=== PATIENT | female | born 1995 | race Caucasian/White ===

== ENCOUNTER 2022-12-03 13:52 | Emergency (ER) | payer MEDICAID, SELFPAY ==
[2022-12-03] VITALS (12 sets, daily range): BP systolic 133; BP diastolic 83; PULSE 53–76; RESP 14–22; TEMP 37.5; O2SAT 99
--- NOTE | 2022-12-03 14:52 | ECG_ITS ---
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
--- NOTE | 2022-12-03 14:53 | CT_ITS ---
The [address] [address] Patient Name: RHEA MICHEL MRN: [id number] date: 1995 Sex: F Assigned Patient Location: ER Current Patient Location: Accession/Order Number: [id number] Exam Date: 12/03/2022 15:20 Report Date: 12/03/2022 15:51 At the request of: CAITLIN MILLER Procedure: CT head/brain wo con EXAMINATION: CT head/brain wo con HISTORY: Headache, dizziness , fell downstairs COMPARISON: No relevant comparison available. TECHNIQUE: Axial CT images were obtained without IV contrast. Dose reduction techniques were achieved by using automated exposure control and/or adjustment of mA and/or kV according to patient size and/or use of iterative reconstruction technique. FINDINGS: BRAIN: No edema, hemorrhage, mass, acute infarction, or inappropriate atrophy. CSF SPACES: No hydrocephalus, subarachnoid hemorrhage, or mass. Appropriate for age. SKULL: No fracture, mass, or other significant visible lesion. SINUSES: Mild mucosal thickening within the sphenoid sinuses suggestive of chronic sinusitis. ORBITS: No appreciable abnormality on the limited views. OTHER: Negative CT/CT head/brain wo con IMPRESSION: 1. Normal CT appearance of the brain. 2. No fracture of the calvarium or scalp hematoma. 3. Mild chronic sinusitis. Electronically authenticated by: GRETEL HOOK Date: 12/03/2022 15:51
--- NOTE | 2022-12-03 14:55 | ED_ITS ---
HPI - Dizziness General Chief Complaint: Dizziness Stated Complaint: MIGRANE, DIZZINESS Time Seen by Provider: 12/03/22 14:42 Source: patient Mode of arrival: walk-in History of Present Illness HPI Narrative: patient is a 27-year-old female who presents to the emergency department for the evaluation of headache for the last two days with dizziness/lightheadedness over the last four days. Patient states today she felt off balance while walking and fell down several stairs although she had no injury. She reports global headache with blurred vision, no peripheral paresthesias. She denies neck pain, back pain, abdominal pain. After prompting, patient reports intermittent chest pain over the last week that she describes as a sharp pain that takes my breath away although she states the pains do not last and she has no chest pain, sh ortness of breath at this time. She has had no fevers, upper respiratory symptoms or coughing. She states occasionally she gets nasal drainage. No urinary symptoms. She has a Mirena in place. She has a history of pots and has had similar lightheadedness/dizziness in the past although she states she has been monitoring her salt and sugar intake and staying hydrated. Related Data Previous Rx's Medication Instructions Recorded cetirizine 5 mg-pseudoephedrine ER 1 tab PO BID #10 tabs 12/03/22 120 mg tablet,extended release,12hr (Zyrtec-D) diphenhydramine HCl 25 mg capsule 25 mg PO Q6H PRN headache #20 caps 12/03/22 (Benadryl) metoclopramide HCl 10 mg tablet 10 mg PO Q6H PRN nausea and 12/03/22 (Reglan) vomiting #12 tabs Allergies Allergy/AdvReac Type Severity Reaction Status Date / Time cefixime [From Suprax] Allergy Severe Verified 12/03/22 14:19 Review of Systems ROS Constitutional Denies: fever or chills Eyes Reports: blurry vision Ears, nose, mouth, and throat Denies: throat pain Cardiovascular Reports: chest pain Respiratory Denies: shortness of breath or cough Gastrointestinal Reports: nausea; Denies: abdominal pain or vomiting Musculoskeletal Denies: back pain or neck pain Integumentary/Breast Denies: rash Neurological Reports: headache and dizziness Exam Narrative Exam Narrative: Gen.: Awake, alert, in no distress Head: Normocephalic, atraumatic ENT: Moist mucous membranes, no evidence of head or facial injury, C-spine nontender. Bilateral tympanic membranes mildly fluid-filled/bulging without erythema or injection Respiratory: No respiratory distress, lungs clear bilaterally Cardio: Regular rate and rhythm Gastrointestinal: Abdomen is soft, nondistended and nontender to palpation Extremities: Moves extremities equally, no injuries noted Psych: Normal mood and affect Neuro: No focal neuro deficit Skin: Warm, dry, intact Constitutional Vital Signs, click to edit/add: Last Vital Signs Temp 99.5 F 12/03/22 14:19 Pulse 74 12/03/22 14:19 Resp 14 12/03/22 14:19 BP 133/83 H 12/03/22 14:19 Pulse Ox 99 12/03/22 14:19 O2 Del Method Room Air 12/03/22 14:19 Course Vital Signs Vital signs: Vital Signs Temperature 99.5 F 12/03/22 14:19 Pulse Rate 74 12/03/22 14:19 Respiratory Rate 14 12/03/22 14:19 Blood Pressure 133/83 H 12/03/22 14:19 Pulse Oximetry 99 12/03/22 14:19 Oxygen Delivery Method Room Air 12/03/22 14:19 Temperature 99.5 F 12/03/22 14:19 Pulse Rate 74 12/03/22 14:19 Respiratory Rate 14 12/03/22 14:19 Blood Pressure 133/83 H 12/03/22 14:19 Pulse Oximetry 99 12/03/22 14:19 Oxygen Delivery Method Room Air 12/03/22 14:19 MDM - Dizziness MDM Narrative Medical decision making narrative: patient is treated with IV fluids, Toradol, Decadron, Zofran. She had some improvement of the headache. After she was able to secure a ride to pick her up from the hospital, she was given additional Reglan and Benadryl and stated she felt much better. Patient will be given Zyrtec-D, Reglan and Benadryl for home.follow-up with PCP and return to the emergency department if symptoms change or worsen Medical Records Attestation: I reviewed the patient's medical records. Lab Data Attestation: I reviewed the patient's lab results. Labs: Lab Results 12/03/22 Range/Units 15:00 WBC 7.2 (4.0-11.0) 10^3/uL RBC 4.11 L (4.20-5.40) 10^6/uL Hgb 13.0 (12.0-16.0) g/dL Hct 37.3 (36.0-48.0) % MCV 90.8 (81.0-99.0) fL MCH 31.6 (26.7-34.0) pg MCHC 34.9 (29.9-35.2) g/dL RDW 11.9 (11.0-15.0) % Plt Count 260 (150-450) 10^3/uL MPV 10.4 (9.5-13.5) fL Neut % (Auto) 57.4 (43.0-75.0) % Lymph % (Auto) 32.7 (20.5-60.0) % [place] % (Auto) 7.0 (1.7-12.0) % Eos % (Auto) 2.2 (0.9-7.0) % Baso % (Auto) 0.4 (0.2-2.0) % Neut # (Auto) 4.1 (1.4-6.5) 10^3/uL Lymph # (Auto) 2.3 (1.2-3.8) 10^3/uL [place] # (Auto) 0.5 (0.3-0.8) 10^3/uL Eos # (Auto) 0.2 (0.0-0.7) 10^3/uL Baso # (Auto) 0.0 (0.0-0.1) 10^3/uL Abs Immat Gran (auto) 0.02 (0.00-0.03) 10^3/uL Imm/Tot Granulo (auto) 0.3 (0.0-0.5) % Sodium 142 (136-145) mmol/L Potassium 3.7 (3.5-5.1) mmol/L Chloride 106 (98-107) mmol/L Carbon Dioxide 29.1 (21.0-32.0) mmol/L Anion Gap 10.6 BUN 9.0 (7.0-18.0) mg/dL Creatinine 0.67 (0.55-1.02) mg/dL Est GFR ( Amer) >60 (>=60) Est GFR (Non-Af Amer) >60 (>=60) BUN/Creatinine Ratio 13.4 Glucose 81 (74-106) mg/dL Calcium 8.8 (8.5-10.1) mg/dL Total Bilirubin 0.3 (0.2-1.0) mg/dL AST 21 (15-37) U/L ALT 20 (14-59) U/L Alkaline Phosphatase 47 (46-116) U/L Total Protein 7.1 (6.4-8.2) g/dL Albumin 3.9 (3.4-5.0) g/dL Globulin 3.2 g/dL Albumin/Globulin Ratio 1.2 TSH 0.810 (0.358-3.740) uIU/mL Urine Color Lt. yellow (YELLOW) Urine Clarity Clear (CLEAR) Urine pH 6.0 (5.0-9.0) Ur Specific [place] 1.020 (1.005-1.025) Urine Protein Negative (NEG/TRACE) mg/dL Urine Glucose (UA) Negative (NEGATIVE) mg/dL Urine Ketones Negative (NEGATIVE) mg/dL Urine Occult Blood Trace-i (NEGATIVE) Urine Nitrite Negative (NEGATIVE) Urine Bilirubin Negative (NEGATIVE) Urine Urobilinogen 0.2 (0.2-1.0) EU/dL Ur Leukocyte Esterase Negative (NEGATIVE) Urine RBC 0-2 (0-2) #/HPF Urine WBC None seen (NONE SEEN) #/HPF Ur Squamous Epith Cells Few A (NONE/RARE) #/LPF Urine Crystals None seen (None Seen) #/HPF Urine Bacteria None seen (NONE SEEN) #/HPF Urine Casts None seen (NONE SEEN) #/LPF Urine Mucus None seen (NONE SEEN) Ur Culture Indicated? No Urine HCG, Qual Negative (NEGATIVE) Imaging Data CT scan - head: Attestation: I have reviewed the pertinent imaging results. Radiologist's impression: Procedure: CT head/brain wo con EXAMINATION: CT head/brain wo con HISTORY: Headache, dizziness , fell downstairs COMPARISON: No relevant comparison available. TECHNIQUE: Axial CT images were obtained without IV contrast. Dose reduction techniques were achieved by using automated exposure control and/or adjustment of mA and/or kV according to patient size and/or use of iterative reconstruction technique. FINDINGS: BRAIN: No edema, hemorrhage, mass, acute infarction, or inappropriate atrophy. CSF SPACES: No hydrocephalus, subarachnoid hemorrhage, or mass. Appropriate for age. SKULL: No fracture, mass, or other significant visible lesion. SINUSES: Mild mucosal thickening within the sphenoid sinuses suggestive of chronic sinusitis. ORBITS: No appreciable abnormality on the limited views. OTHER: Negative IMPRESSION: 1. Normal CT appearance of the brain. 2. No fracture of the calvarium or scalp hematoma. 3. Mild chronic sinusitis. Electronically authenticated by: GRETEL HOOK Date: 12/03/2022 15:51 ECG Data Attestation: I personally reviewed and interpreted this ECG as follows: (normal sinus rhythm at a rate of sixty-one, no acute ST elevation or ectopy. EKG reviewed by attending physician) Discharge Plan Discharge Chief Complaint: Dizziness Clinical Impression: Lightheadedness, Headache Patient Disposition: Home, Self-Care Time of Disposition Decision: 16:53 Condition: Good Prescriptions / Home Meds: New cetirizine-pseudoephedrine [Zyrtec-D] 5-120 mg tablet extended release 12 hr 1 tab PO BID Qty: 10 0RF metoclopramide HCl [Reglan] 10 mg tablet 10 mg PO Q6H PRN (Reason: nausea and vomiting) Qty: 12 0RF Rx Instructions: Can be used as needed for headache, take with benadryl diphenhydramine HCl [Benadryl] 25 mg capsule 25 mg PO Q6H PRN (Reason: headache) Qty: 20 0RF Rx Instructions: take with benadryl Instructions: General Headache (ED) Stand Alone Forms: Portal Instructions Referrals: Physician,Non-Staff, MD [Primary Care Provider] - 1 week
[2022-12-03] MEDS: DEXAMETHASONE SODIUM PHOSPHATE 10 MG/ML VIAL IV (15:14)
[2022-12-03] MEDS: 0.9 % SODIUM CHLORIDE 1,000 ML 999 ML IV (15:14)
[2022-12-03] MEDS: KETOROLAC TROMETHAMINE 30 MG/ML VIAL IVP (15:14)
[2022-12-03] MEDS: ONDANSETRON PF 4 MG/2 ML VIAL IV (15:14)
[2022-12-03 15:31] LABS: Basophils Percent Auto 0.4 % (0.2-2.0); Eosinophils Absolute Auto 0.2 10^3/uL (0.0-0.7); Eosinophils Percent Auto 2.2 % (0.9-7.0); Hematocrit 37.3 % (36.0-48.0); Immature Granulocytes Abs Auto 0.02 10^3/uL (0.00-0.03); Immature Granulocytes Pct Auto 0.3 % (0.0-0.5); Lymphocytes Absolute Auto 2.3 10^3/uL (1.2-3.8); Lymphocytes Percent Auto 32.7 % (20.5-60.0); Mean Corpuscular HGB Conc 34.9 g/dL (29.9-35.2); Mean Corpuscular Hemoglobin 31.6 pg (26.7-34.0); Mean Corpuscular Volume 90.8 fL (81.0-99.0); Mean Platelet Volume 10.4 fL (9.5-13.5); Monocytes Absolute Auto 0.5 10^3/uL (0.3-0.8); Neutrophils Absolute Auto 4.1 10^3/uL (1.4-6.5); Neutrophils Percent Auto 57.4 % (43.0-75.0); Platelet Count 260 10^3/uL (150-450); Red Blood Count 4.11 10^6/uL (4.20-5.40); Red Cell Distribution Width 11.9 % (11.0-15.0); White Blood Count 7.2 10^3/uL (4.0-11.0)
[2022-12-03 15:32] LABS: Bilirubin Urine NEGATIVE (NEGATIVE); Blood Urine TRACE-I (NEGATIVE); Clarity Urine CLEAR (CLEAR); Color Urine LT. YELLOW (YELLOW); Glucose Urine UA NEGATIVE (NEGATIVE); Ketones Urine NEGATIVE (NEGATIVE); Leukocyte Esterase Urine NEGATIVE (NEGATIVE); Nitrite Urine NEGATIVE (NEGATIVE); Protein Urine NEGATIVE (NEG/TRACE); Urobilinogen Urine 0.2 EU/dL (0.2-1.0)
[2022-12-03 15:33] LABS: Urine Microscopic Indicated YES
[2022-12-03 15:40] LABS: HCG Qualitative NEGATIVE (NEGATIVE); RBC Urine 0-2 #/HPF (0-2); WBC Urine NONE SEEN #/HPF (NONE SEEN)
[2022-12-03 15:41] LABS: Bacteria Urine NONE SEEN #/HPF (NONE SEEN); Cast Seen? NONE SEEN #/LPF (NONE SEEN); Crystals Seen? None Seen #/HPF (None Seen); Mucus Urine NONE SEEN (NONE SEEN); Squamous Epithelial Cell Urine FEW #/LPF (NONE/RARE)
[2022-12-03 15:42] LABS: Urine Culture Indicated NO
[2022-12-03 15:54] LABS: Alanine Aminotransferase 20 U/L (14-59); Albumin Globulin Ratio 1.2; Albumin Level 3.9 g/dL (3.4-5.0); Alkaline Phosphatase 47 U/L (46-116); Anion Gap 10.6; Aspartate Amino Transferase 21 U/L (15-37); BUN Creatinine Ratio 13.4; Bilirubin Total 0.3 mg/dL (0.2-1.0); Calcium 8.8 mg/dL (8.5-10.1); Carbon Dioxide 29.1 mmol/L (21.0-32.0); Chloride 106 mmol/L (98-107); Estimated GFR (African America >60 (>=60); Estimated GFR (Non-African Ame >60 (>=60); Globulin 3.2 g/dL; Glucose 81 mg/dL (74-106); Potassium 3.7 mmol/L (3.5-5.1); Sodium 142 mmol/L (136-145); Total Protein 7.1 g/dL (6.4-8.2)
[2022-12-03] MEDS: METOCLOPRAMIDE HCL 10 MG/2 ML VIAL IVP (16:24)
[2022-12-03] MEDS: DIPHENHYDRAMINE HCL 50 MG/ML (1ML) VIAL 25 MG IV (16:24)
== END 2022-12-03 17:11 | disposition home or self-care (01) ==
PROVIDERS: Physician Assistant; Emergency Provider Emergency Medicine
DX: R51.9 Headache, unspecified (principal); R42 Dizziness and giddiness; G90.A Postural orthostatic tachycardia syndrome [POTS]; Z97.5 Presence of (intrauterine) contraceptive device; Z79.899 Other long term (current) drug therapy
CPT/HCPCS: 36415; 70450; 80053; 81003; 81015; 84443; 84703; 85025; 93005; 96361; 96374; 96375; 99285; J1100

== ENCOUNTER 2023-02-02 14:02 | Emergency (ER) | payer MEDICAID, SELFPAY ==
[2023-02-02 14:07] VITALS: BP 137/75; PULSE 93; RESP 20; TEMP 36.6; O2SAT 97; BMI 29.5
[2023-02-02 14:28] LABS: Bilirubin Urine NEGATIVE (NEGATIVE); Blood Urine MODERATE (NEGATIVE); Clarity Urine CLEAR (CLEAR); Color Urine LT. YELLOW (YELLOW); Glucose Urine UA NEGATIVE (NEGATIVE); Ketones Urine NEGATIVE (NEGATIVE); Leukocyte Esterase Urine NEGATIVE (NEGATIVE); Nitrite Urine NEGATIVE (NEGATIVE); Protein Urine NEGATIVE (NEG/TRACE); Specific Gravity Urine 1.025 (1.005-1.025); Urobilinogen Urine 0.2 EU/dL (0.2-1.0)
[2023-02-02 14:30] LABS: Urine Microscopic Indicated YES
[2023-02-02 14:33] LABS: HCG Qualitative Urine* NEGATIVE (NEGATIVE)
[2023-02-02 14:40] LABS: Bacteria Urine TRACE #/HPF (NONE SEEN); Mucus Urine NONE SEEN (NONE SEEN); Squamous Epithelial Cell Urine MODERATE #/LPF (NONE/RARE); WBC Urine NONE SEEN #/HPF (NONE SEEN)
[2023-02-02 14:41] LABS: Cast Seen? NONE SEEN #/LPF (NONE SEEN); Crystals Seen? None Seen #/HPF (None Seen); Urine Culture Indicated NO
--- NOTE | 2023-02-02 15:08 | US_ITS ---
The [address] [address] Patient Name: RHEA MICHEL MRN: [id number] date: 1995 Sex: F Assigned Patient Location: ER Current Patient Location: ER Accession/Order Number: [id number] Exam Date: 02/02/2023 15:43 Report Date: 02/02/2023 16:47 At the request of: KIAN MATT Procedure: US pelvis transvaginal EXAM: US pelvis transvaginal HISTORY: left lower quadrant pain COMPARISON: CT chest abdomen pelvis from the same day. TECHNIQUE: Transvaginal and transabdominal imaging was performed utilizing grayscale, color Doppler, and spectral imaging. LMP: Unknown. : 2 Para: 2 FINDINGS: Uterine volume: 8.5 x 4.3 x 5.4 cm = 103 mL. Uterus description: Homogeneous echotexture. There is a 0.6 cm echogenic structure in the posterior left uterine wall, may represent intramural leiomyoma/lipoleiomyoma. Intrauterine device is in place. Endometrial thickness: 3 mm. (Normal premenopausal thickness is less than 15 mm. Normal postmenopausal thickness is less than 5 mm) Endometrial description: No abnormality demonstrated. Right ovary: Measurements: 3.4 x 2.6 x 3 cm = 13.9 mL. Description: Unremarkable appearance of the ovary, containing a 2 x 1.9 x 2.3 cm anechoic structure, representing prominent follicle. Vasculature: Normal color waveform. Left ovary: Measurements: 2.9 x 1.4 x 1.9 cm = 4 mL. Description: Unremarkable appearance of the ovary without suspicious lesion. Vasculature: Normal color waveform. Adnexa: Unremarkable. Cul-de-sac: No free fluid. Additional findings: Dilated vessels are noted in the left greater than right adnexa, nonspecific and may represent pelvic congestion. US/US pelvis transvaginal IMPRESSION: No evidence of ovarian torsion at the time of examination. Prominent right ovarian follicle. Dilated vessels are noted in the left greater than right adnexa, nonspecific and may represent pelvic congestion. Electronically authenticated by: BENITO JOHN Date: 02/02/2023 16:47
--- NOTE | 2023-02-02 15:09 | CT_ITS ---
[address] [address] Patient Name: RHEA MICHEL MRN: [id number] date: 1995 Sex: F Assigned Patient Location: ER Current Patient Location: ER Accession/Order Number: [id number] Exam Date: 02/02/2023 16:14 Report Date: 02/02/2023 16:41 At the request of: KIAN MATT Procedure: CT abdomen pelvis wo con EXAM: CT abdomen pelvis wo con HISTORY: LLQ pain COMPARISON: 05/31/2022 TECHNIQUE: Axial CT imaging was performed through the abdomen and pelvis without intravenous contrast. Multiplanar reformats were performed. Dose reduction techniques were achieved by using automated exposure control and/or adjustment of mA and/or kV according to patient size and/or use of iterative reconstruction technique. FINDINGS: Lung bases: Lung bases are clear. No pleural effusion. GI upper: Unremarkable. Liver: Normal size and contour. Gallbladder: No significant abnormality. No cholelithiasis. Biliary system: No intra or extrahepatic biliary ductal dilatation. Spleen: Normal size. Pancreas: Unremarkable. Adrenal glands: Normal adrenal glands. Kidneys/ureters: Normal contours. No hydronephrosis. No nephrolithiasis or ureterolithiasis. Vessels: No aneurysm. Lymph Nodes: Prominent mesenteric lymph nodes in the mid and right lower abdomen, nonspecific and likely reactive. Small bowel: No wall thickening or dilatation. Colon: No wall thickening or dilatation. Appendix: Appendectomy. Peritoneal cavity: No free fluid or pneumoperitoneum. Lower : Uterus and ovaries are unremarkable. There is a 2.3 cm right ovary prominent follicle. Intrauterine devices is in place. Bones: No acute bony abnormality. Soft tissues: No acute finding. Additional findings: None. CT/CT abdomen pelvis wo con IMPRESSION: Prominent mesenteric lymph nodes in the mid and right lower abdomen, nonspecific and likely reactive. Otherwise no acute finding. Electronically authenticated by: BENITO JONH Date: 02/02/2023 16:41
[2023-02-02] MEDS: KETOROLAC TROMETHAMINE 30 MG/ML VIAL 15 MG IVP (15:31)
[2023-02-02] MEDS: FAMOTIDINE/PF 20 MG/2 ML VIAL IV (15:31)
[2023-02-02 15:41] VITALS: BP 124/89; PULSE 58; RESP 18; O2SAT 98
[2023-02-02 15:46] LABS: Basophils Percent Auto 0.3 % (0.2-2.0); Eosinophils Absolute Auto 0.1 10^3/uL (0.0-0.7); Eosinophils Percent Auto 1.1 % (0.9-7.0); Hematocrit 36.2 % (36.0-48.0); Hemoglobin 12.7 g/dL (12.0-16.0); Immature Granulocytes Abs Auto 0.02 10^3/uL (0.00-0.03); Immature Granulocytes Pct Auto 0.2 % (0.0-0.5); Lymphocytes Absolute Auto 2.5 10^3/uL (1.2-3.8); Lymphocytes Percent Auto 26.9 % (20.5-60.0); Mean Corpuscular HGB Conc 35.1 g/dL (29.9-35.2); Mean Corpuscular Hemoglobin 31.4 pg (26.7-34.0); Mean Corpuscular Volume 89.4 fL (81.0-99.0); Mean Platelet Volume 10.1 fL (9.5-13.5); Monocytes Absolute Auto 0.8 10^3/uL (0.3-0.8); Monocytes Percent Auto 8.5 % (1.7-12.0); Neutrophils Absolute Auto 5.8 10^3/uL (1.4-6.5); Platelet Count 271 10^3/uL (150-450); Red Blood Count 4.05 10^6/uL (4.20-5.40); Red Cell Distribution Width 11.8 % (11.0-15.0); White Blood Count 9.2 10^3/uL (4.0-11.0)
[2023-02-02 16:06] LABS: Alanine Aminotransferase <6 U/L (14-59); Albumin Globulin Ratio 1.3; Albumin Level 4.1 g/dL (3.4-5.0); Alkaline Phosphatase 47 U/L (46-116); Anion Gap 10.6; Aspartate Amino Transferase 15 U/L (15-37); BUN Creatinine Ratio 12.8; Bilirubin Total 0.5 mg/dL (0.2-1.0); Calcium 8.9 mg/dL (8.5-10.1); Carbon Dioxide 30.1 mmol/L (21.0-32.0); Chloride 106 mmol/L (98-107); Estimated GFR (African America >60 (>=60); Estimated GFR (Non-African Ame >60 (>=60); Globulin 3.1 g/dL; Glucose 80 mg/dL (74-106); Potassium 3.7 mmol/L (3.5-5.1); Sodium 143 mmol/L (136-145); Total Protein 7.2 g/dL (6.4-8.2)
[2023-02-02 16:53] LABS: HCG Qualitative NEGATIVE (NEGATIVE)
[2023-02-02 17:07] VITALS: BP 110/79; PULSE 80; RESP 16; O2SAT 98
--- NOTE | 2023-02-02 18:44 | ED.ABDPAIN1 ---
HPI - Abdominal Pain General Chief Complaint: Abdominal Pain Stated Complaint: LEFT SIDE PAIN Time Seen by Provider: 02/02/23 14:43 Source: patient Mode of arrival: walk-in Limitations: no limitations History of Present Illness HPI narrative: The patient is complaining of left lower quadrant pain associated with blood in urine last time she had her menstruation, she does not usually have regular menstruation The patient denying any nausea or vomiting she also denies any vaginal discharge or any concern for any infection The pain is left lower radiating to the back associated with no burning with urination Related Data Previous Rx's Medication Instructions Recorded cetirizine 5 mg-pseudoephedrine ER 1 tab PO BID #10 tabs 12/03/22 120 mg tablet,extended release,12hr (Zyrtec-D) diphenhydramine HCl 25 mg capsule 25 mg PO Q6H PRN headache #20 caps 12/03/22 (Benadryl) metoclopramide HCl 10 mg tablet 10 mg PO Q6H PRN nausea and 12/03/22 (Reglan) vomiting #12 tabs Allergies Allergy/AdvReac Type Severity Reaction Status Date / Time cefixime [From Suprax] Allergy Severe Verified 12/03/22 14:19 Review of Systems ROS Status of ROS 10 or more systems reviewed and unremarkable except as noted in history and below PFSH PFSH Social History Smoking status: Heavy tobacco smoker Exam Narrative Exam Narrative: Nurses notes and vital signs reviewed and patient is not hypoxic. General: Well-appearing and in no apparent distress. Skin: Warm, dry, no pallor noted. No rash. Head: Normocephalic, atraumatic. Neck: Supple, non-tender. Eye: Pupils are equal, round and EOMI. No scleral icterus. Ears, Nose, Mouth, and Throat: TM are clear, no nasal mucosal hypertrophy. Oral mucosa is moist, no posterior oropharynx erythema, uvula is mid-line Cardiovascular: Regular Rate and Rhythm without murmur, gallop or rub. Respiratory: No accessory muscle use or respiratory distress. Lungs are clear to auscultation, no wheezing, rales or rhonchi Chest Wall: no tenderness Back: No midline thoracic or lumbar vertebral tenderness. No CVA tenderness Musculoskeletal: normal ROM, no calf or popliteal tenderness, no lower extremity edema/swelling GI: Abdomen is soft, non-distended. Normal bowel sounds. Left lower quadrant tenderness Neurological: A&O x4. No cranial nerve dysfunction observed. No truncal ataxia. Moves all extremities. Sensation intact. Psychiatric: Cooperative and interactive. Normal mood and affect. Constitutional Vital Signs, click to edit/add: Last Vital Signs Temp 97.9 F 02/02/23 14:07 Pulse 80 02/02/23 17:07 Resp 16 02/02/23 17:07 BP 110/79 02/02/23 17:07 Pulse Ox 98 02/02/23 17:07 O2 Del Method Room Air 02/02/23 17:07 Course Vital Signs Vital signs: Vital Signs Temperature 97.9 F 02/02/23 14:07 Pulse Rate 93 H 02/02/23 14:07 Respiratory Rate 20 02/02/23 14:07 Blood Pressure 137/75 02/02/23 14:07 Pulse Oximetry 97 02/02/23 14:07 Temperature 97.9 F 02/02/23 14:07 Pulse Rate 80 02/02/23 17:07 Respiratory Rate 16 02/02/23 17:07 Blood Pressure 110/79 02/02/23 17:07 Pulse Oximetry 98 02/02/23 17:07 Oxygen Delivery Method Room Air 02/02/23 17:07 MDM - Abdominal Pain MDM Narrative Medical decision making narrative: The patient CBC and chemistry showed no acute significant pathology urinalysis showed no UTI and the patient test is negative CT of the abdomen shows the patient having multiple nonspecific lymph nodes in the right side as well as history of appendectomy and the patient left lower quadrant ultrasound showed that she have no ovarian cyst but she does have pelvic congestion The patient was feeling much better after initial treatment with Toradol discharged home with supportive care with NSAIDs The patient is to follow up with primary care physician in next 2-3 days or to return to the emergency department should any of the signs or symptoms worsen or new symptoms develop. The patient agrees with the following Diagnosis and Treatment plan and the patient will be discharged home. Lab Data Labs: Lab Results 02/02/23 02/02/23 02/02/23 Range/Units 14:16 14:23 15:37 WBC 9.2 (4.0-11.0) 10^3/uL RBC 4.05 L (4.20-5.40) 10^6/uL Hgb 12.7 (12.0-16.0) g/dL Hct 36.2 (36.0-48.0) % MCV 89.4 (81.0-99.0) fL MCH 31.4 (26.7-34.0) pg MCHC 35.1 (29.9-35.2) g/dL RDW 11.8 (11.0-15.0) % Plt Count 271 (150-450) 10^3/uL MPV 10.1 (9.5-13.5) fL Neut % (Auto) 63.0 (43.0-75.0) % Lymph % (Auto) 26.9 (20.5-60.0) % [place] % (Auto) 8.5 (1.7-12.0) % Eos % (Auto) 1.1 (0.9-7.0) % Baso % (Auto) 0.3 (0.2-2.0) % Neut # (Auto) 5.8 (1.4-6.5) 10^3/uL Lymph # (Auto) 2.5 (1.2-3.8) 10^3/uL [place] # (Auto) 0.8 (0.3-0.8) 10^3/uL Eos # (Auto) 0.1 (0.0-0.7) 10^3/uL Baso # (Auto) 0.0 (0.0-0.1) 10^3/uL Abs Immat Gran (auto) 0.02 (0.00-0.03) 10^3/uL Imm/Tot Granulo (auto) 0.2 (0.0-0.5) % Sodium 143 (136-145) mmol/L Potassium 3.7 (3.5-5.1) mmol/L Chloride 106 (98-107) mmol/L Carbon Dioxide 30.1 (21.0-32.0) mmol/L Anion Gap 10.6 BUN 11.0 (7.0-18.0) mg/dL Creatinine 0.86 (0.55-1.02) mg/dL Est GFR ( Amer) >60 (>=60) Est GFR (Non-Af Amer) >60 (>=60) BUN/Creatinine Ratio 12.8 Glucose 80 (74-106) mg/dL Calcium 8.9 (8.5-10.1) mg/dL Total Bilirubin 0.5 (0.2-1.0) mg/dL AST 15 (15-37) U/L ALT <6 L (14-59) U/L Alkaline Phosphatase 47 (46-116) U/L Total Protein 7.2 (6.4-8.2) g/dL Albumin 4.1 (3.4-5.0) g/dL Globulin 3.1 g/dL Albumin/Globulin Ratio 1.3 Serum HCG, Qual Negative (NEGATIVE) Urine Color Lt. yellow (YELLOW) Urine Clarity Clear (CLEAR) Urine pH 6.0 (5.0-9.0) Ur Specific [place] 1.025 (1.005-1.025) Urine Protein Negative (NEG/TRACE) mg/dL Urine Glucose (UA) Negative (NEGATIVE) mg/dL Urine Ketones Negative (NEGATIVE) mg/dL Urine Occult Blood Moderate A (NEGATIVE) Urine Nitrite Negative (NEGATIVE) Urine Bilirubin Negative (NEGATIVE) Urine Urobilinogen 0.2 (0.2-1.0) EU/dL Ur Leukocyte Esterase Negative (NEGATIVE) Urine RBC 2-5 A (0-2) #/HPF Urine WBC None seen (NONE SEEN) #/HPF Ur Squamous Epith Cells Moderate A (NONE/RARE) #/LPF Urine Crystals None seen (None Seen) #/HPF Urine Bacteria Trace A (NONE SEEN) #/HPF Urine Casts None seen (NONE SEEN) #/LPF Urine Mucus None seen (NONE SEEN) Ur Culture Indicated? No Urine HCG, Qual Negative (NEGATIVE) Discharge Plan Discharge Chief Complaint: Abdominal Pain Clinical Impression: Pelvic pain Patient Disposition: Home, Self-Care Time of Disposition Decision: 16:56 Condition: Good Mode of Transportation: Private Vehicle Prescriptions / Home Meds: No Action cetirizine-pseudoephedrine [Zyrtec-D] 5-120 mg tablet extended release 12 hr 1 tab PO BID Qty: 10 0RF metoclopramide HCl [Reglan] 10 mg tablet 10 mg PO Q6H PRN (Reason: nausea and vomiting) Qty: 12 0RF Rx Instructions: Can be used as needed for headache, take with benadryl diphenhydramine HCl [Benadryl] 25 mg capsule 25 mg PO Q6H PRN (Reason: headache) Qty: 20 0RF Rx Instructions: take with benadryl Instructions: Pelvic Pain (ED) Stand Alone Forms: Portal Instructions Referrals: Physician,Non-Staff, MD [Primary Care Provider] - 1 week Discharge Date/Time: 02/02/23 17:08
== END 2023-02-02 17:08 | disposition home or self-care (01) ==
PROVIDERS: Emergency Provider Emergency Medicine
DX: R10.2 Pelvic and perineal pain (principal); F17.210 Nicotine dependence, cigarettes, uncomplicated
CPT/HCPCS: 36415; 74176; 76830; 80053; 81001; 84703; 85025; 96374; 96375; 99285

== ENCOUNTER 2023-08-06 22:34 | Emergency (ER) | payer SELFPAY ==
[2023-08-06 22:46] VITALS: BP 130/100; PULSE 85; RESP 18; TEMP 36.8; O2SAT 98; BMI 30.2
[2023-08-06] MEDS: METOCLOPRAMIDE HCL 10 MG/2 ML VIAL IVP (23:04)
--- NOTE | 2023-08-06 23:09 | ED.GENADUL1 ---
HPI - General Adult General Chief complaint: Headache Stated complaint: HEADACHE Time Seen by Provider: 08/06/23 23:05 Source: patient Mode of arrival: walk-in Limitations: no limitations History of Present Illness HPI narrative: presents complaining of migraine headache. WYLIE on and off for a couple of years. last headache a few months ago. Started around 5pm tonight and not resolving with home treatments Related Data Previous Rx's Medication Instructions Recorded cetirizine 5 mg-pseudoephedrine ER 1 tab PO BID #10 tabs 12/03/22 120 mg tablet,extended release,12hr (Zyrtec-D) diphenhydramine HCl 25 mg capsule 25 mg PO Q6H PRN headache #20 caps 12/03/22 (Benadryl) metoclopramide HCl 10 mg tablet 10 mg PO Q6H PRN nausea and 12/03/22 (Reglan) vomiting #12 tabs Allergies Allergy/AdvReac Type Severity Reaction Status Date / Time cefixime [From Suprax] Allergy Severe Verified 08/06/23 22:50 PFSH PFSH Social History Smoking status: Current every day smoker Exam Constitutional Vital Signs, click to edit/add: Last Vital Signs Temp 98.2 F 08/06/23 22:46 Pulse 85 08/06/23 22:46 Resp 18 08/06/23 22:46 BP 130/100 H 08/06/23 22:46 Pulse Ox 98 08/06/23 22:46 O2 Del Method Room Air 08/06/23 22:46 Course Vital Signs Vital signs: Vital Signs Temperature 98.2 F 08/06/23 22:46 Pulse Rate 85 08/06/23 22:46 Respiratory Rate 18 08/06/23 22:46 Blood Pressure 130/100 H 08/06/23 22:46 Pulse Oximetry 98 08/06/23 22:46 Oxygen Delivery Method Room Air 08/06/23 22:46 Temperature 98.2 F 08/06/23 22:46 Pulse Rate 85 08/06/23 22:46 Respiratory Rate 18 08/06/23 22:46 Blood Pressure 130/100 H 08/06/23 22:46 Pulse Oximetry 98 08/06/23 22:46 Oxygen Delivery Method Room Air 08/06/23 22:46 Medical Decision Making MDM Narrative Medical decision making narrative: presents with migraine headache. Treated in the department and is feeling better. Feels she can go home. discharged home in the care of her mother who is in agreement with discharge Discharge Plan Discharge Stand Alone Forms: Portal Instructions Chief Complaint: Headache Clinical Impression: Migraine Patient Disposition: Home, Self-Care Prescriptions / Home Meds: No Action cetirizine-pseudoephedrine [Zyrtec-D] 5-120 mg tablet extended release 12 hr 1 tab PO BID Qty: 10 0RF metoclopramide HCl [Reglan] 10 mg tablet 10 mg PO Q6H PRN (Reason: nausea and vomiting) Qty: 12 0RF Rx Instructions: Can be used as needed for headache, take with benadryl diphenhydramine HCl [Benadryl] 25 mg capsule 25 mg PO Q6H PRN (Reason: headache) Qty: 20 0RF Rx Instructions: take with benadryl Instructions: Migraine Headache (ED) Additional Instructions: follow up with your doctor in the next couple of days for recheck Referrals: Physician,Non-Staff, MD [Primary Care Provider] - 1 week
[2023-08-06] MEDS: METHYLPREDNISOLONE SOD SUCC PF 125 MG/2 ML VIAL IVP (23:24)
[2023-08-06] MEDS: DIPHENHYDRAMINE HCL 50 MG/ML (1ML) VIAL IV (23:24)
[2023-08-07 00:04] VITALS: BP 114/62; PULSE 70; RESP 16; O2SAT 99
== END 2023-08-07 00:04 | disposition home or self-care (01) ==
PROVIDERS: Emergency Provider Internal Medicine
DX: G43.909 Migraine, unspecified, not intractable, without status migrainosus (principal); F17.210 Nicotine dependence, cigarettes, uncomplicated
CPT/HCPCS: 96374; 96375; 99284; J2930

== ENCOUNTER 2023-09-05 08:25 | Emergency (ER) | payer SELFPAY ==
[2023-09-05 08:38] VITALS: BP 147/94; PULSE 101; TEMP 36.8; O2SAT 100; BMI 31.2
[2023-09-05 09:04] LABS: Internal Control Within Normal Limits; Strep A Antigen Screen Positive
--- OUTSIDE RECORDS SUMMARY | 2023-09-05 09:17 | XMS_ITS | CCD ---
Author Organization [facility] Care Team Providers Care Director Of Graduate Medical Education Name Role Phone Maricarmen Avila Unavailable Rona Terry Unavailable AMMON ., DR MORSE Attending Unavailable AMMON ., DR MORSE Consulting Unavailable AMMON ., DR MORSE Admitting Unavailable MISC, DR CHENEY Primary Care Unavailable VANCE ., IRA[place] Admitting Unavailable MONSTER, DR GRETEL Borrego Consulting Unavailable VANCE Angelo, [place] Attending Unavailable MISC, DR CHENEY Primary Care Unavailable VANCE Angelo, IRAIDA Consulting Unavailable VERNELL .KIAN Admitting Unavailable TRICE GALLOWAY Consulting Unavailabl e MISC, DR CHENEY Primary Care Unavailable KIAN QUINTANA Attending Unavailable EMMA BABB Consulting Unavailable VERNELL .KIAN Consulting Unavailable Aure Moss Unavailable Mac Bhatt Attending Unavailable Mac Bhatt Attending Unavailable Allergies Allergy Classification Reported Allergen(s) Allergy Type Date of Onset Reaction(s) Facility (4 sources) Cefixime Drug Allergy [employer] Other (2 sources) Dextrothyroxine; Translations: [Suprax] Drug Allergy 05-27-1997 [facility] Repository Medications Current Medications Medication Drug Class(es) Dates Sig (Normalized) Sig (Original) dextromethorphan hydrobromide 15 mg / guaiFENesin 400 mg / pseudoephedrine hydrochloride 60 mg oral tablet (2 sources) alpha-Adrenergic Agonist, Uncompetitive J-mywyes-Z-aspartat e Receptor Antagonist, Sigma-1 Agonist Start: 08-13-2023 take 4 tablets by mouth every twenty-four hours Pseudoephedrine -Dm-Guaifenesin (Capmist Dm) 60-15-400 mg tablet Active 1 TAB PO EVERY 4-6 HOURS August 13, 2023 12:00am do not exceed 4 doses per 24 hrs Start: 10-04-2022 take 4 tablets by mo [facility] every twenty-four hours as needed Capmist DM 60-15-400 MG as needed Orally every 4-6 hours as needed, max 4 tablets in 24 hours for 5 days September, Active fluticasone propionate 0.05 mg/actuat metered dose nasal spray (1 source) Corticosteroid Start: 03-18-2023 take 1 spray(s) nasal route once daily Fluticasone Propionate 50 MCG/ACT 1 spray in each nostril Nasally Once a day for 14 day(s) Feb, Active ondansetron 8 mg oral tablet (2 sources) Serotonin-3 Receptor Antagonist Start: 08-13-2023 take 8 mg by mouth every eight hours Ondansetron Hcl Active 8 MG PO Q8H 14 12August 13, 2023 12:00am Start: 10-04-2022 take 1 tablet by [facility] every eight hours Ondansetron 4 MG 1 tablet on the tongue and allow to dissolve Orally every 8 hours for 5 days September, Active predniSONE 20 mg oral tablet (1 source) Start: 10-04-2022 take 1 tablet by [facility] every twelve hours prednisone 20 MG 1 tablet Orally BID for 5 days September, Active ProAir HFA 108 (90 Base) MCG/ACT (1 source) Start: 03-18-2023 take 1 puff(s) by inhalation every four hours as needed ProAir HFA 108 (90 Base) MCG/ACT 1 puff as needed Inhalation every 4 hrs for 30 days Feb, Active Completed/Discontinued Medications Medication Drug Class(es) Dates Sig (Normalized) Sig (Original) [id number] 200 actuat albuterol 0.09 mg/actuat metered dose inhaler (2 sources) beta2-Adrenergic Agonist Start: 2 take 2 puff(s) by inhalation every four hours as needed Albuterol Sulfate HFA 108 (90 Base) MCG/ACT 2 puffs as needed Inhalation every 4 hrs Jan, Not-Taking azithromycin 250 mg oral tablet (2 sources) Macrolide Antimicrobial Start: 2 Azithromycin 250 MG 2 tablets on the first day, then 1 tablet daily for 4 days Orally Once a day for 5 day(s) Jan, Not-Taking methylPREDNISolone 4 mg oral tablet (2 sources) Corticosteroid Start: 2 methylPREDNISolone 4 MG as directed Orally Once a day for 6 days Jan, Not-Taking Problems Active Problems Problem Classification Problem Date Documented Da te Episodic/Chronic Abdominal pain (5 sources) Abdominal pain; Translations: [Unspecified abdominal pain] Onset: 06-04-2022 Episodic Cardiac dysrhythmias (1 source) Other specified cardiac arrhythmias; Translations: [OTHER SPECIFIED CARDIAC ARRHYTHMIAS] Onset: 12-11-2021 Chronic Nausea and vomiting (12 sources) Nausea; Translations: [Nausea] Onset: 12-10-2021 Episodic Other gastrointestinal disorders (4 sources) Constipation; Translations: [Constipation, unspecified] Episodic Other nutritional; endocrine; and metabolic disorders (4 sources) Body mass index 30+ - obesity; Translations: [Body mass index (BMI) 32.0-32.9, adult] Chronic Other upper respiratory disease (1 source) Nasal congestion; Translations: [NASAL CONGESTION] Onset: 07-20-2022 Episodic Other upper respiratory infections (4 sources) Acute pharyngitis, unspecified; Translations: [Acute upper respiratory infection, unspecified] Onset: 02-13-2022 Resolved: 02-13-2022 Episodic Ovarian cyst (1 source) Unspecified ovarian cyst, right side; Translations: [UNSPECIFIED OVARIAN CYST RIGHT SIDE] Onset: 06-04-2022 Episodic Substance-related disorders (4 sources) Nicotine dependence, cigarettes, uncomplicated; Translations: [Smoker] Onset: 06-04-2022 Chronic Unclassified (1 source) CONTACT W/AND (SUSP) EXPOS COVID-19; Translations: [CONTACT W/AND (SUSP) EXPOS COVID-19] Onset: 07-20-2022 Unclassified (3 sources) COUGH, UNSPECIFIED; Translations: [COUGH, UNSPECIFIED] Onset: 07-20-2022 Unclassified (1 source) POSTURAL ORTHOSTATIC TACHY SYN POTS; Translations: [POSTURAL ORTHOSTATIC TACHY SYN POTS] Onset: 06-04-2022 Viral infection (2 sources) Viral infection, unspecified; Translations: [VIRAL INFECTION UNSPECIFIED] Onset: 06-04-2022 Episodic Past or Other Problems Problem Classification Problem Date Documented Da te Episodic/Chronic Administrative/social admission (1 source) Encounter for pre-employment examination Onset: 12-21-2021 Resolved: 12-21-2021 Episodic Chronic obstructive pulmonary disease and bronchiectasis (1 source) Bronchitis, not specified as acute or chronic Onset: 02-13-2022 Resolved: 02-13-2022 Episodic Unclassified (2 sources) Contact with and (suspected) exposure to covid-19 Z20.822 Onset: 02-13-2022 Resolved: 02-13-2022 Unclassified (1 source) COUGH, UNSPECIFIED; Translations: [COUGH, UNSPECIFIED] Onset: 07-18-2022 Results Test Name Value Interpretation Reference Range Facility ED Note-Physicianon 08-15-19 ED Note-Physician [id number] [facility] Interdisciplinary Note - Soc ial Workeron 08-15-2023 Interdisciplinary Note - Practice Or Student Teacher This SW made a tc to patient today to discuss her positive depression screen. Patient did not answer so a message was left with SW's contact information. SW will remain available. [facility] Ambulatory Visit Summaryon 0 08-13-2023 Ambulatory Visit Summary CHASITY MICHEL :1995 Visit Date:08/13/2023 Ambulatory Visit Instructions Your Diagnosis BMI 30.0-30.9,adult Your Care Team Attending Physician - Mac Bhatt MD Primary Care Physician - Mac Bhatt MD Procedures Performed Appendectomy, Tonsillectomy. Discharge Vitals Heart Rate (Peripheral) 64 Blood Pressure 122/60 Height 154.5 cm Height 61 in Weight 72.6 kg Weight 159.72 lb BMI 30.41 What to do next Scheduled Follow-Up Appointments Saturday 2:00 PM EDT With: Mac Bhatt MD Where: [facility] Family Medicine Julio [facility] Family Medicine Office/Clini c Noteon 08-13-2023 Family Medicine Office/Clinic Note Chief Complaint establish care HPI Staff Chasity is a 27 year old female presenting to [facility] would like a general check up Establish Care: History: Any previous diagnosis: migraine, POTS History of seeing any specialist: no When was your last doctors visit: 2016 Last provider: Bryon Any recent labs: ED in [place] Has POTS and is feeling lightheaded and brain fog. These are symptoms that she has had in the past. Was last seen in 2019 Dr. Meléndez in [facility] UTD: Pelvic/Pap: UTD flu: refused Acute: Current issues/complaints: Was in [place] ED last week for a migraine. Patient is feeling better today PHQ 11 History of Present Illness - Here to establish care. - Hx of Pots. Still has symptoms. - Hx of WYLIE. Recently in the ER with them. - No other issues. - Sees Fede for OB. Review of Systems PHQ Score Initial Depression Screen Score: 6 SCORE Detailed Depression Screen Score: 11 Total Depression Screen Score: 17 Physical Exam Vitals & Measurements HR: 64(Peripheral) BP: 122/60 SpO2: 99% HT: 61 in HT: 154.5 cm WT: 72.6 kg WT: 159.72 lb BMI: 30.41 General: alert, no acute distress ENMT: oral mucosa moist, Cardiovascular: regular rate and rhythm, normal peripheral perfusion Respiratory: Lungs CTA, respirations non labored Extremities: no deformity, no trauma Neurological: oriented x 4, LOC appropriate for age, CN II-XII intact, motor strength equal & normal bilaterally, speech normal Abdomen: Soft, Nontender, Non-distended, + BS Assessment/Plan 1. Tension headache (G44.209: Tension-type headache, unspecified, not intractable) - Will use Flexiril to help. - Naproxen at first sign. Ordered: cyclobenzaprine, 5 mg = 1 tab(s), Oral, Daily, PRN Headache, Precautions discussed in detail, # 20 tab(s), Refills(s) 0, Pharmacy: [id number], 154.5, cm, 08/13/23 13:27:00 EDT, Height/Length Dosing, 72.6, kg, 08/13/23 13:27:00 EDT, Weight Dosing [facility] [place] 2. Postural orthostatic tachycardia syndrome (G90.A: Postural orthostatic tachycardia syndrome [POTS]) - [facility] Manufacturing Electrician who specializes in this. Ordered: cyclobenzaprine, 5 mg = 1 tab(s), Oral, Daily, PRN Headache, Precautions discussed in detail, # 20 tab(s), Refills(s) 0, Pharmacy: [id number], 154.5, cm, 08/13/23 13:27:00 EDT, Height/Length Dosing, 72.6, kg, 08/13/23 13:27:00 EDT, Weight Dosing [facility] [place]erral 3. BMI 30.0-30.9,adult (Z68.30: Body mass index [BMI] 30.0-30.9, adult) - BMI education given. Ordered: cyclobenzaprine, 5 mg = 1 tab(s), Oral, Daily, PRN Headache, Precautions discussed in detail, # 20 tab(s), Refills(s) 0, Pharmacy: [facility]acy [facility][id number], 154.5, cm, 08/13/23 13:27:00 EDT, Height/Length Dosing, 72.6, kg, 08/13/23 13:27:00 EDT, Weight Dosing [facility] [place] Referral One month follow up for CPE Follow-up No qualifying data available Problem List/Past Medical History Ongoing Postural orthostatic tachycardia syndrome Tension headache Historical No qualifying data Procedure/Surgical History Appendectomy, Tonsillectomy. Medications cyclobenzaprine 5 mg Tab, 5 mg= 1 tab(s), Oral, Daily, PRN Allergies Suprax (Hives) Social History Alcohol Current, Beer, 1-2 times per year, 08/13/2023 Substance Abuse - Denies Substance Abuse, 08/13/2023 Tobacco Current vaping or e-cigarette use Smokeless Tobacco Use:. Yes, 08/13/2023 Family History Hypertension: Father. Normal [facility] Comment on above: Result Comment: Elec tronically Signed By: Miller WILSON, Mac Adam.br\Date and Time Signed: 08/13/23 14:05 EDT No Panel InformationOrdered By: Maricarmen Avila on 08-13-2023 Quick Strep (POC) [facility] Quick Strepon 10-04-2022 S. pyogenes Org specific cx Ql (Throat) Negative [facility] [employer] Other Quick Strep [employer] Other [facility]on 06-28 SARS-CoV-2 (COVID-19) RNA REINIER+probe Ql (Unsp spec) Not detected Normal NOT DETECTED [facility] Comment on above: Result Comment: When diagnostic testing is negative, the possibility of a false negative should be considered in the context of a patient's recent exposures and the presence of clinical signs and symptoms consistent with SARS-CoV-2. This test is not yet approved or cleared by the [place] FDA. When there are no FDA-approved or cleared tests available, and other criteria are met, FDA can make tests available under an emergency access mechanism called an Emergency Use Authorization (EUA). The EUA for this test is supported by the Labor Custodian of Health and Human Service's declaration that circumstances exist to justify the emergency use of in vitro diagnostics for the detection and/or diagnosis of the virus that causes COVID-19. This EUA will remain in effect for the duration of the COVID-19 declaration justifying emergency of IVDs, unless it is terminated or revoked by the FDA (after which the test may no longer be used). Performed By: #### S SCRN, GRASTCX #### [facility] [address] [address] Dr. Ang Simmons INFLUENZA A AND B AGon 07-18 INFLUENZA A AG Negative Normal NEGATIVE SEE COMMENT [facility] Comment on above: Performed By: #### I NFLUAB #### [facility] [address] [address] [address] Ang Simmons INFLUENZA B AG Negative Normal NEGATIVE SEE COMMENT [facility] Comment on above: Performed By: #### I NFLUAB #### [facility] [address] [address] [address] Ang Simmons XR CHEST 2 Von 07-18-2022 XR CHEST 2 V EXAMINATION: XR CHEST 2 V HISTORY: Cough COMPARISON: Chest x-rays 06/22/2019 TECHNIQUE: PA and lateral chest x-rays FINDINGS: The lung parenchyma is free of consolidation or infiltrate. No pneumothorax or pleural effusion. The cardiac, mediastinal and hilar contours are normal. The visualized osseous structures exhibit no gross abnormality. IMPRESSION: Normal chest x-rays Electronically authenticated by: EMMA BABB Date: 2022-07-18 21:09 Normal [facility] CT ABD/PELVIS WO CONon 05-31 CT ABD/PELVIS WO CON EXAMINATION: CT ABD/PELVIS WO CON HISTORY: UNSPECIFIED ABDOMINAL PAIN , vomiting, diarrhea, sore throat, headache COMPARISON: CT abdomen pelvis 05/15/2021 TECHNIQUE: Axial, Coronal, and Sagittal images were obtained without and/or with IV contrast as indicated by examination type. Dose reduction techniques were achieved by using automated exposure control and/or adjustment of mA and/or kV according to patient size and/or use of iterative reconstruction technique. FINDINGS: LUNG BASES: No visible pulmonary or pleural disease. LIVER: No enlargement, atrophy, suspicious density, or significant focal lesion. BILIARY: No dilatation or calcification. PANCREAS: No lesion, fluid collection, or abnormal duct dilatation. SPLEEN: No enlargement or focal lesion. ADRENALS: No mass or enlargement. KIDNEYS: No mass, obstruction, or calcification. BOWEL/MESENTERY: No visible mass, obstruction, or bowel wall thickening. AORTA/VASCULAR: No aneurysm or dissection. RETROPERITONEUM: No mass or adenopathy. LYMPH NODES: No adenopathy. URINARY BLADDER: No visible focal wall thickening, lesion, or calculus. PELVIC ORGANS: IUD within endometrial cavity. 2.4 cm right ovarian cyst. No visible mass. Pelvic organs appropriate for patient age. ABDOMINAL WALL: No mass or hernia. BONES: No bony lesion or fracture. OTHER: Negative. IMPRESSION: 1. No acute or specific findings to account for patient's symptoms. 2. Right ovary contains a 2.4 cm cyst/dominant follicle, of questionable clinical significance. Electronically authenticated by: GRETEL HOOK Date: 2022-05-31 11:54 Normal [facility] Covid-19 PCR ([facility])on SARS-CoV-2 (COVID-19) RNA REINIER+probe Ql (Unsp spec) Not detected Normal NOT DETECTED [facility] Comment on above: Result Comment: This test is not yet approved or cleared by the [place] FDA. When there are no FDA-approved or cleared tests available, and other criteria are met, FDA can make tests available under an emergency access mechanism called an Emergency Use Authorization (EUA). The EUA for this test is supported by the Labor Custodian of Health and Human Service's (HHS's) declaration that circumstances exist to justify the emergency use of in vitro diagnostics for the detection and/or diagnosis of the virus that causes COVID-19. This EUA will remain in effect (meaning this test can be used) for the duration of the COVID-19 declaration justifying emergency of IVDs, unless it is terminated or revoked by FDA (after which the test may no longer be used). When diagnostic testing is negative, the possibility of a false negative should be considered in the context of a patient's recent exposures and the presence of clinical signs and symptoms consistent with SARS-CoV-2. Performed By: #### S SCRN, GRASTCX #### [facility] [address] [place] [address] Dr. Ang Simmons ER URINE PROFILEon 3 Bilirubin Ql (U) Negative Normal NEGATIVE [facility] Comment on above: Performed By: #### P REGU, ERUR #### [facility] [address] [place] [place] [address] Dr. Ang Simmons Clarity (U) CLEAR Normal CLEAR [facility] Comment on above: Performed By: #### P REGU, ERUR #### [facility] [address] [place] [place] [address] Dr. Ang Simmons Color (U) LT. YELLOW Normal YELLOW [facility] Comment on above: Performed By: #### P REGU, ERUR #### [facility] [address] [place] [address] Dr. Ang Simmons ERUAHD A micrscopic examination will be performed if indicated. Normal [facility] Comment on above: Performed By: #### P REGU, ERUR #### [facility] [address] [place] [place] [address] Dr. Ang Simmons Glucose Ql (U) Negative Normal NEGATIVE [facility] Comment on above: Performed By: #### P REGU, ERUR #### [facility] [address] [place] [address] Dr. Ang Simmons Hemoglobin Ql (U) Negative Normal NEGATIVE [facility] Comment on above: Performed By: #### P REGU, ERUR #### [facility] [address] [place] [address] Dr. Ang Simmons Ketones Ql (U) Negative Normal NEGATIVE [facility] Comment on above: Performed By: #### P REGU, ERUR #### [facility] [address] [place] [address] Dr. Ang Simmons LEUKOCYTES Negative Normal NEGATIVE [facility] Comment on above: Performed By: #### P REGU, ERUR #### [facility] [address] [place] [place] [address] Dr. Ang Simmons Nitrite Ql (U) Negative Normal NEGATIVE [facility] Comment on above: Performed By: #### P REGU, ERUR #### [facility] [address] [place] [address] Dr. Ang Simmons pH (U) 5.5 [pH] Normal 5-9 [facility] Comment on above: Performed By: #### P REGU, ERUR #### [facility] [address] [place] [place] [address] Dr. Ang Simmons SPEC GRAVITY 1.030 Abnormal 1.005-<=1.025 [facility] Comment on above: Performed By: #### P REGU, ERUR #### [facility] [address] [place] [place] [address] Dr. Ang Simmons UA PROTEIN Negative Normal NEGATIVE/ TRACE [facility] Comment on above: Performed By: #### P REGU, ERUR #### [facility] [address] [place] [address] Dr. Ang Simmons UR MICRO IND NOT INDICATED Normal [facility] [place] Comment on above: Performed By: #### P REGU, ERUR #### [facility] [address] [place] [place] [address] Dr. Ang Simmons Urobilinogen Qn (U) 0.2 {Jazmin'U}/dL Normal 0.2 - 1. 0 [facility] Comment on above: Performed By: #### P REGU, ERUR #### [facility] [address] [place] [place] [address] Dr. Ang Simmons GROUP A STREP CULTUREon S. pyogenes Ag Ql (Unsp spec) Culture Observations: NEGATIVE FOR GROUP A STREPTOCOCCUS. Normal [facility] Comment on above: Performed By: #### S RAVI, GRASTCX #### [facility] [address] [place] [place] [address] Dr. Ang Simmons INFLUENZA A AND B AGon 05-31 INFLUANEGH SEE BELOW Normal [facility] Comment on above: Result Comment: Nega tive for Flu A protein angiten. Infection due to Flu A cannot be ruled out. Flu A angiten in the sample may be below the detection limit of the test. Performed By: #### S COLBYN, GRASTCX #### [facility] [address] [place] [place] [address] Dr. Ang Simmons INFLUBNEGH SEE BELOW Normal [facility] Comment on above: Result Comment: Nega tive for Flu B protein antigen. Infection due to Flu B cannot be ruled out. Flu B antigen in the sample may be below the detection limit of the test. Performed By: #### S RAVI, GRASTCX #### [facility] [address] [place] [place] [address] Dr. Ang Simmons INFLUENZA A AG Negative Normal NEGATIVE SEE COMMENT [facility] Comment on above: Performed By: #### S RAVI, GRASTCX #### [facility] [address] [place] [place] [address] Dr. Ang Simmons INFLUENZA B AG Negative Normal NEGATIVE SEE COMMENT [facility] Comment on above: Performed By: #### S RVAI, GRASTCX #### [facility] [address] [place] [place] [address] Dr. Ang Simmons URon 05-31-2022 , QUAL Negative Normal NEGATIVE [facility] [place] Comment on above: Performed By: #### P REGU, ERUR #### [facility] [address] [place] [place] [address] Dr. Ang Simmons STREPT SCREENon 05-31-2022 STREP SCREEN A Negative Normal NEGATIVE [facility] Comment on above: Performed By: #### S RAVI, GRASTCX #### [facility] [address] [place] [address] Dr. Ang Simmons Quick Strepon 02-13-2022 S. pyogenes Org specific cx Ql (Throat) Negative [facility] Other Quick Strep [facility] Other SARS-CoV-2 (COVID-19) RNA NA A+probe Ql (Resp)on 02-13-2022 SARS-CoV-2 (COVID-19) RNA REINIER+probe Ql (Unsp spec) Negative [facility] Other Covid-19 PCR ([facility])on 11-24 SARS-CoV-2 (COVID-19) RNA REINIER+probe Ql (Unsp spec) Not detected Normal NOT DETECTED [facility] Comment on above: Result Comment: When diagnostic testing is negative, the possibility of a false negative should be considered in the context of a patient's recent exposures and the presence of clinical signs and symptoms consistent with SARS-CoV-2. This test is not yet approved or cleared by the [place] FDA. When there are no FDA-approved or cleared tests available, and other criteria are met, FDA can make tests available under an emergency access mechanism called an Emergency Use Authorization (EUA). The EUA for this test is supported by the [place] of Health and Human Service's declaration that circumstances exist to justify the emergency use of in vitro diagnostics for the detection and/or diagnosis of the virus that causes COVID-19. This EUA will remain in effect for the duration of the COVID-19 declaration justifying emergency of IVDs, unless it is terminated or revoked by the FDA (after which the test may no longer be used). Performed By: #### C VDTBH #### [facility] [address] [place], [place] [address] Dr. Ang Simmons GROUP A STREP CULTUREon 11-24 S. pyogenes Ag Ql (Unsp spec) Culture Observations: NEGATIVE FOR GROUP A STREPTOCOCCUS. Normal [facility] Comment on above: Performed By: #### S SCRN, GRASTCX #### [facility] [address] [place], [place] [address] Dr. Ang Simmons STREPT SCREENon 12-10-2021 STREP SCREEN A Negative Normal NEGATIVE [facility] Comment on above: Performed By: #### S SCRN, GRASTCX #### [facility] [address] [address] [address] Ang Simmons Vital Signs Date Time Vital Sign Value Performing Clinician Facility 08-13-2023 09:36-0400 Body height 162.56 cm [facility] 08-13-2023 09:36-0400 Body mass index (BMI) [Ratio] 26.6 kg/m2 [facility] 08-13-2023 09:36-0400 Body temperature 98.6 [degF] [facility] 08-13-2023 09:36-0400 Body weight 70.3 kg [facility] 08-13-2023 09:36-0400 Heart rate 91 /min [facility] 08-13-2023 09:36-0400 Respiratory rate 16 /min [facility] 08-13-2023 09:36-0400 SaO2% (BldA) [Mass fraction] 99 % [facility] 03-18-2023 09:15-0400 Body height 158.75 cm Aure Moss Other [facility] Other 03-18-2023 09:15-0400 Body mass index (BMI) [Ratio] 29.15 kg/m2 Aure Moss Other [facility] Other 03-18-2023 09:15-0400 Body temperature 98.2 [degF] Aure Moss Other [facility] Other 03-18-2023 09:15-0400 Body weight 73.48 kg Aure Moss Other [facility] Other 03-18-2023 09:15-0400 Respiratory rate 18 /min Aure Moss Other [facility] Other 03-18-2023 09:15-0400 SaO2% (BldA) [Mass fraction] 98 % Aure Moss Other [facility] Other 10-04-2022 12:40-0400 Body height 158.75 cm Maricarmen Avila Other [facility] Other 10-04-2022 12:40-0400 Body mass index (BMI) [Ratio] 27.54 kg/m2 Maricarmen Avila Other [facility] Other 10-04-2022 12:40-0400 Body temperature 99.3 [degF] Maricarmen Avila Other [facility] Other 10-04-2022 12:40-0400 Body weight 69.4 kg Maricarmen Avila Other [facility] Other 10-04-2022 12:40-0400 Respiratory rate 18 /min Maricarmen Austin Other [facility] Other 10-04-2022 12:40-0400 SaO2% (BldA) [Mass fraction] 99 % Maricarmen Austin Other [facility] Other 02-13-2022 16:55-0400 Body height 158.75 cm Rona Terry Other [facility] Other 02-13-2022 16:55-0400 Body mass index (BMI) [Ratio] 27.9 kg/m2 Rona Terry Other [facility] Other 02-13-2022 16:55-0400 Body temperature 98.4 [degF] Rona Terry Other [facility] Other 02-13-2022 16:55-0400 Body weight 70.31 kg Rona Terry Other [facility] Other 02-13-2022 16:55-0400 Respiratory rate 18 /min Rona Terry Other [facility] Other 02-13-2022 16:55-0400 SaO2% (BldA) [Mass fraction] 99 % Rona Terry Other [facility] Other 12-21-2021 16:20-0400 Body height 158.75 cm Maricarmen Avila Other [facility] Other 12-21-2021 16:20-0400 Body mass index (BMI) [Ratio] 27.64 kg/m2 Maricarmen Avila Other [facility] Other 12-21-2021 16:20-0400 Body temperature 98 [degF] Maricarmen Avila Other [facility] Other 12-21-2021 16:20-0400 Body weight 69.67 kg Maricarmen Avila Other [facility] Other 12-21-2021 16:20-0400 Diastolic blood pressure 67 mm[Hg] Maricarmen Avila Other [facility] Other 12-21-2021 16:20-0400 Respiratory rate 18 /min Maricarmen Avila Other [facility] Other 12-21-2021 16:20-0400 SaO2% (BldA) [Mass fraction] 98 % Maricarmen Avila Other [facility] Other 12-21-2021 16:20-0400 Systolic blood pressure 117 mm[Hg] Maricarmen Avila Other [facility] Other Encounters Encounter Date Encounter Type Care Provider Facility Start: 09-17-2023 ambulatory Mac Bhatt Facility :[facility] Start: 08-27-2023 ambulatory Mac Bhatt Facility:[facility] [place] Start: 08-13-2023 End: 08-14-2023 ambulatory Mac Bhatt Facility:[facility] Start: 08-13-2023 End: 08-13-2023 ambulatory [facility] Work Phone: Start: 08-13-2023 End: 08-13-2023 Patient encounter procedure [facility] Work Phone: Start: 03-18-2023 End: 03-18-2023 ambulatory Aure Moss Other [facility] Other Start: 03-18-2023 Office outpatient visit 15 minutes Aure Moss [facility] Start: 10-04-2022 End: 10-04-2022 ambulatory Maricarmen Avila Other [facility] Other Start: 10-04-2022 Office outpatient visit 25 minutes Maricarmen Avila [facility] Start: 07-18-2022 End: 07-19-2022 ambulatory KIAN DIAB . Facility:[facility] Start: 05-31-2022 End: 05-31-2022 ambulatory IRAIDA VANCE . Facility:[facility] Start: 02-13-2022 End: 02-13-2022 ambulatory Rona Terry Other [facility] Other Start: 02-13-2022 Office outpatient visit 15 minutes Rona Terry [facility] Start: 12-21-2021 (URG) Urgent Care Visit Maricarmen Avila [facility] Start: 12-21-2021 End: 12-21-2021 ambulatory Maricarmen Avila Other [facility] Other Start: 12-10-2021 End: 12-10-[address] MINI VERDE . Facility: Procedures Date Procedure Procedure Detail Performing Clinician Start: 08-13-2023 Quick Strep (POC) Plan of Treatment Date Care Activity Detail Author [facility] Immunizations Immunization Date Immunization Notes Care Provider Nilo castillo 01-01-2002 diphtheria, tetanus toxoids and acellular pertussis vaccine, unspecified formulation Maricarmen Avila Other [facility] 01-01-2002 measles, mumps and rubella virus vaccine Maricarmen Avila Other [facility] 01-01-2002 poliovirus vaccine, inactivated Maricarmen Avila Other [facility] Other 01-01-2002 poliovirus vaccine, unspecified formulation [facility] 02-04-1998 diphtheria, tetanus toxoids and acellular pertussis vaccine, unspecified formulation Maricarmen Avila Other [facility] 02-04-1998 measles, mumps and rubella virus vaccine Maricarmen Avila Other [facility] 02-04-1998 trivalent poliovirus vaccine, live, oral Maricarmen Avila Other [facility] 04-27-1997 diphtheria, tetanus toxoids and pertussis vaccine Maricarmen Avila Other [facility] 04-27-1997 haemophilus influenz ae type b vaccine, conjugate unspecified formulation Maricarmen Avila Other [facility] 04-27-1997 hepatitis B vaccine, pediatric or pediatric/adolescent dosage Maricarmen Avila Other [facility] 01-16-1997 diphtheria, tetanus toxoids and pertussis vaccine Maricarmen Avila Other [facility] 01-16-1997 haemophilus influenz ae type b vaccine, conjugate unspecified formulation Maricarmen Avila Other [facility] 01-16-1997 trivalent poliovirus vaccine, live, oral Maricarmen Avila Other [facility] 1996 diphtheria, tetanus toxoids and pertussis vaccine Maricarmen Avila Other [facility] 1996 haemophilus influenz ae type b vaccine, conjugate unspecified formulation Maricarmen Avila Other [facility] 1996 hepatitis B vaccine, pediatric or pediatric/adolescent dosage Maricarmen Avila Other [facility] 1996 trivalent poliovirus vaccine, live, oral Maricarmen Avila Other [facility] 1996 hepatitis B vaccine, pediatric or pediatric/adolescent dosage Maricarmen Avila Other [facility] Payers Date Payer Category Payer Medicaid [id number] 1995 Unknown [id number] 1995 Unknown [id number] 1995 Unknown [id number] 2.16.84 [id number] 1996 Unknown [id number] 2.16.8 [id number] 1996 Unknown [id number] 2.16.8 [id number] 1959 Unknown [id number] Unknown [id number] 2.1 [id number] Social History Date Type Detail Facility Unknown if ever smoked [facility] Other Sex Assigned At Sex Assigned At Bir th [facility] Other Start: 08-13-2023 Tobacco smoking status NHIS Smoker (finding) [facility] Start: 1995 Sex Assigned At Female F [facility] Evaluation note 03-18-2023 Note Date & Type Note Facility 03-18-2023 Evaluation note Encounter Date Diagnosis Assessment Notes Feb, Smoker (ICD-10 - F17.200) quit cigarettes 2 years ago, currently 1 vape cartridge a week but has not smoked anything since she's been sick. she is contemplating quitting but is not ready to quit. Although smokeless tobacco is considered safer compared to smoking tobacco products, it still has significant detrimental health effects: increased risk of CA, especially oral cancer, esophageal cancer and pancreatic cancer; tooth and mouth probems, including precancerous lesions called Leukoplakia, gum disease and tooth decay; increase risk of from heart disease and stroke. There is no evidence that shows that switching to smokeless tobacco helps you quit smoking. encouraged pt to quit and encouraged her to enlist her PCP to help her with this process. Feb, Viral URI (ICD-10 - J06.9) testing is negative today in clinic. low suspicion for bacterial infection at this time. continue symptomatic tx c otc meds prn. recommended hot steam baths and/or cool mist humidifier. push rest/fluids. reinforced universal infection control protocols and good hand hygiene for infection control. pt education and anticipatory guidance provided on viral vs bacterial infection progression. immediate eval if warning s/s of intractable fevers, respir distress or other emergent symptoms. otherwise f/u with PCP if febrile or new/worsening s/s. Feb, Suspected COVID-19 virus infection (ICD-10 - Z20.822) [facility] Other Evaluation note 10-04-2022 Note Date & Type Note Facility 10-04-2022 Evaluation note Encounter Date Diagnosis Assessment Notes September, Sore throat (ICD-10 - J02.9) September, Viral illness (ICD-10 - B34.9) Rapid Strep test was negative today. Discussed diagnosis with patient. Advised patient that will treat as viral URI. Supportive care as directed, increase fluids and rest, Tylenol/Motrin as directed, Rx of Capmist, prednisone and Zofran as needed, Cool mist humidifier, throat lozenges. Discussed infection control practices such as good hand washing and mask wearing. Patient to follow up with PCP if symptoms persist or worsen despite treatment. Immediate eval for SOB, difficulty breathing, chest pain, fevers that do not break with antipyretic or any other concerning symptoms as reviewed on patient education handout. Patient verbalizes understanding and is agreeable to treatment plan. Patient left in stable condition. [facility] Other Evaluation note 02-13-2022 Note Date & Type Note Facility 02-13-2022 Evaluation note Encounter Date Diagnosis Assessment Notes Jan, Contact with and (suspected) exposure to covid-19 (ICD-10 - Z20.822) Your Covid PCR test is negative. This means at this time you do not have COVID. Jan, Sore throat (ICD-10 - J02.9) Jan, Bronchitis (ICD-10 - J40) Take medications as directed. Rest and increase fluid intake. Take meds with food to prevent stomach upset. Use inhaler as needed for coughing spells and SOB. It is better to use inhaler a few times a day over the next 2-3 days. Follow up with primary care provider if symptoms do not improve with treatment plan, although it may take a few weeks for the cough to go away [facility] Other Evaluation note 12-21-2021 Note Date & Type Note Facility 12-21-2021 Evaluation note Encounter Date Diagnosis Assessment Notes Nov, Physical exam, pre-employme nt (ICD-10 - Z02.1) Patient medically cleared for employment, see scanned documentation. Tetanus and MMR vaccination records reviewed. No TB test required. Discussed about importance of COVID/Influenza vaccinations, good hand hygiene. Discussed importance of proper nutrition and hydration. Patient to follow up with PCP for any further health concerns or questions. Patient verbalizes understanding and is agreeable with treatment plan [facility] Other Evaluation note Note Date & Type Note Facility Evaluation note No assessment information [facility] Work Phone: History general Narrative - Reported Note Date & Type Note Facility History general Narrative - Reported Type Surgical History tonsillectomy Surgical History appendectomy Hospitalization History see above [facility] Other Summary Purpose Family History No Family History Records FoundNo Family History Records Found Advance Directives No Advanced Directives Records Found Advance Directive Response Recorded Date/ Time Advance Directives No August 12 9:32am Chief Complaint and Reason for Visit Chief Complaint Sore throat, nausea Additional Source Comments REASON FOR VISIT (unrecogniz ed section and content) WORK [employer]NEY [id number] RUNNY NOSE, COUGH, SORE THROATSORE THROAT, MUCUS, CONGESTIONRUNNY NOSE, COUGH,THROAT HURTS, CAN'T SLEEP INFORMATION SOURCE (unrecogn ized section and content) DATE CREATED AUTHOR 07/23/2022 [facility] DATE CREATED AUTHOR AUTHOR'S ORGANIZ ATION 08/28/2023 [facility] Care Teams (unrecognized sec tion and content) Team Status: Active Member Role Status Dates Tapan Slater MD Primary Care Provider Active Team Status: Inactive Member Role Status Dates Tapan Slater MD Primary Care Provider Active Start: August 13, 2023 End: August 13, 2023 Maricarmen Avila APRN Attending Provider Active Start: August 13, 2023 End: August 13, 2023 Goals (unrecognized section and content) Goals may be documented in a n alternate section FOR RECORDS PERTAINING TO PATIENTS WHO ARE OR HAVE BEEN ENROLLED IN A CHEMICAL DEPENDENCY/SUBSTANCEABUSE PROGRAM, SOME INFORMATION MAY BE OMITTED. This clinical summary was aggregated from multiple sources. Caution should be exercised in using it in the provision of clinical care. This summary normalizes information from multiple sources, and as a consequence, information in this document may materially change the coding, format and clinical context of patient data. In addition, data may be omitted in some cases. CLINICAL DECISIONS SHOULD BE BASED ON THE PRIMARY CLINICAL RECORDS. [facility] [employer] [facility]. provides no warranty or guarantee of the accuracy or completeness of information in this document.
--- NOTE | 2023-09-05 09:38 | ED_ITS ---
HPI - URI/Sore Throat General Chief Complaint: Upper Respiratory Infection Stated Complaint: sore throat Time Seen by Provider: 09/05/23 08:42 Source: patient Limitations: no limitations History of Present Illness HPI Narrative: This patient is here complaining primarily of a sore throat. She is otherwise healthy. 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 She does not have any joint pain. No nausea vomiting or diarrhea. No shortness of breath or respiratory can plaint. She is otherwise healthy. She is not on any antibiotics. She was seen by the nursing staff and a rapid strep was done in triage. Related Data Previous Rx's ?Medication ?Instructions ?Recorded cetirizine 5 mg-pseudoephedrine ER 1 tab PO BID #10 tabs 12/03/22 120 mg tablet,extended release,12hr (Zyrtec-D) diphenhydramine HCl 25 mg capsule 25 mg PO Q6H PRN headache #20 caps 12/03/22 (Benadryl) metoclopramide HCl 10 mg tablet 10 mg PO Q6H PRN nausea and 12/03/22 (Reglan) vomiting #12 tabs Allergies Allergy/AdvReac Type Severity Reaction Status Date / Time cefixime [From Suprax] Allergy Severe Verified 08/06/23 22:50 PFSH PFSH Social History Smoking status: Current every day smoker Exam Narrative Exam Narrative: Awake alert pleasant no apparent distress her voice is normal. There is no airway swelling or stridor. Her neck is soft and supple with no meningeal irritation. Her pharynx shows diffuse erythema with no exudate. There is no swelling of the uvula or the floor the mouth. Dentition is in good repair. Airway exchange is normal with no stridor. She has no cough or congestion. Her skin and integument are normal with no petechia purpura rash or exanthem. Constitutional Vital Signs, click to edit/add: Last Vital Signs Temp 98.3 F 09/05/23 08:38 Pulse 101 H 09/05/23 08:38 Resp 20 09/05/23 08:38 BP 147/94 H 09/05/23 08:38 Pulse Ox 100 09/05/23 08:38 O2 Del Method Room Air 09/05/23 08:38 Course Vital Signs Vital signs: Vital Signs Temperature 98.3 F 09/05/23 08:38 Pulse Rate 101 H 09/05/23 08:38 Respiratory Rate 20 09/05/23 08:38 Blood Pressure 147/94 H 09/05/23 08:38 Pulse Oximetry 100 09/05/23 08:38 Oxygen Delivery Method Room Air 09/05/23 08:38 Temperature 98.3 F 09/05/23 08:38 Pulse Rate 101 H 09/05/23 08:38 Respiratory Rate 20 09/05/23 08:38 Blood Pressure 147/94 H 09/05/23 08:38 Pulse Oximetry 100 09/05/23 08:38 Oxygen Delivery Method Room Air 09/05/23 08:38 MDM - URI/Sore Throat MDM Narrative Medical decision making narrative: Rapid strep is positive so we will start her on a course of amoxicillin and she was advised to take ibuprofen lozenges and stay hydrated. Lab Data Labs: Lab Results 09/05/23 Range/Units 08:39 Streptococcus Screen Positive A Discharge Plan Discharge Stand Alone Forms: Portal Instructions Chief Complaint: Upper Respiratory Infection Clinical Impression: Acute streptococcal pharyngitis Patient Disposition: Home, Self-Care Time of Disposition Decision: 09:40 Prescriptions / Home Meds: No Action cetirizine-pseudoephedrine [Zyrtec-D] 5-120 mg tablet extended release 12 hr 1 tab PO BID Qty: 10 0RF metoclopramide HCl [Reglan] 10 mg tablet 10 mg PO Q6H PRN (Reason: nausea and vomiting) Qty: 12 0RF Rx Instructions: Can be used as needed for headache, take with benadryl diphenhydramine HCl [Benadryl] 25 mg capsule 25 mg PO Q6H PRN (Reason: headache) Qty: 20 0RF Rx Instructions: take with benadryl Print Language: Mongolian Additional Instructions: Lozenges/ibuprofen/amoxicillin Referrals: Physician,Non-Staff, MD [Primary Care Provider] - 1 week
== END 2023-09-05 09:47 | disposition home or self-care (01) ==
PROVIDERS: Emergency Provider Emergency Medicine Emergency Medical Services
DX: J02.0 Streptococcal pharyngitis (principal); Z79.899 Other long term (current) drug therapy; F17.210 Nicotine dependence, cigarettes, uncomplicated
CPT/HCPCS: 87880; 99283

== ENCOUNTER 2024-01-31 09:00 | Outpatient (OUT) | payer SELFPAY ==
--- NOTE | 2024-01-31 | US_ITS ---
[address] [address] Patient Name: RHEA MICHEL MRN: [id number] date: 1995 Sex: F Assigned Patient Location: [facility] Current Patient Location: [facility] Accession/Order Number: [id number] Exam Date: 01/31/2024 09:05 Report Date: 01/31/2024 11:46 At the request of: CAROL HAMLIN Procedure: US OB transvaginal EXAMINATION: US OB transvaginal HISTORY: MISSED MENSES COMPARISON: No relevant comparison available. FINDINGS: GESTATIONAL SAC: Present and normal appearing. YOLK SAC: Present and normal appearing. POLE: Present and normal appearing. CARDIAC: Present. UTERUS: Normal size and appearance. OVARIES: Right: Not seen. Left: Normal. CERVIX: 4.5 cm in length and closed. CUL-DE-SAC: Normal. OTHER: None. AGE BY LMP: 12 weeks 6 days MOI BY LMP: 08/08/2024 AGE BY US CRL: 12 weeks 0 days MOI BY US CRL: 08/14/2024 US/US OB transvaginal IMPRESSION: 1. Single live intrauterine with growth detailed above. Electronically authenticated by: GRETEL HOOK Date: 01/31/2024 11:46
--- OUTSIDE RECORDS SUMMARY | 2024-01-31 09:22 | XMS_ITS | CCD ---
Author Organization [facility] Care Team Providers Care Reordering Clerk Name Role Phone Maricaremn Avila Unavailable Rona Terry Unavailable AMMON Angelo, DR MORSE Attending Unavailable AMMON ., DR MORSE Consulting Unavailable AMMON Angelo, DR MORSE Admitting Unavailable MISC, DR CHENEY Primary Care Unavailable VANCE ., IRAIDA Admitting Unavailable MONSTER, DR GRETEL Borrego Consulting Unavailable VANCE ., IRAIDA Attending Unavailable MISC, DR CHENEY Primary Care Unavailable VANCE ., IRAIDA Consulting Unavailable VERNELL .KIAN Admitting Unavailable TRICE GALLOWAY Consulting Unavailabl e MISC, DR CHENEY Primary Care Unavailable KIAN QUINTANA Attending Unavailable EMMA BABB Consulting Unavailable VERNELL .KIAN Consulting Unavailable Aure Moss Unavailable Mac Bhatt Attending Unavailable Mac Bhatt Attending Unavailable Allergies Allergy Classification Reported Allergen(s) Allergy Type Date of Onset Reaction(s) Facility (4 sources) Cefixime Drug Allergy [employer] Other (2 sources) Dextrothyroxine; Translations: [Suprax] Drug Allergy 05-27-1997 [facility] Repository Medications Current Medications Medication Drug Class(es) Dates Sig (Normalized) Sig (Original) dextromethorphan hydrobromide 15 mg / guaiFENesin 400 mg / pseudoephedrine hydrochloride 60 mg oral tablet (2 sources) alpha-Adrenergic Agonist, Uncompetitive W-sqwcgs-Q-aspartat e Receptor Antagonist, Sigma-1 Agonist Start: 08-13-2023 take 4 tablets by mouth every twenty-four hours Pseudoephedrine -Dm-Guaifenesin (Capmist Dm) 60-15-400 mg tablet Active 1 TAB PO EVERY 4-6 HOURS August 13, 2023 12:00am do not exceed 4 doses per 24 hrs Start: 10-04-2022 take 4 tablets by mo uth every twenty-four hours as needed Capmist DM [...] 12:00am Start: 10-04-2022 take 1 tablet by jose every eight hours Ondansetron 4 MG 1 tablet on the tongue and allow to dissolve Orally every 8 hours for 5 days September, Active predniSONE 20 mg oral tablet (1 source) Start: 10-04-2022 take 1 tablet by jose th every twelve hours prednisone 20 MG 1 [...] Drug Class(es) Dates Sig (Normalized) Sig (Original) [id number] 200 actuat albuterol 0.09 mg/actuat metered dose [...] Facility ED Note-Physicianon 08-15-19 ED Note-Physician [phone] [id number] [facility] Interdisciplinary Note - Soc ial Workeron 08-15-2023 Interdisciplinary Note - Tube Cutter This SW made a tc to patient today to discuss her positive depression screen. Patient did not answer so a message was left with SW's contact information. SW will remain available. [facility] Ambulatory Visit Summaryon 0 08-13-2023 Ambulatory Visit [...] PM EDT With: Mac Bhatt MD Where: [facility] [place] [facility] Family Medicine Office/Clini c Noteon 08-13-2023 Family Medicine Office/Clinic Note Chief Complaint establish care HPI Staff Chasity is a 27 year old female presenting to [facility] would like a general check up Establish Care: History: Any previous diagnosis: migraine, POTS History of seeing any specialist: no When was your last doctors visit: 2016 Last provider: Bryon Any recent labs: ED in [place] Has POTS and is feeling lightheaded and brain fog. These are symptoms that she has had in the past. Was last seen in 2019 Dr. Meléndez in [facility] UTD: Pelvic/Pap: UTD flu: refused Acute: Current issues/complaints: Was in [place] ED last week for a migraine. Patient [...] 72.6, kg, 08/13/23 13:27:00 EDT, Weight Dosing [facility] External Ambulatory Referral 2. Postural orthostatic tachycardia syndrome (G90.A: Postural orthostatic tachycardia syndrome [POTS]) - [facility] Retail Leader who specializes in this. Ordered: cyclobenzaprine, 5 mg = 1 tab(s), Oral, Daily, PRN Headache, Precautions discussed in detail, # 20 tab(s), Refills(s) 0, Pharmacy: [facility]/pharmacy #[id number], 154.5, cm, 08/13/23 13:27:00 EDT, Height/Length Dosing, 72.6, kg, 08/13/23 13:27:00 EDT, Weight Dosing [facility] External Ambulatory Referral 3. BMI 30.0-30.9,adult (Z68.30: Body mass index [BMI] 30.0-30.9, adult) - BMI education given. Ordered: cyclobenzaprine, 5 mg = 1 tab(s), Oral, Daily, PRN Headache, Precautions discussed in detail, # 20 tab(s), Refills(s) 0, [id number] 154.5, cm, 08/13/23 13:27:00 EDT, Height/Length Dosing, 72.6, kg, 08/13/23 13:27:00 EDT, Weight Dosing [facility] External Ambulatory Referral One month follow up [...] Yes, 08/13/2023 Family History Hypertension: Father. Normal [facility] Comment on above: Result Comment: Elec tronically Signed By: Miller WILSON, Mac Adam.br\Date and Time Signed: 08/13/23 14:05 EDT No Panel InformationOrdered By: Maricarmen Avila on 08-13-2023 Quick Strep (POC) [facility] Quick Strepon 10-04-2022 S. pyogenes Org specific cx Ql (Throat) Negative [employer] Other Quick Strep [employer] Other Covid-19 PCR (CVDTBH)on 06-28 SARS-CoV-2 (COVID-19) RNA REINIER+probe Ql (Unsp spec) Not detected Normal NOT DETECTED [facility] Comment on above: Result Comment: When diagnostic [...] for this test is supported by the Utility Maintenance Worker of Health and Human Service's declaration that [...] Performed By: #### S SCRN, GRASTCX #### [facility] [address] [place] [address] Dr. Ang Simmons INFLUENZA A AND B AGon 07-18 INFLUENZA A AG Negative Normal NEGATIVE SEE COMMENT [facility] Comment on above: Performed By: #### I NFLUAB #### [facility] [address] [place] [address] Dr. Ang Simmons INFLUENZA B AG Negative Normal NEGATIVE SEE COMMENT [facility] Comment on above: Performed By: #### I NFLUAB #### [facility] [address] [place] [address] Dr. Ang Simmons XR CHEST 2 Von [...] EMMA BABB Date: 2022-07-18 21:09 Normal [facility] CT ABD/PELVIS WO CONon 05-31 CT ABD/PELVIS [...] GRETEL HOOK Date: 2022-05-31 11:54 Normal [facility] Covid-19 PCR (CVDTB)on SARS-CoV-2 (COVID-19) RNA REINIER+probe Ql (Unsp spec) Not detected Normal NOT DETECTED [facility] Comment on above: Result Comment: This test is not yet approved or cleared by the [place] FDA. When there are no FDA-approved or cleared tests available, and other criteria are met, FDA can make tests available under an emergency access mechanism called an Emergency Use Authorization (EUA). The EUA for this test is supported by the Pitman of Health and Human Service's (HHS's) declaration [...] Performed By: #### S SCRN, GRASTCX #### [facility] [address] [place] [address] Dr. Ang Simmons ER URINE PROFILEon 3 Bilirubin Ql (U) Negative Normal NEGATIVE [facility] Comment on above: Performed By: #### P REGU, ERUR #### [facility] [address] [place] [address] Dr. Ang Simmons Clarity (U) CLEAR Normal CLEAR [facility] Comment on above: Performed By: #### P REGU, ERUR #### [facility] [address] [place] [address] Dr. Ang Simmons Color (U) LT. YELLOW Normal YELLOW [facility] Comment on above: Performed By: #### P REGU, ERUR #### [facility] [address] [place] [address] Dr. Ang PEREIRAAHD A micrscopic examination will be performed if indicated. Normal [facility] Comment on above: Performed By: #### P REGU, ERUR #### [facility] [address] [place] [address] Dr. Ang Simmons Glucose Ql (U) Negative Normal NEGATIVE [facility] Comment on above: Performed By: #### P REGU, ERUR #### [facility] [address] [place] [address] Dr. Ang Simmons Hemoglobin Ql (U) Negative Normal NEGATIVE [facility] Comment on above: Performed By: #### P REGU, ERUR #### [facility] [address] [place] [address] Dr. Ang Simmons Ketones Ql (U) Negative Normal NEGATIVE [facility] Comment on above: Performed By: #### P REGU, ERUR #### [facility] [address] [place] [address] Dr. Ang Simmons LEUKOCYTES Negative Normal NEGATIVE [facility] Comment on above: Performed By: #### P REGU, ERUR #### [facility] [address] [place] [address] Dr. Ang Simmons Nitrite Ql (U) Negative Normal NEGATIVE [facility] Comment on above: Performed By: #### P REGU, ERUR #### [facility] [address] [place] [address] Dr. Ang Simmons pH (U) 5.5 [pH] Normal 5-9 [facility] Comment on above: Performed By: #### P REGU, ERUR #### [facility] [address] [place] [address] Dr. Ang Simmons SPEC GRAVITY 1.030 Abnormal 1.005-<=1.025 [facility] Comment on above: Performed By: #### P REGU, ERUR #### [facility] [address] [place] [address] Dr. Ang Simmons UA PROTEIN Negative Normal NEGATIVE/ TRACE [facility] Comment on above: Performed By: #### P REGU, ERUR #### [facility] [address] [place] [address] Dr. Ang Simmons UR MICRO IND NOT INDICATED Normal [facility] Comment on above: Performed By: #### P REGU, ERUR #### [facility] [address] [place] [address] Dr. Ang Simmons Urobilinogen Qn (U) 0.2 {Jazmin'U}/dL Normal 0.2 - 1. 0 [facility] Comment on above: Performed By: #### P REGU, ERUR #### [facility] [address] [place] [address] Dr. Ang Simmons GROUP A STREP CULTUREon S. pyogenes Ag Ql (Unsp spec) Culture Observations: NEGATIVE FOR GROUP A STREPTOCOCCUS. Normal [facility] Comment on above: Performed By: #### S COLBYN, GRASTCX #### [facility] [address] [place] [address] Dr. Ang Simmons INFLUENZA A AND B AGon 05-31 INFLUANEGH SEE BELOW Normal [facility] Comment on above: Result Comment: Nega tive for Flu A protein angiten. Infection due to Flu A cannot be ruled out. Flu A angiten in the sample may be below the detection limit of the test. Performed By: #### S SCRN, GRASTCX #### [facility] [address] [place] [address] Dr. Ang Simmons INFLUBNEGH SEE BELOW Normal [facility] Comment on above: Result Comment: Nega tive for Flu B protein antigen. Infection due to Flu B cannot be ruled out. Flu B antigen in the sample may be below the detection limit of the test. Performed By: #### S RAVI, GRASTCX #### [facility] [address] [place] [address] Dr. Ang Simmons INFLUENZA A AG Negative Normal NEGATIVE SEE COMMENT [facility] Comment on above: Performed By: #### S RAVI, GRASTCX #### [facility] [address] [place] [address] Dr. Ang Simmons INFLUENZA B AG Negative Normal NEGATIVE SEE COMMENT [facility] Comment on above: Performed By: #### S RAVI, GRASTCX #### [facility] [address] [place] [address] Dr. Ang Simmons URon 05-31-2022 , QUAL Negative Normal NEGATIVE [facility] Comment on above: Performed By: #### P REGU, ERUR #### [facility] [address] [place] [address] Dr. Ang Simmons STREPT SCREENon 05-31-2022 STREP SCREEN A Negative Normal NEGATIVE [facility] Comment on above: Performed By: #### S RAVI, GRASTCX #### [facility] [address] [place] [address] Dr. Ang Simmons Quick Strepon 02-13-2022 S. pyogenes Org specific cx Ql (Throat) Negative [facility] [employer] Other Quick Strep [facility] [employer] Other SARS-CoV-2 (COVID-19) RNA NA A+probe Ql (Resp)on 02-13-2022 SARS-CoV-2 (COVID-19) RNA REINIER+probe Ql (Unsp spec) Negative [employer] Other Covid-19 PCR ([facility])on 11-24 SARS-CoV-2 (COVID-19) RNA REINIER+probe Ql (Unsp spec) Not detected Normal NOT DETECTED [facility] Comment on above: Result Comment: When diagnostic [...] for this test is supported by the Pitman of Health and Human Service's declaration that [...] used). Performed By: #### C VDTBH #### [facility] [address] [place], [place] [address] Dr. Ang Simmons GROUP A STREP CULTUREon 11-24 S. pyogenes Ag Ql (Unsp spec) Culture Observations: NEGATIVE FOR GROUP A STREPTOCOCCUS. Normal [facility] Comment on above: Performed By: #### S SCRN, GRASTCX #### [facility] [address] [place], [place] [address] Dr. Ang Simmons STREPT SCREENon 12-10-2021 STREP SCREEN A Negative Normal NEGATIVE [facility] Comment on above: Performed By: #### S SCRN, GRASTCX #### [facility] [address] [place] [address] Dr. Ang Simmons Vital Signs Date Time Vital Sign Value Performing Clinician Facility 08-13-2023 09:36-0400 Body height 162.56 cm [place] 08-13-2023 09:36-0400 Body mass index (BMI) [Ratio] 26.6 kg/m2 [facility] 08-13-2023 09:36-0400 Body temperature 98.6 [degF] [facility] 08-13-2023 09:36-0400 Body weight 70.3 kg [place] 08-13-2023 09:36-0400 Heart rate 91 /min [facility] 08-13-2023 09:36-0400 Respiratory rate 16 /min [facility] 08-13-2023 09:36-0400 SaO2% (BldA) [Mass fraction] 99 % [facility] 03-18-2023 09:15-0400 Body height 158.75 cm Aure Moss Other [facility] [facility] Other 03-18-2023 09:15-0400 Body mass index (BMI) [Ratio] 29.15 kg/m2 Aure Moss Other [employer] Other 03-18-2023 09:15-0400 Body temperature 98.2 [degF] Aure Moss Other [facility] Other 03-18-2023 09:15-0400 Body weight 73.48 kg Aure Moss Other [employer] Other 03-18-2023 09:15-0400 Respiratory rate 18 /min Aure Moss Other [employer] Other 03-18-2023 09:15-0400 SaO2% (BldA) [Mass fraction] 98 % Aure Moss Other [employer] Other 10-04-2022 12:40-0400 Body height 158.75 cm Maricarmen Avila Other [employer] Other 10-04-2022 12:40-0400 Body mass index (BMI) [Ratio] 27.54 kg/m2 Maricarmen Austin Other [employer] Other 10-04-2022 12:40-0400 Body temperature 99.3 [degF] Maricarmen Austin Other [employer] Other 10-04-2022 12:40-0400 Body weight 69.4 kg Maricarmen Avila Other [employer] Other 10-04-2022 12:40-0400 Respiratory rate 18 /min Maricarmen Avila Other [employer] Other 10-04-2022 12:40-0400 SaO2% (BldA) [Mass fraction] 99 % Maricarmen Austin Other [employer] Other 02-13-2022 16:55-0400 Body height 158.75 cm Rona Harrison Other [employer] Other 02-13-2022 16:55-0400 Body mass index (BMI) [Ratio] 27.9 kg/m2 Rona Harrison Other [facility] Other 02-13-2022 16:55-0400 Body temperature 98.4 [degF] Rona Harrison Other [facility] Other 02-13-2022 16:55-0400 Body weight 70.31 kg Rona Terry Other [facility] Other 02-13-2022 16:55-0400 Respiratory rate 18 /min Rona Terry Other [facility] Other 02-13-2022 16:55-0400 SaO2% (BldA) [Mass fraction] 99 % Rona Terry Other [facility] Other 12-21-2021 16:20-0400 Body height 158.75 cm Maricarmen Avila Other [employer] Other 12-21-2021 16:20-0400 Body mass index (BMI) [Ratio] 27.64 kg/m2 Maricarmen Avila Other [employer] Other 12-21-2021 16:20-0400 Body temperature 98 [degF] Maricarmen Avila Other [employer] Other 12-21-2021 16:20-0400 Body weight 69.67 kg Maricarmen Avila Other [facility] Other 12-21-2021 16:20-0400 Diastolic blood pressure 67 mm[Hg] Maricarmen Avila Other [employer] Other 12-21-2021 16:20-0400 Respiratory rate 18 /min Maricarmen Avila Other [facility] Other 12-21-2021 16:20-0400 SaO2% (BldA) [Mass fraction] 98 % Maricarmen Avila Other [employer] Other 12-21-2021 16:20-0400 Systolic blood pressure 117 mm[Hg] Maricarmen Avila Other [employer] Other Encounters Encounter Date Encounter Type Care Provider Facility Start: 09-17-2023 End: 09-18-2023 ambulatory Mac Bhatt Facility:[facility] Start: 08-27-2023 ambulatory Mac Bhatt Facility:[facility] [place] Start: 08-13-2023 End: 08-14-2023 ambulatory Mac Bhatt Facility:[facility] [place] [facility] Start: 08-13-2023 End: 08-13-2023 ambulatory [facility] Work Phone: Start: 08-13-2023 End: 08-13-2023 Patient encounter procedure [facility] Work Phone: Start: 03-18-2023 End: 03-18-2023 ambulatory Aure Moss Other [facility] [employer] [facility] Other Start: 03-18-2023 Office outpatient visit 15 minutes Aure Moss [facility] Start: 10-04-2022 End: 10-04-2022 ambulatory Maricarmen Avila Other [facility] [employer] [facility] Other Start: 10-04-2022 Office outpatient visit 25 minutes Maricarmen Avila [facility] Start: 07-18-2022 End: 07-19-2022 ambulatory KIAN DIAB . Facility:[facility] Start: 05-31-2022 End: 05-31-2022 ambulatory IRAIDA VANCE . Facility:[facility] Start: 02-13-2022 End: 02-13-2022 ambulatory Rona Terry Other [facility] Other Start: 02-13-2022 Office outpatient visit 15 minutes Rona Terry [facility] Start: 12-21-2021 (URG) Urgent Care Visit Maricarmen Avila [facility] Start: 12-21-2021 End: 12-21-2021 ambulatory Maricarmen Avila Other [facility] Other Start: 12-10-2021 End: 12-10-[address] MINI VERDE . Facility: Procedures Date Procedure Procedure Detail Performing Clinician Start: 08-13-2023 Quick Strep (POC) Plan of Treatment Date Care Activity Detail Author [facility] Immunizations Immunization Date Immunization Notes Care Provider Nilo reddylisa 01-01-2002 diphtheria, tetanus toxoids and acellular pertussis vaccine, unspecified formulation Maricarmen Avila Other [facility] 01-01-2002 measles, mumps and rubella virus vaccine Maricarmen Avila Other [facility] 01-01-2002 poliovirus vaccine, inactivated Maricarmen Avila Other [facility] [employer] Other 01-01-2002 poliovirus vaccine, unspecified formulation [facility] 02-04-1998 diphtheria, tetanus toxoids and acellular pertussis vaccine, unspecified formulation Maricarmen Avila Other [facility] 02-04-1998 measles, mumps and rubella virus vaccine Maricarmen Avila Other [facility] 02-04-1998 trivalent poliovirus vaccine, live, oral Maricarmen Avila Other [facility] 04-27-1997 diphtheria, tetanus toxoids and pertussis vaccine Maricarmen Avila Other [facility] 04-27-1997 haemophilus influenz ae type b vaccine, conjugate unspecified formulation Maricarmen Avila Other [facility] 04-27-1997 hepatitis B vaccine, pediatric or pediatric/adolescent dosage Maricarmen Avila Other [facility] 01-16-1997 diphtheria, tetanus toxoids and pertussis vaccine Maricarmen Avila Other [facility] 01-16-1997 haemophilus influenz ae type b vaccine, conjugate unspecified formulation Maricarmen Avila Other [facility] 01-16-1997 trivalent poliovirus vaccine, live, oral Maricarmen Avila Other [facility] 1996 diphtheria, tetanus toxoids and pertussis vaccine Maricarmen Avila Other [facility] 1996 haemophilus influenz ae type b vaccine, conjugate unspecified formulation Maricarmen Avila Other [facility] 1996 hepatitis B vaccine, pediatric or pediatric/adolescent dosage Maricarmen Avila Other [facility] 1996 trivalent poliovirus vaccine, live, oral Maricarmen Avila Other [facility] 1996 hepatitis B vaccine, pediatric or pediatric/adolescent dosage Maricarmen Avila Other [facility] Payers Date Payer Category Payer Medicaid [id number] 1995 Unknown [id number] [id number] [id number] 1996 Unknown [id number] 2.16.84 [id number] 1996 Unknown [id number] 2.16.84 [id number] 1996 Unknown [id number] 2.16.8 [id number] 1996 Unknown [id number] 2.16.8 [id number] 1959 Unknown [id number] Unknown [id number] 2.1 [id number] Social History Date Type Detail Facility Unknown if ever smoked [facility] [employer] [facility] Other Sex Assigned At Sex Assigned At Bir th [employer] Other Start: 08-13-2023 Tobacco smoking status NHIS Smoker (finding) [facility] Start: 1995 Sex Assigned At Female [facility] [place] [facility] Evaluation note 03-18-2023 Note Date & Type [...] Suspected COVID-19 virus infection (ICD-10 - Z20.822) [employer] Other Evaluation note 10-04-2022 Note Date & [...] treatment plan. Patient left in stable condition. [employer] Other Evaluation note 02-13-2022 Note Date & [...] weeks for the cough to go away [employer] Other Evaluation note 12-21-2021 Note Date & [...] understanding and is agreeable with treatment plan [employer] Other Evaluation note Note Date & Type Note Facility Evaluation note No assessment information availa [facility] Work Phone: History general Narrative - Reported Note Date & Type Note Facility History general Narrative - Reported Type Surgical History tonsillectomy Surgical History appendectomy Hospitalization History see above [facility] [facility] Other Summary Purpose Family History No Family History Records FoundNo Family History Records Found Advance Directives No Advanced Directives Records Found Advance Directive Response Recorded Date/ Time Advance Directives No August 12 9:32am Chief Complaint and Reason for Visit Chief Complaint Sore throat, nausea Additional Source Comments REASON FOR VISIT (unrecogniz ed section and content) 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 [facility] [employer] [facility]. provides no warranty or guarantee of the accuracy or completeness of information in this document.
== END 2024-01-31 09:01 | disposition home or self-care (01) ==
LOC: NOMS 09:00
PROVIDERS: Visit Provider Obstetrics & Gynecology
DX: Z34.91 Encounter for supervision of normal pregnancy, unspecified, first trimester (principal); Z3A.12 12 weeks gestation of pregnancy; N92.6 Irregular menstruation, unspecified
CPT/HCPCS: 76817

== ENCOUNTER 2024-01-31 14:37 | Outpatient (OUT) | payer MEDICAID, SELFPAY ==
--- OUTSIDE RECORDS SUMMARY | 2024-01-31 14:54 | XMS_ITS | CCD ---
Author Organization 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 Name Role Phone Maricarmen Avila Unavailable Rona Terry Unavailable AMMON Angelo, [...] Reaction(s) Facility (4 sources) Cefixime Drug Allergy Myze Other (2 sources) Dextrothyroxine; Translations: [Suprax] Drug Allergy 05-27-1997 [facility] Repository Medications Current Medications Medication Drug Class(es) Dates Sig (Normalized) Sig (Original) dextromethorphan hydrobromide 15 mg / guaiFENesin 400 mg / pseudoephedrine hydrochloride 60 mg oral tablet (2 sources) alpha-Adrenergic Agonist, Uncompetitive W-kqexux-C-aspartat e Receptor Antagonist, Sigma-1 Agonist Start: 08-13-2023 [...] Drug Class(es) Dates Sig (Normalized) Sig (Original) [id number] 200 actuat albuterol 0.09 mg/actuat metered dose [...] Facility ED Note-Physicianon 08-15-19 ED Note-Physician [phone] [id number] [facility] Interdisciplinary Note - Soc ial Workeron 08-15-2023 Interdisciplinary Note - Magistrate This SW made a tc to patient today to discuss her positive depression screen. Patient did not answer so a message was left with SW's contact information. SW will remain available. [facility] Ambulatory Visit Summaryon 0 08-13-2023 Ambulatory Visit [...] PM EDT With: Mac Bhatt MD Where: [facility] [place] [facility] Family Medicine Office/Clini c Noteon 08-13-2023 Family Medicine Office/Clinic Note Chief Complaint establish care HPI Staff Chasity is a 27 year old female presenting to [facility] would like a general check up Establish Care: History: Any previous diagnosis: migraine, POTS History of seeing any specialist: no When was your last doctors visit: 2016 Last provider: Bryon Any recent labs: ED in [place] Has POTS and is feeling lightheaded and brain fog. These are symptoms that she has had in the past. Was last seen in 2019 Dr. Meléndez in [facility] UTD: Pelvic/Pap: UTD flu: refused Acute: Current issues/complaints: Was in [place] ED last week for a migraine. Patient [...] 72.6, kg, 08/13/23 13:27:00 EDT, Weight Dosing [facility] External Ambulatory Referral 2. Postural orthostatic tachycardia syndrome (G90.A: Postural orthostatic tachycardia syndrome [POTS]) - [facility] Manager Of Employee Relations who specializes in this. Ordered: cyclobenzaprine, 5 mg = 1 tab(s), Oral, Daily, PRN Headache, Precautions discussed in detail, # 20 tab(s), Refills(s) 0, Pharmacy: [facility]/pharmacy #[id number], 154.5, cm, 08/13/23 13:27:00 EDT, Height/Length Dosing, 72.6, kg, 08/13/23 13:27:00 EDT, Weight Dosing [facility] External Ambulatory Referral 3. BMI 30.0-30.9,adult (Z68.30: Body mass index [BMI] 30.0-30.9, adult) - BMI education given. Ordered: cyclobenzaprine, 5 mg = 1 tab(s), Oral, Daily, PRN Headache, Precautions discussed in detail, # 20 tab(s), Refills(s) 0, [id number] 154.5, cm, 08/13/23 13:27:00 EDT, Height/Length Dosing, 72.6, kg, 08/13/23 13:27:00 EDT, Weight Dosing [facility] External Ambulatory Referral One month follow up [...] Yes, 08/13/2023 Family History Hypertension: Father. Normal [facility] Comment on above: Result Comment: Elec tronically Signed By: Miller WILSON, Mac Adam.br\Date and Time Signed: 08/13/23 14:05 EDT No Panel InformationOrdered By: Maricarmen Avila on 08-13-2023 Quick Strep (POC) [facility] Quick Strepon 10-04-2022 S. pyogenes Org specific cx Ql (Throat) Negative [place] Other Quick Strep [email or web address] Other Covid-19 PCR (CVDTBH)on 06-28 SARS-CoV-2 (COVID-19) RNA REINIER+probe Ql (Unsp spec) Not detected Normal NOT DETECTED [facility] Comment on above: Result Comment: When diagnostic [...] for this test is supported by the [employer] of Health and Human Service's declaration that [...] Performed By: #### S SCRN, GRASTCX #### [facility] [address] [place] [address] Dr. Ang Simmons INFLUENZA A AND B AGon 07-18 INFLUENZA A AG Negative Normal NEGATIVE SEE COMMENT [facility] Comment on above: Performed By: #### I NFLUAB #### [facility] [address] [place] [address] Dr. Ang Simmons INFLUENZA B AG Negative Normal NEGATIVE SEE COMMENT [facility] Comment on above: Performed By: #### I NFLUAB #### [facility] [address] [place] [address] Dr. Ang Simmons XR CHEST 2 Von [...] [facility]MA BABB Date: 2022-07-18 21:09 Normal [facility] CT ABD/PELVIS WO CONon 05-31 CT ABD/PELVIS [...] GRETEL HOOK Date: 2022-05-31 11:54 Normal [facility] Covid-19 PCR (CVDTB)on SARS-CoV-2 (COVID-19) RNA REINIER+probe Ql (Unsp spec) Not detected Normal NOT DETECTED [facility] Comment on above: Result Comment: This test is not yet approved or cleared by the [place] FDA. When there are no FDA-approved or cleared tests available, and other criteria are met, FDA can make tests available under an emergency access mechanism called an Emergency Use Authorization (EUA). The EUA for this test is supported by the [place] of Health and Human Service's (HHS's) declaration [...] Performed By: #### S SCRN, GRASTCX #### [facility] [address] [place] [address] Dr. Ang Simmons ER URINE PROFILEon 3 Bilirubin Ql (U) Negative Normal NEGATIVE [facility] Comment on above: Performed By: #### P REGU, ERUR #### [facility] [address] [place] [address] Dr. Ang Simmons Clarity (U) CLEAR Normal CLEAR [facility] Comment on above: Performed By: #### P REGU, ERUR #### [facility] [address] [place] [address] Dr. Ang Simmons Color (U) LT. YELLOW Normal YELLOW [facility] Comment on above: Performed By: #### P REGU, ERUR #### [facility] [address] [place] [address] Dr. Ang PEREIRAAHD A micrscopic examination will be performed if indicated. Normal [facility] Comment on above: Performed By: #### P REGU, ERUR #### [facility] [address] [place] [address] Dr. Ang Simmons Glucose Ql (U) Negative Normal NEGATIVE [facility] Comment on above: Performed By: #### P REGU, ERUR #### [facility] [address] [place] [address] Dr. Ang Simmons Hemoglobin Ql (U) Negative Normal NEGATIVE [facility] Comment on above: Performed By: #### P REGU, ERUR #### [facility] [address] [place] [address] Dr. Ang Simmons Ketones Ql (U) Negative Normal NEGATIVE [facility] Comment on above: Performed By: #### P REGU, ERUR #### [facility] [address] [place] [address] Dr. Ang Simmons LEUKOCYTES Negative Normal NEGATIVE [facility] Comment on above: Performed By: #### P REGU, ERUR #### [facility] [address] [place] [address] Dr. Ang Simmons Nitrite Ql (U) Negative Normal NEGATIVE [facility] Comment on above: Performed By: #### P REGU, ERUR #### [facility] [address] [place] [address] Dr. Ang Simmons pH (U) 5.5 [pH] Normal 5-9 [facility] Comment on above: Performed By: #### P REGU, ERUR #### [facility] [address] [place] [address] Dr. Ang Simmons SPEC GRAVITY 1.030 Abnormal 1.005-<=1.025 [facility] Comment on above: Performed By: #### P REGU, ERUR #### [facility] [address] [place] [address] Dr. Ang Simmons UA PROTEIN Negative Normal NEGATIVE/ TRACE [facility] Comment on above: Performed By: #### P REGU, ERUR #### [facility] [address] [place] [address] Dr. Ang Simmons UR MICRO IND NOT INDICATED Normal [facility] Comment on above: Performed By: #### P REGU, ERUR #### [facility] [address] [place] [address] Dr. Ang Simmons Urobilinogen Qn (U) 0.2 {Jazmin'U}/dL Normal 0.2 - 1. 0 [facility] Comment on above: Performed By: #### P REGU, ERUR #### [facility] [address] [place] [address] Dr. Ang Simomns GROUP A STREP CULTUREon S. pyogenes Ag Ql (Unsp spec) Culture Observations: NEGATIVE FOR GROUP A STREPTOCOCCUS. Normal [facility] Comment on above: Performed By: #### S COLBYN, GRASTCX #### [facility] [address] [place] [address] Dr. Ang Simmons INFLUENZA A AND B AGon 05-31 INFLUANEGH SEE BELOW Normal [facility] Comment on above: Result Comment: Nega tive for Flu A protein angiten. Infection due to Flu A cannot be ruled out. Flu A angiten in the sample may be below the detection limit of the test. Performed By: #### S SCRN, GRASTCX #### [facility] [address] [place] [address] Dr. Ang Simmons INFLUBNEGH SEE BELOW Normal [facility] Comment on above: Result Comment: Nega tive for Flu B protein antigen. Infection due to Flu B cannot be ruled out. Flu B antigen in the sample may be below the detection limit of the test. Performed By: #### S RAVI, GRASTCX #### [facility] [address] [place] [address] Dr. Ang Simmons INFLUENZA A AG Negative Normal NEGATIVE SEE COMMENT [facility] Comment on above: Performed By: #### S RAVI, GRASTCX #### [facility] [address] [place] [address] Dr. Ang Simmons INFLUENZA B AG Negative Normal NEGATIVE SEE COMMENT [facility] Comment on above: Performed By: #### S RAVI, GRASTCX #### [facility] [address] [place] [address] Dr. Ang Simmons URon 05-31-2022 , QUAL Negative Normal NEGATIVE [facility] Comment on above: Performed By: #### P REGU, ERUR #### [facility] [address] [place] [address] Dr. Ang Simmons STREPT SCREENon 05-31-2022 STREP SCREEN A Negative Normal NEGATIVE [facility] Comment on above: Performed By: #### S RAVI, GRASTCX #### [facility] [address] [place] [address] Dr. Ang Simmons Quick Strepon 02-13-2022 S. pyogenes Org specific cx Ql (Throat) Negative [facility] Other Quick Strep [facility] Other SARS-CoV-2 (COVID-19) RNA NA A+probe Ql (Resp)on 02-13-2022 SARS-CoV-2 (COVID-19) RNA REINIER+probe Ql (Unsp spec) Negative [facility] Other Covid-19 PCR ([facility])on 11-24 SARS-CoV-2 (COVID-19) RNA REINIER+probe Ql (Unsp spec) Not detected Normal NOT DETECTED [facility] Comment on above: Result Comment: When diagnostic [...] for this test is supported by the [place] of Health and Human Service's declaration that [...] used). Performed By: #### C VDTBH #### [facility] [address] [place], [place] [address] Dr. Ang Simmons GROUP A STREP CULTUREon 11-24 S. pyogenes Ag Ql (Unsp spec) Culture Observations: NEGATIVE FOR GROUP A STREPTOCOCCUS. Normal [facility] Comment on above: Performed By: #### S SCRN, GRASTCX #### [facility] [address] [place], [place] [address] Dr. Ang Simmons STREPT SCREENon 12-10-2021 STREP SCREEN A Negative Normal NEGATIVE [facility] Comment on above: Performed By: #### S SCRN, GRASTCX #### [facility] [address] [place] [address] Dr. Ang Simmons Vital Signs Date Time Vital Sign Value Performing Clinician Facility 08-13-2023 09:36-0400 Body height 162.56 cm [facility] 08-13-2023 09:36-0400 Body mass index (BMI) [Ratio] 26.6 kg/m2 [facility] 08-13-2023 09:36-0400 Body temperature 98.6 [degF] [facility] 08-13-2023 09:36-0400 Body weight 70.3 kg [facility] 08-13-2023 09:36-0400 Heart rate 91 /min [facility] 08-13-2023 09:36-0400 Respiratory rate 16 /min [facility] 08-13-2023 09:36-0400 SaO2% (BldA) [Mass fraction] 99 % [facility] 03-18-2023 09:15-0400 Body height 158.75 cm Aure Moss Other [facility] Other 03-18-2023 09:15-0400 Body mass index (BMI) [Ratio] 29.15 kg/m2 Aure Moss Other [facility] Other 03-18-2023 09:15-0400 Body temperature 98.2 [degF] Aure Moss Other [facility] Other 03-18-2023 09:15-0400 Body weight 73.48 kg Aure Moss Other [facility] Other 03-18-2023 09:15-0400 Respiratory rate 18 /min Aure Moss Other [facility] Other 03-18-2023 09:15-0400 SaO2% (BldA) [Mass fraction] 98 % Aure Moss Other [facility] Other 10-04-2022 12:40-0400 Body height 158.75 cm Maricarmen Avila Other [facility] Other 10-04-2022 12:40-0400 Body mass index (BMI) [Ratio] 27.54 kg/m2 Maricarmen Austin Other [facility] Other 10-04-2022 12:40-0400 Body temperature 99.3 [degF] Maricarmen Austin Other [facility] Other 10-04-2022 12:40-0400 Body weight 69.4 kg Maricarmen Avila Other [facility] Other 10-04-2022 12:40-0400 Respiratory rate 18 /min Maricarmen Avila Other [facility] Other 10-04-2022 12:40-0400 SaO2% (BldA) [Mass fraction] 99 % Maricarmen Austin Other [facility] Other 02-13-2022 16:55-0400 Body height 158.75 cm Rona Harrison Other [facility] Other 02-13-2022 16:55-0400 Body mass index (BMI) [Ratio] 27.9 kg/m2 Rona Harrison Other [facility] Other 02-13-2022 16:55-0400 Body temperature 98.4 [degF] Rona Harrison Other [facility] Other 02-13-2022 16:55-0400 Body weight 70.31 kg Rona Terry Other [facility] Other 02-13-2022 16:55-0400 Respiratory rate 18 /min Rona Terry Other [facility] Other 02-13-2022 16:55-0400 SaO2% (BldA) [Mass fraction] 99 % Rona Terry Other [facility] Other 12-21-2021 16:20-0400 Body height 158.75 cm Maricarmen Avila Other [facility] Other 12-21-2021 16:20-0400 Body mass index (BMI) [Ratio] 27.64 kg/m2 Maricarmen Avila Other [facility] Other 12-21-2021 16:20-0400 Body temperature 98 [degF] Maricarmen Avila Other [facility] Other 12-21-2021 16:20-0400 Body weight 69.67 kg Maricarmen Avila Other [facility] Other 12-21-2021 16:20-0400 Diastolic blood pressure 67 mm[Hg] Maricarmen Avila Other [facility] Other 12-21-2021 16:20-0400 Respiratory rate 18 /min Maricarmen Avila Other [facility] Other 12-21-2021 16:20-0400 SaO2% (BldA) [Mass fraction] 98 % Maricarmen Avila Other [facility] Other 12-21-2021 16:20-0400 Systolic blood pressure 117 mm[Hg] Maricarmen Avila Other [facility] Other Encounters Encounter Date Encounter Type Care Provider Facility Start: 09-17-2023 End: 09-18-2023 ambulatory Mac Bhatt Facility:[facility] Start: 08-27-2023 ambulatory Mac Bhatt Facility:[facility] [place] Start: 08-13-2023 End: 08-14-2023 ambulatory Mac Bhatt Facility:[facility] [facility] Start: 08-13-2023 End: 08-13-[address] [facility] Work Phone: Start: 08-13-2023 End: 08-13-2023 Patient encounter procedure [facility] Work Phone: Start: 03-18-2023 End: 03-18-2023 ambulatory Aure Moss Other [facility] Other Start: 03-18-2023 Office outpatient visit 15 minutes Aure Moss [facility] Start: 10-04-2022 End: 10-04-2022 ambulatory Maricarmen Avila Other [facility] Other Start: 10-04-2022 Office outpatient visit 25 minutes Maricarmen Avila [facility] Start: 07-18-2022 End: 07-19-2022 ambulatory KIAN DIAB . Facility:[facility] Start: 05-31-2022 End: 05-31-2022 ambulatory IRAIDA VANCE . Facility:[facility] Start: 02-13-2022 End: 02-13-2022 ambulatory Rona Terry Other [facility] Other Start: 02-13-2022 Office outpatient visit 15 minutes Rona Terry [facility] Start: 12-21-2021 (URG) Urgent Care Visit Maricarmen Avila [facility] Start: 12-21-2021 End: 12-21-2021 ambulatory Maricarmen Avila Other [facility] Other Start: 12-10-2021 End: 12-10-[address] MINI VERDE . Facility: Procedures Date Procedure Procedure Detail Performing Clinician Start: 08-13-2023 Quick Strep (POC) Plan of Treatment Date Care Activity Detail Author [facility] Immunizations Immunization Date Immunization Notes Care Provider Nilo reddylisa 01-01-2002 diphtheria, tetanus toxoids and acellular pertussis vaccine, unspecified formulation Maricarmen Avila Other [facility] 01-01-2002 measles, mumps and rubella virus vaccine Maricarmen Avila Other [facility] 01-01-2002 poliovirus vaccine, inactivated Maricarmen Avila Other [facility] Other 01-01-2002 poliovirus vaccine, unspecified formulation [facility] 02-04-1998 diphtheria, tetanus toxoids and acellular pertussis vaccine, unspecified formulation Maricarmen Avila Other [facility] 02-04-1998 measles, mumps and rubella virus vaccine Maricarmen Avila Other [facility] 02-04-1998 trivalent poliovirus vaccine, live, oral Maricarmen Avila Other [facility] 04-27-1997 diphtheria, tetanus toxoids and pertussis vaccine Maricarmen Avila Other [facility] 04-27-1997 haemophilus influenz ae type b vaccine, conjugate unspecified formulation Maricarmen Avila Other [facility] 04-27-1997 hepatitis B vaccine, pediatric or pediatric/adolescent dosage Maricarmen Avila Other [facility] 01-16-1997 diphtheria, tetanus toxoids and pertussis vaccine Maricarmen Avila Other [facility] 01-16-1997 haemophilus influenz ae type b vaccine, conjugate unspecified formulation Maricarmen Avila Other [facility] 01-16-1997 trivalent poliovirus vaccine, live, oral Maricarmen Avila Other [facility] 1996 diphtheria, tetanus toxoids and pertussis vaccine Maricarmen Avila Other [facility] 1996 haemophilus influenz ae type b vaccine, conjugate unspecified formulation Maricarmen Avila Other [facility] 1996 hepatitis B vaccine, pediatric or pediatric/adolescent dosage Maricarmen Avila Other [facility] 1996 trivalent poliovirus vaccine, live, oral Maricarmen Avila Other [facility] 1996 hepatitis B vaccine, pediatric or pediatric/adolescent dosage Maricarmen Avila Other [facility] Payers Date Payer Category Payer Medicaid [id number] 1996 Unknown [id number] 2.16.84 [id number] 1996 Unknown [id number] 2.16.84 [id number] 1996 Unknown [id number] 2.16.84 [id number] 1996 Unknown [id number] 2.16.8 [id number] 1996 Unknown [id number] 2.16.8 [id number] 1959 Unknown [id number] Unknown [id number] 2.1 [id number] Social History Date Type Detail Facility Unknown if ever smoked [facility] Other Sex Assigned At Sex Assigned At Bir th [facility] Other Start: 08-13-2023 Tobacco smoking status NHIS Smoker (finding) [facility] Start: 1995 Sex Assigned At Female F [place] [facility] Evaluation note 03-18-2023 Note Date & [...] Suspected COVID-19 virus infection (ICD-10 - Z20.822) [facility] Other Evaluation note 10-04-2022 Note Date & [...] treatment plan. Patient left in stable condition. [facility] Other Evaluation note 02-13-2022 Note Date & [...] weeks for the cough to go away [facility] Other Evaluation note 12-21-2021 Note Date & [...] understanding and is agreeable with treatment plan [facility] Other Evaluation note Note Date & Type Note Facility Evaluation note No assessment information availa [facility] Work Phone: History general Narrative - Reported Note Date & Type Note Facility History general Narrative - Reported Type Surgical History tonsillectomy Surgical History appendectomy Hospitalization History see above [facility] Other Summary Purpose Family History No Family History Records FoundNo Family History Records Found Advance Directives No Advanced Directives Records Found Advance Directive Response Recorded Date/ Time Advance Directives No August 12 9:32am Chief Complaint and Reason for Visit Chief Complaint Sore throat, nausea Additional Source Comments REASON FOR VISIT (unrecogniz ed section and content) WORK [employer]NEY [phone] RUNNY NOSE, COUGH, SORE THROATSORE THROAT, MUCUS, CONGESTIONRUNNY NOSE, COUGH,THROAT HURTS, CAN'T SLEEP INFORMATION SOURCE (unrecogn ized section and content) DATE CREATED AUTHOR 07/23/2022 [facility] DATE CREATED AUTHOR AUTHOR'S ORGANIZ ATION 09/19/2023 [facility] Care Teams (unrecognized sec tion and content) [...] BE BASED ON THE PRIMARY CLINICAL RECORDS. [facility]. provides no warranty or guarantee of the accuracy or completeness of information in this document.
[2024-01-31 15:18] LABS: BOX Test Sent Out Y
[2024-01-31 16:00] LABS: Estimated Average Glucose 82 mg/dL; Glycohemoglobin A1C 4.5 % (4.5-6.2)
[2024-01-31 16:49] LABS: Basophils Percent Auto 0.2 % (0.2-2.0); Eosinophils Absolute Auto 0.1 10^3/uL (0.0-0.7); Eosinophils Percent Auto 0.8 % (0.9-7.0); Hematocrit 38.8 % (36.0-48.0); Hemoglobin 13.6 g/dL (12.0-16.0); Immature Granulocytes Abs Auto 0.05 10^3/uL (0.00-0.03); Immature Granulocytes Pct Auto 0.4 % (0.0-0.5); Lymphocytes Absolute Auto 2.4 10^3/uL (1.2-3.8); Mean Corpuscular HGB Conc 35.1 g/dL (29.9-35.2); Mean Corpuscular Volume 88.4 fL (81.0-99.0); Mean Platelet Volume 11.1 fL (9.5-13.5); Monocytes Absolute Auto 0.7 10^3/uL (0.3-0.8); Monocytes Percent Auto 5.4 % (1.7-12.0); Neutrophils Percent Auto 75.2 % (43.0-75.0); Platelet Count 285 10^3/uL (150-450); Red Blood Count 4.39 10^6/uL (4.20-5.40); Red Cell Distribution Width 11.7 % (11.0-15.0); White Blood Count 13.3 10^3/uL (4.0-11.0)
[2024-02-02 08:09] LABS: HBsAg Screen Negative (Negative)
[2024-02-02 10:09] LABS: HCV Ab Non Reactive (Non Reactive); HIV Ab/p24 Ag Screen Non Reactive (Non Reactive)
[2024-02-02 11:08] LABS: Rapid Plasma Reagin, Quant Non Reactive titer (NonRea<1:1)
== END 2024-01-31 14:38 | disposition home or self-care (01) ==
LOC: LAB 14:37
PROVIDERS: Visit Provider Obstetrics & Gynecology
DX: N92.6 Irregular menstruation, unspecified (principal); Z36.0 Encounter for antenatal screening for chromosomal anomalies; Z34.91 Encounter for supervision of normal pregnancy, unspecified, first trimester; Z3A.12 12 weeks gestation of pregnancy
CPT/HCPCS: 36415; 76817; 83036; 85025; 86592; 86762; 86803; 86850; 86900; 86901; 87086; 87340; 87389

== ENCOUNTER 2024-02-03 12:48 | Emergency (ER) | payer MEDICAID, SELFPAY ==
[2024-02-03 12:54] VITALS: BP 142/92; PULSE 88; TEMP 36.8; O2SAT 99; BMI 29.3
--- NOTE | 2024-02-03 13:10 | ED.GENADUL1 ---
HPI HPI - General Adult General Chief complaint: Headache Stated complaint: HEADACHE 3 DAYS, VOMITING, 12 WEEKS Time Seen by Provider: 02/03/24 13:00 Source: patient Mode of arrival: walk-in Limitations: no limitations History of Present Illness HPI narrative: 28-year-old female presents to the emergency department for headache. On the right side of her head and she has had it for 2 days. No trauma fever or stiff neck. She has been having headaches like this for about 2 years. She is , 12 weeks. She has not had any vaginal bleeding and there is been no trauma. Related Data Previous Rx's ?Medication ?Instructions ?Recorded cetirizine 5 mg-pseudoephedrine ER 1 tab PO BID #10 tabs 12/03/22 120 mg tablet,extended release,12hr (Zyrtec-D) diphenhydramine HCl 25 mg capsule 25 mg PO Q6H PRN headache #20 caps 12/03/22 (Benadryl) metoclopramide HCl 10 mg tablet 10 mg PO Q6H PRN nausea and 12/03/22 (Reglan) vomiting #12 tabs Allergies Allergy/AdvReac Type Severity Reaction Status Date / Time cefixime [From Suprax] Allergy Severe Verified 08/06/23 22:50 Opioid HPI Opioid Management Most Recent Opioid Data: Last Pain Scale 7 12/03/22 15:11 Review of Systems ROS Narrative A ten point review of systems is negative except as noted above. PFSH PFSH Social History Smoking status: Current every day smoker Little interest or pleasure in doing things: not at all Feeling down, depressed, or hopeless: not at all Exam Narrative Exam Narrative: Nurses note and vital signs reviewed and patient is not hypoxic. General: The patient appears well and in no apparent distress. Skin: Warm, dry, no pallor noted. There is no rash noted. Head: Normocephalic, atraumatic; neck supple, no nuchal rigidity Eye: Normal conjunctiva, no drainage, EOMI. PERRL Ears, Nose, Mouth, and Throat: oral mucosa is moist. Nares patent. Cardiovascular: Regular Rate and Rhythm Respiratory: Patient is in no distress, no accessory muscle use, lungs are clear to auscultation, no wheezing, rales or rhonchi Back: non-tender GI: Soft and nontender Musculoskeletal: The patient has no evidence of calf tenderness, no pitting edema, symmetrical pulses noted bilaterally Neurological: Awake and alert Psychiatric: Cooperative Constitutional Vital Signs, click to edit/add: Last Vital Signs Temp 98.2 F 02/03/24 12:54 Pulse 88 02/03/24 12:54 Resp 18 02/03/24 12:54 BP 130/76 02/03/24 14:07 Pulse Ox 99 02/03/24 12:54 O2 Del Method Room Air 02/03/24 12:54 Course Vital Signs Vital signs: Vital Signs Temperature 98.2 F 02/03/24 12:54 Pulse Rate 88 02/03/24 12:54 Respiratory Rate 18 02/03/24 12:54 Blood Pressure 142/92 H 02/03/24 12:54 Pulse Oximetry 99 02/03/24 12:54 Oxygen Delivery Method Room Air 02/03/24 12:54 Temperature 98.2 F 02/03/24 12:54 Pulse Rate 88 02/03/24 12:54 Respiratory Rate 18 02/03/24 12:54 Blood Pressure 130/76 02/03/24 14:07 Pulse Oximetry 99 02/03/24 12:54 Oxygen Delivery Method Room Air 02/03/24 12:54 Medical Decision Making MDM Narrative Medical decision making narrative: The patient was given IV fluids and Zofran and Nubain and feels much better now and is able to be discharged home. Blood pressure also improved. Treatment diagnosis and follow-up were discussed with the patient. Differential Diagnosis Differential Diagnosis: Nonspecific headache, tension headache Lab Data Lab results reviewed: Yes I reviewed the patient's lab results Labs: Lab Results 02/03/24 Range/Units 13:26 WBC 13.8 H (4.0-11.0) 10^3/uL RBC 4.18 L (4.20-5.40) 10^6/uL Hgb 13.1 (12.0-16.0) g/dL Hct 37.1 (36.0-48.0) % MCV 88.8 (81.0-99.0) fL MCH 31.3 (26.7-34.0) pg MCHC 35.3 H (29.9-35.2) g/dL RDW 11.9 (11.0-15.0) % Plt Count 245 (150-450) 10^3/uL MPV 10.2 (9.5-13.5) fL Neut % (Auto) 78.7 H (43.0-75.0) % Lymph % (Auto) 15.3 L (20.5-60.0) % [place] % (Auto) 4.9 (1.7-12.0) % Eos % (Auto) 0.4 L (0.9-7.0) % Baso % (Auto) 0.3 (0.2-2.0) % Neut # (Auto) 10.9 H (1.4-6.5) 10^3/uL Lymph # (Auto) 2.1 (1.2-3.8) 10^3/uL [place] # (Auto) 0.7 (0.3-0.8) 10^3/uL Eos # (Auto) 0.1 (0.0-0.7) 10^3/uL Baso # (Auto) 0.0 (0.0-0.1) 10^3/uL Abs Immat Gran (auto) 0.05 H (0.00-0.03) 10^3/uL Imm/Tot Granulo (auto) 0.4 (0.0-0.5) % Sodium 135 L (136-145) mmol/L Potassium 3.8 (3.5-5.1) mmol/L Chloride 100 (98-107) mmol/L Carbon Dioxide 26.2 (21.0-32.0) mmol/L Anion Gap 12.6 BUN 8.0 (7.0-18.0) mg/dL Creatinine 0.64 (0.55-1.02) mg/dL Est GFR ( Amer) >60 (>=60) Est GFR (Non-Af Amer) >60 (>=60) BUN/Creatinine Ratio 12.5 Glucose 76 (74-106) mg/dL Calcium 9.2 (8.5-10.1) mg/dL Discharge Plan Discharge Chief Complaint: Headache Clinical Impression: Headache Patient Disposition: Home, Self-Care Time of Disposition Decision: 14:36 Condition: Good Mode of Transportation: Private Vehicle Prescriptions / Home Meds: No Action cetirizine-pseudoephedrine [Zyrtec-D] 5-120 mg tablet extended release 12 hr 1 tab PO BID Qty: 10 0RF metoclopramide HCl [Reglan] 10 mg tablet 10 mg PO Q6H PRN (Reason: nausea and vomiting) Qty: 12 0RF Rx Instructions: Can be used as needed for headache, take with benadryl diphenhydramine HCl [Benadryl] 25 mg capsule 25 mg PO Q6H PRN (Reason: headache) Qty: 20 0RF Rx Instructions: take with benadryl Print Language: Italian Instructions: Acute Headache (ED) Referrals: Physician,Non-Staff, MD [Primary Care Provider] - 1 week
--- NOTE | 2024-02-03 13:24 | PC.NURSE ---
pt c/o migraine for last 3 days. currently 12 weeks . unable to keep anything down d/t nausea
[2024-02-03] MEDS: 0.9 % SODIUM CHLORIDE 1,000 ML 1000 ML IV (13:29)
[2024-02-03] MEDS: ONDANSETRON PF 4 MG/2 ML VIAL IV (13:29)
[2024-02-03] MEDS: NALBUPHINE HCL 10 MG/ML AMPULE 5 MG IV (13:30)
[2024-02-03 13:33] LABS: Basophils Percent Auto 0.3 % (0.2-2.0); Eosinophils Absolute Auto 0.1 10^3/uL (0.0-0.7); Eosinophils Percent Auto 0.4 % (0.9-7.0); Hematocrit 37.1 % (36.0-48.0); Hemoglobin 13.1 g/dL (12.0-16.0); Immature Granulocytes Abs Auto 0.05 10^3/uL (0.00-0.03); Immature Granulocytes Pct Auto 0.4 % (0.0-0.5); Lymphocytes Absolute Auto 2.1 10^3/uL (1.2-3.8); Lymphocytes Percent Auto 15.3 % (20.5-60.0); Mean Corpuscular HGB Conc 35.3 g/dL (29.9-35.2); Mean Corpuscular Hemoglobin 31.3 pg (26.7-34.0); Mean Corpuscular Volume 88.8 fL (81.0-99.0); Mean Platelet Volume 10.2 fL (9.5-13.5); Monocytes Absolute Auto 0.7 10^3/uL (0.3-0.8); Monocytes Percent Auto 4.9 % (1.7-12.0); Neutrophils Absolute Auto 10.9 10^3/uL (1.4-6.5); Neutrophils Percent Auto 78.7 % (43.0-75.0); Platelet Count 245 10^3/uL (150-450); Red Blood Count 4.18 10^6/uL (4.20-5.40); Red Cell Distribution Width 11.9 % (11.0-15.0); White Blood Count 13.8 10^3/uL (4.0-11.0)
[2024-02-03 13:45] LABS: Anion Gap 12.6; BUN Creatinine Ratio 12.5; Calcium 9.2 mg/dL (8.5-10.1); Carbon Dioxide 26.2 mmol/L (21.0-32.0); Chloride 100 mmol/L (98-107); Estimated GFR (African America >60 (>=60); Estimated GFR (Non-African Ame >60 (>=60); Glucose 76 mg/dL (74-106); Potassium 3.8 mmol/L (3.5-5.1); Sodium 135 mmol/L (136-145)
[2024-02-03 14:07] VITALS: BP 130/76
== END 2024-02-03 14:48 | disposition home or self-care (01) ==
PROVIDERS: Emergency Provider Emergency Medicine
DX: O26.891 Other specified pregnancy related conditions, first trimester (principal); R51.9 Headache, unspecified; O99.331 Smoking (tobacco) complicating pregnancy, first trimester; F17.200 Nicotine dependence, unspecified, uncomplicated; Z3A.12 12 weeks gestation of pregnancy
CPT/HCPCS: 36415; 80048; 85025; 96374; 96375; 99284; J2300; J2405

== ENCOUNTER 2024-03-15 17:18 | Emergency (ER) | payer OTHER, SELFPAY ==
[2024-03-15 17:24] VITALS: BP 117/75; PULSE 95; TEMP 36.9; O2SAT 100; BMI 32.1
--- OUTSIDE RECORDS SUMMARY | 2024-03-15 17:28 | XMS_ITS | CCD ---
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 Name Role Phone Maricarmen Avila Unavailable Rona [...] Reaction(s) Facility (4 sources) Cefixime Drug Allergy Let's Talk Other (2 sources) Dextrothyroxine; Translations: [Suprax] Drug Allergy 05-27-1997 [facility] Repository Medications Current Medications Medication Drug Class(es) Dates Sig (Normalized) Sig (Original) dextromethorphan hydrobromide 15 mg / guaiFENesin 400 mg / pseudoephedrine hydrochloride 60 mg oral tablet (2 sources) alpha-Adrenergic Agonist, Uncompetitive U-pjxriw-M-aspartat e Receptor Antagonist, Sigma-1 Agonist Start: 08-13-2023 [...] Drug Class(es) Dates Sig (Normalized) Sig (Original) [id number] 200 actuat albuterol 0.09 mg/actuat metered dose [...] Facility ED Note-Physicianon 08-15-19 ED Note-Physician [phone] [id number] [facility] Interdisciplinary Note - Soc ial Workeron 08-15-2023 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 Patient did not answer so a message was left with SW's contact information. SW will remain available. [facility] Ambulatory Visit Summaryon 0 08-13-2023 Ambulatory Visit [...] PM EDT With: Mac Bhatt MD Where: [facility] [place] [facility] Family Medicine Office/Clini c Noteon 08-13-2023 Family Medicine Office/Clinic Note Chief Complaint establish care HPI Staff Chasity is a 27 year old female presenting to [facility] would like a general check up Establish Care: History: Any previous diagnosis: migraine, POTS History of seeing any specialist: no When was your last doctors visit: 2016 Last provider: Bryon Any recent labs: ED in [place] Has POTS and is feeling lightheaded and brain fog. These are symptoms that she has had in the past. Was last seen in 2019 Dr. Meléndez in [facility] UTD: Pelvic/Pap: UTD flu: refused Acute: Current issues/complaints: Was in [place] ED last week for a migraine. Patient [...] 72.6, kg, 08/13/23 13:27:00 EDT, Weight Dosing [facility] External Ambulatory Referral 2. 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 Ordered: cyclobenzaprine, 5 mg = 1 tab(s), Oral, Daily, PRN Headache, Precautions discussed in detail, # 20 tab(s), Refills(s) 0, Pharmacy: [id number]/pharmacy #[id number], 154.5, cm, 08/13/23 13:27:00 EDT, Height/Length Dosing, 72.6, kg, 08/13/23 13:27:00 EDT, Weight Dosing [facility] External Ambulatory Referral 3. BMI 30.0-30.9,adult (Z68.30: Body mass index [BMI] 30.0-30.9, adult) - BMI education given. Ordered: cyclobenzaprine, 5 mg = 1 tab(s), Oral, Daily, PRN Headache, Precautions discussed in detail, # 20 tab(s), Refills(s) 0, [id number] 154.5, cm, 08/13/23 13:27:00 EDT, Height/Length Dosing, 72.6, kg, 08/13/23 13:27:00 EDT, Weight Dosing [facility] External Ambulatory Referral One month follow up [...] Yes, 08/13/2023 Family History Hypertension: Father. Normal [facility] Comment on above: Result Comment: Elec tronically Signed By: Miller WILSON, Mac Adam.br\Date and Time Signed: 08/13/23 14:05 EDT No Panel InformationOrdered By: Maricarmen Avila on 08-13-2023 Quick Strep (POC) [facility] Quick Strepon 10-04-2022 S. pyogenes Org specific cx Ql (Throat) Negative [place] [employer] Other Quick Strep [employer] Other Covid-19 PCR (CVDTBH)on 06-28 SARS-CoV-2 (COVID-19) RNA REINIER+probe Ql (Unsp spec) Not detected Normal NOT DETECTED [facility] Comment on above: Result Comment: When diagnostic [...] for this test is supported by the Ordnance Artificer Helper of Health and Human Service's declaration that [...] Performed By: #### S SCRN, GRASTCX #### [facility] [address] [place] [address] Dr. Ang Simmons INFLUENZA A AND B AGon 07-18 INFLUENZA A AG Negative Normal NEGATIVE SEE COMMENT [facility] Comment on above: Performed By: #### I NFLUAB #### [facility] [address] [place] [address] Dr. Ang Simmons INFLUENZA B AG Negative Normal NEGATIVE SEE COMMENT [facility] Comment on above: Performed By: #### I NFLUAB #### [facility] [address] [place] [address] Dr. Ang Simmons XR CHEST 2 Von [...] EMMA BABB Date: 2022-07-18 21:09 Normal [facility] CT ABD/PELVIS WO CONon 05-31 CT ABD/PELVIS [...] GRETEL HOOK Date: 2022-05-31 11:54 Normal [facility] Covid-19 PCR (CVDTB)on SARS-CoV-2 (COVID-19) RNA REINIER+probe Ql (Unsp spec) Not detected Normal NOT DETECTED [facility] Comment on above: Result Comment: This test is not yet approved or cleared by the [place] FDA. When there are no FDA-approved or cleared tests available, and other criteria are met, FDA can make tests available under an emergency access mechanism called an Emergency Use Authorization (EUA). The EUA for this test is supported by the Frederic of Health and Human Service's (HHS's) declaration [...] Performed By: #### S SCRN, GRASTCX #### [facility] [address] [place] [address] Dr. Ang Simmons ER URINE PROFILEon 3 Bilirubin Ql (U) Negative Normal NEGATIVE The [facility] Comment on above: Performed By: #### P REGU, ERUR #### [facility] [address] [place] [address] Dr. Ang Simmons Clarity (U) CLEAR Normal CLEAR [facility] Comment on above: Performed By: #### P REGU, ERUR #### [facility] [address] [place] [address] Dr. Ang Simmons Color (U) LT. YELLOW Normal YELLOW [facility] Comment on above: Performed By: #### P REGU, ERUR #### [facility] [address] [place] [address] Dr. Ang PEREIRAAHD A micrscopic examination will be performed if indicated. Normal [facility] Comment on above: Performed By: #### P REGU, ERUR #### [facility] [address] [place] [address] Dr. Ang Simmons Glucose Ql (U) Negative Normal NEGATIVE [facility] Comment on above: Performed By: #### P REGU, ERUR #### [facility] [address] [place] [address] Dr. Ang Simmons Hemoglobin Ql (U) Negative Normal NEGATIVE The [facility] Comment on above: Performed By: #### P REGU, ERUR #### [facility] [address] [place] [address] Dr. Ang Simmons Ketones Ql (U) Negative Normal NEGATIVE [facility] Comment on above: Performed By: #### P REGU, ERUR #### [facility] [address] [place] [address] Dr. Ang Simmons LEUKOCYTES Negative Normal NEGATIVE [facility] Comment on above: Performed By: #### P REGU, ERUR #### [facility] [address] [place] [address] Dr. Ang Simmons Nitrite Ql (U) Negative Normal NEGATIVE [facility] Comment on above: Performed By: #### P REGU, ERUR #### [facility] [address] [place] [address] Dr. Ang Simmons pH (U) 5.5 [pH] Normal 5-9 [facility] Comment on above: Performed By: #### P REGU, ERUR #### [facility] [address] [place] [address] Dr. Ang Simmons SPEC GRAVITY 1.030 Abnormal 1.005-<=1.025 [facility] Comment on above: Performed By: #### P REGU, ERUR #### [facility] [address] [place] [address] Dr. Ang Simmons UA PROTEIN Negative Normal NEGATIVE/ TRACE [facility] Comment on above: Performed By: #### P REGU, ERUR #### [facility] [address] [place] [address] Dr. Ang Simmons UR MICRO IND NOT INDICATED Normal The [facility] Comment on above: Performed By: #### P REGU, ERUR #### [facility] [address] [place] [address] Dr. Ang Simmons Urobilinogen Qn (U) 0.2 {Jazmin'U}/dL Normal 0.2 - 1. 0 [facility] Comment on above: Performed By: #### P REGU, ERUR #### [facility] [address] [place] [address] Dr. Ang Simmons GROUP A STREP CULTUREon S. pyogenes Ag Ql (Unsp spec) Culture Observations: NEGATIVE FOR GROUP A STREPTOCOCCUS. Normal [facility] Comment on above: Performed By: #### S COLBYN, GRASTCX #### [facility] [address] [place] [address] Dr. Ang Simmons INFLUENZA A AND B AGon 05-31 INFLUANEGH SEE BELOW Normal [facility] Comment on above: Result Comment: Nega tive for Flu A protein angiten. Infection due to Flu A cannot be ruled out. Flu A angiten in the sample may be below the detection limit of the test. Performed By: #### S SCRN, GRASTCX #### [facility] [address] [place] [address] Dr. Ang Simmons INFLUBNEGH SEE BELOW Normal [facility] Comment on above: Result Comment: Nega tive for Flu B protein antigen. Infection due to Flu B cannot be ruled out. Flu B antigen in the sample may be below the detection limit of the test. Performed By: #### S RAVI, GRASTCX #### [facility] [address] [place] [address] Dr. Ang Simmons INFLUENZA A AG Negative Normal NEGATIVE SEE COMMENT [facility] Comment on above: Performed By: #### S RAVI, GRASTCX #### [facility] [address] [place] [address] Dr. Ang Simmons INFLUENZA B AG Negative Normal NEGATIVE SEE COMMENT [facility] Comment on above: Performed By: #### S RAVI, GRASTCX #### [facility] [address] [place] [address] Dr. Ang Simmons URon 05-31-2022 , QUAL Negative Normal NEGATIVE The [facility] Comment on above: Performed By: #### P REGU, ERUR #### [facility] [address] [place] [address] Dr. Ang Simmons STREPT SCREENon 05-31-2022 STREP SCREEN A Negative Normal NEGATIVE [facility] Comment on above: Performed By: #### S RAVI, GRASTCX #### [facility] [address] [place] [address] Dr. Ang Simmons Quick Strepon 02-13-2022 S. pyogenes Org specific cx Ql (Throat) Negative [facility] [employer] Other Quick Strep [facility] [employer] Other SARS-CoV-2 (COVID-19) RNA NA A+probe Ql (Resp)on 02-13-2022 SARS-CoV-2 (COVID-19) RNA REINIER+probe Ql (Unsp spec) Negative [employer] Other Covid-19 PCR ([facility])on 11-24 SARS-CoV-2 (COVID-19) RNA REINIER+probe Ql (Unsp spec) Not detected Normal NOT DETECTED [facility] Comment on above: Result Comment: When diagnostic [...] for this test is supported by the Ordnance Artificer Helper of Health and Human Service's declaration that [...] used). Performed By: #### C VDTBH #### [facility] [address] [place], [place] [address] Dr. Ang Simmons GROUP A STREP CULTUREon 11-24 S. pyogenes Ag Ql (Unsp spec) Culture Observations: NEGATIVE FOR GROUP A STREPTOCOCCUS. Normal [facility] Comment on above: Performed By: #### S SCRN, GRASTCX #### [facility] [address] [place], [place] [address] Dr. Ang Simmons STREPT SCREENon 12-10-2021 STREP SCREEN A Negative Normal NEGATIVE [facility] Comment on above: Performed By: #### S SCRN, GRASTCX #### [facility] [address] [place] [address] Dr. Ang iSmmons Vital Signs Date Time Vital Sign Value Performing Clinician Facility 08-13-2023 09:36-0400 Body height 162.56 cm [facility] 08-13-2023 09:36-0400 Body mass index (BMI) [Ratio] 26.6 kg/m2 [facility] 08-13-2023 09:36-0400 Body temperature 98.6 [degF] [facility] 08-13-2023 09:36-0400 Body weight 70.3 kg [facility] 08-13-2023 09:36-0400 Heart rate 91 /min [facility] 08-13-2023 09:36-0400 Respiratory rate 16 /min [facility] 08-13-2023 09:36-0400 SaO2% (BldA) [Mass fraction] 99 % [facility] 03-18-2023 09:15-0400 Body height 158.75 cm Aure Moss Other [facility] Other 03-18-2023 09:15-0400 Body mass index (BMI) [Ratio] 29.15 kg/m2 Aure Moss Other [employer] Other 03-18-2023 09:15-0400 Body temperature 98.2 [degF] Aure Moss Other [facility] Other 03-18-2023 09:15-0400 Body weight 73.48 kg Aure Moss Other [facility] Other 03-18-2023 09:15-0400 Respiratory rate 18 /min Aure Moss Other [facility] Other 03-18-2023 09:15-0400 SaO2% (BldA) [Mass fraction] 98 % Aure Moss Other [employer] Other 10-04-2022 12:40-0400 Body height 158.75 cm Maricarmen Avila Other [facility] Other 10-04-2022 12:40-0400 Body mass index (BMI) [Ratio] 27.54 kg/m2 Maricarmen Austin Other [facility] Other 10-04-2022 12:40-0400 Body temperature 99.3 [degF] Maricarmen Austin Other [facility] Other 10-04-2022 12:40-0400 Body weight 69.4 kg Maricarmen Avila Other [facility] Other 10-04-2022 12:40-0400 Respiratory rate 18 /min Maricarmen Avila Other [facility] Other 10-04-2022 12:40-0400 SaO2% (BldA) [Mass fraction] 99 % Maricarmen Austin Other [facility] Other 02-13-2022 16:55-0400 Body height 158.75 cm Rona Harrison Other [facility] Other 02-13-2022 16:55-0400 Body mass index (BMI) [Ratio] 27.9 kg/m2 Rona Harrison Other [facility] Other 02-13-2022 16:55-0400 Body temperature 98.4 [degF] Rona Harrison Other [facility] Other 02-13-2022 16:55-0400 Body weight 70.31 kg Rona Terry Other [facility] Other 02-13-2022 16:55-0400 Respiratory rate 18 /min Rona Terry Other [facility] Other 02-13-2022 16:55-0400 SaO2% (BldA) [Mass fraction] 99 % Rona Terry Other [facility] Other 12-21-2021 16:20-0400 Body height 158.75 cm Maricarmen Avila Other [facility] Other 12-21-2021 16:20-0400 Body mass index (BMI) [Ratio] 27.64 kg/m2 Maricarmen Avila Other [facility] Other 12-21-2021 16:20-0400 Body temperature 98 [degF] Maricarmen Avila Other [facility] Other 12-21-2021 16:20-0400 Body weight 69.67 kg Maricarmen Avila Other [facility] Other 12-21-2021 16:20-0400 Diastolic blood pressure 67 mm[Hg] Maricarmen Avila Other [facility] Other 12-21-2021 16:20-0400 Respiratory rate 18 /min Maricarmen Avila Other [facility] Other 12-21-2021 16:20-0400 SaO2% (BldA) [Mass fraction] 98 % Maricarmen Avila Other [employer] Other 12-21-2021 16:20-0400 Systolic blood pressure 117 mm[Hg] Maricarmen Avila Other [employer] Other Encounters Encounter Date Encounter Type Care Provider Facility Start: 01-31-2024 End: 01-31-2024 ambulatory Not Available Start: 09-17-2023 End: 09-18-2023 ambulatory Mac PelaezPetey Bhatt Facility:[facility] Start: 08-27-2023 ambulatory Mac Bhatt Facility:[facility] Start: 08-13-2023 End: 08-14-2023 ambulatory Mac Bhatt Facility:[facility] Start: 08-13-2023 End: 08-13-2023 ambulatory [facility] Work Phone: Start: 08-13-2023 End: 08-13-2023 Patient encounter procedure [facility] Work Phone: Start: 03-18-2023 End: 03-18-2023 ambulatory Aure Moss Other [facility] Other Start: 03-18-2023 Office outpatient visit 15 minutes Aure Moss [facility] Start: 10-04-2022 End: 10-04-2022 ambulatory Maricarmen Avila Other [facility] Other Start: 10-04-2022 Office outpatient visit 25 minutes Maricarmen Avila [facility] Start: 07-18-2022 End: 07-19-2022 ambulatory KIAN DIAB . Facility:[facility] Start: 05-31-2022 End: 05-31-2022 ambulatory IRAIDA VANCE . Facility:[facility] Start: 02-13-2022 End: 02-13-2022 ambulatory Ronachava Terry Other [facility] Other Start: 02-13-2022 Office outpatient visit 15 minutes Ronachava Terry [facility] Start: 12-21-2021 (URG) Urgent Care Visit Maricarmen Austin [facility] Start: 12-21-2021 End: 12-21-2021 ambulatory Maricarmen Avila Other [facility] Other Start: 12-10-2021 End: 12-10-[address] MINI VERDE . Facility: Procedures Date Procedure Procedure Detail Performing Clinician Start: 08-13-2023 Quick Strep (POC) Plan of Treatment Date Care Activity Detail Author [facility] Immunizations Immunization Date Immunization Notes Care Provider Fa jonathan 01-01-2002 diphtheria, tetanus toxoids and acellular pertussis vaccine, unspecified formulation Maricarmen Avila Other [facility] 01-01-2002 measles, mumps and rubella virus vaccine Maricarmen Avila Other [facility] 01-01-2002 poliovirus vaccine, inactivated Maricarmen Avila Other [employer] [facility] [employer] Other 01-01-2002 poliovirus vaccine, unspecified formulation [facility] 02-04-1998 diphtheria, tetanus toxoids and acellular pertussis vaccine, unspecified formulation Maricarmen Avila Other [facility] 02-04-1998 measles, mumps and rubella virus vaccine Maricarmen Avila Other [facility] 02-04-1998 trivalent poliovirus vaccine, live, oral Maricarmen Avila Other [facility] 04-27-1997 diphtheria, tetanus toxoids and pertussis vaccine Maricarmen Avila Other [facility] 04-27-1997 haemophilus influenz ae type b vaccine, conjugate unspecified formulation Maricarmen Avila Other [facility] 04-27-1997 hepatitis B vaccine, pediatric or pediatric/adolescent dosage Maricarmen Avila Other [facility] 01-16-1997 diphtheria, tetanus toxoids and pertussis vaccine Maricarmen Avila Other [facility] 01-16-1997 haemophilus influenz ae type b vaccine, conjugate unspecified formulation Maricarmen Avila Other [facility] 01-16-1997 trivalent poliovirus vaccine, live, oral Maricarmen Avila Other [facility] 1996 diphtheria, tetanus toxoids and pertussis vaccine Maricarmen Avila Other [facility] 1996 haemophilus influenz ae type b vaccine, conjugate unspecified formulation Maricarmen Avila Other [facility] 1996 hepatitis B vaccine, pediatric or pediatric/adolescent dosage Maricarmen Avila Other [facility] 1996 trivalent poliovirus vaccine, live, oral Maricarmen Avila Other [facility] 1996 hepatitis B vaccine, pediatric or pediatric/adolescent dosage Maricarmen Avila Other [facility] Payers Date Payer Category Payer Medicaid [id number] 1996 Unknown [id number] 2.16.84 [id number] 1996 Unknown [id number] 2.16.84 [id number] 1996 Unknown [id number] 2.16.84 [id number] 1996 Unknown [id number] 2.16.8 [id number] 1996 Unknown [id number] 2.16.8 [id number] 1996 Unknown [id number] 2.16.84 [id number] 1959 Unknown [id number] Unknown [id number] 2.1 [id number] Social History Date Type Detail Facility Unknown if ever smoked [employer] Other Sex Assigned At Sex Assigned At Bir th [facility] Other Start: 08-13-2023 Tobacco smoking status NHIS Smoker (finding) [facility] Start: 1995 Sex Assigned At Female F [facility] Evaluation note 03-18-2023 Note Date & [...] Suspected COVID-19 virus infection (ICD-10 - Z20.822) [facility] Other Evaluation note 10-04-2022 Note Date & [...] treatment plan. Patient left in stable condition. [facility] Other Evaluation note 02-13-2022 Note Date & [...] weeks for the cough to go away [facility] Other Evaluation note 12-21-2021 Note Date & [...] understanding and is agreeable with treatment plan [facility] Other Evaluation note Note Date & Type Note Facility Evaluation note No assessment information availa [facility] Work Phone: History general Narrative - Reported Note Date & Type Note Facility History general Narrative - Reported Type Surgical History tonsillectomy Surgical History appendectomy Hospitalization History see above [facility] Other Summary Purpose Family History No Family History Records FoundNo Family History Records FoundNo Family History Records Found Advance Directives No Advanced Directives Records Found Advance Directive Response Recorded Date/ Time Advance Directives No August 12 9:32am Chief Complaint and Reason for Visit Chief Complaint Sore throat, nausea Additional Source Comments REASON FOR VISIT (unrecogniz ed section and content) WORK [employer]IE [employer] [id number] RUNNY NOSE, COUGH, SORE THROATSORE THROAT, MUCUS, CONGESTIONRUNNY NOSE, COUGH,THROAT HURTS, CAN'T SLEEP INFORMATION SOURCE (unrecogn ized section and content) DATE CREATED AUTHOR 07/23/2022 [facility] DATE CREATED AUTHOR AUTHOR'S ORGANIZ ATION 09/19/2023 [facility] DATE CREATED AUTHOR AUTHOR'S ORGANIZ ATION 02/02/2024 [facility] EPIC Care Teams (unrecognized sec tion and content) [...] BE BASED ON THE PRIMARY CLINICAL RECORDS. [employer] [facility]. provides no warranty or guarantee of the accuracy or completeness of information in this document.
[2024-03-15 17:48] LABS: Influenza Virus A Antigen Negative; Influenza Virus B Antigen Negative; Internal Control Within Normal Limits; SARS-CoV-2 Ag NEGATIVE (NEGATIVE)
--- NOTE | 2024-03-15 18:30 | ED.URI1 ---
HPI - URI/Sore Throat General Chief Complaint: Upper Respiratory Infection Stated Complaint: URTI Time Seen by Provider: 03/15/24 17:33 Source: patient Limitations: no limitations History of Present Illness HPI Narrative: 28-year-old female to the emergency department chief complaint of flulike illness that began several days ago. She now has ear pain and fevers. She denies any nausea or vomiting. She is currently 18 weeks . She denies chest pain or shortness of breath. She has been taking Tylenol for fevers. Related Data Home Medications ?Medication ?Instructions ?Recorded ?Confirmed promethazine 12.5 mg tablet 12.5 mg PO Q6H PRN nausea and 03/15/24 03/15/24 vomiting Previous Rx's ?Medication ?Instructions ?Recorded amoxicillin 500 mg capsule 500 mg PO BID #14 caps 03/15/24 Allergies Allergy/AdvReac Type Severity Reaction Status Date / Time cefixime (From Suprax) Allergy Severe Rash Verified 03/15/24 17:28 Review of Systems ROS Status of ROS 10 or more systems reviewed and unremarkable except as noted in history and below PFSH [facility] Social History Smoking status: Current every day smoker Little interest or pleasure in doing things: not at all Feeling down, depressed, or hopeless: not at all Exam Narrative Exam Narrative: VITALS: I have reviewed the triage vital signs. GENERAL: Well developed, well appearing adult in no acute distress. NEURO: Alert and oriented. Moves all extremities. Face is symmetric and expressive. EYES: PERRL. No scleral icterus or conjunctival injection. No discharge. HENT: Normocephalic, atraumatic. Hearing is grossly intact. Mucous membranes moist. Bilateral TM effusions, purulent on the right. Nasal congestion. NECK: No JVD. Patient moves neck without restriction. CARDIO: Rhythm regular. Normal rate. No murmur, rub, or gallop. Pulses equal bilaterally in the upper and lower extremity. No lower extremity edema. PULM: Lungs clear to auscultation in all wong. No wheezes, rales, or rhonchi. No conversational dyspnea. No splinting, stridor, or accessory muscle use. GI/: Abdomen is soft and non-tender. Normoactive bowel sounds. EXTREMITIES: Symmetric muscle bulk. No joint swelling. No clubbing, cyanosis, or deformity. SKIN: Warm and dry. Normal turgor. No rash or lesions appreciated. PSYCH: Mood, affect, and interaction is appropriate to the setting. Constitutional Vital Signs, click to edit/add: Last Vital Signs Temp 98.4 F 03/15/24 17:24 Pulse 95 H 03/15/24 17:24 BP 117/75 03/15/24 17:24 Pulse Ox 100 03/15/24 17:24 Course Vital Signs Vital signs: Vital Signs Temperature 98.4 F 03/15/24 17:24 Pulse Rate 95 H 03/15/24 17:24 Blood Pressure 117/75 03/15/24 17:24 Pulse Oximetry 100 03/15/24 17:24 Temperature 98.4 F 03/15/24 17:24 Pulse Rate 95 H 03/15/24 17:24 Blood Pressure 117/75 03/15/24 17:24 Pulse Oximetry 100 03/15/24 17:24 MDM - URI/Sore Throat MDM Narrative Medical decision making narrative: Well-appearing 28-year-old female. Obvious right-sided otitis media. Upper respiratory infection likely cause. Amoxicillin for otitis. Recommended continues to Tylenol for fevers. Return precautions were discussed. All questions were answered. The patient was discharged home. Lab Data Attestation: I reviewed the patient's lab results. Labs: Lab Results 03/15/24 Range/Units 17:32 Influenza Type A Ag Negative Influenza Type B Ag Negative SARS-CoV-2 Ag (CV2AG) Negative (NEGATIVE) Discharge Plan Discharge Chief Complaint: Upper Respiratory Infection Clinical Impression: Upper respiratory infection, Otitis media Patient Disposition: Home, Self-Care Time of Disposition Decision: 18:27 Condition: Good Mode of Transportation: Private Vehicle Prescriptions / Home Meds: New amoxicillin 500 mg capsule 500 mg PO BID Qty: 14 0RF No Action promethazine 12.5 mg tablet 12.5 mg PO Q6H PRN (Reason: nausea and vomiting) Print Language: [place] Instructions: Ear Infection (ED), Upper Respiratory Infection (ED) Additional Instructions: Call the office of your primary care doctor to arrange for follow-up within the above-stated timeframe. Your ED visit was focused on your acute issue and does not replace primary care. You should review your labs, imaging, and diagnoses from this ED visit with your primary care physician. There may be non-emergent/ incidental findings that need further evaluation. You should review your vital signs including blood pressure with your PCP. If you were prescribed medications you should discuss possible side-effects and drug interactions with your pharmacist. Call 911 or go to the nearest Emergency Department if you develop any new or worsening symptoms. Referrals: Alexis Mistry DO [Physician] - 1 week Physician,Non-Staff, MD [Primary Care Provider] - 1 week
== END 2024-03-15 18:41 | disposition home or self-care (01) ==
PROVIDERS: Emergency Provider Student in an Organized Health Care Education/Training Program
DX: O99.512 Diseases of the respiratory system complicating pregnancy, second trimester (principal); J06.9 Acute upper respiratory infection, unspecified; O99.891 Other specified diseases and conditions complicating pregnancy; H66.91 Otitis media, unspecified, right ear; Z3A.18 18 weeks gestation of pregnancy; Z20.822 Contact with and (suspected) exposure to COVID-19
CPT/HCPCS: 87804; 87811; 99284

== ENCOUNTER 2024-03-24 18:26 | Outpatient (REF) | payer OTHER, SELFPAY ==
--- OUTSIDE RECORDS SUMMARY | 2024-03-24 18:30 | XMS_ITS | CCD ---
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 Name Role Phone Maricarmen Avila Unavailable Rona Terry Unavailable AMMON Angelo, DR MORSE Attending Unavailable AMMON ., DR MORSE Consulting Unavailable AMMON Angelo, DR MORSE Admitting Unavailable MISC, DR CHENEY Primary Care Unavailable VANCE ., IRAIDA Admitting Unavailable MONSTER, DR GRETEL Borrego Consulting Unavailable VANCE ., IRAIDA Attending Unavailable MISC, DR CHENEY Primary Care Unavailable IRAIDA CHOW Consulting Unavailable VERNELL ., KIAN Admitting Unavailable TRICE GALLOWAY Consulting Unavailabl e MISC, DR CHENEY Primary Care Unavailable VERNELL ., KIAN Attending Unavailable EMMA BABB Consulting Unavailable VERNELL ., KIAN Consulting Unavailable Aure Moss Unavailable Mac Bhatt Attending Unavailable Mac Bhatt Attending Unavailable Unavailable Primary Care Provider Unavailtanya e Allergies Allergy Classification Reported Allergen(s) Allergy Type Date of Onset Reaction(s) Facility (4 sources) [facility]ef[facility] Drug Allergy [employer] Other (2 sources) Dextrothyroxine ; Translations: [Suprax] Drug Allergy 8 [facility] Repository (3 sources) [employer] Propensity to adverse reactions 3 [facility] Work Phone: Medications Current Medications Medication Drug Class(es) Dates Sig (Normalized) Sig (Original) dextromethorphan hydrobromide 15 mg / guaiFENesin 400 mg / pseudoephedrine hydrochloride 60 mg oral tablet (2 sources) alpha-Adrenergic Agonist, Uncompetitive H-dvzoua-D-aspartat e Receptor Antagonist, Sigma-1 Agonist Start: 08-13-2023 take 4 tablets by mouth every twenty-four hours Pseudoephedrine -Dm-Guaifenesin (Capmist Dm) 60-15-400 mg tablet Active 1 TAB PO EVERY 4-6 HOURS August 13, 2023 12:00am do not exceed 4 doses per 24 hrs Start: 10-04-2022 take 4 tablets by mo [facility] every twenty-four hours as needed Capmist DM [...] day for 14 day(s) Feb, Active ondansetron 4 mg oral tablet (5 sources) Serotonin-3 Receptor Antagonist Start: 01-31-2024 take 1 tablet by mouth every six hours as needed for nausea and vomiting and nausea and nausea ondansetron (Zofran) 4 MG tablet Indications: Nausea Take 1 tablet (4 mg) by mouth every 6 (six) hours if needed for nausea or vomiting for up to 30 doses Take 1 tablet by mouth every 6 hours as needed for nausea. 30 tablet 3 01/31/2024 Active Start: 08-13-2023 take 8 mg by mouth e very eight hours Ondansetron Hcl Active 8 MG PO Q8H 14 12August 13, 2023 12:00am Start: 10-04-2022 take 1 tablet by [facility] every eight hours Ondansetron 4 MG 1 tablet on the tongue and allow to dissolve Orally every 8 hours for 5 days September, Active predniSONE 20 mg oral tablet (1 source) Start: 10-04-2022 take 1 tablet by mouth every twelve hours prednisone 20 MG 1 tablet Orally BID for 5 days September, Active ProAir HFA 108 (90 Base) MCG/ACT (1 source) Start: 03-18-2023 take 1 puff(s) by inhalation every four hours as needed ProAir HFA 108 (90 Base) MCG/ACT 1 puff as needed Inhalation every 4 hrs for 30 days Feb, Active promethazine hydrochloride 12.5 mg oral tablet (3 sources) Phenothiazine Start: 02-20-2024 take 1 tablet by mouth every six hours as needed for nausea and vomiting and nausea and nausea promethazine (Phenergan) 12.5 MG tablet Indications: Nausea Take 1 tablet (12.5 mg) by mouth every 6 (six) hours if needed for nausea or vomiting for up to 30 doses Take 1 tablet by mouth every 6 hours as needed for nausea. 30 tablet 2 02/20/2024 Active Completed/Discontinued Medications Medication Drug Class(es) Dates Sig (Normalized) Sig (Original) [id number] 200 actuat albuterol 0.09 mg/actuat metered dose [...] Abdominal pain; Translations: [Unspecified abdominal pain] Onset: 3 Episodic Cardiac dysrhythmias (1 source) Other specified cardiac arrhythmias; Translations: [OTHER SPECIFIED CARDIAC ARRHYTHMIAS] Onset: 2 Chronic Immunizations and screening for infectious disease (2 sources) Exposure to sexually transmissible disorder; Translations: [Contact with and (suspected) exposure to infections with a predominantly sexual mode of transmission] 03-24-2024 Episodic Nausea and vomiting (12 sources) Nausea; Translations: [Nausea] Onset: 2 Episodic Other gastrointestinal disorders (4 sources) Constipation; Translations: [Constipation, unspecified] Episodic Other nutritional; endocrine; and metabolic disorders (4 sources) Body mass index 30+ - obesity; Translations: [Body mass index (BMI) 32.0-32.9, adult] Chronic Other screening for suspected conditions (not mental disorders or infectious disease) (4 sources) Alpha-fetoprotein blood test status; Translations: [Encounter for screening for raised alphafetoprotein level] 03-24-2024 Episodic Other upper respiratory disease (1 source) Nasal congestion; Translations: [NASAL CONGESTION] Onset: 3 Episodic Other upper respiratory infections (4 sources) Acute pharyngitis, unspecified; Translations: [Acute upper respiratory infection, unspecified] Onset: 2 Resolved: 2 Episodic Ovarian cyst (1 source) Unspecified ovarian cyst, right side; Translations: [UNSPECIFIED OVARIAN CYST RIGHT SIDE] Onset: 3 Episodic Residual codes; unclassified (2 sources) Gestation period, 19 weeks; Translations: [19 weeks gestation of ] 03-24-2024 Episodic Substance-related disorders (4 sources) Nicotine dependence, cigarettes, uncomplicated; Translations: [Smoker] Onset: 3 Chronic Unclassified (1 source) CONTACT W/AND (SUSP) EXPOS COVID-19; Translations: [CONTACT W/AND (SUSP) EXPOS COVID-19] Onset: 3 Unclassified (3 sources) COUGH, UNSPECIFIED; Translations: [COUGH, UNSPECIFIED] Onset: 3 Unclassified (1 source) POSTURAL ORTHOSTATIC TACHY SYN POTS; Translations: [POSTURAL ORTHOSTATIC TACHY SYN POTS] Onset: 3 Viral infection (2 sources) Viral infection, unspecified; Translations: [VIRAL INFECTION UNSPECIFIED] Onset: 3 Episodic Past or Other Problems Problem Classification [...] Test Name Value Interpretation Reference Range Facility Urinalysis macro (dipstick) panel (U)on 03-24-2024 Bilirubin, UA Negative Negative - 4(70) +++ mg/dL [facility] Blood, UA Negative Negative - 50 Sukhi/mcL [facility] Clarity, UA Clear [facility] Color, UA Yellow [facility] Glucose, UA Negative Negative - 1999(110) ++++ mg/dL [facility] Interpretation and review of laboratory results Abnormal [facility] Ketones, UA Positive Negative - 160(16) ++++ mg/dL [facility] Comment on above: trace Leukocytes, UA Negative Negative - 500+++ Lambert/mcL [facility] Nitrite, UA Negative Negative - Positive [facility] pH, UA 5.5 5 - [address] [facility] e Protein, UA Negative Negative - 2000(20) ++++ mg/dL [facility] Spec Grav, UA 1.025 1 - 1.03 [facility] Urobilinogen, UA 0.2 0.2 - 12 mg/dL [facility] ED Note-Physicianon 08-15-19 ED Note-Physician [id number] Normal [facility] Interdisciplinary Note - Soc ial Workeron 08-15-2023 Interdisciplinary Note - Supply Chain Business Analyst This SW made a tc to patient today to discuss her positive depression screen. Patient did not answer so a message was left with SW's contact information. SW will remain available. Normal [facility] Ambulatory Visit Summaryon 0 08-13-2023 Ambulatory Visit Summary CHASITY HUYNH Salima :1995 Visit Date:08/13/2023 Ambulatory Visit Instructions Your Diagnosis BMI 30.0-30.9,adult Your Care Team Attending Physician - Mac Bhatt MD. Primary Care Physician - Mac Bhatt MD Procedures Performed Appendectomy, Tonsillectomy. Discharge Vitals Heart Rate (Peripheral) 64 Blood Pressure 122/60 Height 154.5 cm Height 61 in Weight 72.6 kg Weight 159.72 lb BMI 30.41 What to do next Scheduled Follow-Up Appointments Saturday 2:00 PM EDT With: Miller WILSON, Mac Puga Where: [facility] Medicine [place] Normal [facility] Medicine Office/Clini c Noteon 08-13-2023 Family Medicine Office/Clinic Note Chief Complaint establish care HPI Staff Chasity is a 27 year old female presenting to establish care would like a general check up Establish Care: History: Any previous diagnosis: migraine, POTS History of seeing any specialist: no When was your last doctors visit: 2016 Last provider: Bryon Any recent labs: ED in [place] Has POTS and is feeling lightheaded and brain fog. These are symptoms that she has had in the past. Was last seen in 2018 Dr. Meléndez in [facility] UTD: Pelvic/Pap: UTD flu: refused Acute: Current issues/complaints: Was in [place] ED last week for a migraine. Patient [...] detail, # 20 tab(s), Refills(s) 0, Pharmacy: [facility]/pharmacy #[id number], 154.5, cm, 08/13/23 13:27:00 EDT, Height/Length Dosing, 72.6, kg, 08/13/23 13:27:00 EDT, Weight Dosing [facility] External Ambulatory Referral 2. Postural orthostatic tachycardia syndrome (G90.A: Postural orthostatic tachycardia syndrome [POTS]) - [facility] Pipe Cutter who specializes in this. Ordered: cyclobenzaprine, 5 mg = 1 tab(s), Oral, Daily, PRN Headache, Precautions discussed in detail, # 20 tab(s), Refills(s) 0, Pharmacy: [facility]/pharmacy #[id number], 154.5, cm, 08/13/23 13:27:00 EDT, Height/Length Dosing, 72.6, kg, 08/13/23 13:27:00 EDT, Weight Dosing [facility] External Ambulatory Referral 3. BMI 30.0-30.9,adult (Z68.30: Body mass index [BMI] 30.0-30.9, adult) - BMI education given. Ordered: cyclobenzaprine, 5 mg = 1 tab(s), Oral, Daily, PRN Headache, Precautions discussed in detail, # 20 tab(s), Refills(s) 0, Pharmacy: [facility]/pharmacy #[id number], 154.5, cm, 08/13/23 13:27:00 EDT, Height/Length Dosing, 72.6, kg, 08/13/23 13:27:00 EDT, Weight Dosing [facility] External Ambulatory Referral One month follow up [...] Yes, 08/13/2023 Family History Hypertension: Father. Normal [facility] Comment on above: Result Comment: Elec tronically Signed By: Miller WILSON, Mac Marinellibr\Date and Time Signed: 08/13/23 14:05 EDT No Panel InformationOrdered By: Maricarmen Avila on 08-13-2023 Quick Strep (POC) [facility] Quick Strepon 10-04-2022 S. pyogenes Org specific cx Ql (Throat) Negative [facility] Other Quick Strep [facility] Other Covid-19 PCR ([facility])on 06-28 SARS-CoV-2 (COVID-19) RNA REINIER+probe Ql (Unsp spec) Not detected Normal NOT DETECTED [facility] Comment on above: Result Comment: When [...] for this test is supported by the [place] of Health and Human Service's declaration that [...] Performed By: #### S SCRN, GRASTCX #### [facility] [address] [place] [address] Dr. Ang Simmons INFLUENZA A AND B AGon 07-18 INFLUENZA A AG Negative Normal NEGATIVE SEE COMMENT [facility] Comment on above: Performed By: #### I NFLUAB #### [facility] [address] [place] [address] Dr. Ang Simmons INFLUENZA B AG Negative Normal NEGATIVE SEE COMMENT [facility] Comment on above: Performed By: #### I NFLUAB #### [facility] [address] [place] [address] Dr. Ang Simmons XR CHEST 2 Von [...] EMMA BABB Date: 2022-07-18 21:09 Normal [facility] CT ABD/PELVIS WO CONon 05-31 CT [...] GRETEL HOOK Date: 2022-05-31 11:54 Normal [facility] Covid-19 PCR ([facility])on SARS-CoV-2 (COVID-19) RNA REINIER+probe Ql (Unsp spec) Not detected Normal NOT DETECTED [facility] Comment on above: Result Comment: This test is not yet approved or cleared by the [place] FDA. When there are no FDA-approved or cleared tests available, and other criteria are met, FDA can make tests available under an emergency access mechanism called an Emergency Use Authorization (EUA). The EUA for this test is supported by the Medical [facility] Special[facility] of Health and Human Service's (HHS's) declaration [...] Performed By: #### S SCRN, GRASTCX #### [facility] [address] [place] [address] Dr. Ang Simmons ER URINE PROFILEon 3 Bilirubin Ql (U) Negative Normal NEGATIVE [facility] Comment on above: Performed By: #### P REGU, ERUR #### [facility] [address] [place] [address] Dr. Ang Simmons Clarity (U) CLEAR Normal CLEAR [facility] Comment on above: Performed By: #### P REGU, ERUR #### [facility] [address] [place] [address] Dr. Ang Simmons Color (U) LT. YELLOW Normal YELLOW [facility] Comment on above: Performed By: #### P REGU, ERUR #### [facility] [address] [place] [address] Dr. Ang POWELL A micrscopic examination will be performed if indicated. Normal [facility] Comment on above: Performed By: #### P REGU, ERUR #### [facility] [address] [place] [address] Dr. Ang Simmons Glucose Ql (U) Negative Normal NEGATIVE [facility] Comment on above: Performed By: #### P REGU, ERUR #### [facility] [address] [address] [address] Ang Simmons Hemoglobin Ql (U) Negative Normal NEGATIVE [facility] Comment on above: Performed By: #### P REGU, ERUR #### [facility] [address] [place] [address] Dr. Ang Simmons Ketones Ql (U) Negative Normal NEGATIVE [facility] Comment on above: Performed By: #### P REGU, ERUR #### [facility] [address] [place] [address] Dr. Ang Simmons LEUKOCYTES Negative Normal NEGATIVE [facility] Comment on above: Performed By: #### P REGU, ERUR #### [facility] [address] [place] [address] Dr. Ang Simmons Nitrite Ql (U) Negative Normal NEGATIVE [facility] Comment on above: Performed By: #### P REGU, ERUR #### [facility] [address] [place] [address] Dr. Ang Simmons pH (U) 5.5 [pH] Normal 5-9 [facility] Comment on above: Performed By: #### P REGU, ERUR #### [facility] [address] [place] [address] Dr. Ang Simmons SPEC GRAVITY 1.030 Abnormal 1.005-<=1.025 [facility] Comment on above: Performed By: #### P REGU, ERUR #### [facility] [address] [place] [address] Dr. Ang Simmons UA PROTEIN Negative Normal NEGATIVE/ TRACE [facility] Comment on above: Performed By: #### P REGU, ERUR #### [facility] [address] [place] [address] Dr. Ang Simmons UR MICRO IND NOT INDICATED Normal [facility] Comment on above: Performed By: #### P REGU, ERUR #### [facility] [address] [place] [address] Dr. Ang Simmons Urobilinogen Qn (U) 0.2 {Jazmin'U}/dL Normal 0.2 - 1. 0 [facility] Comment on above: Performed By: #### P REGU, ERUR #### [facility] [address] [place] [address] Dr. Ang Simmons GROUP A STREP CULTUREon S. pyogenes Ag Ql (Unsp spec) Culture Observations: NEGATIVE FOR GROUP A STREPTOCOCCUS. Normal [facility] Comment on above: Performed By: #### S SCRN, GRASTCX #### [facility] [address] [place] [address] Dr. Ang Simmons INFLUENZA A AND B AGon 05-31 INFLUANEGH SEE BELOW Normal [facility] Comment on above: Result Comment: Nega tive for Flu A protein angiten. Infection due to Flu A cannot be ruled out. Flu A angiten in the sample may be below the detection limit of the test. Performed By: #### S RAVI, GRASTCX #### [facility] [address] [place] [address] Dr. Ang Simmons INFLUBNEGH SEE BELOW Normal [facility] Comment on above: Result Comment: Nega tive for Flu B protein antigen. Infection due to Flu B cannot be ruled out. Flu B antigen in the sample may be below the detection limit of the test. Performed By: #### S RAVI, GRASTCX #### [facility] [address] [place] [address] Dr. Ang Simmons INFLUENZA A AG Negative Normal NEGATIVE SEE COMMENT [facility] Comment on above: Performed By: #### S SCRN, GRASTCX #### [facility] [address] [place] [address] Dr. Ang Simmons INFLUENZA B AG Negative Normal NEGATIVE SEE COMMENT [facility] Comment on above: Performed By: #### S SCRN, GRASTCX #### [facility] [address] [place] [address] Dr. Ang Simmons URon 05-31-2022 , QUAL Negative Normal NEGATIVE [facility] Comment on above: Performed By: #### P REGU, ERUR #### [facility] [address] [place], [place] [address] Dr. Ang Simmons STREPT SCREENon 05-31-2022 STREP SCREEN A Negative Normal NEGATIVE [facility] Comment on above: Performed By: #### S SCRN GRASTCX #### [facility] [address] [place], [place] [address] Dr. Ang Simmons Quick Strepon 02-13-2022 S. pyogenes Org specific cx Ql (Throat) Negative [facility] Other Quick Strep [facility] Other SARS-CoV-2 (COVID-19) RNA NA A+probe Ql (Resp)on 02-13-2022 SARS-CoV-2 (COVID-19) RNA REINIER+probe Ql (Unsp spec) Negative [facility] Other Covid-19 PCR ([facility])on 11-24 SARS-CoV-2 (COVID-19) RNA REINIER+probe Ql (Unsp spec) Not detected Normal NOT DETECTED [facility] Comment on above: Result Comment: When [...] for this test is supported by the [place] of Health and Human Service's declaration that [...] used). Performed By: #### C VDTBH #### [facility] [address] [place], [place] [address] Dr. Ang Simmons GROUP A STREP CULTUREon 11-24 S. pyogenes Ag Ql (Unsp spec) Culture Observations: NEGATIVE FOR GROUP A STREPTOCOCCUS. Normal [facility] Comment on above: Performed By: #### S SCRN, GRASTCX #### [facility] [address] [address] [address] Ang Simmons STREPT SCREENon 12-10-2021 STREP SCREEN A Negative Normal NEGATIVE [facility] Comment on above: Performed By: #### S SCRN, GRASTCX #### [facility] [address] [address] [address] Ang Simmons Vital Signs Date Time Vital Sign Value Performing Clinician Facility 03-24-2024 08:58-0400 Body mass index (BMI) [Ratio] 31.93 kg/m2 Wanda CARNES Work Phone: [facility] 03-24-2024 08:58-0400 Body weight 76.66 kg Wanda CARNES Work Phone: [facility] 03-24-2024 08:58-0400 Diastolic blood pressure 74 mm[Hg] Wanda CARNES Work Phone: [facility] 03-24-2024 08:58-0400 Systolic blood pressure 116 mm[Hg] Wanda CARNES Work Phone: [facility] 08-13-2023 09:36-0400 Body height 162.56 cm [facility] 08-13-2023 09:36-0400 Body mass index (BMI) [Ratio] 26.6 kg/m2 [facility] 08-13-2023 09:36-0400 Body temperature 98.6 [degF] [facility] 08-13-2023 09:36-0400 Body weight 70.3 kg [facility] 08-13-2023 09:36-0400 Heart rate 91 /min [facility] 08-13-2023 09:36-0400 Respiratory rate 16 /min [facility] 08-13-2023 09:36-0400 SaO2% (BldA) [Mass fraction] 99 % [facility] 03-18-2023 09:15-0400 Body height 158.75 cm Aure Moss Other [employer] Other 03-18-2023 09:15-0400 Body mass index (BMI) [Ratio] 29.15 kg/m2 Aure Moss Other [employer] Other 03-18-2023 09:15-0400 Body temperature 98.2 [degF] Aure Moss Other [employer] Other 03-18-2023 09:15-0400 Body weight 73.48 kg Aure Moss Other [employer] Other 03-18-2023 09:15-0400 Respiratory rate 18 /min Aure Moss Other [employer] Other 03-18-2023 09:15-0400 SaO2% (BldA) [Mass fraction] 98 % Aure Moss Other [employer] Other 10-04-2022 12:40-0400 Body height 158.75 cm Maricarmen Avila Other [employer] Other 10-04-2022 12:40-0400 Body mass index (BMI) [Ratio] 27.54 kg/m2 Maricarmen Avila Other [facility] [employer] Other 10-04-2022 12:40-0400 Body temperature 99.3 [degF] Maricarmen Avila Other [facility] [employer] Other 10-04-2022 12:40-0400 Body weight 69.4 kg Maricarmen Avila Other [facility] Other 10-04-2022 12:40-0400 Respiratory rate 18 /min Maricarmen Avila Other [facility] Other 10-04-2022 12:40-0400 SaO2% (BldA) [Mass fraction] 99 % Maricarmen Avila Other [facility] [employer] Other 02-13-2022 16:55-0400 Body height 158.75 cm Rona Terry Other [employer] Other 02-13-2022 16:55-0400 Body mass index (BMI) [Ratio] 27.9 kg/m2 Rona Terry Other [employer] [employer] Other 02-13-2022 16:55-0400 Body temperature 98.4 [degF] Rona Terry Other [facility] [employer] Other 02-13-2022 16:55-0400 Body weight 70.31 kg Rona Terry Other [employer] [employer] Other 02-13-2022 16:55-0400 Respiratory rate 18 /min Rona Terry Other [employer] [employer] Other 02-13-2022 16:55-0400 SaO2% (BldA) [Mass fraction] 99 % Rona Terry Other [employer] Other 12-21-2021 16:20-0400 Body height 158.75 cm Maricarmen Avila Other [employer] [employer] Other 12-21-2021 16:20-0400 Body mass index (BMI) [Ratio] 27.64 kg/m2 Maricarmen Avila Other [employer] Other 12-21-2021 16:20-0400 Body temperature 98 [degF] Maricarmen Avila Other [employer] Other 12-21-2021 16:20-0400 Body weight 69.67 kg Maricarmen Avila Other [facility] [employer] Other 12-21-2021 16:20-0400 Diastolic blood pressure 67 mm[Hg] Maricarmen Avila Other [employer] Other 12-21-2021 16:20-0400 Respiratory rate 18 /min Maricarmen Avila Other [facility] [employer] Other 12-21-2021 16:20-0400 SaO2% (BldA) [Mass fraction] 98 % Maricarmen Avila Other [facility] [employer] Other 12-21-2021 16:20-0400 Systolic blood pressure 117 mm[Hg] Maricarmen Avila Other [employer] Other Encounters Encounter Date Encounter Type Care Provider Facility Start: 03-24-2024 End: 03-24-2024 Bamboo flowsheet Wanda CARNES Work Phone: [facility] Start: 03-24-2024 End: 03-24-2024 Bamboo flowsheet Wanda CARNES Work Phone: [facility] Start: 03-24-2024 End: 03-24-2024 Patient encounter procedure Wanda CARNES Work Phone: [facility] Start: 03-24-2024 End: 03-24-2024 Periodic preventive med est patient 18-39 yrs Wanda CARNES Work Phone: [facility] Comment on above: Well woman exam with routine gynecological exam; Exposure to STD; Need for maternal serum alpha-protein (MSAFP) screening; 19 weeks gestation of ; Screening, , for anatomic survey Start: 01-31-2024 End: 01-31-2024 ambulatory Not Available Start: 09-17-2023 End: 09-18-2023 ambulatory Mac Bhatt Facility:[facility] Start: 08-27-2023 ambulatory Mac Bhatt Facility:[facility] Start: 08-13-2023 End: 08-14-2023 ambulatory Mac Bhatt Facility:[facility] Start: 08-13-2023 End: 08-13-2023 ambulatory [facility] Work Phone: Start: 08-13-2023 End: 08-13-2023 Patient encounter procedure [facility] Work Phone: Start: 03-18-2023 End: 03-18-2023 ambulatory Aure Moss Other [employer] Other Start: 03-18-2023 Office outpatient vi sit 15 minutes Aure Moss [facility] Start: 10-04-2022 End: 10-04-2022 ambulatory Maricarmen Austin Other [employer] [employer] Other Start: 10-04-2022 Office outpatient vi sit 25 minutes Maricarmen Austin [facility] Start: 07-18-2022 End: 07-19-2022 ambulatory KIAN DIAB . Facility:[facility] Start: 05-31-2022 End: 05-31-2022 ambulatory IRAIDA WOODARD . Facility:[facility] Start: 02-13-2022 End: 02-13-2022 ambulatory Rona Terry Other [employer] [employer] Other Start: 02-13-2022 Office outpatient vi sit 15 minutes Rona Harrison [facility] Start: 12-21-2021 (URG) Urgent Care Visit Maricarmen Avila [facility] Start: 12-21-2021 End: 12-21-2021 ambulatory Maricarmen Avila Other [facility] Other Start: 12-10-2021 End: 12-10-[address] MINI VERDE . Facility: Procedures Date Procedure Procedure Detail Performing Clinician Start: 03-24-2024 Urnls dip stick/tabl et rgnt non-auto w/o micrscp Wanda Quevedo PA Work Phone: Start: 08-13-2023 Quick Strep (POC) Plan of Treatment Date Care Activity Detail Author Start: 04-21-2024 End: 04-21-2024 Patient encounter procedure 04/21/2024 9:10 AM EST Routine [facility] [address] [place] [address] Alexis Mistry DO [address] [place] [address] [facility] Start: 03-24-2024 End: 04-24-2024 Alpha fetoprotein, maternal Alpha fetoprotein, maternal Lab Routine Need for maternal serum alpha-protein (MSAFP) screening Expected: 03/24/2024 (Approximate), Expires: 04/24/2024 [facility] Comment on above: Expected: 03/24/2024 (Approximate), Expires: 04/24/2024 Start: 03-24-2024 End: 03-24-2025 US for US OB ANATOMY SINGLE W US OB CERVICAL LENGTH Imaging Routine Screening, , for anatomic survey Expected: 03/24/2024 (Approximate), Expires: 03/24/2025 [facility] Comment on above: Expected: 03/24/2024 (Approximate), Expires: 03/24/2025 CHLAMYDIA TRACHOMATI S (GENITO/STI) CHLAMYDIA TRACHOMATIS (GENITO/STI) Lab Routine Exposure to STD Ordered: 03/24/2024 [facility] Comment on above: Ordered: 03/24/2024 Cytology Cervical or vaginal smear or scraping study Pap Smear Pathology and Cytology Routine Well woman exam with routine gynecological exam Ordered: 03/24/2024 [facility] Comment on above: Ordered: 03/24/2024 Neisseria gonorrhoea e DNA [Presence] in Unspecified specimen by REINIER with probe detection Neisseria gonorrhea DNA probe, direct Lab Routine Exposure to STD Ordered: 03/24/2024 [facility] Comment on above: Ordered: 03/24/2024 SURESWAB(R) ADVANCED VAGINITIS PLUS, TMA SURESWAB(R) ADVANCED VAGINITIS PLUS, TMA Pathology and Cytology Routine Exposure to STD Ordered: 03/24/2024 [facility] Work Phone: Comment on above: Ordered: 03/24/2024 [facility] Immunizations Immunization Date Immunization Notes Care Provider Fa cility 01-01-2002 diphtheria, tetanus toxoids and acellular pertussis vaccine, unspecified formulation Maricarmen Avila Other [facility] 01-01-2002 measles, mumps and rubella virus vaccine Maricarmen Avila Other [facility] 01-01-2002 poliovirus vaccine, inactivated Maricarmen Avila Other [facility] Other 01-01-2002 poliovirus vaccine, unspecified formulation [facility] 02-04-1998 diphtheria, tetanus toxoids and acellular pertussis vaccine, unspecified formulation Maricarmen Avila Other [facility] 02-04-1998 measles, mumps and rubella virus vaccine Maricarmen Avila Other [facility] 02-04-1998 trivalent poliovirus vaccine, live, oral Maricarmen Avila Other [facility] 04-27-1997 diphtheria, tetanus toxoids and pertussis vaccine Maricarmen Avila Other [facility] 04-27-1997 haemophilus influenz ae type b vaccine, conjugate unspecified formulation Maricarmen Avila Other [facility] 04-27-1997 hepatitis B vaccine, pediatric or pediatric/adolescent dosage Maricarmen Avila Other [facility] 01-16-1997 diphtheria, tetanus toxoids and pertussis vaccine Maricarmen Avila Other [facility] 01-16-1997 haemophilus influenz ae type b vaccine, conjugate unspecified formulation Maricarmen Avila Other [facility] 01-16-1997 trivalent poliovirus vaccine, live, oral Maricarmen Avila Other [facility] 1996 diphtheria, tetanus toxoids and pertussis vaccine Maricarmen Avila Other [facility] 1996 haemophilus influenz ae type b vaccine, conjugate unspecified formulation Maricarmen Avila Other [facility] 1996 hepatitis B vaccine, pediatric or pediatric/adolescent dosage Maricarmen Avila Other [facility] 1996 trivalent poliovirus vaccine, live, oral Maricarmen Avila Other [facility] 1996 hepatitis B vaccine, pediatric or pediatric/adolescent dosage Maricarmen Avila Other [facility] Payers Date Payer Category Payer Medicaid [facility] [place] [id number] 2022 Medicaid [id number] 1995 Unknown [id number] 1996 Unknown [id number] 1996 Unknown [id number] 1996 Unknown [id number] 1996 Unknown [id number] 1996 Unknown [id number] 1959 Unknown [id number] Unknown [id number] Social History Date Type Detail Facility Unknown if ever smoked [facility] Other Start: 01-31-2024 Sex Assigned At N [facility] Other Start: 08-13-2023 Tobacco smoking stat [facility] Smoker (finding) [facility] Start: 1995 Sex Assigned At Female F [facility] Start: 02-16-2023 Tobacco smoking stat [facility] Smokes tobacco daily [facility] History of tobacco use Cigarette Smoker [facility] Start: 02-20-2024 End: 03-24-2024 Alcoholic beverage intake Current drinker of alcohol (finding) [facility] Start: 01-31-2024 History of Social function [facility] Start: 02-16-2023 Tobacco Comment Patient smokes 6-10 cigarettes/day after 60 minutes of waking up.Thinking about quitting. [facility] Start: 02-16-2023 Alcohol Comment 1 or 2 drinks on a typical day/monthly or less [facility] Start: 11-22-2023 [facility] Start: 1995 Sex assigned at Not on file [facility] History of Present illness Narrative 03-24-2024 TRICE López - 03/24/2024 8:30 AM EDT Note Date & Type Note Facility 03-24-2024 History of Presen t illness Narrative Reason for Appointment: Patient ID: Chasity Huynh is a 28 y.o. female who presents for Routine Visit Patient presents today for Annual Exam., STD Check., and Return OB appointment. MEDICATIONS Current Outpatient Medications Medication Instructions ondansetron (ZOFRAN) 4 mg, Oral, Every 6 hours PRN, Take 1 tablet by mouth every 6 hours as needed for nausea. promethazine (PHENERGAN) 12.5 mg, Oral, Every 6 hours PRN, Take 1 tablet by mouth every 6 hours as needed for nausea. ALLERGIES Allergies Allergen Reactions Suprax [Cefixime] PROBLEMS Active Ambulatory Problems Diagnosis Date Noted No Active Ambulatory Problems Resolved Ambulatory Problems Diagnosis Date Noted No Resolved Ambulatory Problems Past Medical History: Diagnosis Date Appendicitis 01/12/2016 Bronchitis Current smoker Neurocardiogenic syncope Non morbid obesity due to excess calories HISTORY PAST MEDICAL HISTORY SOCIAL HISTORY Past Medical History: Diagnosis Date Appendicitis 01/12/2016 Bronchitis Current smoker Neurocardiogenic syncope JUAREZ Non morbid obesity due to excess calories Social History Tobacco Use Smoking status: Every Day Types: Cigarettes Smokeless tobacco: Not on file Tobacco comments: Patient smokes 6-10 cigarettes/day after 60 minutes of waking up. Thinking about quitting. Substance Use Topics Alcohol use: Yes Comment: 1 or 2 drinks on a typical day/monthly or less Drug use: Never FAMILY HISTORY Family History Problem Relation Name Age of Onset Heart disease Father SURGICAL HISTORY Past Surgical History: Procedure Laterality Date AL MEDICATION MANAGEMENT 2013 Fludricortisone- neuro-cardiogenic syncope -JUAREZ AL MEDICATION MANAGEMENT antibiotic - bronchitis TONSILLECTOMY 2006 VAGINAL DELIVERY 2015 childbirth- vaginal REVIEW OF SYSTEMS Review of Systems: Review of Systems Constitutional: Negative. HENT: Negative. Eyes: Negative. Respiratory: Negative. Cardiovascular: Negative. Gastrointestinal: Negative. Genitourinary: Negative. Musculoskeletal: Negative. Skin: Negative. Neurological: Negative. All other systems reviewed and are negative. Hematological: Negative. Endocrine: Negative. Allergic/Immunologic: Negative. OBJECTIVE Objective: Physical Exam Constitutional: Appearance: Normal appearance. She is normal weight. Genitourinary: Right Adnexa: not tender and no mass present. Left Adnexa: not tender and no mass present. No cervical discharge. Breasts: Breasts are soft. Right: Normal. Left: Normal. HENT: Head: Normocephalic. Nose: Nose normal. Mouth/Throat: Mouth: Mucous membranes are moist. Cardiovascular: Rate and Rhythm: Normal rate. Pulses: Normal pulses. Pulmonary: Effort: Pulmonary effort is normal. Breath sounds: Normal breath sounds. Abdominal: General: Bowel sounds are normal. Palpations: Abdomen is soft. Musculoskeletal: General: Normal range of motion. Cervical back: Normal range of motion. Neurological: General: No focal deficit present. Mental Status: She is alert and oriented to person, place, and time. Skin: General: Skin is warm and dry. Psychiatric: Mood and Affect: Mood normal. Behavior: Behavior normal. Thought Content: Thought content normal. Judgment: Judgment normal. Vitals and nursing note reviewed. Exam conducted with a drier unloader present. Vitals: Estimated body mass index is 31.93 kg/m as calculated from the following: Height as of 02/12/23: 5' 1 . Weight as of this encounter: 169 lb. BP: 116/74 Patient's last menstrual period was 11/02/2023. ASSESSMENT & PLAN ICD-10-CM 1. Well woman exam with routine gynecological exam Z01.419 Pap Smear 2. Exposure to STD Z20.2 SURESWAB(R) ADVANCED VAGINITIS PLUS, TMA CHLAMYDIA TRACHOMATIS (GENITO/STI) Neisseria gonorrhea DNA probe, direct 3. Need for maternal serum alpha-protein (MSAFP) screening Z36.1 Alpha fetoprotein, maternal Alpha fetoprotein, maternal 4. 19 weeks gestation of Z3A.19 POCT urinalysis dipstick manually resulted 5. Screening, , for anatomic survey Z36.89 US OB ANATOMY SINGLE W US OB CERVICAL LENGTH Return OB/Annual Exam: Patient presents today for an annual exam/routine obstetrics appointment. Patient is currently 19w4d . Patient is doing well and states she has no complaints. Pap/cultures was obtained without difficulty and patient was given msAFP order to have obtained along with 20 week anatomy US order to have scheduled. Orders Placed This Encounter Procedures US OB ANATOMY SINGLE W US OB CERVICAL LENGTH CHLAMYDIA TRACHOMATIS (GENITO/STI) Neisseria gonorrhea DNA probe, direct Alpha fetoprotein, maternal POCT urinalysis dipstick manually resulted Follow Up: Patient is to return to our office in 4 weeks for routine OB appointment Documented by Johanna Conway MA on behalf of: TRICE López documented in this encounter [facility] Evaluation note 03-18-2023 Note Date & Type [...] Suspected COVID-19 virus infection (ICD-10 - Z20.822) [facility] Other Evaluation note 10-04-2022 Note Date & [...] treatment plan. Patient left in stable condition. [facility] Other Evaluation note 02-13-2022 Note Date & [...] weeks for the cough to go away [facility] Other Evaluation note 12-21-2021 Note Date & [...] understanding and is agreeable with treatment plan [facility] Other Evaluation note Note Date & Type Note Facility Evaluation note No assessment information availa [facility] Work Phone: Evaluation note Note Date & Type Note Facility Evaluation note Diagnosis Well woman exam with routine gynecological exam Routine gynecological examination Exposure to STD Need for maternal serum alpha-protein (MSAFP) screening 19 weeks gestation of Screening, , for anatomic survey Encounter for anatomic survey documented in this encounter [facility] History general Narrative - Reported Note Date & Type Note Facility History general Narrative - Reported Type Surgical History tonsillectomy Surgical History appendectomy Hospitalization History see above [facility] Other Summary Purpose Family History No Family History Records FoundNo Family History Records FoundNo Family History Records Found Advance Directives Advance Directive Response Recorded Date/ Time Advance Directives No August 12 024 9:32am Chief Complaint and Reason for Visit Chief Complaint Sore throat, nausea Additional Source Comments REASON FOR VISIT (unrecogniz ed section and content) Reason Comments Routine Visit INFORMATION SOURCE (unrecogn ized section and content) DATE CREATED AUTHOR 07/23/2022 [facility] DATE CREATED AUTHOR AUTHOR'S ORGANIZ ATION 09/19/2023 [facility] DATE CREATED AUTHOR AUTHOR'S ORGANIZ ATION 02/02/2024 [facility] EPIC Care Teams (unrecognized sec [...] BE BASED ON THE PRIMARY CLINICAL RECORDS. [facility]. provides no warranty or guarantee of the accuracy or completeness of information in this document.
== END 2024-03-24 18:27 | disposition home or self-care (01) ==
LOC: LAB 18:26
PROVIDERS: Visit Provider Physician Assistant
DX: Z01.419 Encounter for gynecological examination (general) (routine) without abnormal findings (principal)
CPT/HCPCS: 88175

== ENCOUNTER 2024-03-27 18:52 | Outpatient (OUT) | payer OTHER, SELFPAY ==
--- NOTE | 2024-03-27 19:28 | US_ITS ---
[address] [address] Patient Name: RHEA MICHEL MRN: [id number] date: 1995 Sex: F Assigned Patient Location: Current Patient Location: Accession/Order Number: [id number] Exam Date: 03/27/2024 19:32 Report Date: 03/28/2024 06:25 At the request of: SAUL GALLARDO Procedure: US OB cervical length EXAMINATION: US OB anatomy, US OB cervical length HISTORY: ANATOMIC SURVEY Z36.89 COMPARISON: No relevant comparison available. TECHNIQUE: Transabdominal sonographic examination was performed for obstetrical and evaluation. FINDINGS: Number: 1 Heart Rate: 146.74 bpm Amniotic Fluid Volume: Subjectively normal Placental Location: Anterior with lower margin 1.6 cm from os. Cervix Length: 4.92 cm ; closed. ANATOMY: Normal Structures -cerebellum, cisterna magna, lateral cerebral ventricles, orbits, midline falx, hard palate, stomach, kidneys, bladder, umbilical cord insertion into abdomen, three-vessel cord, right lower extremity, left lower extremity. SUBOPTIMALLY SEEN: Four-chamber heart and cardiac outflow tracts, spine, upper extremities. ABNORMALITIES: 7 mm cyst within choroid plexus. BIOMETRY: BPD: 4.32 cm; 19 weeks 0 days; 14.90 % HC: 16.91 cm; 19 weeks 4 days; 22.10 % AC: 15.17 cm; 20 weeks 3 days; 57.70 % FL: 3.22 cm; 20 weeks 0 days; 43.40 % EFW:333.22 g; 52.10 % FL/AC: 21.23 FL/BPD: 74.54 HC/AC: 1.11 GESTATIONAL AGE: Age by EDC: 20 weeks 0 days Age by current US: 19 weeks 5 days MOI by current US: 2024-08-16 MOI by EDC: 2024-08-14 US/US OB cervical length IMPRESSION: 1. Single live intrauterine with growth detailed above. 2. Choroid plexus cysts 7 mm in diameter. 3. Suboptimal visualization of the four-chamber heart, cardiac outflow tracts, spine, and upper extremities due to position. 4. Low-lying anterior placenta. Electronically authenticated by: GRETEL HOOK Date: 03/28/2024 06:25
--- NOTE | 2024-03-27 19:28 | US_ITS ---
[address] [address] Patient Name: RHEA MICHEL MRN: [id number] date: 1995 Sex: F Assigned Patient Location: Current Patient Location: Accession/Order Number: [id number] Exam Date: 03/27/2024 19:32 Report Date: 03/28/2024 06:25 At the request of: SAUL GALLARDO Procedure: US OB anatomy EXAMINATION: US OB anatomy, US OB cervical length HISTORY: ANATOMIC SURVEY Z36.89 COMPARISON: No relevant comparison available. TECHNIQUE: Transabdominal sonographic examination was performed for obstetrical and evaluation. FINDINGS: Number: 1 Heart Rate: 146.74 bpm Amniotic Fluid Volume: Subjectively normal Placental Location: Anterior with lower margin 1.6 cm from os. Cervix Length: 4.92 cm ; closed. ANATOMY: Normal Structures -cerebellum, cisterna magna, lateral cerebral ventricles, orbits, midline falx, hard palate, stomach, kidneys, bladder, umbilical cord insertion into abdomen, three-vessel cord, right lower extremity, left lower extremity. SUBOPTIMALLY SEEN: Four-chamber heart and cardiac outflow tracts, spine, upper extremities. ABNORMALITIES: 7 mm cyst within choroid plexus. BIOMETRY: BPD: 4.32 cm; 19 weeks 0 days; 14.90 % HC: 16.91 cm; 19 weeks 4 days; 22.10 % AC: 15.17 cm; 20 weeks 3 days; 57.70 % FL: 3.22 cm; 20 weeks 0 days; 43.40 % EFW:333.22 g; 52.10 % FL/AC: 21.23 FL/BPD: 74.54 HC/AC: 1.11 GESTATIONAL AGE: Age by EDC: 20 weeks 0 days Age by current US: 19 weeks 5 days MOI by current US: 2024-08-16 MOI by EDC: 2024-08-14 US/US OB anatomy IMPRESSION: 1. Single live intrauterine with growth detailed above. 2. Choroid plexus cysts 7 mm in diameter. 3. Suboptimal visualization of the four-chamber heart, cardiac outflow tracts, spine, and upper extremities due to position. 4. Low-lying anterior placenta. Electronically authenticated by: GRETEL HOOK Date: 03/28/2024 06:25
--- OUTSIDE RECORDS SUMMARY | 2024-03-30 04:04 | XMS_ITS | CCD ---
Author Organization [facility] Care Team Providers Care Tray Room Worker Name Role Phone Maricarmen Avila Unavailable Rona Terry Unavailable AMMON Angelo, DR MORSE Attending Unavailable AMMON ., DR MORSE Consulting Unavailable AMMON Angelo, DR MORSE Admitting Unavailable MISC, DR CHENEY Primary Care Unavailable VANCE ., IRAIDA Admitting Unavailable ZISIMONA, DR GRETEL Borrego Consulting Unavailable VANCE ., IRAIDA Attending Unavailable MISC, DR CHENEY Primary Care Unavailable VANCE ., IRAIDA Consulting Unavailable DIAB ., KIAN Admitting Unavailable TRICE GALLOWAY Consulting Unavailabl e MISC, DR CHENEY Primary Care Unavailable VERNELL ., KIAN Attending Unavailable EMMA BABB Consulting Unavailable DIAB ., KIAN Consulting Unavailable Aure Moss Unavailable Mac Bhatt Attending Unavailable Mac Bhatt Attending Unavailable Unavailable Primary Care Provider UnavailCAROL Herring Attending Unavailable WANDA GALLARDO Attending Unavailable Allergies Allergy Classification Reported Allergen(s) Allergy Type Date of Onset Reaction(s) Facility (4 sources) [facility] Drug Allergy [facility] Other (2 sources) Dextrothyroxine ; Translations: [Suprax] Drug Allergy 8 [facility] Repository (4 sources) Cefixime Propensity to adverse reactions 3 [facility] Work Phone: Medications Current Medications Medication Drug Class(es) Dates Sig (Normalized) Sig (Original) dextromethorphan hydrobromide 15 mg / guaiFENesin 400 mg / pseudoephedrine hydrochloride 60 mg oral tablet (2 sources) alpha-Adrenergic Agonist, Uncompetitive U-ynocul-Y-aspartat e Receptor Antagonist, Sigma-1 Agonist Start: 08-13-2023 take 4 tablets by mouth every twenty-four hours Pseudoephedrine -Dm-Guaifenesin (Capmist Dm) 60-15-400 mg tablet Active 1 TAB PO EVERY 4-6 HOURS August 13, 2023 12:00am do not exceed 4 doses per 24 hrs Start: 10-04-2022 take 4 tablets by mo idh every twenty-four hours as needed Capmist DM [...] Feb, Active ondansetron 4 mg oral tablet (6 sources) Serotonin-3 Receptor Antagonist Start: 01-31-2024 take [...] Active promethazine hydrochloride 12.5 mg oral tablet (4 sources) Phenothiazine Start: 02-20-2024 take 1 tablet [...] Drug Class(es) Dates Sig (Normalized) Sig (Original) [id number] 200 actuat albuterol 0.09 mg/actuat metered dose [...] Test Name Value Interpretation Reference Range Facility URETHRITIS/DISCHARGE PLUS VA GINITIS (HTRX)on 03-25-2024 ATOPOBIUM VAGINAE 30.308 Abnormal [facility] ATOPOBIUM VAGINAE Detected Abnormal [facility] BVAB 2,3 (BACTERIAL VAGINOSIS ASSOCIATED BACTERIA 2, 3); MOBILUNCUS SPP 23.769 Abnormal [facility] BVAB 2,3 (BACTERIAL VAGINOSIS ASSOCIATED BACTERIA 2, 3); MOBILUNCUS SPP Detected Abnormal [facility] KEN ALBICANS, PARAPSILOSIS, TROPICALIS 0 [facility] KEN ALBICANS, PARAPSILOSIS, TROPICALIS Not detected [facility] KEN GLABRATA 0 [facility] Hea lthcare KEN GLABRATA Not detected [facility] KEN KRUSEI 0 [facility] KEN KRUSEI Not [facility] CHLAMYDIA TRACHOMATIS 0 [facility] CHLAMYDIA TRACHOMATIS Not detected N [facility] ERMB, C; MEFA 21.812 Abnormal [facility] care ERMB, C; MEFA Detected Abnormal [facility] GARDNERELLA VAGINALIS 27.115 Abnormal [facility] GARDNERELLA VAGINALIS Detected Abnormal [facility] Interpretation and review of laboratory results Abnormal [facility] MEGASPHAERA (TYPES 1, 2) 21.09 Abnormal [facility] MEGASPHAERA (TYPES 1, 2) Detected Abnormal [facility] MYCOPLASMA GENITALIUM 0 [facility] MYCOPLASMA GENITALIUM Not detected N [facility] NEISSERIA GONORRHOEAE 0 [facility] NEISSERIA GONORRHOEAE Not detected N [facility] TET B, TET M 22.295 Abnormal [facility] are TET B, TET M Detected Abnormal [facility] are TRICHOMONAS VAGINALIS 0 [facility] TRICHOMONAS VAGINALIS Not detected N [facility] e Urinalysis macro (dipstick) panel (U)on 03-24-2024 Bilirubin, UA Negative Negative - 4(70) +++ mg/dL [facility] Blood, UA Negative Negative - 50 Sukhi/mcL [facility] Clarity, UA Clear [facility] re Color, UA Yellow [facility] e Glucose, UA Negative Negative - 2000(110) ++++ mg/dL [facility] Interpretation and review of laboratory results Abnormal [facility] Ketones, UA Positive Negative - 160(16) ++++ mg/dL [facility] Comment on above: trace Leukocytes, UA Negative Negative - 500+++ Lambert/mcL [facility] Nitrite, UA Negative Negative - Positive [facility] Healthcare pH, UA 5.5 5 - 9 [facility] Healthcar e Protein, UA Negative Negative - 2000(20) ++++ mg/dL [facility] Spec Grav, UA 1.025 1 - 1.03 [facility] care Urobilinogen, UA 0.2 0.2 - 12 mg/dL [facility] ED Note-Physicianon 08-15-19 ED Note-Physician [id number] Normal [facility] Interdisciplinary Note - Soc ial Workeron 08-15-2023 Interdisciplinary Note - Carousel Operator This SW made a tc to patient today to discuss her positive depression screen. Patient did not answer so a message was left with SW's contact information. SW will remain available. Normal [facility] Ambulatory Visit Summaryon 0 08-13-2023 Ambulatory Visit Summary CHASITY HUYNH :1995 Visit Date:08/13/2023 Ambulatory Visit Instructions Your [...] PM EDT With: Mac Bhatt MD Where: [facility] [place] Normal [facility] Family Medicine Office/Clini c Noteon 08-13-2023 Family Medicine Office/Clinic Note Chief Complaint establish care HPI Staff Chasity is a 27 year old female presenting to critical access hospital care would like a general check up Establish Care: History: Any previous diagnosis: migraine, POTS History of seeing any specialist: no When was your last doctors visit: 2016 Last provider: Bryon Any recent labs: ED in [place] Has POTS and is feeling lightheaded and brain fog. These are symptoms that she has had in the past. Was last seen in 2019 Dr. Meléndez in [facility] UTD: Pelvic/Pap: UTD flu: refused Acute: Current issues/complaints: Was in [place] ED last week for a migraine. Patient [...] detail, # 20 tab(s), Refills(s) 0, Pharmacy: [facility]/pharmacy #[id number], 154.5, cm, 08/13/23 13:27:00 EDT, Height/Length Dosing, 72.6, kg, 08/13/23 13:27:00 EDT, Weight Dosing [facility] [place] Ambulatory Referral 2. Postural orthostatic tachycardia syndrome (G90.A: Postural orthostatic tachycardia syndrome [POTS]) - [facility] Corporate Legal Intern who specializes in this. Ordered: cyclobenzaprine, 5 mg = 1 tab(s), Oral, Daily, PRN Headache, Precautions discussed in detail, # 20 tab(s), Refills(s) 0, Pharmacy: [facility]/pharmacy #[id number], 154.5, cm, 08/13/23 13:27:00 EDT, Height/Length Dosing, 72.6, kg, 08/13/23 13:27:00 EDT, Weight Dosing [facility] [place] Ambulatory Referral 3. BMI 30.0-30.9,adult (Z68.30: Body mass index [BMI] 30.0-30.9, adult) - BMI education given. Ordered: cyclobenzaprine, 5 mg = 1 tab(s), Oral, Daily, PRN Headache, Precautions discussed in detail, # 20 tab(s), Refills(s) 0, Pharmacy: [facility]/pharmacy #[id number], 154.5, cm, 08/13/23 13:27:00 EDT, Height/Length Dosing, 72.6, kg, 08/13/23 13:27:00 EDT, Weight Dosing [facility] [place] Ambulatory Referral One month follow up [...] Yes, 08/13/2023 Family History Hypertension: Father. Normal [facility] Comment on above: Result Comment: Elec tronically Signed By: Miller WILSON, Mac [email or web address].br\Date and Time Signed: 08/13/23 14:05 EDT No Panel InformationOrdered By: Maricarmen Avila on 08-13-2023 Quick Strep (POC) [facility] Quick Strepon 10-04-2022 S. pyogenes Org specific cx Ql (Throat) Negative [place] [employer] Other Quick Strep [employer] Other Covid-19 PCR (CVDTBH)on 06-28 SARS-CoV-2 (COVID-19) RNA REINIER+probe Ql (Unsp spec) Not detected Normal NOT DETECTED [facility] Comment on above: Result Comment: [...] for this test is supported by the Metal Dr[employer] Operator of Health and Human Service's declaration that [...] Performed By: #### S SCRN, GRASTCX #### [facility] [address] [place] [address] Dr. nAg Simmons INFLUENZA A AND B AGon 07-18 INFLUENZA A AG Negative Normal NEGATIVE SEE COMMENT [facility] Comment on above: Performed By: #### I NFLUAB #### [facility] [address] [place] [address] Dr. Ang Simmons INFLUENZA B AG Negative Normal NEGATIVE SEE COMMENT [facility] Comment on above: Performed By: #### I NFLUAB #### [facility] [address] [place] [address] Dr. Ang Simmons XR CHEST 2 Von [...] EMMA BABB Date: 2022-07-18 21:09 Normal [facility] CT ABD/PELVIS WO CONon 05-31 [...] GRETEL HOOK Date: 2022-05-31 11:54 Normal [facility] Covid-19 PCR (CVDTB)on SARS-CoV-2 (COVID-19) RNA REINIER+probe Ql (Unsp spec) Not detected Normal NOT DETECTED [facility] Comment on above: Result Comment: This test is not yet approved or cleared by the [place] FDA. When there are no FDA-approved or cleared tests available, and other criteria are met, FDA can make tests available under an emergency access mechanism called an Emergency Use Authorization (EUA). The EUA for this test is supported by the [place] of Health and Human Service's (HHS's) declaration [...] Performed By: #### S SCRN, GRASTCX #### [facility] [address] [place] [address] Dr. Ang Simmons ER URINE PROFILEon 3 Bilirubin Ql (U) Negative Normal NEGATIVE [facility] Comment on above: Performed By: #### P REGU, ERUR #### [facility] [address] [place] [address] Dr. Ang Simmons Clarity (U) CLEAR Normal CLEAR [facility] Comment on above: Performed By: #### P REGU, ERUR #### [facility] [address] [place] [address] Dr. Ang Simmons Color (U) LT. YELLOW Normal YELLOW [facility] Comment on above: Performed By: #### P REGU, ERUR #### [facility] [address] [place] [address] Dr. Ang HALLD A micrscopic examination will be performed if indicated. Normal [facility] Comment on above: Performed By: #### P REGU, ERUR #### [facility] [address] [place] [address] Dr. Ang Simmons Glucose Ql (U) Negative Normal NEGATIVE [facility] Comment on above: Performed By: #### P REGU, ERUR #### [facility] [address] [place] [address] Dr. Ang Simmons Hemoglobin Ql (U) Negative Normal NEGATIVE [facility] Comment on above: Performed By: #### P REGU, ERUR #### [facility] [address] [place] [address] Dr. Ang Simmons Ketones Ql (U) Negative Normal NEGATIVE [facility] Comment on above: Performed By: #### P REGU, ERUR #### [facility] [address] [place] [address] Dr. Ang Simmons LEUKOCYTES Negative Normal NEGATIVE [facility] Comment on above: Performed By: #### P REGU, ERUR #### [facility] [address] [place] [address] Dr. Ang Simmons Nitrite Ql (U) Negative Normal NEGATIVE [facility] Comment on above: Performed By: #### P REGU, ERUR #### [facility] [address] [place] [address] Dr. Ang Simmons pH (U) 5.5 [pH] Normal 5-9 [facility] Comment on above: Performed By: #### P REGU, ERUR #### [facility] [address] [place] [address] Dr. Ang Simmons SPEC GRAVITY 1.030 Abnormal 1.005-<=1.025 [facility] Comment on above: Performed By: #### P REGU, ERUR #### [facility] [address] [place] [address] Dr. Ang Simmons UA PROTEIN Negative Normal NEGATIVE/ TRACE [facility] Comment on above: Performed By: #### P REGU, ERUR #### [facility] [address] [place] [address] Dr. Ang Simmons UR MICRO IND NOT INDICATED Normal [facility] Comment on above: Performed By: #### P REGU, ERUR #### [facility] [address] [place] [address] Dr. Ang Simmons Urobilinogen Qn (U) 0.2 {Jazmin'U}/dL Normal 0.2 - 1. 0 [facility] Comment on above: Performed By: #### P REGU, ERUR #### [facility] [address] [place] [address] Dr. Ang Simmons GROUP A STREP CULTUREon S. pyogenes Ag Ql (Unsp spec) Culture Observations: NEGATIVE FOR GROUP A STREPTOCOCCUS. Normal [facility] Comment on above: Performed By: #### S SCRN, GRASTCX #### [facility] [address] [place] [address] Dr. Ang Simmons INFLUENZA A AND B AGon 05-31 INFLUANEGH SEE BELOW Normal [facility] Comment on above: Result Comment: Nega tive for Flu A protein angiten. Infection due to Flu A cannot be ruled out. Flu A angiten in the sample may be below the detection limit of the test. Performed By: #### S SCRN, GRASTCX #### [facility] [address] [place] [address] Dr. Ang Simmons INFLUBNEGH SEE BELOW Normal [facility] Comment on above: Result Comment: Nega tive for Flu B protein antigen. Infection due to Flu B cannot be ruled out. Flu B antigen in the sample may be below the detection limit of the test. Performed By: #### S SCRN, GRASTCX #### [facility] [address] [place] [address] Dr. Ang Simmons INFLUENZA A AG Negative Normal NEGATIVE SEE COMMENT [facility] Comment on above: Performed By: #### S SCRN, GRASTCX #### [facility] [address] [place] [address] Dr. Ang Simmons INFLUENZA B AG Negative Normal NEGATIVE SEE COMMENT [facility] Comment on above: Performed By: #### S SCRN, GRASTCX #### [facility] [address] [place] [address] Dr. Ang Simmons URon 05-31-2022 , QUAL Negative Normal NEGATIVE [facility] Comment on above: Performed By: #### P REGU, ERUR #### [facility] [address] [place] [address] Dr. Ang Simmons STREPT SCREENon 05-31-2022 STREP SCREEN A Negative Normal NEGATIVE [facility] Comment on above: Performed By: #### S SCRN, GRASTCX #### [facility] [address] [place] [address] Dr. Ang Simmons Quick Strepon 02-13-2022 S. pyogenes Org specific cx Ql (Throat) Negative [employer] Other Quick Strep Oncopeptides [facility] [email or web address] Other SARS-CoV-2 (COVID-19) RNA NA A+probe Ql (Resp)on 02-13-2022 SARS-CoV-2 (COVID-19) RNA REINIER+probe Ql (Unsp spec) Negative Oncopeptides [facility] [email or web address] Other Covid-19 PCR ([facility])on 11-24 SARS-CoV-2 (COVID-19) RNA REINIER+probe Ql (Unsp spec) Not detected Normal NOT DETECTED [facility] Comment on above: Result Comment: [...] for this test is supported by the [place] of Health and Human Service's declaration that [...] longer be used). Performed By: #### C VDTB #### [facility] [address] [place] [address] Dr. Ang Simmons GROUP A STREP CULTUREon 11-24 S. pyogenes Ag Ql (Unsp spec) Culture Observations: NEGATIVE FOR GROUP A STREPTOCOCCUS. Normal [facility] Comment on above: Performed By: #### S RAVI GRASTCX #### [facility] [address] [place] [address] Dr. Ang Simmons STREPT SCREENon 12-10-2021 STREP SCREEN A Negative Normal NEGATIVE [facility] Comment on above: Performed By: #### S RAVI GRASTCX #### [facility] [address] [place] [address] Dr. Ang Simmons Vital Signs Date Time Vital Sign Value Performing Clinician Facility 03-24-2024 08:58-0400 Body mass index (BMI) [Ratio] 31.93 kg/m2 Wanda CARNES Work Phone: [facility] 03-24-2024 08:58-0400 Body weight 76.66 kg Wanda CARNES Work Phone: [facility] 03-24-2024 08:58-0400 Diastolic blood pressure 74 mm[Hg] Wanda CARNES Work Phone: [facility] 03-24-2024 08:58-0400 Systolic blood pressure 116 mm[Hg] Wanda CARNES Work Phone: [facility] 08-13-2023 09:36-0400 Body height 162.56 cm [facility] 08-13-2023 09:36-0400 Body mass index (BMI) [Ratio] 26.6 kg/m2 [facility] 08-13-2023 09:36-0400 Body temperature 98.6 [degF] [facility] 08-13-2023 09:36-0400 Body weight 70.3 kg [facility] 08-13-2023 09:36-0400 Heart rate 91 /min [facility] 08-13-2023 09:36-0400 Respiratory rate 16 /min [facility] 08-13-2023 09:36-0400 SaO2% (BldA) [Mass fraction] 99 % [facility] 03-18-2023 09:15-0400 Body height 158.75 cm Aure Moss Other [employer] Other 03-18-2023 09:15-0400 Body mass index (BMI) [Ratio] 29.15 kg/m2 Aure Moss Other [employer] Other 03-18-2023 09:15-0400 Body temperature 98.2 [degF] Aure Moss Other [employer] Other 03-18-2023 09:15-0400 Body weight 73.48 kg Aure Moss Other [employer] Other 03-18-2023 09:15-0400 Respiratory rate 18 /min Aure Moss Other [employer] Other 03-18-2023 09:15-0400 SaO2% (BldA) [Mass fraction] 98 % Aure Moss Other [employer] Other 10-04-2022 12:40-0400 Body height 158.75 cm Maricarmen Avila Other [employer] Other 10-04-2022 12:40-0400 Body mass index (BMI) [Ratio] 27.54 kg/m2 Maricarmen Avila Other [employer] Other 10-04-2022 12:40-0400 Body temperature 99.3 [degF] Maricarmen Avila Other [employer] Other 10-04-2022 12:40-0400 Body weight 69.4 kg Maricarmen Avila Other [employer] Other 10-04-2022 12:40-0400 Respiratory rate 18 /min Maricarmen Avila Other [employer] Other 10-04-2022 12:40-0400 SaO2% (BldA) [Mass fraction] 99 % Maricarmen Avila Other [employer] Other 02-13-2022 16:55-0400 Body height 158.75 cm Rona Terry Other [employer] Other 02-13-2022 16:55-0400 Body mass index (BMI) [Ratio] 27.9 kg/m2 Rona Terry Other [employer] Other 02-13-2022 16:55-0400 Body temperature 98.4 [degF] Rona Terry Other [employer] Other 02-13-2022 16:55-0400 Body weight 70.31 kg Rona Terry Other [employer] Other 02-13-2022 16:55-0400 Respiratory rate 18 /min Rona Terry Other [employer] Other 02-13-2022 16:55-0400 SaO2% (BldA) [Mass fraction] 99 % Rona Terry Other [employer] Other 12-21-2021 16:20-0400 Body height 158.75 cm Maricarmen Avila Other [employer] Other 12-21-2021 16:20-0400 Body mass index (BMI) [Ratio] 27.64 kg/m2 Maricamren Avila Other [employer] Other 12-21-2021 16:20-0400 Body temperature 98 [degF] Maricarmen Avila Other [employer] Other 12-21-2021 16:20-0400 Body weight 69.67 kg Maricarmen Avila Other [employer] Other 12-21-2021 16:20-0400 Diastolic blood pressure 67 mm[Hg] Maricarmen Avila Other [employer] Other 12-21-2021 16:20-0400 Respiratory rate 18 /min Maricarmen Avila Other [employer] Other 12-21-2021 16:20-0400 SaO2% (BldA) [Mass fraction] 98 % Maricarmen Avila Other [employer] Other 12-21-2021 16:20-0400 Systolic blood pressure 117 mm[Hg] Maricarmen Avila Other [employer] Other Encounters Encounter Date Encounter Type Care Provider Facility Start: 03-24-2024 End: 03-24-2024 Bamboo flowsheet Wanda CARNES Work Phone: [facility] Start: 03-24-2024 End: 03-25-2024 Bamboo flowsheet Wanda CARNES Work Phone: [facility] Start: 03-24-2024 End: 03-25-2024 External Result Encounter Wanda CARNES Work Phone: [facility] External Department Unsolicited Start: 03-24-2024 End: 03-24-2024 ambulatory WANDA GALLARDO Not Available Start: 03-24-2024 End: 03-24-2024 Patient encounter procedure Wanda CARNES Work Phone: [facility] Healthcare Start: 03-24-2024 End: 03-24-2024 Periodic preventive med est patient 18-39 yrs Wanda CARNES Work Phone: [facility] Comment on above: Well woman exam with routine gynecological exam; Exposure to STD; Need for maternal serum alpha-protein (MSAFP) screening; 19 weeks gestation of ; Screening, , for anatomic survey Start: 02-20-2024 End: 02-20-2024 ambulatory CAROL FEDE Not Available Start: 01-31-2024 End: 01-31-2024 ambulatory CAROL FEDE Not Available Start: 09-17-2023 End: 09-18-2023 ambulatory Mac Bhatt Facility:[facility] [place] [facility] Start: 08-27-2023 ambulatory Mac Bhatt Facility:[facility] [place] Start: 08-13-2023 End: 08-14-2023 ambulatory Mac Bhatt Facility:[facility] [place] Start: 08-13-2023 End: 08-13-2023 ambulatory [facility] Work Phone: Start: 08-13-2023 End: 08-13-2023 Patient encounter procedure [facility] Work Phone: Start: 03-18-2023 End: 03-18-2023 ambulatory Aure Moss Other [employer] Other Start: 03-18-2023 Office outpatient vi sit 15 minutes Aure Moss [facility] Start: 10-04-2022 End: 10-04-2022 ambulatory Maricarmen Avila Other [employer] Other Start: 10-04-2022 Office outpatient vi sit 25 minutes Maricarmen Austin [facility] Start: 07-18-2022 End: 07-19-2022 ambulatory KIAN MATT . Facility:[facility] Start: 05-31-2022 End: 05-31-2022 ambulatory IRAIDA WOODARD . Facility:[facility] Start: 02-13-2022 End: 02-13-2022 ambulatory Rona Terry Other [employer] Other Start: 02-13-2022 Office outpatient vi sit 15 minutes Ronachava Terry [facility] Start: 12-21-2021 (URG) Urgent Care Visit Maricarmen Avila [facility] Start: 12-21-2021 End: 12-21-2021 ambulatory Maricarmen Avila Other [employer] Other Start: 12-10-2021 End: 12-10-[address] MINI VERDE . Facility:[facility] Procedures Date Procedure Procedure Detail Performing Clinician Start: 03-24-2024 Urnls dip stick/tabl et rgnt non-auto w/o micrscp Wanda CARNES Work Phone: Start: 03-24-2024 URETHRITIS/DISCHARGE PLUS VAGINITIS (HTRX) Wanda CARNES Work Phone: Start: 08-13-2023 Quick Strep (POC) Plan of Treatment Date Care Activity Detail Author Start: 04-21-2024 End: 04-21-2024 Patient encounter procedure 04/21/2024 9:10 AM EST Routine [facility] [address] [place] [id number] Carol Mistry, [address] [place] [address] [facility] Start: 03-24-2024 End: 04-24-2024 Alpha fetoprotein, maternal Alpha fetoprotein, maternal Lab Routine Need for maternal serum alpha-protein (MSAFP) screening Expected: 03/24/2024 (Approximate), Expires: 04/24/2024 [facility] Comment on above: Expected: 03/24/2024 (Approximate), Expires: 04/24/2024 Start: 03-24-2024 End: 03-24-2025 US for US OB ANATOMY SINGLE W US OB CERVICAL LENGTH Imaging Routine Screening, , for anatomic survey Expected: 03/24/2024 (Approximate), Expires: 03/24/2025 [facility] Healthcare Comment on above: Expected: 03/24/2024 (Approximate), Expires: 03/24/2025 CHLAMYDIA TRACHOMATI S (GENITO/STI) CHLAMYDIA TRACHOMATIS (GENITO/STI) Lab Routine Exposure to STD Ordered: 03/24/2024 [facility] Comment on above: Ordered: 03/24/2024 Cytology Cervical or vaginal smear or scraping study Pap Smear Pathology and Cytology Routine Well woman exam with routine gynecological exam Ordered: 03/24/2024 [facility] Comment on above: Ordered: 03/24/2024 Neisseria [...] Work Phone: Comment on above: Ordered: 03/24/2024 [facility] Immunizations Immunization Date Immunization Notes Care Provider Fa barrylisa 01-01-2002 diphtheria, tetanus toxoids and acellular pertussis vaccine, unspecified formulation Maricarmen Avila Other [facility] 01-01-2002 measles, mumps and rubella virus vaccine Maricarmen Avila Other [facility] 01-01-2002 poliovirus vaccine, inactivated Maricarmen Avila Other [employer] [facility] Other 01-01-2002 poliovirus vaccine, unspecified formulation [facility] 02-04-1998 diphtheria, tetanus toxoids and acellular pertussis vaccine, unspecified formulation Maricarmen Avila Other [facility] 02-04-1998 measles, mumps and rubella virus vaccine Maricarmen Avila Other [facility] 02-04-1998 trivalent poliovirus vaccine, live, oral Maricarmen Avila Other [facility] 04-27-1997 diphtheria, tetanus toxoids and pertussis vaccine Maricarmen Avila Other [facility] 04-27-1997 haemophilus influenz ae type b vaccine, conjugate unspecified formulation Maricarmen Avila Other [facility] 04-27-1997 hepatitis B vaccine, pediatric or pediatric/adolescent dosage Maricarmen Avila Other [facility] 01-16-1997 diphtheria, tetanus toxoids and pertussis vaccine Maricarmen Avila Other [facility] 01-16-1997 haemophilus influenz ae type b vaccine, conjugate unspecified formulation Maricarmen Avila Other [facility] 01-16-1997 trivalent poliovirus vaccine, live, oral Maricarmen Avila Other [facility] 1996 diphtheria, tetanus toxoids and pertussis vaccine Maricarmen Avila Other [facility] 1996 haemophilus influenz ae type b vaccine, conjugate unspecified formulation Maricarmen Avila Other [facility] 1996 hepatitis B vaccine, pediatric or pediatric/adolescent dosage Maricarmen Avila Other [facility] 1996 trivalent poliovirus vaccine, live, oral Maricarmen Avila Other [facility] 1996 hepatitis B vaccine, pediatric or pediatric/adolescent dosage Maricarmen Avila Other [facility] Payers Date Payer Category Payer Medicaid [facility] [id number] 2022 Medicaid [id number] 1996 Unknown [id number] 1996 Unknown [id number] 1996 Unknown [id number] 1996 Unknown [id number] 1996 Unknown [id number] 1996 Unknown [id number] 1996 Unknown [id number] 1996 Unknown [id number] 1959 Unknown [id number] Unknown [id number] Social History Date Type Detail Facility Unknown if ever smoked [facility] [email or web address] Other Start: 01-31-2024 Sex Assigned At [facility] [email or web address] Other Start: 08-13-2023 Tobacco smoking stat [facility] Smoker (finding) [facility] Start: 1995 Sex Assigned At Female F [facility] Start: 02-16-2023 Tobacco smoking stat [facility] Smokes tobacco daily [facility] History of [...] Sex assigned at Not on file [facility] History of Present illness Narrative 03-24-2024 [...] HISTORY Past Surgical History: Procedure Laterality Date [place] MEDICATION MANAGEMENT 2013 Fludricortisone- neuro-cardiogenic syncope -JUAREZ [place] MEDICATION MANAGEMENT antibiotic - bronchitis TONSILLECTOMY 2006 [...] nursing note reviewed. Exam conducted with a financial controller present. Vitals: Estimated body mass index is [...] of: TRICE López documented in this encounter [facility] Evaluation note 03-18-2023 Note Date & [...] Suspected COVID-19 virus infection (ICD-10 - Z20.822) [employer] [facility] Other Evaluation note 10-04-2022 Note Date & [...] treatment plan. Patient left in stable condition. [facility] Other Evaluation note 02-13-2022 Note Date & [...] weeks for the cough to go away [employer] [facility] Other Evaluation note 12-21-2021 Note Date & [...] understanding and is agreeable with treatment plan [employer] Other Evaluation note Note Date & Type Note Facility [facility]: Evaluation note Note Date [...] Surgical History appendectomy Hospitalization History see above [employer] [facility] Other Summary Purpose Family History No Family [...] section and content) DATE CREATED AUTHOR 07/23/2022 [facility] DATE CREATED AUTHOR AUTHOR'S ORGANIZ ATION 09/19/2023 [facility] DATE CREATED AUTHOR AUTHOR'S ORGANIZ ATION 03/25/2024 [facility] [employer] [facility] Care Teams (unrecognized sec tion and content) [...] BE BASED ON THE PRIMARY CLINICAL RECORDS. [employer] provides no warranty or guarantee of the accuracy or completeness of information in this document.
== END 2024-03-27 18:53 | disposition home or self-care (01) ==
PROVIDERS: Visit Provider Physician Assistant
DX: Z36.89 Encounter for other specified antenatal screening (principal); O44.42 Low lying placenta NOS or without hemorrhage, second trimester; Z3A.19 19 weeks gestation of pregnancy
CPT/HCPCS: 76805; 76817

== ENCOUNTER 2024-06-01 08:16 | Outpatient (OUT) | payer OTHER, SELFPAY ==
[2024-06-01 09:29] LABS: Basophils Percent Auto 0.2 % (0.2-2.0); Eosinophils Absolute Auto 0.2 10^3/uL (0.0-0.7); Eosinophils Percent Auto 1.7 % (0.9-7.0); Hematocrit 31.9 % (36.0-48.0); Hemoglobin 11.1 g/dL (12.0-16.0); Immature Granulocytes Abs Auto 0.19 10^3/uL (0.00-0.03); Immature Granulocytes Pct Auto 1.5 % (0.0-0.5); Lymphocytes Absolute Auto 2.4 10^3/uL (1.2-3.8); Lymphocytes Percent Auto 19.2 % (20.5-60.0); Mean Corpuscular HGB Conc 34.8 g/dL (29.9-35.2); Mean Corpuscular Volume 91.9 fL (81.0-99.0); Mean Platelet Volume 10.7 fL (9.5-13.5); Monocytes Absolute Auto 0.8 10^3/uL (0.3-0.8); Monocytes Percent Auto 6.4 % (1.7-12.0); Platelet Count 162 10^3/uL (150-450); Red Blood Count 3.47 10^6/uL (4.20-5.40); Red Cell Distribution Width 12.8 % (11.0-15.0); White Blood Count 12.7 10^3/uL (4.0-11.0)
[2024-06-01 10:27] LABS: Glucose 1 Hour 114 mg/dL (<130)
== END 2024-06-01 08:17 | disposition home or self-care (01) ==
LOC: LAB 08:18
PROVIDERS: Visit Provider Obstetrics & Gynecology
DX: Z34.92 Encounter for supervision of normal pregnancy, unspecified, second trimester (principal)
CPT/HCPCS: 36415; 82950; 85025

== ENCOUNTER 2024-06-08 18:02 | Emergency (ER) | payer MEDICAID, SELFPAY ==
--- OUTSIDE RECORDS SUMMARY | 2024-06-08 18:09 | XMS_ITS | CCD ---
Author Organization [facility] Care Team Providers Care Pie Baker Name Role Phone Maricarmen Avila Unavailable Rona Terry Unavailable AMMON Angelo, DR MORSE Attending Unavailable AMMON ., DR MORSE Consulting Unavailable AMMON ., DR MORSE Admitting Unavailable MISC, DR CHENEY Primary Care Unavailable VANCE ., IRAIDA Admitting Unavailable MONSTER, DR GRETEL Borrego Consulting Unavailable VANCE ., IRAIDA Attending Unavailable MISC, DR CHENEY Primary Care Unavailable VANCE ., IRAIDA Consulting Unavailable VERNELL ., KIAN Admitting Unavailable PAUL .TRICE Consulting Unavailabl e MISC, DR CHENEY Primary Care Unavailable VERNELL Angelo, KIAN Attending Unavailable EMMA BABB Consulting Unavailable DIAB ., KIAN Consulting Unavailable Aure Moss Unavailable Mac Bhatt Attending Unavailable Mac Bhatt Attending Unavailable Unavailable Primary Care Provider UnavailModesta Encarnacion Admitting UnavailModesta Encarnacion Attending UnavailCAROL Herring Attending Unavailable WANDA GALLARDO Attending Unavailable WANDA GALLARDO Attending Unavailable CAROL MISTRY Referring Unavailable Allergies Allergy Classification Reported Allergen(s) Allergy Type Date of Onset Reaction(s) Facility (4 sources) Cefixime Drug Allergy [facility] Other (2 sources) Dextrothyroxine ; Translations: [Suprax] Drug Allergy 8 [facility] Repository (14 sources) Cefixime Propensity to adverse reactions 3 [facility] [employer] Work Phone: (1 source) Cefixime Drug Allergy 4 [facility] Repository Medications Current Medications Medication Drug Class(es) Dates Sig (Normalized) Sig (Original) Albuterol Sulfate 90 mcg/actuation HFA aerosol inhaler (1 source) Start: 04-15-2024 Albuterol Sulfate 90 mcg/actuation HFA aerosol inhaler Active 2 INH INHALATION EVERY 4-6 HOURS as needed for shortness of breath or wheezing 6.7 7 April 15, 2024 12:00am azithromycin 250 mg oral tablet (7 sources) Macrolide Antimicrobial Start: 05-07-2024 End: 06-01-2024 azithromycin (Zithromax Z-Isaiah) 250 MG tablet Indications: Upper respiratory tract infection, unspecified type As directed 6 tablet 05/07/2024 06/01/2024 Discontinued Start: 04-15-2024 azithromycin ( Zithromax Z-Isaiah) 250 MG tablet Indications: Upper respiratory tract infection, unspecified type As directed 6 tablet 04/15/2024 Active Start: 02-13-2022 Azithromycin 2 50 MG 2 tablets on the first day, then 1 tablet daily for 4 days Orally Once a day for 5 day(s) Jan, Not-Taking fluticasone propionate 0.05 mg/actuat metered dose nasal spray (1 source) Corticosteroid Start: 03-18-2023 take 1 spray(s) nasal route once daily Fluticasone Propionate 50 MCG/ACT 1 spray in each nostril Nasally Once a day for 14 day(s) Feb, Active methylPREDNISolone (7 sources) Corticosteroid Start: 04-15-2024 End: 06-01-2024 methylPREDNISolone (Medrol Dospak) 4 MG tablets Indications: Upper respiratory tract infection, unspecified type Day 1: 6 tablets Day 2: 5 tablets Day 3: 4 tablets Day 4: 3 tablets Day 5: 2 tablets Day 6: 1 tablet 21 tablet 04/15/2024 06/01/2024 Discontinued Start: 04-15-2024 methylPREDNISo lone (Medrol Dospak) 4 MG tablets Indications: Upper respiratory tract infection, unspecified type Day 1: 6 tablets Day 2: 5 tablets Day 3: 4 tablets Day 4: 3 tablets Day 5: 2 tablets Day 6: 1 tablet 21 tablet 04/15/2024 Active Start: 02-13-2022 methylPREDNISo lone 4 MG as directed Orally Once a day for 6 days Jan, Not-Taking ondansetron 4 mg oral tablet (18 sources) Serotonin-3 Receptor Antagonist Start: 01-31-2024 take [...] 30 tablet 3 01/31/2024 Active Start: 08-13-2023 End: 04-13-2024 take 1 tablet by mouth every eight hours as needed for nausea and vomiting Ondansetron Hcl 8 mg tablet Discontinued 8 MG PO Q8H as needed for nausea and vomiting 14 12August 12, 2023 11:00pm April 13, 2024 9:38am Start: 10-04-2022 take 1 tablet by jose th every eight hours Ondansetron 4 MG 1 tablet on the tongue and allow to dissolve Orally every 8 hours for 5 days September, Active Pnv 470-Gzqst-Bmsmn-3-Fish Oil 400-32.5 mcg-mg tablet,chewable (2 sources) Start: 04-13-2024 Pnv 155-Hxyop-Pggui-3-Fish Oil 400-32.5 mcg-mg tablet,chewable Active TAB PO April 13, 2024 12:00am predniSONE 20 mg oral tablet (1 source) [...] Active promethazine hydrochloride 12.5 mg oral tablet (12 sources) Phenothiazine Start: 02-20-2024 take 1 tablet [...] Drug Class(es) Dates Sig (Normalized) Sig (Original) [id number] 200 actuat albuterol 0.09 mg/actuat metered dose inhaler (2 sources) beta2-Adrenergic Agonist Start: 02-13-2022 take 2 puff(s) by inhalation every four hours as needed Albuterol Sulfate HFA 108 (90 Base) MCG/ACT 2 puffs as needed Inhalation every 4 hrs Jan, Not-Taking dextromethorphan hydrobromide 15 mg / guaiFENesin 400 mg / pseudoephedrine hydrochloride 60 mg oral tablet (4 sources) alpha-Adrenergic Agonist, Uncompetitive W-hkolhv-B-aspartat e Receptor Antagonist, Sigma-1 Agonist Start: 08-13-2023 End: 04-13-2024 take 4 tablets by mouth every twenty-four hours as needed Pseudoephedrine-D m-Guaifenesin (Capmist Dm) 60-15-400 mg tablet Discontinued 1 TAB PO EVERY 4-6 HOURS as needed for cold symptoms August 12, 2023 11:00pm April 13, 2024 9:38am do not exceed 4 doses per 24 hrs Start: 10-04-2022 take 4 tablets by mo uth every twenty-four hours as needed Capmist DM 60-15-400 MG as needed Orally every 4-6 hours as needed, max 4 tablets in 24 hours for 5 days September, Active Problems Active Problems Problem Classification Problem Date Documented Da te Episodic/Chronic Abdominal pain (5 sources) Abdominal pain; Translations: [Unspecified abdominal pain] Onset: 3 Episodic Cardiac dysrhythmias (1 source) Other specified cardiac arrhythmias; Translations: [OTHER SPECIFIED CARDIAC ARRHYTHMIAS] Onset: 2 Chronic Immunizations and screening for infectious disease (4 sources) Exposure to sexually transmissible disorder; Translations: [Contact with and (suspected) exposure to infections with a predominantly sexual mode of transmission] 03-24-2024 Episodic Menstrual disorders (1 source) Missed period; Translations: [Irregular menstruation, unspecified] 01-31-2024 Chronic Nausea and vomiting (15 sources) Nausea; Translations: [Nausea] Onset: 2 Episodic Other gastrointestinal disorders (6 sources) Constipation; Translations: [Constipation, unspecified] 04-13-2024 Episodic Other nutritional; endocrine; and metabolic disorders (6 sources) Body mass index 30+ - obesity; Translations: [Body mass index (BMI) 32.0-32.9, adult] 04-13-2024 Chronic Other and delivery including normal (11 sources) Second trimester ; Translations: [Encounter for supervision of normal , unspecified, second trimester] Onset: 4 04-21-2024 Episodic Other screening for suspected conditions (not mental disorders or infectious disease) (6 sources) Alpha-fetoprotein blood test status; Translations: [Encounter for screening for raised alphafetoprotein level] 03-24-2024 Episodic Other upper respiratory disease (1 source) Nasal congestion; Translations: [NASAL CONGESTION] Onset: 3 Episodic Other upper respiratory infections (10 sources) Acute pharyngitis, unspecified; Translations: [Acute upper respiratory infection, unspecified] Onset: 2 Resolved: 2 Episodic Ovarian cyst (1 source) Unspecified ovarian cyst, right side; Translations: [UNSPECIFIED OVARIAN CYST RIGHT SIDE] Onset: 3 Episodic Residual codes; unclassified (2 sources) Gestation period, 19 weeks; Translations: [19 weeks gestation of ] 03-24-2024 Episodic Residual codes; unclassified (7 sources) Gestation period, 23 weeks; Translations: [23 weeks gestation of ] Onset: 4 04-21-2024 Episodic Residual codes; unclassified (2 sources) Gestation period, 29 weeks; Translations: [29 weeks gestation of ] 06-01-2024 Episodic Substance-related disorders (6 sources) Nicotine dependence, cigarettes, uncomplicated; Translations: [Smoker] [...] Test Name Value Interpretation Reference Range Facility US OB LIMITED 1+ FETUSESon 0 06-03-2024 US OB LIMITED 1+ FETUSES TITLE OF EXAM: OB Ultrasound: REASON FOR EXAM: CP cyst, low lying placenta, SV, Spine, RVOT, LVOT, arms on anatomy. COMPARISON: None TECHNIQUE: Grayscale and M-mode Doppler imaging is performed. FINDINGS: Measurements: heart rate: 147 bpm Cervix Length: 5.1 cm MOI: 08/14/2024 Limited for: Placental Location: Anterior Placenta Tip to internal OS: 7.5 cm Grade: 1 Heart Rate: 147 bpm Cervical Length: 5.1 cm IMPRESSION: 1. Single live intrauterine gestation in cephalic position. Clinical dates provided at 29.7 weeks. 2. RVOT, LVOT and skin line and dorsal structure of the spine appear intact on the current exam. 3. Placenta is anterior and the edge measures 7 cm from the internal os. 4. Long bones of the upper extremities are demonstrated on the current exam. 5. No choroid plexus cyst is demonstrated. No ventriculomegaly is apparent. Dictated and transcribed 06/03/24/dpd This report has been electronically signed and approved by the interpreting radiologist. Normal Not Available Comment on above: Order Comment: US OB INCOMPLETE ANATOMY Estimated Date of Delivery: 08/14/24 Gestational Age as of 04/02/2024: 29w3d ALL CBC WITH AUTO DIFFon BASOPHILS ABSOLUTE AUTO 0 [facility] Basophils/100 WBC (Bld) 0.2 % 0.2 - 2.0 % [facility] Eosinophils/100 WBC (Bld) 1.7 % 0.9 - 7.0 % [facility] Erythrocyte distribution width (RBC) [Ratio] 12.8 % 11.0 - 15.0 % [facility] Hematocrit (Bld) [Volume fraction] 31.9 % Low 36.0 - 48.0 % [facility] Hemoglobin (Bld) [Mass/Vol] 11.1 g/dL Low 12.0 - 16.0 g/dL [facility] IMMATURE GRANULOCYTES ABS AUTO 0.19 High [facility] Immature granulocytes/100 WBC (Bld) 1.5 % High 0.0 - 0.5 % [facility] Interpretation and review of laboratory results Abnormal [facility] LYMPHOCYTES ABSOLUTE AUTO 2.4 [facility] Lymphocytes/100 WBC (Bld) 19.2 % Low 20.5 - 60.0 % [facility] MCH (RBC) [Entitic mass] 32 pg 26.7 - 34.0 pg [facility] MCHC (RBC) [Mass/Vol] 34.8 g/dL 29.9 - 35.2 g/dL [facility] MCV (RBC) [Entitic vol] 91.9 fL 81.0 - 99.0 fL [facility] MONOCYTES ABSOLUTE AUTO 0.8 [facility] Monocytes/100 WBC (Bld) 6.4 % 1.7 - 12.0 % [facility] NEUTROPHILS ABSOLUTE AUTO 9 High [facility] Neutrophils/100 WBC (Bld) 71 % 43.0 - 75.0 % [facility] Platelet mean volume (Bld) [Entitic vol] 10.7 fL 9.5 - 13.[address] [facility] # [facility].2 [facility] TB PLT 162 [facility] TB RBC 3.47 Low [facility] TBH WBC 12.7 High [facility] Urinalysis macro (dipstick) panel (U)on 06-01-2024 Bilirubin, UA Negative Negative - 4(70) +++ mg/dL [facility] Blood, UA Negative Negative - 50 Sukhi/mcL [facility] Clarity, UA Clear [facility] re Color, UA Yellow [facility] Glucose, UA Negative Negative - 1999(110) ++++ mg/dL [facility] Interpretation and review of laboratory results Normal [facility] Ketones, UA Negative Negative - 160(16) ++++ mg/dL [facility] Leukocytes, UA Negative Negative - 500+++ Lambert/mcL [facility] Nitrite, UA Negative Negative - Positive [facility] pH, UA 6 5 - 9 [facility] Protein, UA Negative Negative - 1999(20) ++++ mg/dL [facility] Spec Grav, UA 1.015 1 - 1.03 [facility] Urobilinogen, UA 0.2 0.2 - 12 mg/dL [facility] Throat Cultureon 05-07-2024 Throat culture Moderate Normal Respiratory Gita 2 Days PERFORMED BY: [place] [address] PATHOLOGIST OB GYN PHYSICIAN ASSISTANT MELCHOR RANDALL M.D. Normal [facility] Comment on above: Performed By: #### C UT #### [address] Urinalysis macro (dipstick) panel (U)on 04-22-2024 Bilirubin, UA Negative Negative - 4(70) +++ mg/dL [facility] Blood, UA Negative Negative - 50 Sukhi/mcL [facility] Clarity, UA Clear [facility] Color, UA Yellow [facility] Glucose, UA Negative Negative - 1999(110) ++++ mg/dL [facility] Interpretation and review of laboratory results Normal [facility] Ketones, UA Negative Negative - 160(16) ++++ mg/dL [facility] Leukocytes, UA Negative Negative - 500+++ Lambert/mcL [facility] Nitrite, UA Negative Negative - Positive [facility] pH, UA 5.8 5 - 9 [facility] Protein, UA Negative Negative - 1999(20) ++++ mg/dL [facility] Spec Grav, UA 1.015 1 - 1.03 [facility] Urobilinogen, UA 1.0 0.2 - 12 mg/dL [facility] No Panel InformationOrdered By: Gaye Nair on 04-13-2024 Quick Strep (POC) [facility] IGP,APTIMA HPV,AGE GDLNon AGE GDLN ACOG TESTING Note . [facility] Comment on above: TESTS RESULT FLAG U NITS REF RANGE LAB Clinician Provided Cytology Information Source.............Cervix Other.............. No. of containers..01 ThinPrep Vial Age Algo ACOG Sania... FLAG LEGEND: L-Low Normal,H-High Normal,LL-Alert Low,HH-Alert High <-Panic Low,>-Panic High,A-Abnormal,AA-Critical Abnormal Performed at: 01 =G [address] [place] [address] Kaci Gregory MD, IGP, RFX APTIMA HPV ASCU Note . [facility] Comment on above: TESTS RESULT FLAG UN ITS REF RANGE LAB DIAGNOSIS: 02 NEGATIVE FOR INTRAEPITHELIAL LESION OR MALIGNANCY. Specimen adequacy: 02 Satisfactory for evaluation. No endocervical component is identified. An endocervical component is not commonly seen in the patient. Performed by: 02 Carol Benton, Auxiliary Operator (ASCP) . 02 Note: Note 02 The Pap smear is a screening test designed to aid in the detection of premalignant and malignant conditions of the uterine cervix. It is not a diagnostic procedure and should not be used as the sole means of detecting cervical cancer. Both false-positive and false-negative reports do occur. Test Methodology: Note 02 This liquid based ThinPrep(R) pap test was screened with the use of an image guided system. . 02 The HPV DNA reflex criteria were not met with this specimen result therefore, no HPV testing was performed. FLAG LEGEND: L-Low Normal,H-High Normal,LL-Alert Low,HH-Alert High <-Panic Low,>-Panic High,A-Abnormal,AA-Critical Abnormal Performed at: [address] [address] Kaci Gregory MD, Performed at: = - [address] [id number] Corsage Maker: Kaci Gregory MD, Phone: [phone] Performed at: [facility] [address] [id number] Corsage Maker: Kaci Gregory MD, Phone: [phone] SPATULA-ALONE CERVIX [facility] URETHRITIS/DISCHARGE PLUS VA GINITIS (HTRX)on 03-25-2024 ATOPOBIUM VAGINAE 30.308 Abnormal [facility] ATOPOBIUM VAGINAE Detected Abnormal [facility] BVAB 2,3 (BACTERIAL VAGINOSIS ASSOCIATED BACTERIA 2, 3); MOBILUNCUS SPP 23.769 Abnormal [facility] BVAB 2,3 (BACTERIAL VAGINOSIS ASSOCIATED BACTERIA 2, 3); MOBILUNCUS SPP Detected Abnormal [facility] KEN ALBICANS, PARAPSILOSIS, TROPICALIS 0 [facility] KEN ALBICANS, PARAPSILOSIS, TROPICALIS Not detected [facility] KEN GLABRATA 0 [facility] KEN GLABRATA Not detected [facility] KEN KRUSEI 0 [facility] Healt hcare KEN KRUSEI Not detected [facility] CHLAMYDIA TRACHOMATIS 0 [facility] CHLAMYDIA TRACHOMATIS Not detected N [facility] ERMB, C; MEFA 21.812 Abnormal [facility] Health care ERMB, C; MEFA Detected Abnormal [facility] care GARDNERELLA VAGINALIS 27.115 Abnormal [facility] Healthcare GARDNERELLA VAGINALIS Detected Abnormal [facility] Interpretation and review of laboratory results Abnormal [facility] MEGASPHAERA (TYPES 1, 2) 21.09 Abnormal [facility] MEGASPHAERA (TYPES 1, 2) Detected Abnormal [facility] MYCOPLASMA GENITALIUM 0 [facility] MYCOPLASMA GENITALIUM Not detected N [facility] NEISSERIA GONORRHOEAE 0 [facility] NEISSERIA GONORRHOEAE Not detected N [facility] TET B, TET M 22.295 Abnormal [facility] Healthc are TET B, TET M Detected Abnormal [facility] TRICHOMONAS VAGINALIS 0 [facility] TRICHOMONAS VAGINALIS Not detected [facility] Ur[facility] macro (dipstick) panel (U)on 03-24-2024 Bilirubin, UA Negative Negative - 4(70) +++ mg/dL [facility] Blood, UA Negative Negative - 50 Sukhi/mcL [facility] Clarity, UA Clear [facility] re Color, UA [facility] e Glucose, UA Negative Negative - 1999(110) ++++ mg/dL [facility] Interpretation and review of laboratory results Abnormal [facility] Ketones, UA Positive Negative - 160(16) ++++ mg/dL [facility] Comment on above: trace Leukocytes, UA Negative Negative - 500+++ Lambert/mcL [facility] Nitrite, UA Negative Negative - Positive [facility] pH, UA 5.5 5 - [address] [address] [facility] Protein, UA Negative Negative - 1999(20) ++++ mg/dL [facility] Spec Grav, UA 1.025 1 - 1.03 [facility] Urobilinogen, UA 0.2 0.2 - 12 mg/dL [facility] Urinalysis macro (dipstick) panel (U)on 02-20-2024 Bilirubin, UA Negative Negative - 4(70) +++ mg/dL [facility] Healthcare Blood, UA Negative Negative - 50 Sukhi/mcL [facility] Healthcare Clarity, UA Clear [facility] Color, UA Yellow [facility] Glucose, UA Negative Negative - 1999(110) ++++ mg/dL [facility] Healthcare Interpretation and review of laboratory results Normal [facility] Healthcare Ketones, UA Negative Negative - 160(16) ++++ mg/dL [facility] Healthcare Leukocytes, UA Negative Negative - 500+++ Lambert/mcL [facility] Healthcare Nitrite, UA Negative Negative - Positive [facility] Healthcare pH, UA 6.0 5 - 9 [facility] Protein, UA Negative Negative - 1999(20) ++++ mg/dL [facility] Healthcare Spec Grav, UA 1.010 1 - 1.03 [facility] Health care Urobilinogen, UA 0.2 0.2 - 12 mg/dL [facility] Healthcare [facility] HCG ( test) Ql (U)o n 01-31-2024 Interpretation and review of laboratory results Abnormal [facility] Preg Test, Ur Positive [facility] Health care [facility] Urinalysis macro (dipstick) panel (U)on 01-31-2024 Bilirubin, UA Negative Negative - 4(70) +++ mg/dL [facility] Blood, UA Negative Negative - 50 Sukhi/mcL [facility] Healthcare Clarity, UA Clear [facility] Color, UA Yellow [facility] Glucose, UA Negative Negative - 1999(110) ++++ mg/dL [facility] Healthcare Interpretation and review of laboratory results Abnormal [facility] Healthcare Ketones, UA Negative Negative - 160(16) ++++ mg/dL [facility] Healthcare Leukocytes, UA Trace Negative - 500+++ Lambert/mcL [facility] Healthcare Nitrite, UA Negative Negative - Positive [facility] Healthcare pH, UA 6.5 5 - 9 [facility] Protein, UA Trace Negative - 1999(20) ++++ mg/dL [facility] Spec Grav, UA 1.025 1 - 1.03 [facility] Urobilinogen, UA 0.2 0.2 - 12 mg/dL [facility] ED Note-Physicianon 08-15-19 ED Note-Physician [phone] [id number] #[id number] [facility] Interdisciplinary Note - Soc ial Workeron 08-15-2023 Interdisciplinary Note - Molder Machine Tender This SW made a tc to patient today to discuss her positive depression screen. Patient did not answer so a message was left with SW's contact information. SW will remain available. Normal [facility] Ambulatory Visit Summaryon 0 08-13-2023 [...] EDT With: Miller WILSON, Mac Puga Where: [facility] Office/Clini c Noteon [...] provider: Bryon Any recent labs: ED in [place] Has POTS and is feeling lightheaded and brain fog. These are symptoms that she has had in the past. Was last seen in 2019 Dr. Meléndez in [facility] UTD: Pelvic/Pap: UTD flu: refused Acute: Current issues/complaints: Was in [place] ED last week for a migraine. Patient [...] detail, # 20 tab(s), Refills(s) 0, [facility]acy: [id number], 154.5, cm, 08/13/23 13:27:00 EDT, Height/Length Dosing, 72.6, kg, 08/13/23 13:27:00 EDT, Weight Dosing [facility] External Ambulatory Referral 2. Postural orthostatic tachycardia syndrome (G90.A: Postural orthostatic tachycardia syndrome [POTS]) - [facility] Drop Machine Operator who specializes in this. Ordered: cyclobenzaprine, 5 mg = 1 tab(s), Oral, Daily, PRN Headache, Precautions discussed in detail, # 20 tab(s), Refills(s) 0, Pharmacy: [id number], 154.5, cm, 08/13/23 13:27:00 EDT, Height/Length Dosing, 72.6, kg, 08/13/23 13:27:00 EDT, Weight Dosing [facility] External Ambulatory Referral 3. BMI 30.0-30.9,adult (Z68.30: Body mass index [BMI] 30.0-30.9, adult) - BMI education given. Ordered: cyclobenzaprine, 5 mg = 1 tab(s), Oral, Daily, PRN Headache, Precautions discussed in detail, # 20 tab(s), Refills(s) 0, Pharmacy: [id number], 154.5, cm, 08/13/23 13:27:00 EDT, Height/Length Dosing, 72.6, kg, 08/13/23 13:27:00 EDT, Weight Dosing [facility] External Ambulatory Referral One month follow up [...] Yes, 08/13/2023 Family History Hypertension: Father. Normal [facility] Comment on above: Result Comment: Elec tronically Signed By: Miller WILSON, Mac Puga\.br\Date and Time Signed: 08/13/23 14:05 EDT No Panel InformationOrdered By: Maricarmen Avila on 08-13-2023 Quick Strep (POC) [facility] Quick Strepon 10-04-2022 S. pyogenes Org specific cx Ql (Throat) Negative [employer] Other Quick Strep Curate.Us [facility] [employer] Other Covid-19 PCR (CVDTB)on 06-28 SARS-CoV-2 (COVID-19) RNA REINIER+probe Ql (Unsp spec) Not detected Normal NOT DETECTED [facility] Comment on above: Result Comment: When [...] for this test is supported by the [place] of Health and Human Service's declaration that [...] #### S SCRN, GRASTCX #### [facility] [address] [place] [address] Dr. Ang Simmons INFLUENZA A AND B AGon 07-18 INFLUENZA A AG Negative Normal NEGATIVE SEE COMMENT [facility] Comment on above: Performed By: #### I NFLUAB #### [facility] [address] [place] [address] Dr. Ang Simmons INFLUENZA B AG Negative Normal NEGATIVE SEE COMMENT [facility] Comment on above: Performed By: #### I NFLUAB #### [facility] [address] [place] [address] Dr. Ang Simmons XR CHEST 2 Von [...] by: EMMA BABB Date: 2022-07-18 21:09 Normal [facility] CT ABD/PELVIS WO CONon 05-31 CT [...] Date: 2022-05-31 11:54 Normal [facility] Covid-19 PCR (CVDTBH)on SARS-CoV-2 (COVID-19) RNA REINIER+probe Ql (Unsp spec) Not detected Normal NOT DETECTED [facility] Comment on above: Result Comment: This test is not yet approved or cleared by the [place] FDA. When there are no FDA-approved or cleared tests available, and other criteria are met, FDA can make tests available under an emergency access mechanism called an Emergency Use Authorization (EUA). The EUA for this test is supported by the [place] of Health and Human Service's (HHS's) declaration [...] consistent with SARS-CoV-2. Performed By: #### S RAVI GRASTCX #### [facility] [address] [place] [address] Dr. Ang Simmons ER URINE PROFILEon 3 Bilirubin Ql (U) Negative Normal NEGATIVE The [facility] Comment on above: Performed By: #### P REGU, ERUR #### [facility] [address] [place] [address] Dr. Ang Simmons Clarity (U) CLEAR Normal CLEAR [facility] Comment on above: Performed By: #### P REGU, ERUR #### [facility] [address] [address] [address] Ang Simmons Color (U) LT. YELLOW Normal YELLOW [facility] Comment on above: Performed By: #### P REGU, ERUR #### [facility] [address] [place] [address] Dr. Ang POWELL A micrscopic examination will be performed if indicated. Normal The [facility] Comment on above: Performed By: #### P REGU, ERUR #### [facility] [address] [place] [address] Dr. Ang Simmons Glucose Ql (U) Negative Normal NEGATIVE [facility] Comment on above: Performed By: #### P REGU, ERUR #### [facility] [address] [place] [address] Dr. Ang Simmons Hemoglobin Ql (U) Negative Normal NEGATIVE [facility] Comment on above: Performed By: #### P REGU, ERUR #### [facility] [address] [place] [address] Dr. Ang Simmons Ketones Ql (U) Negative Normal NEGATIVE [facility] Comment on above: Performed By: #### P REGU, ERUR #### [facility] [address] [address] [address] Ang Simmons LEUKOCYTES Negative Normal NEGATIVE [facility] Comment on above: Performed By: #### P REGU, ERUR #### [facility] [address] [place] [address] Dr. Ang Simmons Nitrite Ql (U) Negative Normal NEGATIVE [facility] Comment on above: Performed By: #### P REGU, ERUR #### [facility] [address] [place] [address] Dr. Ang Simmons pH (U) 5.5 [pH] Normal 5-9 The [facility] Comment on above: Performed By: #### P OCTAVIO, ERUR #### [facility] [address] [place] [address] Dr. Ang Simmons SPEC GRAVITY 1.030 Abnormal 1.005-<=1.025 The [facility] Comment on above: Performed By: #### P SINANU, ERUR #### [facility] [address] [place] [address] Dr. Ang Simmons UA PROTEIN Negative Normal NEGATIVE/ TRACE The [facility] Comment on above: Performed By: #### P SINANU, ERUR #### [facility] [address] [place] [address] Dr. Ang Simmons UR MICRO IND NOT INDICATED Normal [facility] Comment on above: Performed By: #### P OCTAVIO, ERUR #### [facility] [address] [place] [address] Dr. Ang Simmons Urobilinogen Qn (U) 0.2 {Jazmin'U}/dL Normal 0.2 - 1. 0 The [facility] Comment on above: Performed By: #### P OCTAVIO, ERUR #### [facility] [address] [place] [address] Dr. Ang Simmons GROUP A STREP CULTUREon S. pyogenes Ag Ql (Unsp spec) Culture Observations: NEGATIVE FOR GROUP A STREPTOCOCCUS. Normal The [facility] Comment on above: Performed By: #### S RAVI, GRASTCX #### [facility] [address] [place] [address] Dr. Ang Simmons INFLUENZA A AND B AGon 05-31 INFLUANEGH SEE BELOW Normal The [facility] Comment on above: Result Comment: Nega tive for Flu A protein angiten. Infection due to Flu A cannot be ruled out. Flu A angiten in the sample may be below the detection limit of the test. Performed By: #### S RAVI, GRASTCX #### [facility] [address] [address] [address] Ang Simmons INFLUBNEGH SEE BELOW Normal The [facility] Comment on above: Result Comment: Nega tive for Flu B protein antigen. Infection due to Flu B cannot be ruled out. Flu B antigen in the sample may be below the detection limit of the test. Performed By: #### S SCRN, GRASTCX #### [facility] [address] [address] [address] Ang Simmons INFLUENZA A AG Negative Normal NEGATIVE SEE COMMENT [facility] Comment on above: Performed By: #### S SCRN, GRASTCX #### [facility] [address] [address] [address] Ang Simmons INFLUENZA B AG Negative Normal NEGATIVE SEE COMMENT [facility] Comment on above: Performed By: #### S SCRN, GRASTCX #### [facility] [address] [place] [address] Dr. Ang Simmons URon 05-31-2022 , QUAL Negative Normal NEGATIVE [facility] Comment on above: Performed By: #### P REGU, ERUR #### [facility] [address] [address] [address] Ang Simmons STREPT SCREENon 05-31-2022 STREP SCREEN A Negative Normal NEGATIVE [facility] Comment on above: Performed By: #### S SCRN, GRASTCX #### [facility] [address] [place] [address] Dr. Ang Simmons Quick Strepon 02-13-2022 S. pyogenes Org specific cx Ql (Throat) Negative [employer] [employer] Other Quick Strep [employer] [facility] [employer] Other SARS-CoV-2 (COVID-19) RNA NA A+probe Ql (Resp)on 02-13-2022 SARS-CoV-2 (COVID-19) RNA REINIER+probe Ql (Unsp spec) Negative [employer] [employer] Other Covid-19 PCR ([facility])on 11-24 SARS-CoV-2 (COVID-19) RNA REINIER+probe Ql (Unsp spec) Not detected Normal NOT DETECTED The [facility] Comment on above: Result Comment: When [...] for this test is supported by the [place] of Health and Human Service's declaration that [...] By: #### C VDTBH #### [facility] [address] [place] [address] Dr. Ang Simmons GROUP A STREP CULTUREon 11-24 S. pyogenes Ag Ql (Unsp spec) Culture Observations: NEGATIVE FOR GROUP A STREPTOCOCCUS. Normal The [facility] Comment on above: Performed By: #### Adrianna RODRIGUES GRASTCX #### [facility] [address] [place] [address] Dr. Ang Simmons STREPT SCREENon 12-10-2021 STREP SCREEN A Negative Normal NEGATIVE The [facility] Comment on above: Performed By: #### Adrianna RODRIGUES GRASTCX #### [facility] [address] [address] [address] Ang Simmons Vital Signs Date Time Vital Sign Value Performing Clinician Facility 06-01-2024 10:04-0500 Body mass index (BMI) [Ratio] 35.11 kg/m2 Wanda CARNES Work Phone: [facility] 06-01-2024 10:04-0500 Body weight 84.28 kg Wanda CARNES Work Phone: [facility] 06-01-2024 10:04-0500 Diastolic blood pressure 78 mm[Hg] Wanda CARNES Work Phone: [facility] 06-01-2024 10:04-0500 Systolic blood pressure 120 mm[Hg] Wanda CARNES Work Phone: [facility] 04-21-2024 12:52-0500 Body mass index (BMI) [Ratio] 32.69 kg/m2 Carol Fede DO Work Phone: [facility] 04-21-2024 12:52-0500 Body weight 78.47 kg Carol Fede DO Work Phone: [facility] 04-21-2024 12:52-0500 Diastolic blood pressure 76 mm[Hg] Carol Fede DO Work Phone: [facility] 04-21-2024 12:52-0500 Systolic blood pressure 120 mm[Hg] Carol Fede [employer] Work Phone: [facility] 04-15-2024 16:03-0500 Body height 162.56 cm [facility] 04-15-2024 16:03-0500 Body mass index (BMI) [Ratio] 29.8 kg/m2 [facility] 04-15-2024 16:03-0500 Body temperature 98.7 [degF] [facility] 04-15-2024 16:03-0500 Body weight 78.92 kg [facility] 04-15-2024 16:03-0500 Diastolic blood pressure 72 mm[Hg] [facility] 04-15-2024 16:03-0500 Heart rate 114 /min [facility] 04-15-2024 16:03-0500 Respiratory rate 18 /min [facility] 04-15-2024 16:03-0500 SaO2% (BldA) [Mass fraction] 97 % [facility] 04-15-2024 16:03-0500 Systolic blood pressure 101 mm[Hg] [facility] 04-13-2024 09:41-0500 Body height 162.56 cm [facility] 04-13-2024 09:41-0500 Body mass index (BMI) [Ratio] 29.2 kg/m2 [facility] 04-13-2024 09:41-0500 Body temperature 97.8 [degF] [facility] 04-13-2024 09:41-0500 Body weight 77.11 kg [facility] 04-13-2024 09:41-0500 Diastolic blood pressure 81 mm[Hg] [facility] 04-13-2024 09:41-0500 Heart rate 90 /min [facility] 04-13-2024 09:41-0500 Respiratory rate 18 /min [facility] 04-13-2024 09:41-0500 SaO2% (BldA) [Mass fraction] 99 % [facility] 04-13-2024 09:41-0500 Systolic blood pressure 119 mm[Hg] [facility] 03-24-2024 08:58-0400 Body mass index (BMI) [Ratio] 31.93 kg/m2 Wanda CARNES Work Phone: [facility] 03-24-2024 08:58-0400 Body weight 76.66 kg Wanda CARNES Work Phone: [facility] 03-24-2024 08:58-0400 Diastolic blood pressure 74 mm[Hg] Wanda CARNES Work Phone: [facility] 03-24-2024 08:58-0400 Systolic blood pressure 116 mm[Hg] Wanda CARNES Work Phone: [facility] 02-20-2024 10:38-0400 Body mass index (BMI) [Ratio] 30.23 kg/m2 Carol Fede DO Work Phone: [facility] 02-20-2024 10:38-0400 Body weight 72.58 kg Carol Fede DO Work Phone: [facility] 02-20-2024 10:38-0400 Diastolic blood pressure 78 mm[Hg] Carol Fede DO Work Phone: [facility] 02-20-2024 10:38-0400 Systolic blood pressure 120 mm[Hg] Carol Fede DO Work Phone: [facility] 01-31-2024 09:46-0400 Body mass index (BMI) [Ratio] 29.62 kg/m2 [facility] 01-31-2024 09:46-0400 Body weight 71.1 kg [facility] 01-31-2024 09:46-0400 Diastolic blood pressure 82 mm[Hg] [facility] Nurse [facility] 01-31-2024 09:46-0400 Systolic blood pressure 118 mm[Hg] [facility] Nurse [facility] 08-13-2023 09:36-0400 Body height 162.56 cm [facility] 08-13-2023 09:36-0400 Body mass index (BMI) [Ratio] 26.6 kg/m2 [facility] 08-13-2023 09:36-0400 Body temperature 98.6 [degF] [facility] 08-13-2023 09:36-0400 Body weight 70.3 kg [facility] 08-13-2023 09:36-0400 Heart rate 91 /min [facility] 08-13-2023 09:36-0400 Respiratory rate 16 /min [facility] 08-13-2023 09:36-0400 SaO2% (BldA) [Mass fraction] 99 % [facility] 03-18-2023 09:15-0400 Body height 158.75 cm Aure Moss Other [employer] Other 03-18-2023 09:15-0400 Body mass index (BMI) [Ratio] 29.15 kg/m2 Aure Moss Other [employer] Other 03-18-2023 09:15-0400 Body temperature 98.2 [degF] Aure Moss Other [employer] Other 03-18-2023 09:15-0400 Body weight 73.48 kg Aure Moss Other [employer] Other 03-18-2023 09:15-0400 Respiratory rate 18 /min Aure Moss Other [employer] Other 03-18-2023 09:15-0400 SaO2% (BldA) [Mass fraction] 98 % Aure Moss Other [employer] Other 10-04-2022 12:40-0400 Body height 158.75 cm Maricarmen Avila Other [employer] Other 10-04-2022 12:40-0400 Body mass index (BMI) [Ratio] 27.54 kg/m2 Maricarmen Avila Other [employer] Other 10-04-2022 12:40-0400 Body temperature 99.3 [degF] Maricarmen Avila Other [employer] Other 10-04-2022 12:40-0400 Body weight 69.4 kg Maricarmen Avila Other [employer] Other 10-04-2022 12:40-0400 Respiratory rate 18 /min Maricarmen Avila Other [employer] Other 10-04-2022 12:40-0400 SaO2% (BldA) [Mass fraction] 99 % Maricarmen Avila Other [employer] Other 02-13-2022 16:55-0400 Body height 158.75 cm Rona Terry Other [employer] Other 02-13-2022 16:55-0400 Body mass index (BMI) [Ratio] 27.9 kg/m2 Rona Terry Other [employer] Other 02-13-2022 16:55-0400 Body temperature 98.4 [degF] Rona Terry Other [employer] Other 02-13-2022 16:55-0400 Body weight 70.31 kg Rona Terry Other [employer] Other 02-13-2022 16:55-0400 Respiratory rate 18 /min Rona Terry Other [employer] Other 02-13-2022 16:55-0400 SaO2% (BldA) [Mass fraction] 99 % Rona Terry Other [employer] Other 12-21-2021 16:20-0400 Body height 158.75 cm Maricarmen Avila Other [employer] Other 12-21-2021 16:20-0400 Body mass index (BMI) [Ratio] 27.64 kg/m2 Maricarmen Avila Other [employer] Other 12-21-2021 16:20-0400 Body temperature 98 [degF] Maricarmen Avila Other [employer] Other 12-21-2021 16:20-0400 Body weight 69.67 kg Maricarmen Avila Other [employer] Other 12-21-2021 16:20-0400 Diastolic blood pressure 67 mm[Hg] Maricarmen Avila Other [employer] Other 12-21-2021 16:20-0400 Respiratory rate 18 /min Maricarmen Avila Other [employer] Other 12-21-2021 16:20-0400 SaO2% (BldA) [Mass fraction] 98 % Maricarmen Avila Other [employer] Other 12-21-2021 16:20-0400 Systolic blood pressure 117 mm[Hg] Maricarmen Avila Other [employer] Other Encounters Encounter Date Encounter Type Care Provider Facility Start: 06-03-2024 End: 06-03-2024 ambulatory CAROL FEDE Not Available Start: 06-01-2024 End: 06-01-2024 Clinisync Result Encounter Carol Fede DO Work Phone: [facility] Unsolicited Start: 06-01-2024 End: 06-01-2024 Clinisync Result Encounter Carol Fede DO Work Phone: [facility] Unsolicited Start: 06-01-2024 End: 06-01-2024 Office outpatient visit 15 minutes Wanda CARNES Work Phone: [facility] Comment on above: 29 weeks gestation o f ; Third trimester Start: 06-01-2024 End: 06-01-2024 ambulatory WANDA GALLARDO Not Available Start: 05-07-2024 End: 05-07-2024 ambulatory Modesta Centeno Facility:[facility] Start: 04-21-2024 End: 04-21-2024 Office outpatient visit 15 minutes Carol Fede DO Work Phone: [facility] Comment on above: Second trimester pre gnancy; 23 weeks gestation of ; Diabetes mellitus screening Start: 04-15-2024 End: 04-15-[address] [facility] Work Phone: Start: 04-15-2024 End: 04-15-2024 Patient encounter procedure [facility] Work Phone: Start: 04-13-2024 End: 04-13-2024 ambulatory [facility] Work Phone: Start: 04-13-2024 End: 04-13-2024 Patient encounter procedure [facility] Work Phone: Start: 03-24-2024 End: 03-24-2024 Bamboo flowsheet Wanda CARNES Work Phone: [facility] Start: 03-24-2024 End: 04-01-2024 Bamboo flowsheet Wanda CARNES Work Phone: [facility] Start: 03-24-2024 End: 04-01-2024 Clinisync Result Encounter Wanda CARNES Work Phone: [facility] Unsolicited Start: 03-24-2024 End: 03-25-2024 External Result Encounter Wanda CARNES Work Phone: [facility] Unsolicited Start: 03-24-2024 End: 03-24-2024 ambulatory WANDA GALLARDO Not Available Start: 03-24-2024 End: 03-24-2024 Patient encounter procedure Wanda CARNES Work Phone: [facility] Start: 03-24-2024 End: 03-24-2024 Periodic preventive med est patient 18-39 yrs Wanda CARNES Work Phone: [facility] Comment on above: Well woman exam with routine gynecological exam; Exposure to STD; Need for maternal serum alpha-protein (MSAFP) screening; 19 weeks gestation of ; Screening, , for anatomic survey Start: 02-20-2024 End: 02-20-2024 Bamboo flowsheet Carol Fede DO Work Phone: [facility] Start: 02-20-2024 End: 02-20-2024 Bamboo flowsheet Carol Fede DO Work Phone: [facility] Start: 02-20-2024 End: 02-20-2024 ambulatory CAROL FEDE Not Available Start: 02-20-2024 End: 02-20-2024 Office outpatient visit 15 minutes Carol Fede DO Work Phone: [facility] Comment on above: Second trimester pre gnancy; Nausea Start: 01-31-2024 End: 01-31-2024 Office outpatient visit 5 minutes [facility] Fede Nurse [facility] Comment on above: GA: 12w0d Start: 01-31-2024 End: 01-31-2024 ambulatory CAROL FEDE Not Available Start: 09-17-2023 End: 09-18-2023 ambulatory Mac Bhatt Facility[facility] [place] [facility] Start: 08-27-2023 ambulatory Mac Bhatt Facility:[facility] Start: 08-13-2023 End: 08-14-2023 ambulatory Mac Bhatt Facility:[facility] [place] Start: 08-13-2023 End: 08-13-[address] [facility] Work Phone: Start: 08-13-2023 End: 08-13-2023 Patient encounter procedure [facility] Work Phone: Start: 03-18-2023 End: 03-18-2023 ambulatory Aure Moss Other [employer] Other Start: 03-18-2023 Office outpatient vi sit 15 minutes Aure Moss [facility] Start: 10-04-2022 End: 10-04-2022 ambulatory Maricarmen Avila Other [employer] Other Start: 10-04-2022 Office outpatient vi sit 25 minutes Maricarmen Avila [facility] Start: 07-18-2022 End: 07-19-2022 ambulatory KIAN DIAB . Facility:[facility] Start: 05-31-2022 End: 05-31-2022 ambulatory IRAIDA WOODADR . Facility:[facility] Start: 02-13-2022 End: 02-13-2022 ambulatory Rona Terry Other [employer] Other Start: 02-13-2022 Office outpatient vi sit 15 minutes Rona Harrison [facility] Start: 12-21-2021 (URG) Urgent Care Visit Maricarmen Avila [facility] Start: 12-21-2021 End: 12-21-2021 ambulatory Maricarmen Avila Other [employer] Other Start: 12-10-2021 End: 12-10-[address] MINI VERDE . Facility: Procedures Date Procedure Procedure Detail Performing Clinician Start: 06-01-2024 Urnls dip stick/tabl et rgnt non-auto w/o micrscp Wanda CARNES Work Phone: Start: 06-01-2024 ALL CBC WITH AUTO DIFF Carol Fede DO Work Phone: Start: 04-21-2024 Urnls dip stick/tabl et rgnt non-auto w/o micrscp Carol Fede DO Work Phone: Start: 04-13-2024 Quick Strep (POC) Start: 03-24-2024 Urnls dip stick/tabl et rgnt non-auto w/o micrscp Wanda CARNES Work Phone: Start: 03-24-2024 IGP,APTIMA HPV,AGE GDLN Wanda CARNES Work Phone: Start: 03-24-2024 URETHRITIS/DISCHARGE PLUS VAGINITIS (HTRX) Wanda CARNES Work Phone: Start: 02-20-2024 Urnls dip stick/tabl et rgnt non-auto w/o micrscp Carol Fede DO Work Phone: Start: 01-31-2024 Urnls dip stick/tabl et rgnt non-auto w/o micrscp Carol Fede DO Work Phone: Start: 08-13-2023 Quick Strep (POC) Plan of Treatment Date Care Activity Detail Author Start: 06-16-2024 End: 06-16-2024 Patient encounter procedure 06/16/2024 9:00 AM EST Routine [facility] [address] [place] [phone] Carol Mistry, DO [address] [place] [address] [facility] Start: 06-03-2024 End: 06-03-2024 Professional / ancillary services management 06/03/2024 1:00 PM EST Ancillary Procedure [facility] [address] [facility] [place] [phone] [facility] Start: 06-01-2024 End: 06-01-2024 Patient encounter procedure 06/01/2024 10:10 AM EST Routine [facility] [address] [place], [place] [address] [phone] Wanda Gallardo [place] [address] [place] [address] Arrived [facility] Comment on above: Arrived Start: 04-21-2024 End: 04-21-2025 CBC panel - Blood by Automated count CBC Lab Routine Second trimester 23 weeks gestation of Expected: 04/21/2024 (Approximate), Expires: 04/21/2025 [facility] Work Phone: Comment on above: Expected: 04/21/2024 (Approximate), Expires: 04/21/2025 Start: 04-21-2024 End: 04-21-2025 Measurement of glucose 1 hour after glucose challenge for glucose tolerance test Glucose tolerance, 1 hour Lab Routine Second trimester 23 weeks gestation of Diabetes mellitus screening Expected: 04/21/2024 (Approximate), Expires: 04/21/2025 [facility] Comment on above: Expected: 04/21/2024 (Approximate), Expires: 04/21/2025 Start: 04-21-2024 End: 04-21-2024 Patient encounter procedure 04/21/2024 9:10 AM EST Routine [facility] [address] [facility] [place] [phone] Carol Mistry, DO [address] [place] [address] [facility] Start: 03-24-2024 End: 04-24-2024 Alpha fetoprotein, maternal Alpha fetoprotein, maternal Lab Routine Need for maternal serum alpha-protein (MSAFP) screening Expected: 03/24/2024 (Approximate), Expires: 04/24/2024 [facility] Comment on above: Expected: 03/24/2024 (Approximate), Expires: 04/24/2024 Start: 03-24-2024 End: 03-24-2025 US for US OB ANATOMY SINGLE W US OB CERVICAL LENGTH Imaging Routine Screening, , for anatomic survey Expected: 03/24/2024 (Approximate), Expires: 03/24/2025 [facility] Comment on above: Expected: 03/24/2024 (Approximate), Expires: 03/24/2025 Start: 03-24-2024 End: 03-24-2024 Patient encounter procedure 03/24/2024 8:30 AM EDT Routine [facility] [address] [facility] [place] [phone] Wanda Gallardo PA [address] [place] [address] [facility] Start: 02-20-2024 End: 02-20-2024 Patient encounter procedure 02/20/2024 9:50 AM EDT Routine [facility] [address] [place] [phone] Carol Mistry, DO [address] [place] [address] [facility] Start: 01-31-2024 End: 01-30-2025 ABO/Rh ABO/Rh Lab Routine Missed menses Expected: 01/31/2024 (Approximate), Expires: 01/30/2025 [facility] Comment on above: Expected: 01/31/2024 (Approximate), Expires: 01/30/2025 Start: 01-31-2024 End: 01-30-2025 Blood type and Indirect antibody screen panel - Blood Type and screen Lab Routine Missed menses Expected: 01/31/2024 (Approximate), Expires: 01/30/2025 [facility] Work Phone: Comment on above: Expected: 01/31/2024 (Approximate), Expires: 01/30/2025 Start: 01-31-2024 End: 01-30-2025 US Pelvis transvaginal US OB transvaginal Imaging Routine Missed menses Expected: 01/31/2024 (Approximate), Expires: 01/30/2025 [facility] Comment on above: Expected: 01/31/2024 (Approximate), Expires: 01/30/2025 Bacteria identified in Urine by Culture Urine culture Microbiology Routine Missed menses Ordered: 01/31/2024 [facility] Comment on above: Ordered: 01/31/2024 CBC W Auto Different ial panel - Blood CBC and differential Lab Routine Missed menses Ordered: 01/31/2024 [facility] Comment on above: Ordered: 01/31/2024 CHLAMYDIA TRACHOMATI S (GENITO/STI) CHLAMYDIA TRACHOMATIS (GENITO/STI) Lab Routine Exposure to STD Ordered: 03/24/2024 [facility] Comment on above: Ordered: 03/24/2024 Cytology Cervical or vaginal smear or scraping study Pap Smear Pathology and Cytology Routine Well woman exam with routine gynecological exam Ordered: 03/24/2024 [facility] Comment on above: Ordered: 03/24/2024 Hemoglobin A1c/Hemoglobin.total in Blood Hemoglobin A1c Lab Routine Missed menses Ordered: 01/31/2024 [facility] Comment on above: Ordered: 01/31/2024 Hepatitis B virus surface Ag [Presence] in Serum or Plasma by Immunoassay Hepatitis B surface antigen Lab Routine Missed menses Ordered: 01/31/2024 [facility] Comment on above: Ordered: 01/31/2024 Hepatitis C virus Ab [Presence] in Serum or Plasma by Immunoassay Hepatitis C antibody Lab Routine Missed menses Ordered: 01/31/2024 [facility] Comment on above: Ordered: 01/31/2024 HIV-1/HIV-2 antigen/antibody combination immunoassay HIV-1 and HIV-2 antibodies Lab Routine Missed menses Ordered: 01/31/2024 [facility] Comment on above: Ordered: 01/31/2024 Neisseria gonorrhoea e DNA [Presence] in Unspecified specimen by REINIER with probe detection Neisseria gonorrhea DNA probe, direct Lab Routine Exposure to STD Ordered: 03/24/2024 [facility] Comment on above: Ordered: 03/24/2024 Reagin Ab [Presence] in Serum by RPR RPR Lab Routine Missed menses Ordered: 01/31/2024 [facility] Comment on above: Ordered: 01/31/2024 Rubella antibody, IgG Rubella an tibody, IgG Lab Routine Missed menses Ordered: 01/31/2024 [facility] Comment on above: Ordered: 01/31/2024 SURESWAB(R) ADVANCED VAGINITIS PLUS, TMA SURESWAB(R) ADVANCED VAGINITIS PLUS, TMA Pathology and Cytology Routine Exposure to STD Ordered: 03/24/2024 [facility] Work Phone: Comment on above: Ordered: 03/24/[address] [facility] Immunizations Immunization Date Immunization Notes Care Provider Nilo castillo 01-01-2002 diphtheria, tetanus toxoids and acellular pertussis vaccine, unspecified formulation Maricarmen Avila Other [facility] 01-01-2002 measles, mumps and rubella virus vaccine Maricarmen Avila Other [facility] 01-01-2002 poliovirus vaccine, inactivated Maricarmen Avila Other [employer] Other 01-01-2002 poliovirus vaccine, unspecified formulation [facility] 02-04-1998 diphtheria, tetanus toxoids and acellular pertussis vaccine, unspecified formulation Maricarmen Avila Other [facility] 02-04-1998 measles, mumps and rubella virus vaccine Maricarmen Avila Other [facility] 02-04-1998 trivalent poliovirus vaccine, live, oral Maricarmen Avila Other [facility] 04-27-1997 diphtheria, tetanus toxoids and pertussis vaccine Maricarmen Avila Other [facility] 04-27-1997 haemophilus influenz ae type b vaccine, conjugate unspecified formulation Maricarmen Avila Other [facility] 04-27-1997 hepatitis B vaccine, pediatric or pediatric/adolescent dosage Maricarmen Avila Other [facility] 01-16-1997 diphtheria, tetanus toxoids and pertussis vaccine Maricarmen Avila Other [facility] 01-16-1997 haemophilus influenz ae type b vaccine, conjugate unspecified formulation Maricarmen Avila Other [facility] 01-16-1997 trivalent poliovirus vaccine, live, oral Maricarmen Avila Other [facility] 1996 diphtheria, tetanus toxoids and pertussis vaccine Maricarmen Avila Other [facility] 1996 haemophilus influenz ae type b vaccine, conjugate unspecified formulation Maricarmen Avila Other [facility] 1996 hepatitis B vaccine, pediatric or pediatric/adolescent dosage Maricarmen Avila Other [facility] 1996 trivalent poliovirus vaccine, live, oral Maricarmen Avila Other [facility] 1996 hepatitis B vaccine, pediatric or pediatric/adolescent dosage Maricarmen Avila Other [facility] Payers Date Payer Category Payer Self-pay 2023 Medicaid [id number] 2022 Medicaid [id number] 1995 Unknown [id number] 2.16.84 [id number] 1995 Unknown [id number] 2.16.84 [id number] 1996 Unknown [id number] 2.16.84 [id number] 1996 Unknown [id number] 2.16.8 [id number] 1996 Unknown [id number] 2.16.8 [id number] 1996 Unknown [id number] 2.16.84 [id number] 1996 Unknown [id number] 2.16.84 [id number] 1996 Unknown [id number] 2.16.84 [id number] 1996 Unknown [id number] 2.16.84 0.1.166486.3.579.2.9 1996 Unknown [id number] 2.16.84 [id number] 1959 Unknown [id number] Unknown [id number] 2.1 [id number] Unknown [id number] 2.16.8 [id number] Social History Date Type Detail Facility Unknown if ever smoked [employer] Other Start: 02-16-2023 End: 01-31-2024 Sex Assigned At [facility] [employer] Other Start: 08-13-2023 End: 04-13-2024 Tobacco smoking status DEIS Smoker (finding) [facility] Start: 1995 Sex Assigned At Female F [facility] Start: 02-16-2023 Tobacco smoking stat us DEIS Smokes tobacco daily [facility] History of tobacco use Cigarette Smoker [facility] Start: 02-20-2024 End: 06-01-2024 Alcoholic beverage intake Current drinker of alcohol (finding) [facility] Start: 02-16-2023 End: 01-31-2024 History of Social function [facility] Start: 09-23-2023 Tobacco Comment Patient smokes 6-10 cigarettes/day after 60 minutes of waking up.Thinking about quitting. [facility] Start: 02-16-2023 Alcohol Comment 1 or 2 drinks on a typical day/monthly or less [facility] Start: 11-22-2023 [facility] Start: 1995 Sex assigned at Not on file N [facility] Start: 04-13-2024 End: 04-15-2024 Sex Female (finding) [facility] Start: 04-15-2024 Tobacco smoking stat us [facility] Ex-smoker (finding) [facility] Clinical Notes 12-21-2021 to 06-01-2024 TRICE López - 06/01/2024 10:10 AM Hayden Rae LPN - 04/21/2024 9:10 AM EST Note Date & Type Note Facility 06-01-2024 History of Presen t illness Narrative Reason for Appointment: Patient ID: Chasity Huynh is a 28 y.o. female who presents for Routine Visit Patient presents today for Return OB appointment. MEDICATIONS Current Outpatient Medications [...] PROBLEMS Active Ambulatory Problems Diagnosis Date Noted Second trimester 04/21/2024 23 weeks gestation of 04/21/2024 Resolved Ambulatory Problems Diagnosis Date Noted No [...] Appearance: Normal appearance. She is normal weight. HENT: Head: Normocephalic. Cardiovascular: Rate and Rhythm: Normal rate. Pulses: Normal pulses. Pulmonary: Effort: Pulmonary effort is normal. Breath sounds: Normal breath sounds. Abdominal: Palpations: Abdomen is soft. Musculoskeletal: General: Normal range of motion. Neurological: General: No focal deficit present. Mental Status: She is alert and oriented to person, place, and time. Psychiatric: Mood and Affect: Mood normal. Behavior: Behavior normal. Thought Content: Thought content normal. Judgment: Judgment normal. Vitals and nursing note reviewed. Vitals: Estimated body mass index is 35.11 kg/m as calculated from the following: Height as of 02/12/23: 5' 1 . Weight as of this encounter: 185 lb 12.8 oz. BP: 120/78 Patient's last menstrual period was 11/02/2023. ASSESSMENT & PLAN ICD-10-CM 1. 29 weeks gestation of Z3A.29 POCT urinalysis dipstick manually resulted 2. Third trimester Z34.93 POCT urinalysis dipstick manually resulted Documented by TRICE López on behalf of: TRICE López documented in this encounter [facility] 04-21-2024 History of Presen t illness Narrative Reason for Appointment: Patient ID: Chasity Huynh is a 28 y.o. female who presents for No chief complaint on file. Patient presents today for Return OB appointment. MEDICATIONS Current Outpatient Medications Medication Instructions azithromycin (Zithromax Z-Isaiah) 250 MG tablet As directed methylPREDNISolone (Medrol Dospak) 4 MG tablets Day 1: 6 tablets Day 2: 5 tablets Day 3: 4 tablets Day 4: 3 tablets Day 5: 2 tablets Day 6: 1 tablet ondansetron (ZOFRAN) 4 mg, Oral, Every 6 hours PRN, Take 1 tablet by mouth every 6 hours as needed for nausea. promethazine (PHENERGAN) 12.5 mg, Oral, Every 6 hours PRN, Take 1 tablet by mouth every 6 hours as needed for nausea. ALLERGIES Allergies Allergen Reactions Suprax [Cefixime] PROBLEMS Active Ambulatory Problems Diagnosis Date Noted Second trimester 04/21/2024 23 weeks gestation of 04/21/2024 Resolved Ambulatory Problems Diagnosis Date Noted No [...] Exam Constitutional: Appearance: Normal appearance. She is well-developed. Cardiovascular: Rate and Rhythm: Normal rate and regular rhythm. Pulmonary: Effort: Pulmonary effort is normal. Breath sounds: Normal breath sounds. Abdominal: General: Bowel sounds are normal. There is no distension. Palpations: Abdomen is soft. Tenderness: There is no abdominal tenderness. There is no guarding or rebound. Musculoskeletal: General: No swelling. Normal range of motion. Right lower leg: No edema. Left lower leg: No edema. Neurological: Mental Status: She is alert and oriented to person, place, and time. Skin: General: Skin is warm and dry. Psychiatric: Mood and Affect: Mood normal. Behavior: Behavior normal. Vitals and nursing note reviewed. Exam conducted with a barrel planer present. Vitals: Estimated body mass index is 31.93 kg/m as calculated from the following: Height as of 02/12/23: 5' 1 . Weight as of 03/24/24: 169 lb. BP: Patient's last menstrual period was 11/02/2023. ASSESSMENT & PLAN ICD-10-CM 1. Second trimester Z34.92 CBC Glucose tolerance, 1 hour CBC Glucose tolerance, 1 hour 2. 23 weeks gestation of Z3A.23 CBC Glucose tolerance, 1 hour CBC Glucose tolerance, 1 hour 3. Diabetes mellitus screening Z13.1 Glucose tolerance, 1 hour Glucose tolerance, 1 hour Patient presents today for a routine obstetrics appointment. Patient is currently 23w5d with a Estimated Date of Delivery: 08/14/24. Pt given glucose order with instructions. Pt also given repeat low lying placenta ultrasound with evaluation of choroid plexus cyst. Pt to return in 4 weeks for scheduled OB appt Documented by Dimple Rae LPN on behalf of: Carol Mistry DO documented in this encounter [facility] 04-13-2024 Evaluation note Diagnosis Onset Date Resolution Viral URI with cough acute Nove mbamrita 2023 9:10am Contact with or suspected exposure to severe acute respiratory syndrome noneactive April 132023 9:10am Sore throat noneactive March 9:10am Viral URI with cough acute Zoëe mb2023 4:00pm [facility] Work Phone: 1(293) 963-607010-29-2024 History of Present illness Narrative* TRICE López - 03/24/2024 8:30 AM EDT Reason for Appointment: Patient ID: Chasity Huynh [...] antibiotic - bronchitis TONSILLECTOMY 2006 VAGINAL DELIVERY 2014 childbirth- vaginal REVIEW OF SYSTEMS Review of [...] nursing note reviewed. Exam conducted with a barrel planer present. Vitals: Estimated body mass index is [...] behalf of: TRICE López documented [facility] [id number] History of Present illness Narrative* Samra Jordan, RAILCAR CARPENTER - 02/20/2024 9:50 AM EDT Reason for Appointment: Patient ID: Chasity Huynh is a 28 y.o. female who presents for Routine Visit Patient presents today for Return OB appointment. MEDICATIONS Current Outpatient Medications [...] SYSTEMS Review of Systems: Review of Systems All other systems reviewed and are negative. OBJECTIVE Objective: Physical Exam Constitutional: Appearance: Normal appearance. She is well-developed. Cardiovascular: Rate and Rhythm: Normal rate and regular rhythm. Pulmonary: Effort: Pulmonary effort is normal. Breath sounds: Normal breath sounds. Abdominal: General: Bowel sounds are normal. There is no distension. Palpations: Abdomen is soft. Tenderness: There is no abdominal tenderness. There is no guarding or rebound. Musculoskeletal: General: No swelling. Normal range of motion. Right lower leg: No edema. Left lower leg: No edema. Neurological: Mental Status: She is alert and oriented to person, place, and time. Skin: General: Skin is warm and dry. Psychiatric: Mood and Affect: Mood normal. Behavior: Behavior normal. Vitals and nursing note reviewed. Exam conducted with a barrel planer present. Vitals: Estimated body mass index is 30.23 kg/m as calculated from the following: Height as of 02/12/23: 5' 1 . Weight as of this encounter: 160 lb. BP: 120/78 Patient's last menstrual period was 11/02/2023. ASSESSMENT & PLAN ICD-10-CM 1. Second trimester Z34.92 POCT urinalysis dipstick manually resulted 2. Nausea R11.0 promethazine (Phenergan) 12.5 MG tablet New OB: Patient presents today for 1st time obstetrics appointment with provider. Patient is currently 14w6d . Patients history has been reviewed in great detail including any potential risks. Patient stated she currently has no complaints. Expectations throughout regarding labs, ultrasounds, and appointments have been discussed with the patient in detail. It was reiterated that the patient is to drink 6-8 glasses of water a day, eat 6 small meals a day, do not consume raw or undercooked meat, and stay away from [facility]. Patient has been consulted regarding any further do's and don'tsof . Patient voiced understanding and all questions and concerns were answered. Sent Phenergan in to patients pharmacy. Orders Placed This Encounter Procedures POCT urinalysis dipstick manually resulted Follow Up: Patient is to return in 4 weeks for routine OB appointment. Documented by Samra Jordan LPN on behalf of: Carol Mistry DO documented in [facility] encounter[facility] [id number] History of Present illness Narrative* Carol Mcdowell - 01/31/2024 9:30 AM EDT Reason for Appointment: Patient ID: Chasity Huynh is a 28 y.o. female who presents for Initial Visit Patient presents today for a Nurse OB Intake appointment. Patient is 12w0d with a Estimated Date ofDelivery: 08/14/24 OB History Para Term AB Living 1 SAB IAB Ectopic Multiple Live Births # Outcome Date GA Lbr Ash/2nd Weight Sex Type Anes PTL Lv 1 Current Current Medications: has a current medication list which includes the following prescription(s): ondansetron. Medical History: Active Ambulatory Problems Diagnosis Date Noted No Active Ambulatory Problems Resolved Ambulatory Problems Diagnosis Date Noted No Resolved Ambulatory Problems Past Medical History: Diagnosis Date Appendicitis 01/12/2016 Bronchitis Current smoker Neurocardiogenic syncope Non morbid obesity due to excess calories Family History Problem Relation Name Age of Onset Heart disease Father Social History Tobacco Use Smoking status: Every Day Types: Cigarettes Smokeless tobacco: Not on file Tobacco comments: Patient smokes 6-10 cigarettes/day after 60 minutes of waking up. Thinking about quitting. Substance Use Topics Alcohol use: Yes Comment: 1 or 2 drinks on a typical day/monthly or less Drug use: Never Past Surgical History: Procedure Laterality Date AL MEDICATION MANAGEMENT 2013 Fludricortisone- neuro-cardiogenic syncope -JUAREZ AL MEDICATION MANAGEMENT antibiotic - bronchitis TONSILLECTOMY 2006 VAGINAL DELIVERY 2014 childbirth- vaginal Allergies Allergen Reactions Suprax [Cefixime] Vitals: Estimated body mass index is 29.62 kg/m as calculated from the following: Height as of 02/12/23: 5' 1 . Weight as of this encounter: 156 lb 12 oz. BP: 118/82 Patient's last menstrual period was 11/02/2023. Assessment/Plan Diagnoses and all orders for this visit: Missed menses - Type and screen; Future - ABO/Rh; Future - CBC and differential - Hemoglobin A1c - RPR - Rubella antibody, IgG - Hepatitis B surface antigen - Hepatitis C antibody - HIV-1 and HIV-2 antibodies - Urine culture - US OB transvaginal; Future - POCT , urine manually resulted - POCT urinalysis dipstick manually resulted Nausea - ondansetron (Zofran) 4 MG tablet; Take 1 tablet (4 mg) by mouth every 6 (six) hours if needed fornausea or vomiting for up to 30 doses Take 1 tablet by mouth every 6 hours as needed for nausea. Nurse Note: OB Intake: Patient presents today for first OB visit. Patients history has been reviewed in great detail including any potential risks. Patient signed consent forms and patient desires testing in both trimesters. Patient currently has no complaints and has been advised to drink 6-8 glasses of water a day, eatno raw or undercooked meat, and stay away from [facility]. Patient has also been advised to not change litter boxes and eat 6 small meals a day. Patient has been consulted regarding the do's and don'ts ofpregnancy. Patient was given labs and all questions and concerns were answered. Follow Up: Patient is to return in 4 weeks for routine OB appointment. Follow Up: Patient is to have labs drawn at directed and return to office for initial OB appointment with provider. Patient may call office as needed with any concerns or questions. Nurse Visit Completed by: Carol Mcdowell documented in this encounterSS[facility] [id number] Evaluation note* Encounter Date Diagnosis Assessment Notes Treatment Notes Treatment Clinical Notes Feb, Smoker (ICD-10 - F17.200) quit [...] Suspected COVID-19 virus infection (ICD-10 - Z20.822) [employer] Other 05-11-2023 Evaluation note* Encounter Date Diagnosis Assessment Notes Treatment Notes Treatment Clinical Notes September, Sore throat (ICD-10 - J02.9) [...] treatment plan. Patient left in stable condition. [employer] Other 09-20-2022 Evaluation note* Encounter Date Diagnosis Assessment Notes Treatment Notes Treatment Clinical Notes Jan, Contact with and (suspected) exposure [...] weeks for the cough to go away [employer] Other 07-28-2022 Evaluation note* Encounter Date Diagnosis Assessment Notes Treatment Notes Treatment Clinical Notes Nov, Physical exam, pre-employment (ICD-10 - Z02.1) Patient medically cleared for employment, see scanned documentation. Tetanus and MMR vaccination records reviewed. No TB test required. Discussed about importance of COVID/Influenza vaccinations, good hand hygiene. Discussed importance of proper nutrition and hydration. Patient to follow up with PCP for any further health concerns or questions. Patient verbalizes understanding and is agreeable with treatment plan [employer] Other Evaluation noteNo assessment information available [facility] [employer] [place] Work Phone: Evaluation note* Diagnosis Well woman exam with routine gynecological exam Routine gynecological examination Exposure to STD Need for maternal serum alpha-protein (MSAFP) screening 19 weeks gestation of Screening, , for anatomic survey Encounter for anatomic survey documented in this encounter [facility] Healthcare[facility]* Diagnosis Onset Date Resolution Status Admit Date Contact with or suspected exposure to severe acute respiratory syndrome noneactive April 132023 9:10am Sore throat noneactive March 9:10am [facility] [employer] Work Phone: Evaluation note* Diagnosis Second trimester state, incidental 23 weeks gestation of Diabetes mellitus screening Screening for diabetes mellitus documented in this encounter [facility] HealthcareEvaluation note* Diagnosis Missed menses Nausea Nausea alone documented in this encounter [facility] Healthcare[facility] note* Diagnosis Second trimester state, incidental Nausea Nausea alone documented in this encounter [facility] Healthcare[facility] note* Diagnosis 29 weeks gestation of Third trimester state, incidental [facility] N[facility]ative - Reported* Type Description Date Surgical History tonsillectomy Surgical History appendectomy Hospitalization History see above [employer] Other Summary Purpose Family History No Family History Records FoundNo Family History Records FoundNo Family History Records FoundNo Family History Records Found Advance Directives No Advanced Directives Records Found Advance Directive Response Recorded Date/ Time Advance Directives No August 12 9:32am Advance Directive Response Recorded Date/ Time Advance Directives No August 12 8:32am Advance Directive Response Recorded Date/ Time Advance Directives No March 3:59pm Chief Complaint and Reason for Visit Chief Complaint Sore throat, nausea Chief Complaint Admit Date sore throat, Fever April 13, 2024 9:10am Reason for Visit Admit Date Contact with or suspected ex posure to severe acute respiratory syndrome April 13, 2024 9:10am Sore throat April 13, 2024 9:10am Chief Complaint Admit Date sore throat, Fever April 13, 2024 9:10am Congestion, fevers, here Monday April 15, 2024 4:00pm Reason for Visit Admit Date Viral URI with cough April 13, 2024 9:10am Contact with or suspected ex posure to severe acute respiratory syndrome April 13, 2024 9:10am Sore throat April 13, 2024 9:10am Viral URI with cough April 15, 2024 4:00pm Additional Source Comments REASON FOR VISIT (unrecogniz ed section and content) Reason Comments Routine Visit Reason Comments Initial Visit INFORMATION SOURCE (unrecogn ized section and content) DATE CREATED AUTHOR 07/23/2022 [facility] DATE CREATED AUTHOR AUTHOR'S ORGANIZ ATION 09/19/2023 [facility] DATE CREATED AUTHOR AUTHOR'S ORGANIZ ATION 05/10/2024 [facility] DATE CREATED AUTHOR AUTHOR'S ORGANIZ ATION 06/07/2024 [facility] [employer] Care Teams (unrecognized sec tion and content) Team Status: Active Member Role Status Dates Tapan Slater MD Primary Care Provider Active Team Status: Inactive Member Role Status Dates Tapan Slater MD Primary Care Provider Active Start: August 13, 2023 End: August 13, 2023 Maricarmen Avila APRN Attending Provider Active Start: August 13, 2023 End: August 13, 2023 Team Status: Inactive Member Role Status Dates Tapan Slater MD Primary Care Provider Active Start: April 13, 2024 End: April 13, 2024 Gaye Nair APRN Attending Provider Active S tart: April 13, 2024 End: April 13, 2024 Team Status: Inactive Member Role Status Dates Tapan Slater MD Primary Care Provider Active Start: April 15, 2024 End: April 15, 2024 Gaye Nair APRN Attending Provider Active S tart: April 15, 2024 End: April 15, 2024 Goals (unrecognized section and content) Goals may [...] BE BASED ON THE PRIMARY CLINICAL RECORDS. [facility]. provides no warranty or guarantee of the accuracy or completeness of information in this document.
[2024-06-08 18:14] VITALS: BP 117/81; PULSE 106; TEMP 36.9; O2SAT 98; BMI 35.0
--- NOTE | 2024-06-08 18:32 | ECG_ITS ---
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
[2024-06-08 19:51] VITALS: BP 120/82; PULSE 101; O2SAT 100
--- NOTE | 2024-06-08 20:12 | ED.SOB1 ---
HPI - SOB/Dyspnea General Chief Complaint: Shortness of Breath/Dyspnea Stated Complaint: PALPITATIONS SWELLING SOB 30 WEEKS Time Seen by Provider: 06/08/24 19:14 Source: patient Mode of arrival: walk-in History of Present Illness HPI Narrative: This 28-year-old female who is 30 weeks presents for evaluation of 3 days of intermittent palpitations while she is sleeping. She states she can feel her heartbeat in her ears as well as shortness of breath. She has had some mild diarrhea this week. She has not had a fever. She denies any abdominal pain and can feel her baby moving. She denies any urinary symptoms or back pain. She denies any dizziness or syncope. She does have a history of POTS but states when she is her POTS usually stabilizes. She has some mild lower extremity swelling but no specific calf pain. She does not smoke. Her STATISTICIAN THEORETICAL is Dr. Mistry. Related Data Allergies Allergy/AdvReac Type Severity Reaction Status Date / Time cefixime (From Suprax) Allergy Severe Rash Verified 06/08/24 18:14 Review of Systems ROS Status of ROS 10 or more systems reviewed and unremarkable except as noted in history and below [facility] Social History Smoking status: Current every day smoker Little interest or pleasure in doing things: not at all Feeling down, depressed, or hopeless: not at all Exam Narrative Exam Narrative: Vital signs and Nursing Notes reviewed: Patient is afebrile, she is Lexi tachycardic with a pulse of 101, blood pressure is stable at 120/82, she is not hypoxic with pulse ox of 100% on room air General: Awake, alert, oriented, no acute distress, lying comfortably on the stretcher on her left side HEENT: Normocephalic atraumatic, mucous membranes are slightly dry Neck: Supple, no meningeal signs Chest: Lungs are clear to auscultation with good air entry, there is no wheezing rhonchi or rales appreciated no accessory muscle use, patient is speaking in complete sentences-no chest wall tenderness to palpation CVS: Regular rate and rhythm S1-S2,, I do not appreciate any murmurs rubs or gallops or ectopy ABD: Gravid, patient able to sense movement, heart tones in the 140s at triage Extremities: Moving all extremities, no lower extremity tenderness, mild lower extremity swelling Skin: Normal in appearance without rash,pallor, petechiae or purpura Neuro: No focal deficits Constitutional Vital Signs, click to edit/add: Last Vital Signs Temp 98.5 F 06/08/24 18:14 Pulse 101 H 06/08/24 19:51 Resp 16 06/08/24 18:14 BP 120/82 06/08/24 19:51 Pulse Ox 100 06/08/24 19:51 O2 Del Method Room Air 06/08/24 19:51 Course Vital Signs Vital signs: Vital Signs Temperature 98.5 F 06/08/24 18:14 Pulse Rate 106 H 06/08/24 18:14 Respiratory Rate 16 06/08/24 18:14 Blood Pressure 117/81 06/08/24 18:14 Pulse Oximetry 98 06/08/24 18:14 Oxygen Delivery Method Room Air 06/08/24 18:14 Temperature 98.5 F 06/08/24 18:14 Pulse Rate 101 H 06/08/24 19:51 Respiratory Rate 16 06/08/24 18:14 Blood Pressure 120/82 06/08/24 19:51 Pulse Oximetry 100 06/08/24 19:51 Oxygen Delivery Method Room Air 06/08/24 19:51 MDM - SOB/Dyspnea MDM Narrative Medical decision making narrative: This 28-year-old female G4, P3 who is approximately 30 weeks presents for evaluation of palpitations and shortness of breath. The patient states the symptoms are worse when she is trying to sleep. She states that she can feel her heart beating in her ears and is now becoming short of breath. She does not smoke. She is not having any abdominal pain or vaginal bleeding. She can feel movement and her heart tones were in the 140s at triage. She has not had a fever or cough. She has some mild lower extremity swelling. The remainder of her exam is benign. EKG upon arrival was a sinus tachycardia at 109 bpm with nonspecific changes . an IV was placed and she was medicated with IV fluids and Zofran for mild nausea. Routine labs are ordered and are reviewed. White blood cell count is mildly elevated at 14 with a stable hemoglobin. Electrolytes are normal. TSH is normal. Troponin is normal. D-dimer is elevated. Urine is negative for infection. She consented to a CT angio to rule out pulmonary embolism. The angio is negative for acute findings. This was discussed with the patient and her . She is relieved. 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 I encouraged her to drink plenty of fluids and follow-up closely with her STATISTICIAN [employer]ORETICAL. She plans to follow-up closely and is considering leaving work early in this for the remainder of the due to the complications she is experiencing related to her job Medical Records Medical records narrative: [place] [address] CT Scan Report Signed Patient: RHEA MICHEL MR#: [id number] : 1995 Acct:[id number] Age/Sex: 28 / F ADM Date: 06/08/24 Loc: ER Attending Dr: Ordering Physician: Xiomara Ellington Date of Service: 06/08/24 Procedure(s): CT angio chest Accession Number(s): [id number] cc: Physician,Non-Staff M.D.~ [facility] [place] [address] Patient Name: RHEA MICHEL MRN: [id number] date: 1995 Sex: F Assigned Patient Location: ER Current Patient Location: ER Accession/Order Number: [id number] Exam Date: 06/08/2024 23:40 Report Date: 06/09/2024 00:12 At the request of: XIOMARA ELLINGTON Procedure: CT angio chest EXAM: CT angio chest HISTORY: SOB, elevated d dimer, 30 weeks preg COMPARISON: None. TECHNIQUE: Axial CT images through the chest were obtained after the intravenous administration of contrast. Coronal and sagittal reformats were obtained. Dose reduction techniques were achieved by using automated exposure control and/or adjustment of mA and/or kV according to patient size and/or use of iterative reconstruction technique. FINDINGS: The study is technically adequate with a good contrast bolus to the pulmonary arteries. There are no filling defects or vascular cutoffs to indicate a pulmonary embolus. The pulmonary arteries are normal in size. The lungs are clear. The central airways are patent. No pleural effusion or pneumothorax is seen. The thoracic aorta is normal in course and caliber without evidence of an aneurysm. The cardiac chambers appear normal in size. There is no pericardial effusion. There is no mediastinal, hilar, or axillary lymphadenopathy by CT size criteria. Images through the upper abdomen reveal no significant abnormalities. No suspicious or aggressive bone lesions are seen. No acute fracture is seen. CT/CT angio chest IMPRESSION: 1. No evidence of pulmonary embolism or an acute cardiopulmonary abnormality. Electronically authenticated by: Moses RUSH Date: 06/09/2024 00:12 Lab Data Attestation: I reviewed the patient's lab results. Labs: Lab Results 06/08/24 06/08/24 Range/Units 21:12 21:29 WBC 14.6 H (4.0-11.0) 10^3/uL RBC 3.84 L (4.20-5.40) 10^6/uL Hgb 12.3 (12.0-16.0) g/dL Hct 35.1 L (36.0-48.0) % MCV 91.4 (81.0-99.0) fL MCH 32.0 (26.7-34.0) pg MCHC 35.0 (29.9-35.2) g/dL RDW 12.5 (11.0-15.0) % Plt Count 206 (150-450) 10^3/uL MPV 10.7 (9.5-13.5) fL Neut % (Auto) 71.4 (43.0-75.0) % Lymph % (Auto) 18.9 L (20.5-60.0) % [place] % (Auto) 7.3 (1.7-12.0) % Eos % (Auto) 0.9 (0.9-7.0) % Baso % (Auto) 0.3 (0.2-2.0) % Neut # (Auto) 10.5 H (1.4-6.5) 10^3/uL Lymph # (Auto) 2.8 (1.2-3.8) 10^3/uL [place] # (Auto) 1.1 H (0.3-0.8) 10^3/uL Eos # (Auto) 0.1 (0.0-0.7) 10^3/uL Baso # (Auto) 0.0 (0.0-0.1) 10^3/uL Abs Immat Gran (auto) 0.17 H (0.00-0.03) 10^3/uL Imm/Tot Granulo (auto) 1.2 H (0.0-0.5) % D-Dimer 2.07 H* (<=0.59) mg/L FEU Sodium 135 L (136-145) mmol/L Potassium 3.6 (3.5-5.1) mmol/L Chloride 103 (98-107) mmol/L Carbon Dioxide 23.0 (21.0-32.0) mmol/L Anion Gap 12.6 BUN 6.0 L (7.0-18.0) mg/dL Creatinine 0.57 (0.55-1.02) mg/dL Est GFR ( Amer) >60 (>=60 mL/min/1.73m^2) Est GFR (Non-Af Amer) >60 (>=60 mL/min/1.73m^2) BUN/Creatinine Ratio 10.5 Glucose 82 (74-106) mg/dL Calcium 8.9 (8.5-10.1) mg/dL Total Bilirubin 0.5 (0.2-1.0) mg/dL AST 15 (15-37) U/L ALT 15 (14-59) U/L Alkaline Phosphatase 91 (46-116) U/L Troponin I High Sens <4.0 L (4.0-51.3) pg/mL Total Protein 6.4 (6.4-8.2) g/dL Albumin 2.7 L (3.4-5.0) g/dL Globulin 3.7 g/dL Albumin/Globulin Ratio 0.7 TSH 2.700 (0.358-3.740) uIU/mL Urine Color Lt. yellow (YELLOW) Urine Clarity Clear (CLEAR) Urine pH 6.5 (5.0-9.0) Ur Specific [place] <=1.005 A (1.005-1.025) Urine Protein Negative (NEG/TRACE) mg/dL Urine Glucose (UA) Negative (NEGATIVE) mg/dL Urine Ketones Negative (NEGATIVE) mg/dL Urine Occult Blood Negative (NEGATIVE) Urine Nitrite Negative (NEGATIVE) Urine Bilirubin Negative (NEGATIVE) Urine Urobilinogen 0.2 (0.2-1.0) EU/dL Ur Leukocyte Esterase Negative (NEGATIVE) Urine RBC 0-2 (0-2) #/HPF Urine WBC 0-2 A (NONE SEEN) #/HPF Ur Squamous Epith Cells Rare (NONE/RARE) #/LPF Urine Crystals None seen (None Seen) #/HPF Urine Bacteria None seen (NONE SEEN) #/HPF Urine Casts None seen (NONE SEEN) #/LPF Urine Mucus None seen (NONE SEEN) Ur Culture Indicated? No ECG Data Attestation: I personally reviewed and interpreted this ECG as follows: (Sinus tachycardia at 109 bpm, normal axis, nonspecific ST changes, no acute ST segment elevation or T wave inversion) Discharge Plan Discharge Chief Complaint: Shortness of Breath/Dyspnea Clinical Impression: Palpitations, Shortness of breath, Patient Disposition: Home, Self-Care Time of Disposition Decision: 00:37 Condition: Good Print Language: Citizen Of [place] Instructions: Heart Palpitations (ED), at 27 to 30 Weeks (ED), Shortness of Breath (ED) Referrals: Physician,Non-Staff, MD [Primary Care Provider] - 1 week
[2024-06-08 21:22] LABS: Bilirubin Urine NEGATIVE (NEGATIVE); Blood Urine NEGATIVE (NEGATIVE); Clarity Urine CLEAR (CLEAR); Color Urine LT. YELLOW (YELLOW); Glucose Urine UA NEGATIVE (NEGATIVE); Ketones Urine NEGATIVE (NEGATIVE); Leukocyte Esterase Urine NEGATIVE (NEGATIVE); Nitrite Urine NEGATIVE (NEGATIVE); Protein Urine NEGATIVE (NEG/TRACE); Specific Gravity Urine <=1.005 (1.005-1.025); Urobilinogen Urine 0.2 EU/dL (0.2-1.0); pH Urine 6.5 (5.0-9.0)
[2024-06-08 21:33] LABS: Bacteria Urine NONE SEEN #/HPF (NONE SEEN); Cast Seen? NONE SEEN #/LPF (NONE SEEN); Crystals Seen? None Seen #/HPF (None Seen); Mucus Urine NONE SEEN (NONE SEEN); RBC Urine 0-2 #/HPF (0-2); Squamous Epithelial Cell Urine RARE #/LPF (NONE/RARE); Urine Culture Indicated NO; WBC Urine 0-2 #/HPF (NONE SEEN)
[2024-06-08 21:37] LABS: Basophils Percent Auto 0.3 % (0.2-2.0); Eosinophils Absolute Auto 0.1 10^3/uL (0.0-0.7); Eosinophils Percent Auto 0.9 % (0.9-7.0); Hematocrit 35.1 % (36.0-48.0); Hemoglobin 12.3 g/dL (12.0-16.0); Immature Granulocytes Abs Auto 0.17 10^3/uL (0.00-0.03); Immature Granulocytes Pct Auto 1.2 % (0.0-0.5); Lymphocytes Absolute Auto 2.8 10^3/uL (1.2-3.8); Lymphocytes Percent Auto 18.9 % (20.5-60.0); Mean Corpuscular Volume 91.4 fL (81.0-99.0); Mean Platelet Volume 10.7 fL (9.5-13.5); Monocytes Absolute Auto 1.1 10^3/uL (0.3-0.8); Monocytes Percent Auto 7.3 % (1.7-12.0); Neutrophils Absolute Auto 10.5 10^3/uL (1.4-6.5); Neutrophils Percent Auto 71.4 % (43.0-75.0); Platelet Count 206 10^3/uL (150-450); Red Blood Count 3.84 10^6/uL (4.20-5.40); Red Cell Distribution Width 12.5 % (11.0-15.0); White Blood Count 14.6 10^3/uL (4.0-11.0)
[2024-06-08] MEDS: ONDANSETRON PF 4 MG/2 ML VIAL IV (21:44)
[2024-06-08] MEDS: 0.9 % SODIUM CHLORIDE 1,000 ML 1000 ML IV (21:44)
[2024-06-08 21:53] LABS: Alanine Aminotransferase 15 U/L (14-59); Albumin Globulin Ratio 0.7; Albumin Level 2.7 g/dL (3.4-5.0); Alkaline Phosphatase 91 U/L (46-116); Anion Gap 12.6; Aspartate Amino Transferase 15 U/L (15-37); BUN Creatinine Ratio 10.5; Bilirubin Total 0.5 mg/dL (0.2-1.0); Calcium 8.9 mg/dL (8.5-10.1); Chloride 103 mmol/L (98-107); Estimated GFR (African America >60 (>=60 mL/min/1.73m^2); Estimated GFR (Non-African Ame >60 (>=60 mL/min/1.73m^2); Globulin 3.7 g/dL; Glucose 82 mg/dL (74-106); Potassium 3.6 mmol/L (3.5-5.1); Sodium 135 mmol/L (136-145); Total Protein 6.4 g/dL (6.4-8.2)
[2024-06-08 22:02] LABS: Troponin I High Sensitivity <4.0 pg/mL (4.0-51.3)
[2024-06-08 22:21] LABS: D Dimer 2.07 mg/L FEU (<=0.59)
--- NOTE | 2024-06-08 22:35 | CT_ITS ---
The [address] [address] Patient Name: RHEA MICHEL MRN: [id number] date: 1995 Sex: F Assigned Patient Location: ER Current Patient Location: Accession/Order Number: [id number] Exam Date: 06/08/2024 23:40 Report Date: 06/09/2024 00:12 At the request of: ROSS MARKER Procedure: CT angio chest EXAM: CT angio chest HISTORY: SOB, elevated d dimer, 30 weeks preg COMPARISON: None. TECHNIQUE: Axial CT images through the chest were obtained after the intravenous administration of contrast. Coronal and sagittal reformats were obtained. Dose reduction techniques were achieved by using automated exposure control and/or adjustment of mA and/or kV according to patient size and/or use of iterative reconstruction technique. FINDINGS: The study is technically adequate with a good contrast bolus to the pulmonary arteries. There are no filling defects or vascular cutoffs to indicate a pulmonary embolus. The pulmonary arteries are normal in size. The lungs are clear. The central airways are patent. No pleural effusion or pneumothorax is seen. The thoracic aorta is normal in course and caliber without evidence of an aneurysm. The cardiac chambers appear normal in size. There is no pericardial effusion. There is no mediastinal, hilar, or axillary lymphadenopathy by CT size criteria. Images through the upper abdomen reveal no significant abnormalities. No suspicious or aggressive bone lesions are seen. No acute fracture is seen. CT/CT angio chest IMPRESSION: 1. No evidence of pulmonary embolism or an acute cardiopulmonary abnormality. Electronically authenticated by: Moses RUSH Date: 06/09/2024 00:12
[2024-06-09 00:52] VITALS: BP 128/72; PULSE 85; O2SAT 99
== END 2024-06-09 00:54 | disposition home or self-care (01) ==
PROVIDERS: Emergency Provider Emergency Medicine
DX: O99.891 Other specified diseases and conditions complicating pregnancy (principal); R06.02 Shortness of breath; R00.2 Palpitations; Z3A.30 30 weeks gestation of pregnancy
CPT/HCPCS: 36415; 71275; 80053; 81001; 84443; 84484; 85025; 85378; 93005; 96361; 96374; 99285; J2405; Q9967

== ENCOUNTER 2024-06-11 09:00 | Outpatient (RCR) | payer MEDICAID, SELFPAY ==
[2024-06-11 11:39] VITALS: BP 118/82; PULSE 96; TEMP 36.4; O2SAT 98
[2024-06-11] MEDS: RHO(D) IMMUNE GLOBULIN 1,500 UNIT SYRINGE 1500 UNIT IM (11:45)
== END 2024-06-11 14:21 | disposition home or self-care (01) ==
LOC: INF 09:00
PROVIDERS: Visit Provider Obstetrics & Gynecology
DX: O26.893 Other specified pregnancy related conditions, third trimester (principal); Z67.91 Unspecified blood type, Rh negative; Z3A.00 Weeks of gestation of pregnancy not specified
CPT/HCPCS: 36415; 86850; 86900; 86901; 96372; J2791

== ENCOUNTER 2024-06-29 13:29 | Observation (INO) | payer MEDICAID, SELFPAY ==
--- OUTSIDE RECORDS SUMMARY | 2024-06-29 13:53 | XMS_ITS | CCD ---
Author Organization [facility] Care Team Providers Care Commercial Glazier Name Role Phone Maricarmen Avila Unavailable Harrison Rona Unavailable AMMON Angelo, DR MORSE Attending Unavailable [...] e MISC, DR CHENEY Primary Care Unavailable DIAB ., KIAN Attending Unavailable EMMA BABB Consulting Unavailable DIAB ., KIAN Consulting Unavailable Aure Moss Unavailable Mac Bhatt Attending Unavailable Mac Bhatt Attending Unavailable Unavailable Primary Care Provider UnavailModesta Encarnacion Admitting UnavailModesta Encarnacion Attending UnavailCAROL Herring Attending Unavailable CAROL MISTRY Attending Unavailable WANDA GALLARDO Attending Unavailable WANDA GALLARDO Attending Unavailable CAROL MISTRY Referring Unavailable Allergies Allergy Classification Reported Allergen(s) Allergy Type Date of Onset Reaction(s) Facility (4 sources) [facility] Drug Allergy [facility] Other (2 sources) Dextrothyroxine ; Translations: [Suprax] Drug Allergy 8 [facility] Repository (17 sources) Cefixime Propensity to adverse reactions 3 [facility] Work Phone: (1 source) Cefixime Drug Allergy 4 [facility] Repository Medications Current Medications Medication Drug [...] Jan, Not-Taking ondansetron 4 mg oral tablet (20 sources) Serotonin-3 Receptor Antagonist Start: 01-31-2024 take [...] Q8H as needed for nausea and vomiting 7 August 12, 2023 11:00pm April 13, 2024 9:38am Start: 10-04-2022 take 1 tablet by jose th every eight hours Ondansetron 4 MG 1 tablet on the tongue and allow to dissolve Orally every 8 hours for 5 days September, Active Pnv 634-Lzybd-Yokjh-3-Fish Oil 400-32.5 mcg-mg tablet,chewable (2 sources) Start: 04-13-2024 Pnv 735-Ruohp-Owfja-3-Fish Oil 400-32.5 mcg-mg tablet,chewable Active TAB PO [...] Active promethazine hydrochloride 12.5 mg oral tablet (15 sources) Phenothiazine Start: 02-20-2024 take 1 tablet [...] Drug Class(es) Dates Sig (Normalized) Sig (Original) [id number] 200 actuat albuterol 0.09 mg/actuat metered dose inhaler (2 sources) beta2-Adrenergic Agonist Start: 02-13-2022 take 2 puff(s) by inhalation every four hours as needed Albuterol Sulfate HFA 108 (90 Base) MCG/ACT 2 puffs as needed Inhalation every 4 hrs Jan, Not-Taking dextromethorphan hydrobromide 15 mg / guaiFENesin 400 mg / pseudoephedrine hydrochloride 60 mg oral tablet (4 sources) alpha-Adrenergic Agonist, Uncompetitive A-jlccuw-B-aspartat e Receptor Antagonist, Sigma-1 Agonist Start: 08-13-2023 [...] 04-13-2024 Chronic Other and delivery including normal (16 sources) Second trimester ; Translations: [Encounter for [...] of ] 03-24-2024 Episodic Residual codes; unclassified (10 sources) Gestation period, 23 weeks; Translations: [23 weeks gestation of ] Onset: 4 04-21-2024 Episodic Residual codes; unclassified (2 sources) Gestation period, 29 weeks; Translations: [29 weeks gestation of ] 06-01-2024 Episodic Residual codes; unclassified (2 sources) Gestation period, 31 weeks; Translations: [31 weeks gestation of ] 06-16-2024 Episodic Substance-related disorders (6 sources) Nicotine dependence, [...] WITH AUTO DIFFon BASOPHILS ABSOLUTE AUTO 0 [facility] Basophils/100 WBC (Bld) 0.2 % 0.2 - 2.0 % [facility] Eosinophils/100 WBC (Bld) 1.7 % 0.9 - 7.0 % [facility] Erythrocyte distribution width (RBC) [Ratio] 12.8 % 11.0 - 15.0 % [facility] Hematocrit (Bld) [Volume fraction] 31.9 % Low 36.0 - 48.0 % [facility] Hem[facility] (Bld) [Mass/Vol] 11.1 g/dL Low 12.0 - 16.0 g/dL [facility] IMMATURE GRANULOCYTES ABS AUTO 0.19 High [facility] Immature granulocytes/100 WBC (Bld) 1.5 % High 0.0 - 0.5 % [facility] Interpretation and review of laboratory results Abnormal [facility] LYMPHOCYTES ABSOLUTE AUTO 2.4 [facility] Lymphocytes/100 WBC (Bld) 19.2 % Low 20.5 - 60.0 % [facility] MCH (RBC) [Entitic mass] 32 pg 26.7 - 34.0 pg [facility] MCHC (RBC) [Mass/Vol] 34.8 g/dL 29.9 - 35.2 g/dL [facility] MCV (RBC) [Entitic vol] 91.9 fL 81.0 - 99.0 fL [facility] MONOCYTES ABSOLUTE AUTO 0.8 [facility] Monocytes/100 WBC (Bld) 6.4 % 1.7 - 12.0 % [facility] NEUTROPHILS ABSOLUTE AUTO 9 High [facility] Neutrophils/100 WBC (Bld) 71 % 43.0 - 75.0 % [facility] Platelet mean volume (Bld) [Entitic vol] 10.7 fL 9.5 - 13.5 fL [facility] EO # 0.2 [facility] Healthcar e [facility]H PLT 162 [facility] RBC 3.47 Low [facility] Health[facility] e TBH WBC 12.7 High [facility] Healthcar e [facility] Health[facility] e Urinalysis macro (dipstick) panel (U)on 06-01-2024 Bilirubin, UA Negative Negative - 4(70) +++ mg/dL [facility] Blood, UA Negative Negative - 50 Sukhi/mcL [facility] Clarity, UA Clear [facility] re Color, UA Yellow [facility] Glucose, UA Negative Negative - 1999(110) ++++ mg/dL [facility] Interpretation and review of laboratory results Normal [facility] Ketones, UA Negative Negative - 160(16) ++++ mg/dL [facility] Leukocytes, UA Negative Negative - 500+++ Lambret/mcL [facility] Nitrite, UA Negative Negative - [...] Normal Respiratory Gita 2 Days PERFORMED BY: [place] [address] PATHOLOGIST RIBBON HANKING MACHINE OPERATOR MELCHOR RANDALL M.D. Normal [facility] Comment on above: Performed By: #### C UT #### [address] Urinalysis macro (dipstick) panel (U)on 04-22-2024 Bilirubin, UA Negative Negative - 4(70) +++ mg/dL [facility] Blood, UA Negative Negative - 50 Sukhi/mcL [facility] Healthcare Clarity, UA Clear [facility] Color, UA Yellow [facility] Glucose, UA Negative Negative - 1999(110) ++++ mg/dL [facility] Interpretation and review of laboratory results Normal [facility] Healthcare Ketones, UA Negative Negative - 160(16) ++++ mg/dL [facility] Leukocytes, UA Negative Negative - 500+++ Lambert/mcL [facility] Nitrite, UA Negative Negative - Positive [facility] pH, UA 5.8 5 - 9 [facility] Protein, UA Negative Negative - 1999(20) ++++ mg/dL [facility] Spec Grav, UA 1.015 1 - 1.03 [facility] Urobilinogen, UA 1.0 0.2 - 12 mg/dL [facility] No Panel InformationOrdered By: Gaye Nair on 04-13-2024 Quick Strep (POC) [facility] IGP,APTIMA HPV,AGE GDLNon AGE GDLN ACOG TESTING Note . [facility] Comment on above: TESTS RESULT FLAG U NITS REF RANGE LAB Clinician Provided Cytology Information Source.............Cervix Other.............. No. of containers..01 ThinPrep Vial Age Algo ACOG Sania... FLAG LEGEND: L-Low Normal,H-High Normal,LL-Alert Low,HH-Alert High <-Panic Low,>-Panic High,A-Abnormal,AA-Critical Abnormal Performed at: 01 [facility] [address] [place] [address] Kaci Gregory MD, IGP, RFX APTIMA HPV ASCU Note . [facility] Comment on above: TESTS RESULT FLAG UN ITS REF RANGE LAB DIAGNOSIS: 02 NEGATIVE FOR INTRAEPITHELIAL LESION OR MALIGNANCY. Specimen adequacy: 02 Satisfactory for evaluation. No endocervical component is identified. An endocervical component is not commonly seen in the patient. Performed by: 02 Carol Benton Director Digital Sales (ASCP) . 02 Note: Note 02 The [...] <-Panic Low,>-Panic High,A-Abnormal,AA-Critical Abnormal Performed at: [address] [facility] [address] [id number] Kaci Gregory MD, Performed at: =G - [facility] [address] [id number] Alley Tender: Kaci Gregory MD, Phone: [phone] Performed at: [facility] [address] [id number] Alley Tender: Kaci Gregory MD, Phone: [phone] SPATULA-ALONE CERVIX [facility] URETHRITIS/DISCHARGE PLUS VA GINITIS (HTRX)on 03-25-2024 ATOPOBIUM VAGINAE 30.308 Abnormal [facility] ATOPOBIUM VAGINAE Detected Abnormal [facility] BVAB 2,3 (BACTERIAL VAGINOSIS ASSOCIATED BACTERIA 2, 3); MOBILUNCUS SPP 23.769 Abnormal [facility] Healthcare BVAB 2,3 (BACTERIAL VAGINOSIS ASSOCIATED BACTERIA 2, 3); MOBILUNCUS SPP Detected Abnormal [facility] KEN ALBICANS, PARAPSILOSIS, TROPICALIS 0 [facility] KEN ALBICANS, PARAPSILOSIS, TROPICALIS Not detected [facility] KEN GLABRATA 0 [facility] Hea lthcare KEN GLABRATA Not detected [facility] KEN KRUSEI 0 [facility] Healt hcare KEN KRUSEI Not detected [facility] CHLAMYDIA TRACHOMATIS 0 [facility] CHLAMYDIA TRACHOMATIS Not detected N [facility] ERMB, C; MEFA 21.812 Abnormal [facility] care ERMB, C; MEFA Detected Abnormal [facility] care GARDNERELLA VAGINALIS 27.115 Abnormal [facility] GARDNERELLA VAGINALIS Detected Abnormal [facility] Interpretation and review of laboratory results Abnormal [facility] MEGASPHAERA (TYPES 1, 2) 21.09 Abnormal [facility] MEGASPHAERA (TYPES 1, 2) Detected Abnormal [facility] MYCOPLASMA GENITALIUM 0 [facility] MYCOPLASMA GENITALIUM Not detected N [facility] NEISSERIA GONORRHOEAE 0 [facility] NEISSERIA GONORRHOEAE Not detected N [facility] TET B, TET M 22.295 Abnormal [facility] are TET B, TET M Detected Abnormal [facility] are TRICHOMONAS VAGINALIS 0 [facility] TRICHOMONAS VAGINALIS Not detected [facility] Urinalysis macro (dipstick) panel (U)on 03-24-2024 Bilirubin, UA Negative Negative - 4(70) +++ mg/dL [facility] Blood, UA Negative Negative - 50 Sukhi/mcL [facility] Clarity, UA Clear [facility] re Color, UA Yellow [facility] Glucose, UA Negative Negative - 1999(110) ++++ mg/dL [facility] Interpretation and review of laboratory results Abnormal [facility] Ketones, UA Positive Negative - 160(16) ++++ mg/dL [facility] Comment on above: trace Leukocytes, UA Negative Negative - 500+++ Lambert/mcL [facility] Nitrite, UA Negative Negative - Positive [facility] pH, UA 5.5 5 - 9 [facility] Healthcar e Protein, UA Negative Negative - 1999(20) ++++ mg/dL [facility] Spec Grav, UA 1.025 1 - 1.03 [facility] Urobilinogen, UA 0.2 0.2 - 12 mg/dL [facility] Urinalysis macro (dipstick) panel (U)on 02-20-2024 Bilirubin, UA Negative Negative - 4(70) +++ mg/dL [facility] Blood, UA Negative Negative - 50 Sukhi/mcL [facility] Healthcare Clarity, UA Clear [facility] Healthca re Color, UA Yellow [facility] Healthcar e Glucose, UA Negative Negative - 1999(110) ++++ mg/dL [facility] Interpretation and review of laboratory results Normal [facility] Ketones, UA Negative Negative - 160(16) ++++ mg/dL [facility] Leukocytes, UA Negative Negative - 500+++ Lambert/mcL [facility] Nitrite, UA Negative Negative - Positive [facility] pH, UA 6.0 5 - 9 [facility] Healthcar e Protein, UA Negative Negative - 1999(20) ++++ mg/dL [facility] Spec Grav, UA 1.010 1 - 1.03 [facility] Urobilinogen, UA 0.2 0.2 - 12 mg/dL [facility] HCG ( test) Ql (U)o n 01-31-2024 Interpretation and review of laboratory results Abnormal [facility] Preg Test, Ur Positive [facility] Urinalysis macro (dipstick) panel (U)on 01-31-2024 Bilirubin, UA Negative Negative - 4(70) +++ mg/dL [facility] Blood, UA Negative Negative - 50 Sukhi/mcL [facility] Healthcare Clarity, UA Clear [facility] Healthca re Color, UA Yellow [facility] Healthcar e Glucose, UA Negative Negative - 1999(110) ++++ mg/dL [facility] Interpretation and review of laboratory results Abnormal [facility] Ketones, UA Negative Negative - 160(16) ++++ mg/dL [facility] Leukocytes, UA Trace Negative - 500+++ Lambert/mcL [facility] Nitrite, UA Negative Negative - Positive [facility] pH, UA 6.5 5 - 9 [facility] Healthcar e Protein, UA Trace Negative - 1999(20) ++++ mg/dL [facility] Spec Grav, UA 1.025 1 - 1.03 [facility] Urobilinogen, UA 0.2 0.2 - 12 mg/dL [facility] ED Note-Physicianon 08-15-19 ED Note-Physician [phone] [id number] #[id number] Normal [facility] Interdisciplinary Note - Soc ial Workeron 08-15-2023 Interdisciplinary Note - Rail Tractor Operator This SW made a tc to patient today to discuss her positive depression screen. Patient did not answer so a message was left with SW's contact information. SW will remain available. Normal [facility] Ambulatory Visit Summaryon 0 08-13-2023 Ambulatory Visit [...] With: Mac Bhatt MD Where: [facility] Family Medicine [facility] Family Medicine Office/Clini c Noteon 08-13-2023 Family Medicine Office/Clinic Note Chief Complaint establish care HPI Staff Chasity is a 27 year old female presenting to establish care would like a general check up Establish Care: History: Any previous diagnosis: migraine, POTS History of seeing any specialist: no When was your last doctors visit: 2016 Last provider: Bryon Any recent labs: ED in [place] Has POTS and is feeling lightheaded and brain fog. These are symptoms that she has had in the past. Was last seen in 2019 Dr. Meléndez in [facility] UTD: Pelvic/Pap: UTD flu: refused Acute: Current issues/complaints: Was in [place] ED last week for a migraine. Patient [...] detail, # 20 tab(s), Refills(s) 0, [id number], 154.5, cm, 08/13/23 13:27:00 EDT, Height/Length Dosing, 72.6, kg, 08/13/23 13:27:00 EDT, Weight Dosing [facility] External Ambulatory Referral 2. Postural orthostatic tachycardia syndrome (G90.A: Postural orthostatic tachycardia syndrome [POTS]) - [facility] Materials Planner who specializes in this. Ordered: cyclobenzaprine, 5 mg = 1 tab(s), Oral, Daily, PRN Headache, Precautions discussed in detail, # 20 tab(s), Refills(s) 0, [id number], 154.5, cm, 08/13/23 13:27:00 EDT, Height/Length Dosing, 72.6, kg, 08/13/23 13:27:00 EDT, Weight Dosing [facility] External Ambulatory Referral 3. BMI 30.0-30.9,adult (Z68.30: Body mass index [BMI] 30.0-30.9, adult) - BMI education given. Ordered: cyclobenzaprine, 5 mg = 1 tab(s), Oral, Daily, PRN Headache, Precautions discussed in detail, # 20 tab(s), Refills(s) 0, [facility]acy: [id number], 154.5, cm, 08/13/23 13:27:00 EDT, Height/Length Dosing, 72.6, kg, 08/13/23 13:27:00 EDT, Weight Dosing [facility] External Ambulatory Referral One month follow up [...] Yes, 08/13/2023 Family History Hypertension: Father. Normal [facility] Comment on above: Result Comment: Elec tronically Signed By: Miller WILSON, Mac Puga\.br\Date and Time Signed: 08/13/23 14:05 EDT No Panel InformationOrdered By: Maricarmen Avila on 08-13-2023 Quick Strep (POC) [facility] Quick Strepon 10-04-2022 S. pyogenes Org specific cx Ql (Throat) Negative [facility] Other Quick Strep [facility] [employer] [place] Other Covid-19 PCR (CVDTB)on 06-28 SARS-CoV-2 (COVID-19) RNA REINIER+probe Ql (Unsp spec) Not detected Normal NOT DETECTED [facility] Comment on above: Result Comment: When [...] for this test is supported by the [employer] Associate of Health and Human Service's declaration that [...] Performed By: #### S SCRN, GRASTCX #### [facility] [address] [place] [address] Dr. Ang Simmons INFLUENZA A AND B AGon 07-18 INFLUENZA A AG Negative Normal NEGATIVE SEE COMMENT [facility] Comment on above: Performed By: #### I NFLUAB #### [facility] [address] [place] [address] Dr. Ang Simmons INFLUENZA B AG Negative Normal NEGATIVE SEE COMMENT [facility] Comment on above: Performed By: #### I NFLUAB #### [facility] [address] [place] [address] Dr. Ang Simmons XR CHEST 2 Von [...] by: EMMA BABB Date: 2022-07-18 21:09 Normal [facility] CT ABD/PELVIS WO CONon 05-31 [...] GRETEL HOOK Date: 2022-05-31 11:54 Normal [facility] Covid-19 PCR (CVDTB)on SARS-CoV-2 (COVID-19) RNA REINIER+probe Ql (Unsp spec) Not detected Normal NOT DETECTED [facility] Comment on above: Result Comment: This test is not yet approved or cleared by the [place] FDA. When there are no FDA-approved or cleared tests available, and other criteria are met, FDA can make tests available under an emergency access mechanism called an Emergency Use Authorization (EUA). The EUA for this test is supported by the [employer] Associate of Health and Human Service's (HHS's) declaration [...] Performed By: #### S SCRN, GRASTCX #### [facility] [address] [address] [address] Ang Simmons ER URINE PROFILEon 3 Bilirubin Ql (U) Negative Normal NEGATIVE [facility] Comment on above: Performed By: #### P REGU, ERUR #### [facility] [address] [address] [address] Ang Simmons Clarity (U) CLEAR Normal CLEAR [facility] Comment on above: Performed By: #### P REGU, ERUR #### [facility] [address] [address] [address] Ang Simmons Color (U) LT. YELLOW Normal YELLOW [facility] Comment on above: Performed By: #### P REGU, ERUR #### [facility] [address] [place] [address] Dr. Ang HALLD A micrscopic examination will be performed if indicated. Normal [facility] Comment on above: Performed By: #### P REGU, ERUR #### [facility] [address] [address] [address] Ang Simmons Glucose Ql (U) Negative Normal NEGATIVE [facility] Comment on above: Performed By: #### P REGU, ERUR #### [facility] [address] [place] [address] Dr. Ang Simmons Hemoglobin Ql (U) Negative Normal NEGATIVE [facility] Comment on above: Performed By: #### P REGU, ERUR #### [facility] [address] [address] [address] Ang Simmons Ketones Ql (U) Negative Normal NEGATIVE [facility] Comment on above: Performed By: #### P REGU, ERUR #### [facility] [address] [place] [address] Dr. Ang Simmons LEUKOCYTES Negative Normal NEGATIVE [facility] Comment on above: Performed By: #### P REGU, ERUR #### [facility] [address] [place] [address] Dr. Ang Simmons Nitrite Ql (U) Negative Normal NEGATIVE [facility] Comment on above: Performed By: #### P REGU, ERUR #### [facility] [address] [place] [address] Dr. Ang Simmons pH (U) 5.5 [pH] Normal 5-9 [facility] Comment on above: Performed By: #### P REGU, ERUR #### [facility] [address] [place] [address] Dr. Ang Simmons SPEC GRAVITY 1.030 Abnormal 1.005-<=1.025 [facility] Comment on above: Performed By: #### P REGU, ERUR #### [facility] [address] [place] [address] Dr. Ang Simmons UA PROTEIN Negative Normal NEGATIVE/ TRACE [facility] Comment on above: Performed By: #### P REGU, ERUR #### [facility] [address] [place] [address] Dr. Ang Simmons UR MICRO IND NOT INDICATED Normal [facility] Comment on above: Performed By: #### P REGU, ERUR #### [facility] [address] [place] [address] Dr. Ang Simmons Urobilinogen Qn (U) 0.2 {Jazmin'U}/dL Normal 0.2 - 1. 0 [facility] Comment on above: Performed By: #### P REGU, ERUR #### [facility] [address] [place] [address] Dr. Ang Simmons GROUP A STREP CULTUREon S. pyogenes Ag Ql (Unsp spec) Culture Observations: NEGATIVE FOR GROUP A STREPTOCOCCUS. Normal [facility] Comment on above: Performed By: #### S SCRN, GRASTCX #### [facility] [address] [place] [address] Dr. Ang Simmons INFLUENZA A AND B AGon 05-31 INFLUANEGH SEE BELOW Normal [facility] Comment on above: Result Comment: Nega tive for Flu A protein angiten. Infection due to Flu A cannot be ruled out. Flu A angiten in the sample may be below the detection limit of the test. Performed By: #### S SCRN, GRASTCX #### [facility] [address] [address] [address] Ang Simmons [facility] SEE BELOW Normal [facility] Comment on above: Result Comment: Nega tive for Flu B protein antigen. Infection due to Flu B cannot be ruled out. Flu B antigen in the sample may be below the detection limit of the test. Performed By: #### S SCRN, GRASTCX #### [facility] [address] [place] [address] Dr. Ang Simmons INFLUENZA A AG Negative Normal NEGATIVE SEE COMMENT [facility] Comment on above: Performed By: #### S SCRN, GRASTCX #### [facility] [address] [place] [address] Dr. Ang Simmons INFLUENZA B AG Negative Normal NEGATIVE SEE COMMENT [facility] Comment on above: Performed By: #### S COLBYN, GRASTCX #### [facility] [address] [address] [address] Ang Simmons URon 05-31-2022 , QUAL Negative Normal NEGATIVE [facility] Comment on above: Performed By: #### P REGU, ERUR #### [facility] [address] [address] [address] Ang Simmons STREPT SCREENon 05-31-2022 STREP SCREEN A Negative Normal NEGATIVE [facility] Comment on above: Performed By: #### S COLBYN, GRASTCX #### [facility] [address] [address] [address] Ang Simmons Quick Strepon 02-13-2022 S. pyogenes Org specific cx Ql (Throat) Negative [facility] Other Quick Strep [facility] Other SARS-CoV-2 (COVID-19) RNA NA A+probe Ql (Resp)on 02-13-2022 SARS-CoV-2 (COVID-19) RNA REINIER+probe Ql (Unsp spec) Negative [facility] [employer] [place] Other Covid-19 PCR (CVDTB)on 11-24 SARS-CoV-2 (COVID-19) RNA REINIER+probe Ql (Unsp spec) Not detected Normal NOT DETECTED [facility] Comment on above: Result Comment: When [...] for this test is supported by the [place] of Health and Human Service's declaration that [...] used). Performed By: #### C VDTBH #### [facility] [address] [place] [address] Dr. Ang Simmons GROUP A STREP CULTUREon 11-24 S. pyogenes Ag Ql (Unsp spec) Culture Observations: NEGATIVE FOR GROUP A STREPTOCOCCUS. Normal [facility] Comment on above: Performed By: #### S SCRN, GRASTCX #### [facility] [address] [address] [address] Ang Simmons STREPT SCREENon 12-10-2021 STREP SCREEN A Negative Normal NEGATIVE [facility] Comment on above: Performed By: #### S SCRN, GRASTCX #### [facility] [address] [address] [address] Ang Simmons Vital Signs Date Time Vital Sign Value Performing Clinician Facility 06-16-2024 09:21-0500 Body mass index (BMI) [Ratio] 35.03 kg/m2 CarolQwalyticso [employer] Phone: [facility] 06-16-2024 09:21-0500 Body weight 84.1 kg Carol Fede DO Work Phone: [facility] 06-16-2024 09:21-0500 Diastolic blood pressure 74 mm[Hg] Carol Fede DO Work Phone: [facility] 06-16-2024 09:21-0500 Systolic blood pressure 110 mm[Hg] Carol Fede DO Work Phone: [facility] 06-01-2024 10:04-0500 Body mass index (BMI) [Ratio] 35.11 kg/m2 Wanda CARNES Work Phone: [facility] 06-01-2024 10:04-0500 Body weight 84.28 kg Wanda CARNES Work Phone: [facility] 06-01-2024 10:04-0500 Diastolic blood pressure 78 mm[Hg] Wanda CARNES Work Phone: [facility] 06-01-2024 10:04-0500 Systolic blood pressure 120 mm[Hg] Wanda CARNES Work Phone: [facility] 04-21-2024 12:52-0500 Body mass index (BMI) [Ratio] 32.69 kg/m2 Carol Fede DO Work Phone: [facility] 04-21-2024 12:52-0500 Body weight 78.47 kg Carol Fede DO Work Phone: [facility] 04-21-2024 12:52-0500 Diastolic blood pressure 76 mm[Hg] Carol Fede DO Work Phone: [facility] 04-21-2024 12:52-0500 Systolic blood pressure 120 mm[Hg] Carol Fede DO Work Phone: [facility] 04-15-2024 16:03-0500 Body height 162.56 cm [facility] 04-15-2024 16:03-0500 Body mass index (BMI) [Ratio] 29.8 kg/m2 [facility] 04-15-2024 16:03-0500 Body temperature 98.7 [degF] [facility] 04-15-2024 16:03-0500 Body weight 78.92 kg [facility] 04-15-2024 16:03-0500 Diastolic blood pressure 72 mm[Hg] [facility] 04-15-2024 16:03-0500 Heart rate 114 /min [facility] 04-15-2024 16:03-0500 Respiratory rate 18 /min [facility] 04-15-2024 16:03-0500 SaO2% (BldA) [Mass fraction] 97 % [facility] 04-15-2024 16:03-0500 Systolic blood pressure 101 mm[Hg] [facility] 04-13-2024 09:41-0500 Body height 162.56 cm [facility] 04-13-2024 09:41-0500 Body mass index (BMI) [Ratio] 29.2 kg/m2 [facility] 04-13-2024 09:41-0500 Body temperature 97.8 [degF] [facility] 04-13-2024 09:41-0500 Body weight 77.11 kg [facility] 04-13-2024 09:41-0500 Diastolic blood pressure 81 mm[Hg] [facility] 04-13-2024 09:41-0500 Heart rate 90 /min [facility] 04-13-2024 09:41-0500 Respiratory rate 18 /min [facility] 04-13-2024 09:41-0500 SaO2% (BldA) [Mass fraction] 99 % [facility] 04-13-2024 09:41-0500 Systolic blood pressure 119 mm[Hg] [facility] 03-24-2024 08:58-0400 Body mass index (BMI) [Ratio] 31.93 kg/m2 Wanda CARNES Work Phone: [facility] 03-24-2024 08:58-0400 Body weight 76.66 kg Wadna CARNES Work Phone: [facility] 03-24-2024 08:58-0400 Diastolic blood pressure 74 mm[Hg] Wanda CARNES Work Phone: [facility] 03-24-2024 08:58-0400 Systolic blood pressure 116 mm[Hg] Wanda Gallardo TRICE Work Phone: [facility] 02-20-2024 10:38-0400 Body mass index (BMI) [Ratio] 30.23 kg/m2 Carol Fede DO Work Phone: [facility] 02-20-2024 10:38-0400 Body weight 72.58 kg Carol Fede DO Work Phone: [facility] 02-20-2024 10:38-0400 Diastolic blood pressure 78 mm[Hg] Carol Fede DO Work Phone: [facility] 02-20-2024 10:38-0400 Systolic blood pressure 120 mm[Hg] Carol Fede DO Work Phone: [facility] 01-31-2024 09:46-0400 Body mass index (BMI) [Ratio] 29.62 kg/m2 [facility] Nurse [facility] 01-31-2024 09:46-0400 Body weight 71.1 kg [facility] Nurse [facility] 01-31-2024 09:46-0400 Diastolic blood pressure 82 mm[Hg] [facility] Nurse [facility] 01-31-2024 09:46-0400 Systolic blood pressure 118 mm[Hg] [facility] Nurse [facility] 08-13-2023 09:36-0400 Body height 162.56 cm [facility] 08-13-2023 09:36-0400 Body mass index (BMI) [Ratio] 26.6 kg/m2 [facility] 08-13-2023 09:36-0400 Body temperature 98.6 [degF] [facility] 08-13-2023 09:36-0400 Body weight 70.3 kg [facility] 08-13-2023 09:36-0400 Heart rate 91 /min [facility] 08-13-2023 09:36-0400 Respiratory rate 16 /min [facility] 08-13-2023 09:36-0400 SaO2% (BldA) [Mass fraction] 99 % [facility] 03-18-2023 09:15-0400 Body height 158.75 cm Aure Moss Other [facility] Other 03-18-2023 09:15-0400 Body mass index (BMI) [Ratio] 29.15 kg/m2 Aure Moss Other [facility] Other 03-18-2023 09:15-0400 Body temperature 98.2 [degF] Aure Moss Other [facility] Other 03-18-2023 09:15-0400 Body weight 73.48 kg Aure Moss Other [facility] Other 03-18-2023 09:15-0400 Respiratory rate 18 /min Aure Moss Other [facility] Other 03-18-2023 09:15-0400 SaO2% (BldA) [Mass fraction] 98 % Aure Moss Other [facility] Other 10-04-2022 12:40-0400 Body height 158.75 cm Maricarmen Avila Other [facility] Other 10-04-2022 12:40-0400 Body mass index (BMI) [Ratio] 27.54 kg/m2 Maricarmen Avila Other [facility] Other 10-04-2022 12:40-0400 Body temperature 99.3 [degF] Maricarmen Avila Other [facility] Other 10-04-2022 12:40-0400 Body weight 69.4 kg Maricarmen Avila Other [facility] Other 10-04-2022 12:40-0400 Respiratory rate 18 /min Maricarmen Avila Other [facility] Other 10-04-2022 12:40-0400 SaO2% (BldA) [Mass fraction] 99 % Maricarmen Avila Other [facility] Other 02-13-2022 16:55-0400 Body height 158.75 cm Rona Terry Other [facility] Other 02-13-2022 16:55-0400 Body mass index (BMI) [Ratio] 27.9 kg/m2 Rona Terry Other [facility] Other 02-13-2022 16:55-0400 Body temperature 98.4 [degF] Rona Terry Other [facility] Other 02-13-2022 16:55-0400 Body weight 70.31 kg Rona Terry Other [facility] Other 02-13-2022 16:55-0400 Respiratory rate 18 /min Rona Shineault Other [facility] Other 02-13-2022 16:55-0400 SaO2% (BldA) [Mass fraction] 99 % Rona Terry Other [facility] Other 12-21-2021 16:20-0400 Body height 158.75 cm Maricarmen Avila Other [facility] Other 12-21-2021 16:20-0400 Body mass index (BMI) [Ratio] 27.64 kg/m2 Maricarmen Avila Other [facility] Other 12-21-2021 16:20-0400 Body temperature 98 [degF] Maricarmen Avila Other [facility] Other 12-21-2021 16:20-0400 Body weight 69.67 kg Maricarmen Avila Other [facility] Other 12-21-2021 16:20-0400 Diastolic blood pressure 67 mm[Hg] Maricarmen Avila Other [facility] Other 12-21-2021 16:20-0400 Respiratory rate 18 /min Maricarmen Avila Other [facility] Other 12-21-2021 16:20-0400 SaO2% (BldA) [Mass fraction] 98 % Maricarmen Newmanler Other [facility] Other 12-21-2021 16:20-0400 Systolic blood pressure 117 mm[Hg] Maricarmen Avila Other [facility] Other Encounters Encounter Date Encounter Type Care Provider Facility Start: 06-16-2024 End: 06-16-2024 Bamboo flowsheet Carol Fede DO Work Phone: [facility] Start: 06-16-2024 End: 06-16-2024 Bamboo flowsheet Carol Fede DO Work Phone: [facility] Start: 06-16-2024 End: 06-16-2024 ambulatory ACROL FEDE Not Available Start: 06-16-2024 End: 06-16-2024 Office outpatient visit 15 minutes Carol Fede DO Work Phone: [facility] Comment on above: 31 weeks gestation o f ; Third trimester Start: 06-03-2024 End: 06-03-2024 ambulatory CAROL FEDE [...] Start: 05-07-2024 End: 05-07-2024 ambulatory Modesta Centeno Facility:[facility] Start: 04-21-2024 End: 04-21-2024 Office outpatient visit 15 minutes Carol Fede DO Work Phone: [facility] Comment on above: Second trimester pre gnancy; 23 weeks gestation of ; Diabetes mellitus screening Start: 04-15-2024 End: 04-15-2024 ambulatory [facility] Work Phone: Start: 04-15-2024 End: 04-15-2024 Patient encounter procedure Formerly [facility] Work Phone: Start: 04-13-2024 End: 04-13-2024 ambulatory [facility] Work Phone: Start: 04-13-2024 End: 04-13-2024 Patient encounter procedure Formerly [facility] Work Phone: Start: 03-24-2024 End: 03-24-2024 Bamboo flowsheet Wanda CARNES Work Phone: [facility] Start: 03-24-2024 End: 04-01-2024 Bamboo flowsheet Wanda CARNES Work Phone: [facility] Start: 03-24-2024 End: 04-01-2024 Clinisync Result Encounter Wanda CARNES Work Phone: [facility] Department Unsolicited Start: 03-24-2024 End: 03-25-2024 External Result Encounter Wanda CARNES Work Phone: [facility] External Department Unsolicited Start: 03-24-2024 End: 03-24-2024 ambulatory WANDA GALLARDO Not Available Start: 03-24-2024 End: 03-24-2024 Patient encounter procedure Wanda CARNES Work Phone: [facility] Healthcare Start: 03-24-2024 End: 03-24-2024 Periodic [...] Start: 09-17-2023 End: 09-18-2023 ambulatory Mac Bhatt Facility:[facility] Dora darien Start: 08-27-2023 ambulatory Mac Bhatt Facility:[facility] [place] Start: 08-13-2023 End: 08-14-2023 ambulatory Maclizbeth Bhatt Facility:[facility] [place] [facility] Start: 08-13-2023 End: 08-13-2023 ambulatory [facility] Work Phone: Start: 08-13-2023 End: 08-13-2023 Patient encounter procedure Former[facility] Work Phone: Start: 03-18-2023 End: 03-18-2023 ambulatory Aure Moss Other [facility] Other Start: 03-18-2023 Office outpatient vi sit 15 minutes Aureedmundo Moss [facility] Start: 10-04-2022 End: 10-04-2022 ambulatory Maricarmen Avila Other [facility] Other Start: 10-04-2022 Office outpatient vi sit 25 minutes Maricarmen Avila [facility] Start: 07-18-2022 End: 07-19-2022 ambulatory KIAN MATT . Facility:[facility] Start: 05-31-2022 End: 05-31-2022 ambulatory IRAIDA WOODARD . Facility:[facility] Start: 02-13-2022 End: 02-13-2022 ambulatory Rona Terry Other [facility] Other Start: 02-13-2022 Office outpatient vi sit 15 minutes Ronachava Terry [facility] Start: 12-21-2021 (URG) Urgent Care Visit Maricarmen Avila [facility] Start: 12-21-2021 End: 12-21-2021 ambulatory Maricarmen Avila Other [facility] Other Start: 12-10-2021 End: 12-10-[address] [...] Treatment Date Care Activity Detail Author Start: 06-30-2024 End: 06-30-2024 Patient encounter procedure 06/30/2024 11:30 AM EST Routine [facility] [address] [place] [address] Wanda Gallardo PA [address] [place] [address] [facility] Start: 06-16-2024 End: 06-16-2024 Patient encounter procedure 06/16/2024 9:00 AM EST Routine [facility] [address] [place] [id number] Carol Mistry DO [address] [place] [address] [place] [address] [facility] Start: 06-03-2024 End: 06-03-2024 Professional / ancillary services management 06/03/2024 1:00 PM EST Ancillary Procedure [facility] [address] [place] [id number] [facility] Start: 06-01-2024 End: 06-01-2024 Patient encounter procedure 06/01/2024 10:10 AM EST Routine [facility] [address] [place] [address] [place] [address] Wanda Gallardo PA [address] [place], [place] [id number] Arrived [facility] Comment on above: Arrived Start: 04-21-2024 End: 04-21-2025 CBC panel - Blood by Automated count CBC Lab Routine Second trimester 23 weeks gestation of Expected: 04/21/2024 (Approximate), Expires: 04/21/2025 [facility] Work Phone: Comment on above: Expected: 04/21/2024 (Approximate), Expires: 04/21/2025 Start: 04-21-2024 End: 04-21-2025 Measurement of glucose 1 hour after glucose challenge for glucose tolerance test Glucose tolerance, 1 hour Lab Routine Second trimester 23 weeks gestation of Diabetes mellitus screening Expected: 04/21/2024 (Approximate), Expires: 04/21/2025 [facility] Comment on above: Expected: 04/21/2024 (Approximate), Expires: 04/21/2025 Start: 04-21-2024 End: 04-21-2024 Patient encounter procedure 04/21/2024 9:10 AM EST Routine [facility] [address] [place] [place] [id number] Carol Mistry, DO [address] [place], [place] [id number] [facility] Start: 03-24-2024 End: 04-24-2024 Alpha fetoprotein, maternal Alpha fetoprotein, maternal Lab Routine Need for maternal serum alpha-protein (MSAFP) screening Expected: 03/24/2024 (Approximate), Expires: 04/24/2024 [facility] Comment on above: Expected: 03/24/2024 (Approximate), Expires: 04/24/2024 Start: 03-24-2024 End: 03-24-2025 US for US OB ANATOMY SINGLE W US OB CERVICAL LENGTH Imaging Routine Screening, , for anatomic survey Expected: 03/24/2024 (Approximate), Expires: 03/24/2025 [facility] Comment on above: Expected: 03/24/2024 (Approximate), Expires: 03/24/2025 Start: 03-24-2024 End: 03-24-2024 Patient encounter procedure 03/24/2024 8:30 AM EDT Routine [facility] [address] [place] [phone] Wanda Gallardo PA [address] [place] [address] [facility] Start: 02-20-2024 End: 02-20-2024 Patient encounter procedure 02/20/2024 9:50 AM EDT Routine [facility] [address] [place] [phone] Carol Mistry DO [address] [place] [address] [facility] Start: 01-31-2024 End: 01-30-2025 ABO/Rh ABO/Rh Lab Routine Missed menses Expected: 01/31/2024 (Approximate), Expires: 01/30/2025 [facility] Comment on above: Expected: 01/31/2024 (Approximate), Expires: 01/30/2025 Start: 01-31-2024 End: 01-30-2025 Blood type and Indirect antibody screen panel - Blood Type and screen Lab Routine Missed menses Expected: 01/31/2024 (Approximate), Expires: 01/30/2025 [facility] Work Phone: Comment on above: Expected: 01/31/2024 (Approximate), Expires: 01/30/2025 Start: 01-31-2024 End: 01-30-2025 US Pelvis transvaginal US OB transvaginal Imaging Routine Missed menses Expected: 01/31/2024 (Approximate), Expires: 01/30/2025 [facility] Comment on above: Expected: 01/31/2024 (Approximate), Expires: 01/30/2025 Start: 01-26-2024 Influenza vaccination Influenza Vacc ine (#1) [facility] Bacteria identified in Urine by Culture Urine culture Microbiology Routine Missed menses Ordered: 01/31/2024 [facility] Comment on above: Ordered: 01/31/2024 CBC W Auto Different ial panel - Blood CBC and differential Lab Routine Missed menses Ordered: 01/31/2024 [facility] Comment on above: Ordered: 01/31/2024 CHLAMYDIA TRACHOMATI S (GENITO/STI) CHLAMYDIA TRACHOMATIS (GENITO/STI) Lab Routine Exposure to STD Ordered: 03/24/2024 [facility] Comment on above: Ordered: 03/24/2024 Cytology Cervical or vaginal smear or scraping study Pap Smear Pathology and Cytology Routine Well woman exam with routine gynecological exam Ordered: 03/24/2024 [facility] Comment on above: Ordered: 03/24/2024 Hemoglobin A1c/Hemoglobin.total in Blood Hemoglobin A1c Lab Routine Missed menses Ordered: 01/31/2024 [facility] Comment on above: Ordered: 01/31/2024 Hepatitis B virus surface Ag [Presence] in Serum or Plasma by Immunoassay Hepatitis B surface antigen Lab Routine Missed menses Ordered: 01/31/2024 [facility] Comment on above: Ordered: 01/31/2024 Hepatitis C virus Ab [Presence] in Serum or Plasma by Immunoassay Hepatitis C antibody Lab Routine Missed menses Ordered: 01/31/2024 [facility] Comment on above: Ordered: 01/31/2024 HIV-1/HIV-2 antigen/antibody combination immunoassay HIV-1 and HIV-2 antibodies Lab Routine Missed menses Ordered: 01/31/2024 [facility] Comment on above: Ordered: 01/31/2024 Neisseria gonorrhoea e DNA [Presence] in Unspecified specimen by REINIER with probe detection Neisseria gonorrhea DNA probe, direct Lab Routine Exposure to STD Ordered: 03/24/2024 [facility] Comment on above: Ordered: 03/24/2024 Reagin Ab [Presence] in Serum by RPR RPR Lab Routine Missed menses Ordered: 01/31/2024 [facility] Comment on above: Ordered: 01/31/2024 Rubella antibody, IgG Rubella an tibody, IgG Lab Routine Missed menses Ordered: 01/31/2024 [facility] Comment on above: Ordered: 01/31/2024 SURESWAB(R) ADVANCED VAGINITIS PLUS, TMA SURESWAB(R) ADVANCED VAGINITIS PLUS, TMA Pathology and Cytology Routine Exposure to STD Ordered: 03/24/2024 [facility] Work Phone: Comment on above: Ordered: 03/24/2024 [facility] Immunizations Immunization Date Immunization Notes Care Provider Nilo castillo 01-01-2002 diphtheria, tetanus toxoids and acellular pertussis vaccine, unspecified formulation Maricarmen Avila Other [facility] 01-01-2002 measles, mumps and rubella virus vaccine Maricarmen Avila Other [facility] 01-01-2002 poliovirus vaccine, inactivated Maricarmen Avila Other [facility] Other 01-01-2002 poliovirus vaccine, unspecified formulation [facility] 02-04-1998 diphtheria, tetanus toxoids and acellular pertussis vaccine, unspecified formulation Maricarmen Avila Other [facility] 02-04-1998 measles, mumps and rubella virus vaccine Maricarmen Avila Other [facility] 02-04-1998 trivalent poliovirus vaccine, live, oral Maricarmen Avila Other [facility] 04-27-1997 diphtheria, tetanus toxoids and pertussis vaccine Maricarmen Avila Other [facility] 04-27-1997 haemophilus influenz ae type b vaccine, conjugate unspecified formulation Maricarmen Avila Other [facility] 04-27-1997 hepatitis B vaccine, pediatric or pediatric/adolescent dosage Maricarmen Avila Other [facility] 01-16-1997 diphtheria, tetanus toxoids and pertussis vaccine Maricarmen Avila Other [facility] 01-16-1997 haemophilus influenz ae type b vaccine, conjugate unspecified formulation Maricarmen Avila Other [facility] 01-16-1997 trivalent poliovirus vaccine, live, oral Maricarmen Avila Other [facility] 1996 diphtheria, tetanus toxoids and pertussis vaccine Maricarmen Avila Other [facility] 1996 haemophilus influenz ae type b vaccine, conjugate unspecified formulation Maricarmen Avila Other [facility] 1996 hepatitis B vaccine, pediatric or pediatric/adolescent dosage Maricarmen Avila Other [facility] 1996 trivalent poliovirus vaccine, live, oral Maricarmen Avila Other [facility] 1996 hepatitis B vaccine, pediatric or pediatric/adolescent dosage Maricarmen Avila Other [facility] Payers Date Payer Category Payer Self-pay 2023 Medicaid [id number] 2022 Medicaid [id number] 1996 Unknown [id number] 2.16.84 [id number] 1996 Unknown [id number] [id number] 1996 Unknown [id number] 2.16.84 [id number] 1996 Unknown [id number] 2.16.8 [id number] 1996 Unknown [id number] 2.16.8 [id number] 1996 Unknown [id number] 2.16.84 [id number] 1996 Unknown [id number] 2.16.84 [id number] 1996 Unknown [id number] 2.16.84 [id number] 1996 Unknown [id number] 2.16.84 [id number] 1996 Unknown [id number] 2.16.84 [id number] 1996 Unknown [id number] 2.16.84 [id number] 1959 Unknown [id number] Unknown [id number] 2.1 [id number] Unknown [id number] 2.16.8 [id number] Social History Date Type Detail Facility Unknown if ever smoked [facility] Other Start: 02-16-2023 End: 01-31-2024 Sex Assigned At [employer] Other Start: 08-13-2023 End: 04-13-2024 Tobacco smoking status WIIS Smoker (finding) [facility] Start: 1995 Sex Assigned At Female F [facility] Start: 02-16-2023 Tobacco smoking stat us WIIS Smokes tobacco daily [facility] History of tobacco use Cigarette Smoker [facility] Start: 02-20-2024 End: 06-01-2024 Alcoholic beverage intake Current drinker of alcohol (finding) [facility] Start: 02-16-2023 End: 01-31-2024 History of Social function [facility] Start: 02-16-2023 Tobacco Comment Patient smokes 6-10 cigarettes/day after 60 minutes of waking up.Thinking about quitting. [facility] Start: 02-16-2023 Alcohol Comment 1 or 2 drinks on a typical day/monthly or less [facility] Start: 11-22-2023 [facility] Start: 1995 Sex assigned at Not on file N [facility] Start: 04-13-2024 End: 04-15-2024 Sex Female (finding) [facility] Start: 04-15-2024 Tobacco smoking stat [facility] Ex-smoker (finding) [facility] Clinical Notes 12-21-2021 to 06-16-2024 Dimple Rae LPN - 06/16/2024 9:00 AM TRICE Saucedo - 06/01/2024 10:10 AM Hayden Rae LPN - 04/21/2024 9:10 AM EST Note Date & Type Note Facility 06-16-2024 History of Presen t illness Narrative Reason [...] HISTORY Past Surgical History: Procedure Laterality Date MA MEDICATION MANAGEMENT 2013 Fludricortisone- neuro-cardiogenic syncope -JUAREZ MA MEDICATION MANAGEMENT antibiotic - bronchitis TONSILLECTOMY 2006 [...] nursing note reviewed. Exam conducted with a consumer studies professor present. Vitals: Estimated body mass index is 35.03 kg/m as calculated from the following: Height as of 02/12/23: 5' 1 . Weight as of this encounter: 185 lb 6.4 oz. BP: 110/74 Patient's last menstrual period was 11/02/2023. ASSESSMENT & PLAN ICD-10-CM 1. 31 weeks gestation of Z3A.31 2. Third trimester Z34.93 Return OB: Patient presents today for a routine obstetrics appointment. Patient is currently 31w4d . Patient states she is doing well but has complaints of being tired due to current . Patient has verbalizes frequent movement. labor precautions was discussed/given and patient was instructed to perform kick counts three times a day. No orders of the defined types were placed in this encounter. Follow Up: Patient is to return to office in 2 week for routine OB appointment. Documented by Dimple Rae LPN on behalf of: Carol Mistry DO documented in this encounter [facility] 06-01-2024 History of Presen t illness Narrative [...] HISTORY Past Surgical History: Procedure Laterality Date MA MEDICATION MANAGEMENT 2013 Fludricortisone- neuro-cardiogenic syncope -JUAREZ MA MEDICATION MANAGEMENT antibiotic - bronchitis TONSILLECTOMY 2006 [...] of: TRICE López documented in this encounter [facility] 04-21-2024 History of Presen t illness Narrative [...] HISTORY Past Surgical History: Procedure Laterality Date MA MEDICATION MANAGEMENT 2013 Fludricortisone- neuro-cardiogenic syncope -JUAREZ MA MEDICATION MANAGEMENT antibiotic - bronchitis TONSILLECTOMY 2006 [...] nursing note reviewed. Exam conducted with a consumer studies professor present. Vitals: Estimated body mass index is [...] Carol Mistry DO documented in this encounter [facility] 04-13-2024 Evaluation note Diagnosis Onset Date Resolution Viral URI with cough acute Nove mb 2023 9:10am Contact with or suspected exposure to severe acute respiratory syndrome noneactive April 132023 9:10am Sore throat noneactive March 9:10am Viral URI with cough acute [facility] 2023 4:00pm [facility] Work Phone: 1(531) 340-591110-29-2024 History of Present illness Narrative* TRICE López [...] HISTORY Past Surgical History: Procedure Laterality Date MA MEDICATION MANAGEMENT 2013 Fludricortisone- neuro-cardiogenic syncope -JUAREZ MA MEDICATION MANAGEMENT antibiotic - bronchitis TONSILLECTOMY 2006 [...] nursing note reviewed. Exam conducted with a consumer studies professor present. Vitals: Estimated body mass index is [...] behalf of: TRICE López [id number] History of Present illness Narrative* Samra Jordan LPN - 02/20/2024 9:50 AM EDT Reason for [...] HISTORY Past Surgical History: Procedure Laterality Date MA MEDICATION MANAGEMENT 2013 Fludricortisone- neuro-cardiogenic syncope -JUAREZ MA MEDICATION MANAGEMENT antibiotic - bronchitis TONSILLECTOMY 2006 [...] nursing note reviewed. Exam conducted with a consumer studies professor present. Vitals: Estimated body mass index is [...] or undercooked meat, and stay away from [facility]. Patient has been consulted regarding any further [...] of: Carol Mistry DO documented in this encounterNorth [place] [id number] History of Present illness Narrative* Carol Jeremias - 01/31/2024 9:30 AM EDT Reason for [...] Never Past Surgical History: Procedure Laterality Date MA MEDICATION MANAGEMENT 2013 Fludricortisone- neuro-cardiogenic syncope -JUAREZ MA MEDICATION MANAGEMENT antibiotic - bronchitis TONSILLECTOMY 2006 [...] or undercooked meat, and stay away from [facility]. Patient has also been advised to not [...] Completed by: Carol Mcdowell documented in this encounterNorth [place] [id number] Evaluation note* Encounter Date Diagnosis Assessment Notes [...] Suspected COVID-19 virus infection (ICD-10 - Z20.822) [facility] Other 05-11-2023 Evaluation note* Encounter Date Diagnosis [...] treatment plan. Patient left in stable condition. [facility] Other 09-20-2022 Evaluation note* Encounter Date Diagnosis [...] weeks for the cough to go away [facility] Other 07-28-2022 Evaluation note* Encounter Date Diagnosis [...] understanding and is agreeable with treatment plan [facility] Other Evaluation noteNo assessment information available [facility] Work Phone: Evaluation note* Diagnosis Well woman exam with routine gynecological exam Routine gynecological examination Exposure to STD Need for maternal serum alpha-protein (MSAFP) screening 19 weeks gestation of Screening, , for anatomic survey Encounter for anatomic survey [facility] Diagnosis Onset Date Resolution Status Admit Date Contact with or suspected exposure to severe acute respiratory syndrome noneactive April 132023 9:10am Sore throat noneactive March 9:10am [facility] Work Phone: Evaluation note* Diagnosis Second trimester state, incidental 23 weeks gestation of Diabetes mellitus screening Screening for diabetes mellitus documented in this encounter [facility]* Diagnosis Missed menses Nausea Nausea alone documented in this encounter [facility]* Diagnosis Second trimester state, incidental Nausea Nausea alone documented in this encounter [facility] HealthcareEvaluation note* Diagnosis 29 weeks gestation of Third trimester state, incidental documented in this encounter [facility] HealthcareEvaluation note* Diagnosis 31 weeks gestation of Third trimester state, incidental documented in this encounter [facility] HealthcareHistory general Narrative - Reported* Type Description Date Surgical History tonsillectomy Surgical History appendectomy Hospitalization History see above [facility] Other Summary Purpose Family History No Family [...] DATE CREATED AUTHOR AUTHOR'S ORGANIZ ATION 09/19/2023 Michi Kincaid [facility] DATE CREATED AUTHOR AUTHOR'S ORGANIZ ATION 05/10/2024 [facility] DATE CREATED AUTHOR AUTHOR'S ORGANIZ ATION 06/17/2024 [facility] EPIC Care Teams (unrecognized [...] 13, 2024 End: April 13, 2024 Gaye Niar APRN Attending Provider Active S tart: April [...] BE BASED ON THE PRIMARY CLINICAL RECORDS. [facility] [employer] [facility]. provides no warranty or guarantee of the accuracy or completeness of information in this document.
[2024-06-29 14:55] LABS: Bilirubin Urine NEGATIVE (NEGATIVE); Blood Urine NEGATIVE (NEGATIVE); Clarity Urine CLEAR (CLEAR); Color Urine LT. YELLOW (YELLOW); Glucose Urine UA NEGATIVE (NEGATIVE); Ketones Urine NEGATIVE (NEGATIVE); Leukocyte Esterase Urine SMALL (NEGATIVE); Nitrite Urine NEGATIVE (NEGATIVE); Protein Urine NEGATIVE (NEG/TRACE); Urine Microscopic Indicated YES
[2024-06-29 15:07] LABS: Bacteria Urine MODERATE #/HPF (NONE SEEN); Cast Seen? NONE SEEN #/LPF (NONE SEEN); Crystals Seen? None Seen #/HPF (None Seen); Mucus Urine TRACE (NONE SEEN); Squamous Epithelial Cell Urine MODERATE #/LPF (NONE/RARE)
[2024-06-29 15:08] LABS: Urine Culture Indicated YES
== END 2024-06-29 16:24 | disposition home or self-care (01) ==
PROVIDERS: Admitting Provider Obstetrics & Gynecology; Visit Provider Obstetrics & Gynecology
DX: O47.03 False labor before 37 completed weeks of gestation, third trimester (principal); Z3A.33 33 weeks gestation of pregnancy
CPT/HCPCS: 59025; 81001; 87086; G0378; G0379

== ENCOUNTER 2024-07-20 21:29 | Outpatient (REF) | payer MEDICAID, SELFPAY ==
--- OUTSIDE RECORDS SUMMARY | 2024-07-20 21:32 | XMS_ITS | CCD ---
Author Organization [facility] Care Team Providers Care Progress Developer Name Role Phone Maricarmen Avila Unavailable Rona Terry Unavailable AMMON Angelo, DR MORSE Attending Unavailable AMMON ., DR MORSE Consulting Unavailable AMMON ., DR MORSE Admitting Unavailable MISC, DR CHENEY Primary Care Unavailable VANCE ., IRAIDA Admitting Unavailable ZIEBAVEL, DR GRETEL Borrego Consulting Unavailable VANCE ., [...] Herring Attending Unavailable WANDA GALLARDO Attending Unavailable CRAOL MISTRY Attending Unavailable WANDA GALLARDO Attending Unavailable FEDECAROL ROSALES Attending Unavailable WANDA GALLARDO Attending Unavailable FEDEJACKSON ROSALESY Referring Unavailable Fede DO, Carol Unavailable Allergies Allergy Classification Reported Allergen(s) Allergy Type Date of Onset Reaction(s) Facility (4 sources) Cefixime Drug Allergy [employer] Other (2 sources) Dextrothyroxine ; Translations: [Suprax] Drug Allergy 8 [facility] Repository (20 sources) Cefixime Propensity to adverse reactions 3 [facility] Healthcare Work Phone: (1 source) Cefixime Drug Allergy 4 [facility] Repository Medications Current Medications Medication [...] hours for 5 days September, Active Pnv 262-Miwwz-Rqvli-3-Fish Oil 400-32.5 mcg-mg tablet,chewable (2 sources) Start: 04-13-2024 Pnv 627-Xbglx-Mvnfx-3-Fish Oil 400-32.5 mcg-mg tablet,chewable Active TAB PO [...] Active promethazine hydrochloride 12.5 mg oral tablet (20 sources) Phenothiazine Start: 02-20-2024 take 1 tablet [...] Drug Class(es) Dates Sig (Normalized) Sig (Original) [id number] 200 actuat albuterol 0.09 mg/actuat metered dose inhaler (2 sources) beta2-Adrenergic Agonist Start: 02-13-2022 take 2 puff(s) by inhalation every four hours as needed Albuterol Sulfate HFA 108 (90 Base) MCG/ACT 2 puffs as needed Inhalation every 4 hrs Jan, Not-Taking dextromethorphan hydrobromide 15 mg / guaiFENesin 400 mg / pseudoephedrine hydrochloride 60 mg oral tablet (4 sources) alpha-Adrenergic Agonist, Uncompetitive C-lrzmtq-J-aspartat e Receptor Antagonist, Sigma-1 Agonist Start: 08-13-2023 [...] 24 hours for 5 days September, Active nitrofurantoin, macrocrystals 25 mg / nitrofurantoin, monohydrate 75 mg oral capsule (4 sources) Nitrofuran Antibacterial Start: 06-30-2024 End: 07-13-2024 take 1 capsule by mouth in the morning nitrofurantoin, macrocrystal-monohydrate, (Macrobid) 100 MG capsule Indications: Urinary tract infection without hematuria, site unspecified Take 1 capsule (100 mg) by mouth in the morning and 1 capsule (100 mg) before bedtime. Do all this for 7 days. 14 capsule 06/30/2024 07/13/2024 Discontinued Problems Active Problems Problem Classification Problem Date [...] 04-13-2024 Chronic Other and delivery including normal (20 sources) Second trimester ; Translations: [Encounter for [...] of ] 03-24-2024 Episodic Residual codes; unclassified (18 sources) Gestation period, 23 weeks; Translations: [23 weeks gestation of ] Onset: 4 04-21-2024 Episodic Residual codes; unclassified (2 sources) Gestation period, 29 weeks; Translations: [29 weeks gestation of ] 06-01-2024 Episodic Residual codes; unclassified (2 sources) Gestation period, 31 weeks; Translations: [31 weeks gestation of ] 06-16-2024 Episodic Residual codes; unclassified (2 sources) Gestation period, 33 weeks; Translations: [33 weeks gestation of ] 06-30-2024 Episodic Residual codes; unclassified (2 sources) Gestation period, 35 weeks; Translations: [35 weeks gestation of ] 07-13-2024 Episodic Substance-related disorders (6 sources) Nicotine dependence, cigarettes, uncomplicated; Translations: [Smoker] Onset: 3 Chronic Unclassified (1 source) CONTACT W/AND (SUSP) EXPOS COVID-19; Translations: [CONTACT W/AND (SUSP) EXPOS COVID-19] Onset: 3 Unclassified (3 sources) COUGH, UNSPECIFIED; Translations: [COUGH, UNSPECIFIED] Onset: 3 Unclassified (1 source) POSTURAL ORTHOSTATIC TACHY SYN POTS; Translations: [POSTURAL ORTHOSTATIC TACHY SYN POTS] Onset: 3 Urinary tract infections (2 sources) Urinary tract infectious disease; Translations: [Urinary tract infection, site not specified] 06-30-2024 Episodic Viral infection (2 sources) Viral infection, unspecified; [...] Range Facility Urinalysis macro (dipstick) panel (U)on 07-13-2024 Bilirubin, UA Negative Negative - 4(70) +++ mg/dL [facility] Blood, UA Negative Negative - 50 Sukhi/mcL [facility] Healthcare Clarity, UA Cloudy [facility] Color, UA Maricarmen [facility] Glucose, UA Negative Negative - 1999(110) ++++ mg/dL [facility] Interpretation and review of laboratory results Abnormal [facility] Ketones, UA Positive Negative - 160(16) ++++ mg/dL [facility] Comment on above: 40 Leukocytes, UA Positive Negative - 500+++ Lambert/mcL [facility] Comment on above: SMALL Nitrite, UA Negative Negative - Positive [facility] Healthcare pH, UA 6 5 - 9 [facility] Protein, UA Negative Negative - 1999(20) ++++ mg/dL [facility] Spec Grav, UA 1.025 1 - 1.03 [facility] Urobilinogen, UA 0.2 0.2 - 12 mg/dL [facility] Urinalysis macro (dipstick) panel (U)on 06-30-2024 Bilirubin, UA Negative Negative - 4(70) +++ mg/dL [facility] Blood, UA Negative Negative - 50 Sukhi/mcL [facility] Healthcare Clarity, UA Clear [facility] Color, UA Yellow [facility] Glucose, UA Negative Negative - 1999(110) ++++ mg/dL [facility] Interpretation and review of laboratory results Abnormal [facility] Ketones, UA Negative Negative - 160(16) ++++ mg/dL [facility] Leukocytes, UA Negative Negative - 500+++ Lambert/mcL [facility] Nitrite, UA Negative Negative - Positive [facility] pH, UA 5.5 5 - 9 [facility] Protein, UA Positive Negative - 1999(20) ++++ mg/dL [facility] Spec Grav, UA 1.03 1 - 1.03 [facility] Urobilinogen, UA 0.2 0.2 - 12 mg/dL [facility] TBH UA (CLEAN/CATCH) ANIMAL SITTER/DANIELA RO IF IND.on 06-29-2024 BILIRUBIN URINE Negative NEGATIVE [facility] Heal thcare BLOOD URINE Negative NEGATIVE [facility] Clarity (U) CLEAR CLEAR [facility] Color (U) LT. YELLOW YELLOW [facility] Healthcar e GLUCOSE URINE UA Negative NEGATIVE mg/dL [facility] Interpretation and review of laboratory results Abnormal [facility] Ketones Ql (U) Negative NEGATIVE mg/dL [facility] Leukocyte esterase Test strip Ql (U) SMALL Abnormal NEGATIVE [facility] NITRITE URINE Negative NEGATIVE [facility] pH (U) 6.0 [pH] 5.0 - 9.0 [facility] PROTEIN URINE Negative NEG/TRACE mg/dL [facility] SPECIFIC GRAVITY URINE 1.020 1.005 - 1.025 [facility] URINE MICROSCOPIC INDICATED YES [facility] UROBILINOGEN URINE 1.0 EU/dL 0.2 - 1.0 EU/dL [facility] US OB LIMITED 1+ FETUSESon 0 06-03-2024 [...] WITH AUTO DIFFon BASOPHILS ABSOLUTE AUTO 0 [facility] Basophils/100 WBC (Bld) 0.2 % 0.2 - 2.0 % [facility] Eosinophils/100 WBC (Bld) 1.7 % 0.9 - 7.0 % [facility] Erythrocyte distribution width (RBC) [Ratio] 12.8 % 11.0 - 15.0 % [facility] Hematocrit (Bld) [Volume fraction] 31.9 % Low 36.0 - 48.0 % [facility] Hemoglobin (Bld) [Mass/Vol] 11.1 g/dL Low 12.0 - 16.0 g/dL [facility] IMMATURE GRANULOCYTES ABS AUTO 0.19 High [facility] Immature granulocytes/100 WBC (Bld) 1.5 % High 0.0 - 0.5 % [facility] Interpretation and review of laboratory results Abnormal [facility] LYMPHOCYTES ABSOLUTE AUTO 2.4 [facility] Lymphocytes/100 WBC (Bld) 19.2 % Low 20.5 - 60.0 % [facility] MCH (RBC) [Entitic mass] 32 pg 26.7 - 34.0 pg [facility] MCHC (RBC) [Mass/Vol] 34.8 g/dL 29.9 - 35.2 g/dL [facility] MCV (RBC) [Entitic vol] 91.9 fL 81.0 - 99.0 fL [facility] MONOCYTES ABSOLUTE AUTO 0.8 [facility] Monocytes/100 WBC (Bld) 6.4 % 1.7 - 12.0 % [facility] NEUTROPHILS ABSOLUTE AUTO 9 High [facility] Neutrophils/100 WBC (Bld) 71 % 43.0 - 75.0 % [facility] Platelet mean volume (Bld) [Entitic vol] 10.7 fL 9.5 - 13.5 fL [facility] are TBH EO # 0.2 [facility] Health[facility] TB PLT 162 [facility] e TB RBC 3.47 Low [facility] TB WBC 12.7 High [facility] Urinalysis macro (dipstick) panel (U)on 06-01-2024 Bilirubin, UA Negative Negative - 4(70) +++ mg/dL [facility] Blood, UA Negative Negative - 50 Sukhi/mcL [facility] Clarity, UA Clear [facility] re Color, UA Yellow [facility] e Glucose, UA Negative Negative - 2000(110) ++++ mg/dL [facility] Interpretation and review of laboratory results Normal [facility] Ketones, UA Negative Negative - 160(16) ++++ mg/dL [facility] Healthcare Leukocytes, UA Negative Negative - 500+++ Lambert/mcL [facility] Healthcare Nitrite, UA Negative Negative - Positive [facility] Healthcare pH, UA 6 5 - 9 [facility] Protein, UA Negative Negative - 1999(20) ++++ mg/dL [facility] Spec Grav, UA 1.015 1 - 1.03 [facility] Urobilinogen, UA 0.2 0.2 - 12 mg/dL [facility] Throat Cultureon 05-07-2024 Throat culture Moderate Normal Respiratory Gita 2 Days PERFORMED BY: [facility] [address] [place] [address] PATHOLOGIST NEWS TECHNICAL DIRECTOR MELCHOR RANDALL M.D. Normal [facility] Comment on above: Performed By: #### C UT #### [address] Urinalysis macro (dipstick) panel (U)on 04-22-2024 Bilirubin, UA Negative Negative - 4(70) +++ mg/dL [facility] Blood, UA Negative Negative - 50 Sukhi/mcL [facility] Clarity, UA Clear [facility] Color, UA Yellow [facility] Glucose, UA Negative Negative - 1999(110) ++++ mg/dL [facility] Interpretation and review of laboratory results Normal [facility] Ketones, UA Negative Negative - 160(16) ++++ mg/dL [facility] Leukocytes, UA Negative Negative - 500+++ Lambert/mcL [facility] Nitrite, UA Negative Negative - Positive [facility] pH, UA 5.8 5 - 9 [facility] Protein, UA Negative Negative - 1999(20) ++++ mg/dL [facility] Spec Grav, UA 1.015 1 - 1.03 [facility] Urobilinogen, UA 1.0 0.2 - 12 mg/dL [facility] No Panel InformationOrdered By: Gaye Nair on 04-13-2024 Quick Strep (POC) [facility] IGP,APTIMA HPV,AGE GDLNon AGE GDLN ACOG TESTING Note . [facility] Healthcare Comment on above: TESTS RESULT FLAG UN ITS REF RANGE LAB Clinician Provided Cytology Information Source.............Cervix Other.............. No. of containers..01 ThinPrep Vial Age Roberto MORRISOG Sania... -24 06 FLAG LEGEND: L-Low Normal,H-High Normal,LL-Alert Low,HH-Alert High <-Panic Low,>-Panic High,A-Abnormal,AA-Critical Abnormal Performed at: 01 =G [address] [address] Kaci Gregory MD, IGP, RFX APTIMA HPV ASCU Note . [facility] Comment on above: TESTS RESULT FLAG UN ITS REF RANGE LAB DIAGNOSIS: 02 NEGATIVE FOR INTRAEPITHELIAL LESION OR MALIGNANCY. Specimen adequacy: 02 Satisfactory for evaluation. No endocervical component is identified. An endocervical component is not commonly seen in the patient. Performed by: Liv Benton Manager Support Services ([facility]) . 02 Note: Note 02 The Pap [...] <-Panic Low,>-Panic High,A-Abnormal,AA-Critical Abnormal Performed at: [address] [address] Kaci Gregory MD, Performed at: = - Lab[address] [id number] Budget Report Clerk: Kaci Gregory MD, Phone: [phone] Performed at: [address] [id number] Budget Report Clerk: Kaci Gregory MD, Phone: [phone] SPATULA-ALONE CERVIX [facility] URETHRITIS/DISCHARGE PLUS VA GINITIS (HTRX)on 03-25-2024 ATOPOBIUM VAGINAE 30.308 Abnormal [facility] ATOPOBIUM VAGINAE Detected Abnormal [facility] BVAB 2,3 (BACTERIAL VAGINOSIS ASSOCIATED BACTERIA 2, 3); MOBILUNCUS SPP 23.769 Abnormal [facility] BVAB 2,3 (BACTERIAL VAGINOSIS ASSOCIATED BACTERIA 2, 3); MOBILUNCUS SPP Detected Abnormal [facility] KEN ALBICANS, PARAPSILOSIS, TROPICALIS 0 [facility] KEN ALBICANS, PARAPSILOSIS, TROPICALIS Not detected [facility] Not detected [facility] H ealthcare KEN KRUSEI 0 [facility] Healt hcare KEN KRUSEI Not detected [facility] CHLAMYDIA TRACHOMATIS 0 [facility] CHLAMYDIA TRACHOMATIS Not detected N [facility] ERMB, C; MEFA 21.812 Abnormal [facility] Health care ERMB, C; MEFA Detected Abnormal [facility] GARDNERELLA VAGINALIS 27.115 Abnormal [facility] GARDNERELLA VAGINALIS Detected Abnormal [facility] Interpretation and review of laboratory results Abnormal [facility] MEGASPHAERA (TYPES 1, 2) 21.09 Abnormal [facility] MEGASPHAERA (TYPES 1, 2) Detected Abnormal [facility] MYCOPLASMA GENITALIUM 0 [facility] MYCOPLASMA GENITALIUM Not detected N [facility] NEISSERIA GONORRHOEAE 0 [facility] NEISSERIA GONORRHOEAE Not detected N [facility] TET B, TET M 22.295 Abnormal [facility] Healthc are TET B, TET M Detected Abnormal [facility] are TRICHOMONAS VAGINALIS 0 [facility] TRICHOMONAS VAGINALIS Not detected N [facility] Urinalysis macro (dipstick) panel (U)on 03-24-2024 Bilirubin, UA Negative Negative - 4(70) +++ mg/dL [facility] Blood, UA Negative Negative - 50 Sukhi/mcL [facility] Clarity, UA Clear [facility] re Color, UA Yellow [facility] Glucose, UA Negative Negative - 1999(110) ++++ mg/dL [facility] Interpretation and review of laboratory results Abnormal [facility] Ketones, UA Positive Negative - 160(16) ++++ mg/dL [facility] Comment on above: trace Leukocytes, UA Negative Negative - 500+++ Lambert/mcL [facility] Nitrite, UA Negative Negative - Positive [facility] pH, UA 5.5 5 - 9 [facility] Protein, UA Negative Negative - 1999(20) ++++ mg/dL [facility] Spec Grav, UA 1.025 1 - 1.03 [facility] Urobilinogen, UA 0.2 0.2 - 12 mg/dL [facility] Urinalysis macro (dipstick) panel (U)on 02-20-2024 Bilirubin, UA Negative Negative - 4(70) +++ mg/dL [facility] Healthcare Blood, UA Negative Negative - 50 Sukhi/mcL [facility] Clarity, UA Clear [facility] Color, UA Yellow [facility] Glucose, UA Negative Negative - 1999(110) ++++ mg/dL [facility] Healthcare Interpretation and review of laboratory results Normal [facility] Ketones, UA Negative Negative - 160(16) ++++ mg/dL [facility] Leukocytes, UA Negative Negative - 500+++ Lambert/mcL [facility] Healthcare Nitrite, UA Negative Negative - Positive [facility] Healthcare pH, UA 6.0 5 - 9 [facility] Protein, UA Negative Negative - 1999(20) ++++ mg/dL [facility] Spec Grav, UA 1.010 1 - 1.03 [facility] Urobilinogen, UA 0.2 0.2 - 12 mg/dL [facility] HCG ( test) Ql (U)o n 01-31-2024 Interpretation and review of laboratory results Abnormal [facility] Preg Test, Ur Positive [facility] Health care [facility] Urinalysis macro (dipstick) panel (U)on 01-31-2024 Bilirubin, UA Negative Negative - 4(70) +++ mg/dL [facility] Healthcare Blood, UA Negative Negative - 50 Sukhi/mcL [facility] Clarity, UA Clear [facility] Color, UA Yellow [facility] Glucose, UA Negative Negative - 1999(110) ++++ mg/dL [facility] Healthcare Interpretation and review of laboratory results Abnormal [facility] Ketones, UA Negative Negative - 160(16) ++++ mg/dL [facility] Healthcare Leukocytes, UA Trace Negative - 500+++ Lambert/mcL [facility] Healthcare Nitrite, UA Negative Negative - Positive [facility] Healthcare pH, UA 6.5 5 - 9 [facility] Protein, UA Trace Negative - 1999(20) ++++ mg/dL [facility] Spec Grav, UA 1.025 1 - 1.03 [facility] Urobilinogen, UA 0.2 0.2 - 12 mg/dL [facility] ED Note-Physicianalex 08-15-19 24 ED Note-Physician [id number] #[id number] Normal [facility] Interdisciplinary Note - Soc ial Workeron 08-15-2023 Interdisciplinary Note - Building Carpenter Helper This SW made a tc to patient today to discuss her positive depression screen. Patient did not answer so a message was left with SW's contact information. SW will remain available. Normal [facility] Ambulatory Visit Summaryon 0 [...] PM EDT With: Mac Bhatt MD Where: [facility] [place] Normal [facility] Office/Clini c [...] provider: Bryon Any recent labs: ED in [place] Has POTS and is feeling lightheaded and brain fog. These are symptoms that she has had in the past. Was last seen in 2019 Dr. Meléndez in [facility] UTD: Pelvic/Pap: UTD flu: refused Acute: Current issues/complaints: Was in [place] ED last week for a migraine. Patient [...] # 20 tab(s), Refills(s) 0, Pharmacy: [facility]/pharmacy #[id number], 154.5, cm, 08/13/23 13:27:00 EDT, Height/Length Dosing, 72.6, kg, 08/13/23 13:27:00 EDT, Weight Dosing [facility] External Ambulatory Referral 2. Postural orthostatic tachycardia syndrome (G90.A: Postural orthostatic tachycardia syndrome [POTS]) - [facility] School Psychologist who specializes in this. Ordered: cyclobenzaprine, 5 mg = 1 tab(s), Oral, Daily, PRN Headache, Precautions discussed in detail, # 20 tab(s), Refills(s) 0, Pharmacy: [facility]/pharmacy #[id number], 154.5, cm, 08/13/23 13:27:00 EDT, Height/Length Dosing, 72.6, kg, 08/13/23 13:27:00 EDT, Weight Dosing [facility] External Ambulatory Referral 3. BMI 30.0-30.9,adult (Z68.30: Body mass index [BMI] 30.0-30.9, adult) - BMI education given. Ordered: cyclobenzaprine, 5 mg = 1 tab(s), Oral, Daily, PRN Headache, Precautions discussed in detail, # 20 tab(s), Refills(s) 0, Pharmacy: [facility]/pharmacy #[id number], 154.5, cm, 08/13/23 13:27:00 EDT, Height/Length Dosing, 72.6, kg, 08/13/23 13:27:00 EDT, Weight Dosing [facility] External Ambulatory Referral One month follow up [...] Yes, 08/13/2023 Family History Hypertension: Father. Normal [facility] Comment on above: Result Comment: Elec tronically Signed By: Miller WILSON, Mac Puga\.br\Date and Time Signed: 08/13/23 14:05 EDT No Panel InformationOrdered By: Maricarmen Avila on 08-13-2023 Quick Strep (POC) [facility] Quick Strepon 10-04-2022 S. pyogenes Org specific cx Ql (Throat) Negative [employer] Other Quick Strep [facility] [employer] Other Covid-19 PCR ([facility])on 06-28 SARS-CoV-2 (COVID-19) RNA REINIER+probe Ql (Unsp spec) Not detected Normal NOT DETECTED [facility] Comment on above: Result Comment: When [...] for this test is supported by the Rip Machine Operator of Health and Human Service's declaration [...] Performed By: #### S SCRN, GRASTCX #### [facility] [address] [address] [address] Ang Simmons INFLUENZA A AND B AGon 07-18 INFLUENZA A AG Negative Normal NEGATIVE SEE COMMENT [facility] Comment on above: Performed By: #### I NFLUAB #### [facility] [address] [address] [address] Ang Simmons INFLUENZA B AG Negative Normal NEGATIVE SEE COMMENT [facility] Comment on above: Performed By: #### I NFLUAB #### [facility] [address] [address] [address] Ang Simmons XR CHEST 2 Von [...] by: EMMA BABB Date: 2022-07-18 21:[address] [facility] [address] ABD/PELVIS WO CONon 05-31 CT [...] GRETEL HOOK Date: 2022-05-31 11:54 Normal [facility] Covid-19 PCR (CVDTB)on SARS-CoV-2 (COVID-19) RNA REINIER+probe Ql (Unsp spec) Not detected Normal NOT DETECTED [facility] Comment on above: Result Comment: This test is not yet approved or cleared by the [place] FDA. When there are no FDA-approved or cleared tests available, and other criteria are met, FDA can make tests available under an emergency access mechanism called an Emergency Use Authorization (EUA). The EUA for this test is supported by the Rip Machine Operator of Health and Human Service's (HHS's) declaration [...] consistent with SARS-CoV-2. Performed By: #### S ODALYS RODRIGUESTCX #### [facility] [address] [place] [address] Dr. Ang VALLECILLO URINE PROFILEon 3 Bilirubin Ql (U) Negative Normal NEGATIVE [facility] Comment on above: Performed By: #### P KELLI CUNNINGHAMR #### [facility] [address] [address] [address] Ang Simmons Clarity (U) CLEAR Normal CLEAR [facility] Comment on above: Performed By: #### P REGU, ERUR #### [facility] [address] [address] [address] Ang Simmons Color (U) LT. YELLOW Normal YELLOW [facility] Comment on above: Performed By: #### P REGU, ERUR #### [facility] [address] [place] [address] Dr. Ang POWELL A micrscopic examination will be performed if indicated. Normal [facility] Comment on above: Performed By: #### P REGU, ERUR #### [facility] [address] [place] [address] Dr. Ang Simmons Glucose Ql (U) Negative Normal NEGATIVE [facility] Comment on above: Performed By: #### P REGU, ERUR #### [facility] [address] [place] [address] Dr. Ang Simmons Hemoglobin Ql (U) Negative Normal NEGATIVE [facility] Comment on above: Performed By: #### P REGU, ERUR #### [facility] [address] [place] [place] [address] Dr. Ang Simmons Ketones Ql (U) Negative Normal NEGATIVE [facility] Comment on above: Performed By: #### P REGU, ERUR #### [facility] [address] [address] [address] nAg Simmons LEUKOCYTES Negative Normal NEGATIVE [facility] Comment on above: Performed By: #### P REGU, ERUR #### [facility] [address] [address] [address] Ang Simmons Nitrite Ql (U) Negative Normal NEGATIVE [facility] Comment on above: Performed By: #### P REGU, ERUR #### [facility] [address] [place] [address] Dr. Ang Simmons pH (U) 5.5 [pH] Normal 5-9 [facility] Comment on above: Performed By: #### P REGU, ERUR #### [facility] [address] [place] [address] Dr. Ang Simmons SPEC GRAVITY 1.030 Abnormal 1.005-<=1.025 [facility] Comment on above: Performed By: #### P REGU, ERUR #### [facility] [address] [place] [address] Dr. Ang Simmons UA PROTEIN Negative Normal NEGATIVE/ TRACE [facility] Comment on above: Performed By: #### P REGU, ERUR #### [facility] [address] [place] [address] Dr. Ang Simmons UR MICRO IND NOT INDICATED Normal [facility] Comment on above: Performed By: #### P REGU, ERUR #### [facility] [address] [place] [address] Dr. Ang Simmons Urobilinogen Qn (U) 0.2 {Jazmin'U}/dL Normal 0.2 - 1. 0 [facility] Comment on above: Performed By: #### P REGU, ERUR #### [facility] [address] [place] [address] Dr. Ang Simmons GROUP A STREP CULTUREon S. pyogenes Ag Ql (Unsp spec) Culture Observations: NEGATIVE FOR GROUP A STREPTOCOCCUS. Normal [facility] Comment on above: Performed By: #### S SCRN, GRASTCX #### [facility] [address] [place] [address] Dr. Ang Simmons INFLUENZA A AND B AGon 05-31 INFLUANEGH SEE BELOW Normal [facility] Comment on above: Result Comment: Nega tive for Flu A protein angiten. Infection due to Flu A cannot be ruled out. Flu A angiten in the sample may be below the detection limit of the test. Performed By: #### S SCRN, GRASTCX #### [facility] [address] [place] [address] Dr. Ang Simmons INFLUBNEGH SEE BELOW Normal [facility] Comment on above: Result Comment: Nega tive for Flu B protein antigen. Infection due to Flu B cannot be ruled out. Flu B antigen in the sample may be below the detection limit of the test. Performed By: #### S SCRN, GRASTCX #### [facility] [address] [place] [address] Dr. Ang Simmons INFLUENZA A AG Negative Normal NEGATIVE SEE COMMENT [facility] Comment on above: Performed By: #### S SCRN, GRASTCX #### [facility] [address] [address] [address] Ang Simmons INFLUENZA B AG Negative Normal NEGATIVE SEE COMMENT [facility] Comment on above: Performed By: #### S SCRN, GRASTCX #### [facility] [address] [address] [address] Ang Simmons URon 05-31-2022 , QUAL Negative Normal NEGATIVE [facility] Comment on above: Performed By: #### P REGU, ERUR #### [facility] [address] [place] [address] Dr. Ang Simmons STREPT SCREENon 05-31-2022 STREP SCREEN A Negative Normal NEGATIVE [facility] Comment on above: Performed By: #### S SCRN, GRASTCX #### [facility] [address] [place] [address] Dr. Ang Simmons Quick Strepon 02-13-2022 S. pyogenes Org specific cx Ql (Throat) Negative [facility] Other Quick Strep [facility] [employer] Other SARS-CoV-2 (COVID-19) RNA NA A+probe Ql (Resp)on 02-13-2022 SARS-CoV-2 (COVID-19) RNA REINIER+probe Ql (Unsp spec) Negative [facility] [employer] Other Covid-19 PCR ([facility])on 11-24 SARS-CoV-2 (COVID-19) RNA REINIER+probe Ql (Unsp spec) Not detected Normal NOT DETECTED [facility] Comment on above: Result Comment: When [...] for this test is supported by the [place] of [employer] and Human Service's declaration that [...] used). Performed By: #### C VDTBH #### [facility] [address] [address] [address] Ang Simmons GROUP A STREP CULTUREon 11-24 S. pyogenes Ag Ql (Unsp spec) Culture Observations: NEGATIVE FOR GROUP A STREPTOCOCCUS. Normal [facility] Comment on above: Performed By: #### S SCRN, GRASTCX #### [facility] [address] [place], [place] [address] Dr. Ang Simmons STREPT SCREENon 12-10-2021 STREP SCREEN A Negative Normal NEGATIVE [facility] Comment on above: Performed By: #### S SCRN, GRASTCX #### [facility] [address] [place], [place] [address] Dr. Ang Simmons Vital Signs Date Time Vital Sign Value Performing Clinician Facility 07-13-2024 15:13-0500 Body mass index (BMI) [Ratio] 36.47 kg/m2 Dail[facility]ingle Work Phone: [facility] 07-13-2024 15:13-0500 Body weight 87.54 kg Carol Nightingale Work Phone: [facility] 07-13-2024 15:13-0500 Diastolic blood pressure 70 mm[Hg] [facility] Nightingale Work Phone: [facility] 07-13-2024 15:13-0500 Systolic blood pressure 120 mm[Hg] Carol Fede DO Work Phone: [facility] 06-30-2024 11:48-0500 Body mass index (BMI) [Ratio] 35.71 kg/m2 Wanda [place] PA Work Phone: [facility] 06-30-2024 11:48-0500 Body weight 85.73 kg Wanda [place] PA Work Phone: [facility] 06-30-2024 11:48-0500 Diastolic blood pressure 82 mm[Hg] Wanda Emy PA Work Phone: [facility] 06-30-2024 11:48-0500 Systolic blood pressure 120 mm[Hg] Wanda [place] PA Work Phone: [facility] 06-16-2024 09:21-0500 Body mass index (BMI) [Ratio] 35.03 kg/m2 Carol Fede DO Work Phone: [facility] 06-16-2024 09:21-0500 Body weight 84.1 kg Carol Fede DO Work Phone: [facility] 06-16-2024 09:21-0500 Diastolic blood pressure 74 mm[Hg] Carol Fede DO Work Phone: [facility] 06-16-2024 09:21-0500 Systolic blood pressure 110 mm[Hg] Carol Fede DO Work Phone: [facility] 06-01-2024 10:04-0500 Body mass index (BMI) [Ratio] 35.11 kg/m2 Wanda Emy PA Work Phone: [facility] 06-01-2024 10:04-0500 Body weight 84.28 kg Wanda Emy PA Work Phone: [facility] 06-01-2024 10:04-0500 Diastolic blood pressure 78 mm[Hg] Wanda [place] PA Work Phone: [facility] 06-01-2024 10:04-0500 Systolic blood pressure 120 mm[Hg] Wanda Emy PA Work Phone: [facility] 04-21-2024 12:52-0500 Body mass index (BMI) [Ratio] 32.69 kg/m2 Carol Fede DO Work Phone: [facility] 04-21-2024 12:52-0500 Body weight 78.47 kg Carol Fede DO Work Phone: [facility] 04-21-2024 12:52-0500 Diastolic blood pressure 76 mm[Hg] Carol Fede DO Work Phone: [facility] 04-21-2024 12:52-0500 Systolic blood pressure 120 mm[Hg] Carol Fede DO Work Phone: [facility] 04-15-2024 16:03-0500 Body height 162.56 cm [facility] 04-15-2024 16:03-0500 Body mass index (BMI) [Ratio] 29.8 kg/m2 [facility] 04-15-2024 16:03-0500 Body temperature 98.7 [degF] [facility] 04-15-2024 16:03-0500 Body weight 78.92 kg [facility] 04-15-2024 16:03-0500 Diastolic blood pressure 72 mm[Hg] [facility] 04-15-2024 16:03-0500 Heart rate 114 /min [facility] 04-15-2024 16:03-0500 Respiratory rate 18 /min [facility] 04-15-2024 16:03-0500 SaO2% (BldA) [Mass fraction] 97 % [facility] 04-15-2024 16:03-0500 Systolic blood pressure 101 mm[Hg] [facility] 04-13-2024 09:41-0500 Body height 162.56 cm [facility] 04-13-2024 09:41-0500 Body mass index (BMI) [Ratio] 29.2 kg/m2 [facility] 04-13-2024 09:41-0500 Body temperature 97.8 [degF] [facility] 04-13-2024 09:41-0500 Body weight 77.11 kg [facility] 04-13-2024 09:41-0500 Diastolic blood pressure 81 mm[Hg] [facility] 04-13-2024 09:41-0500 Heart rate 90 /min [facility] 04-13-2024 09:41-0500 Respiratory rate 18 /min [facility] 04-13-2024 09:41-0500 SaO2% (BldA) [Mass fraction] 99 % [facility] 04-13-2024 09:41-0500 Systolic blood pressure 119 mm[Hg] [facility] 03-24-2024 08:58-0400 Body mass index (BMI) [Ratio] 31.93 kg/m2 Wanda CARNES Work Phone: [facility] 03-24-2024 08:58-0400 Body weight 76.66 kg Wanda CARNES Work Phone: [facility] 03-24-2024 08:58-0400 Diastolic blood pressure 74 mm[Hg] Wanda CARNES Work Phone: [facility] 03-24-2024 08:58-0400 Systolic blood pressure 116 mm[Hg] Wanda CARNES Work Phone: [facility] 02-20-2024 10:38-0400 Body mass index (BMI) [Ratio] 30.23 kg/m2 Carol Fede DO Work Phone: [facility] 02-20-2024 10:38-0400 Body weight 72.58 kg Carol Fede DO Work Phone: [facility] 02-20-2024 10:38-0400 Diastolic blood pressure 78 mm[Hg] Carol Fede DO Work Phone: [facility] 02-20-2024 10:38-0400 Systolic blood pressure 120 mm[Hg] Carol Fede DO Work Phone: [facility] 01-31-2024 09:46-0400 Body mass index (BMI) [Ratio] 29.62 kg/m2 [facility] 01-31-2024 09:46-0400 Body weight 71.1 kg [facility] Nurse [facility] 01-31-2024 09:46-0400 Diastolic blood pressure 82 mm[Hg] [facility] Nurse [facility] 01-31-2024 09:46-0400 Systolic blood pressure 118 mm[Hg] [facility] 08-13-2023 09:36-0400 Body height 162.56 cm [facility] 08-13-2023 09:36-0400 Body mass index (BMI) [Ratio] 26.6 kg/m2 [facility] 08-13-2023 09:36-0400 Body temperature 98.6 [degF] [facility] 08-13-2023 09:36-0400 Body weight 70.3 kg [facility] 08-13-2023 09:36-0400 Heart rate 91 /min [facility] 08-13-2023 09:36-0400 Respiratory rate 16 /min [facility] 08-13-2023 09:36-0400 SaO2% (BldA) [Mass fraction] 99 % [facility] 03-18-2023 09:15-0400 Body height 158.75 cm Aure Moss Other [facility] [employer] Other 03-18-2023 09:15-0400 Body mass index (BMI) [Ratio] 29.15 kg/m2 Aure Moss Other [employer] Other 03-18-2023 09:15-0400 Body temperature 98.2 [degF] Aure Moss Other [employer] Other 03-18-2023 09:15-0400 Body weight 73.48 kg Aure Moss Other [employer] Other 03-18-2023 09:15-0400 Respiratory rate 18 /min Aure Moss Other [employer] Other 03-18-2023 09:15-0400 SaO2% (BldA) [Mass fraction] 98 % Aure Moss Other [employer] Other 10-04-2022 12:40-0400 Body height 158.75 cm Maricarmen Austin Other [employer] Other 10-04-2022 12:40-0400 Body mass index (BMI) [Ratio] 27.54 kg/m2 Maricarmen Avila Other [employer] Other 10-04-2022 12:40-0400 Body temperature 99.3 [degF] Maricarmen Avila Other [employer] Other 10-04-2022 12:40-0400 Body weight 69.4 kg Maricarmen Avila Other [employer] Other 10-04-2022 12:40-0400 Respiratory rate 18 /min Maricarmen Avila Other [employer] Other 10-04-2022 12:40-0400 SaO2% (BldA) [Mass fraction] 99 % Maricarmen Avila Other [employer] Other 02-13-2022 16:55-0400 Body height 158.75 cm Rona Harrison Other [employer] Other 02-13-2022 16:55-0400 Body mass index (BMI) [Ratio] 27.9 kg/m2 Rona Terry Other [employer] Other 02-13-2022 16:55-0400 Body temperature 98.4 [degF] Rona Terry Other [employer] Other 02-13-2022 16:55-0400 Body weight 70.31 kg Rona Terry Other [employer] Other 02-13-2022 16:55-0400 Respiratory rate 18 /min Rona Terry Other [employer] Other 02-13-2022 16:55-0400 SaO2% (BldA) [Mass fraction] 99 % Rona Terry Other [employer] Other 12-21-2021 16:20-0400 Body height 158.75 cm Maricarmen Avila Other [employer] Other 12-21-2021 16:20-0400 Body mass index (BMI) [Ratio] 27.64 kg/m2 Maricarmen Avila Other [employer] Other 12-21-2021 16:20-0400 Body temperature 98 [degF] Maricarmen Avila Other [employer] Other 12-21-2021 16:20-0400 Body weight 69.67 kg Maricarmen Avila Other [employer] Other 12-21-2021 16:20-0400 Diastolic blood pressure 67 mm[Hg] Maricarmen Avila Other [employer] Other 12-21-2021 16:20-0400 Respiratory rate 18 /min Maricarmen Avila Other [employer] Other 12-21-2021 16:20-0400 SaO2% (BldA) [Mass fraction] 98 % Maricarmen Avila Other [employer] Other 12-21-2021 16:20-0400 Systolic blood pressure 117 mm[Hg] Maricarmen Avila Other [employer] Other Encounters Encounter Date Encounter Type Care Provider Facility Start: 07-20-2024 End: 07-20-2024 Bamboo flowsheet Carol Fede DO Work Phone: [facility] Start: 07-20-2024 End: 07-20-2024 Bamboo flowsheet Carol Fede DO Work Phone: [facility] Start: 07-13-2024 End: 07-13-2024 Office outpatient visit 15 minutes Carol Fede DO Work Phone: [facility] Comment on above: 35 weeks gestation o f ; Third trimester Start: 07-13-2024 End: 07-13-2024 ambulatory CAROL FEDE Not Available Start: 07-13-2024 End: 07-13-2024 Bamboo flowsheet Carol Fede DO Work Phone: [facility] Start: 07-13-2024 End: 07-13-2024 Bamboo flowsheet Carol Fede DO Work Phone: [facility] Start: 06-30-2024 End: 06-30-2024 Bamboo flowsheet Wanda CARNES Work Phone: [facility] Start: 06-30-2024 End: 06-30-2024 Bamboo flowsheet Wanda CARNES Work Phone: [facility] Start: 06-30-2024 End: 06-30-2024 ambulatory WANDA GALLARDO Not Available Start: 06-30-2024 End: 06-30-2024 Office outpatient visit 15 minutes Wanda CARNES Work Phone: [facility] Comment on above: Third trimester preg rocio; 33 weeks gestation of ; Urinary tract infection without hematuria, site unspecified Start: 06-29-2024 End: 06-29-2024 Clinisync Result Encounter Carol Fede DO Work Phone: [facility] Unsolicited Start: 06-29-2024 End: 06-29-2024 Clinisync Result Encounter Carol Fede DO Work Phone: [facility] Unsolicited Start: 06-16-2024 End: 06-16-2024 Bamboo flowsheet Carol Fede DO Work Phone: [facility] Start: 06-16-2024 End: 06-16-2024 Bamboo flowsheet Carol Fede DO Work Phone: [facility] Start: 06-16-2024 End: 06-16-2024 ambulatory CAROL FEDE Not Available Start: 06-16-2024 End: 06-16-2024 [...] 06-01-2024 Office outpatient visit 15 minutes Wanda Gallardo PA Work Phone: [facility] Comment on above: 29 weeks gestation o f ; Third trimester Start: 06-01-2024 End: 06-01-2024 ambulatory WANDA GALLARDO Not Available Start: 05-07-2024 End: 05-07-2024 ambulatory Modesta Centeno Facility:[facility] Start: 04-21-2024 End: 04-21-2024 Office outpatient visit 15 minutes Carol Fede DO Work Phone: [facility] Comment on above: Second trimester pre gnancy; 23 weeks gestation of ; Diabetes mellitus screening Start: 04-15-2024 End: 04-15-2024 ambulatory [facility] Work Phone: Start: 04-15-2024 End: 04-15-2024 Patient encounter procedure [facility] Work Phone: Start: 04-13-2024 End: 04-13-2024 ambulatory [facility] Work Phone: Start: 04-13-2024 End: 04-13-2024 Patient encounter procedure [facility] Work Phone: Start: 03-24-2024 End: 03-24-2024 Bamboo flowsheet Wanda CARNES Work Phone: [facility] Start: 03-24-2024 End: 04-01-2024 Bamboo flowsheet Wanda CARNES Work Phone: [facility] Start: 03-24-2024 End: 04-01-2024 Clinisync Result Encounter Wanda CARNES Work Phone: [facility] External Department Unsolicited Start: 03-24-2024 End: 03-25-2024 External Result Encounter Wanda CARNES Work Phone: [facility] External Department Unsolicited Start: 03-24-2024 End: 03-24-2024 ambulatory WANDA GALLARDO Not Available Start: 03-24-2024 End: 03-24-2024 Patient encounter procedure Wanda CARNES Work Phone: [facility] Start: 03-24-2024 End: 03-24-2024 Periodic [...] End: 09-18-2023 ambulatory Mac Bhatt Facility[facility] Start: 08-27-2023 ambulatory Mac Bhatt Facility:[facility] Start: 08-13-2023 End: 08-14-2023 ambulatory Mac Bhatt Facility:[facility] Start: 08-13-2023 End: 08-13-2023 ambulatory [facility] Work Phone: Start: 08-13-2023 End: 08-13-2023 Patient encounter procedure [facility] Work Phone: Start: 03-18-2023 End: 03-18-2023 ambulatory Aure Moss Other [employer] Other Start: 03-18-2023 Office outpatient vi sit 15 minutes Aure Moss [facility] Start: 10-04-2022 End: 10-04-2022 ambulatory Maricarmen Avila Other [employer] Other Start: 10-04-2022 Office outpatient vi sit 25 minutes Maricarmen Austin [facility] Start: 07-18-2022 End: 07-19-2022 ambulatory KIAN VERNELL . Facility:[facility] Start: 05-31-2022 End: 05-31-2022 ambulatory IRAIDA VANCE . Facility:[facility] Start: 02-13-2022 End: 02-13-2022 ambulatory Rona Harrison Other [employer] Other Start: 02-13-2022 Office outpatient vi sit 15 minutes Rona Shineault [facility] Start: 12-21-2021 (URG) Urgent Care Visit Maricarmen Avila [facility] Start: 12-21-2021 End: 12-21-2021 ambulatory Maricarmen Avila Other [employer] Other Start: 12-10-2021 End: 12-10-[address] MINI VERDE . Facility: Procedures Date Procedure Procedure Detail Performing Clinician Start: 07-13-2024 Urnls dip stick/tabl et rgnt non-auto w/o micrscp Carol Fede DO Work Phone: Start: 06-30-2024 Urnls dip stick/tabl et rgnt non-auto w/o micrscp Wanda CARNES Work Phone: Start: 06-29-2024 [facility] UA (CLEAN/CATCH) ANIMAL SITTER/MICRO IF IND. Carol Fede DO Work Phone: Start: 06-01-2024 Urnls dip stick/tabl et rgnt [...] Treatment Date Care Activity Detail Author Start: 07-20-2024 End: 07-20-2024 Patient encounter procedure 07/20/2024 1:00 PM EST Routine [facility] [address] [place] [id number] Carol Mistry, DO [address] [place] [address] [facility] Start: 07-13-2024 End: 07-13-2024 Patient encounter procedure [facility] Comment on above: Arrived Start: 06-30-2024 End: 06-30-2024 Patient encounter procedure 06/30/2024 11:30 AM EST Routine [facility] [address] [place] [id number] Wanda Gallardo PA [address] [place], [place] [id number] [facility] Start: 06-16-2024 End: 06-16-2024 Patient encounter procedure 06/16/2024 9:00 AM EST Routine [facility] [address] [place] [address] Carol Mistry, DO [address] [place], [place] [id number] [facility] Start: 06-03-2024 End: 06-03-2024 Professional / ancillary services management 06/03/2024 1:00 PM EST Ancillary Procedure [facility] [address] [place] [address] [facility] Start: 06-01-2024 End: 06-01-2024 Patient encounter procedure 06/01/2024 10:10 AM EST Routine [facility] [address] [place] [address] Wanda Gallardo PA [address] [place] [address] Arrived [facility] Comment on above: Arrived Start: 04-21-2024 End: 04-21-2025 CBC panel - Blood by Automated count CBC Lab Routine Second trimester 23 weeks gestation of Expected: 04/21/2024 (Approximate), Expires: 04/21/2025 [facility] Work Phone: Comment on above: Expected: 04/21/2024 (Approximate), Expires: 04/21/2025 Start: 04-21-2024 End: 04-21-2025 Measurement of glucose 1 hour after glucose challenge for glucose tolerance test Glucose tolerance, 1 hour Lab Routine Second trimester 23 weeks gestation of Diabetes mellitus screening Expected: 04/21/2024 (Approximate), Expires: 04/21/2025 [facility] Comment on above: Expected: 04/21/2024 (Approximate), Expires: 04/21/2025 Start: 04-21-2024 End: 04-21-2024 Patient encounter procedure 04/21/2024 9:10 AM EST Routine [facility] [address] [facility] [place] [address] Carol Mistry, DO [address] [place] [address] [facility] Start: 03-24-2024 End: 04-24-2024 [...] AM EDT Routine [facility] [address] [place] [id number] Wanda Gallardo PA [address] [place] [address] [facility] Start: 02-20-2024 End: 02-20-2024 Patient encounter procedure 02/20/2024 9:50 AM EDT Routine [facility] [address] [place] [id number] Carol Mistry DO [address] [place] [address] [facility] Start: 01-31-2024 End: 01-30-2025 ABO/Rh ABO/Rh Lab Routine Missed menses Expected: 01/31/2024 (Approximate), Expires: 01/30/2025 [facility] Comment on above: Expected: 01/31/2024 (Approximate), Expires: 01/30/2025 Start: 01-31-2024 End: 09-06-2025 Blood type and Indirect antibody screen panel - Blood Type and screen Lab Routine Missed menses Expected: 01/31/2024 (Approximate), Expires: 01/30/2025 [facility] Work Phone: Comment on above: Expected: 01/31/2024 (Approximate), Expires: 01/30/2025 Start: 01-31-2024 End: 01-30-2025 US Pelvis transvaginal US OB transvaginal Imaging Routine Missed menses Expected: 01/31/2024 (Approximate), Expires: 01/30/2025 [facility] Comment on above: Expected: 01/31/2024 (Approximate), Expires: 01/30/2025 Start: 01-26-2024 Influenza vaccination Influenza Vacc ine (#1) [facility] Bacteria identified in Urine by Culture Urine culture Microbiology Routine Missed menses Ordered: 01/31/2024 [facility] Comment on above: Ordered: 01/31/2024 Bacteria identified in Urine by Culture Urine culture Microbiology Routine Urinary tract infection without hematuria, site unspecified Ordered: 06/30/2024 [facility] Work Phone: Comment on above: Ordered: 06/30/2024 CBC W Auto Different ial panel - Blood CBC and differential Lab Routine Missed menses Ordered: 01/31/2024 [facility] Comment on above: Ordered: 01/31/2024 CHLAMYDIA TRACHOMATI S (GENITO/STI) CHLAMYDIA TRACHOMATIS (GENITO/STI) Lab Routine Exposure to STD Ordered: 03/24/2024 [facility] Comment on above: Ordered: 03/24/2024 Cytology Cervical or vaginal smear or scraping study Pap Smear Pathology and Cytology Routine Well woman exam with routine gynecological exam Ordered: 03/24/2024 [facility] Comment on above: Ordered: 03/24/2024 Hemoglobin A1c/Hemoglobin.total in Blood Hemoglobin A1c Lab Routine Missed menses Ordered: 01/31/2024 [facility] Comment on above: Ordered: 01/31/2024 Hepatitis B virus surface Ag [Presence] in Serum or Plasma by Immunoassay Hepatitis B surface antigen Lab Routine Missed menses Ordered: 01/31/2024 [facility] Comment on above: Ordered: 01/31/2024 Hepatitis C virus Ab [Presence] in Serum or Plasma by Immunoassay Hepatitis C antibody Lab Routine Missed menses Ordered: 01/31/2024 [facility] Comment on above: Ordered: 01/31/2024 HIV-1/HIV-2 antigen/antibody combination immunoassay HIV-1 and HIV-2 antibodies Lab Routine Missed menses Ordered: 01/31/2024 [facility] Comment on above: Ordered: 01/31/2024 Neisseria gonorrhoea e DNA [Presence] in Unspecified specimen by REINIER with probe detection Neisseria gonorrhea DNA probe, direct Lab Routine Exposure to STD Ordered: 03/24/2024 [facility] Comment on above: Ordered: 03/24/2024 Reagin Ab [Presence] in Serum by RPR RPR Lab Routine Missed menses Ordered: 01/31/2024 [facility] Comment on above: Ordered: 01/31/2024 Rubella antibody, IgG Rubella an tibody, IgG Lab Routine Missed menses Ordered: 01/31/2024 [facility] Comment on above: Ordered: 01/31/2024 SURESWAB(R) ADVANCED VAGINITIS PLUS, TMA SURESWAB(R) ADVANCED VAGINITIS PLUS, TMA Pathology and Cytology Routine Exposure to STD Ordered: 03/24/2024 [facility] Work Phone: Comment on above: Ordered: 03/24/2024 [facility] Immunizations Immunization Date Immunization Notes Care Provider Nilo castillo 01-01-2002 diphtheria, tetanus toxoids and acellular pertussis vaccine, unspecified formulation Maricarmen Avila Other [facility] 01-01-2002 measles, mumps and rubella virus vaccine Maricarmen Avila Other [facility] 01-01-2002 poliovirus vaccine, inactivated Maricarmen Avila Other [facility] Other 01-01-2002 poliovirus vaccine, unspecified formulation [facility] 02-04-1998 diphtheria, tetanus toxoids and acellular pertussis vaccine, unspecified formulation Maricarmen Avila Other [facility] 02-04-1998 measles, mumps and rubella virus vaccine Maricarmen Avila Other [facility] 02-04-1998 trivalent poliovirus vaccine, live, oral Maricarmen Avila Other [facility] 04-27-1997 diphtheria, tetanus toxoids and pertussis vaccine Maricarmen Avila Other [facility] 04-27-1997 haemophilus influenz ae type b vaccine, conjugate unspecified formulation Maricarmen Avila Other [facility] 04-27-1997 hepatitis B vaccine, pediatric or pediatric/adolescent dosage Maricarmen Avila Other [facility] 01-16-1997 diphtheria, tetanus toxoids and pertussis vaccine Maricarmen Avila Other [facility] 01-16-1997 haemophilus influenz ae type b vaccine, conjugate unspecified formulation Maricarmen Avila Other [facility] 01-16-1997 trivalent poliovirus vaccine, live, oral Maricarmen Avila Other [facility] 1996 diphtheria, tetanus toxoids and pertussis vaccine Maricarmen Avila Other [facility] 1996 haemophilus influenz ae type b vaccine, conjugate unspecified formulation Maricarmen Avila Other [facility] 1996 hepatitis B vaccine, pediatric or pediatric/adolescent dosage Maricarmen Avila Other [facility] 1996 trivalent poliovirus vaccine, live, oral Maricarmen Avila Other [facility] 1996 hepatitis B vaccine, pediatric or pediatric/adolescent dosage Maricarmen Avila Other [facility] Payers Date Payer Category Payer Self-pay 2023 Medicaid [id number] 2022 Medicaid [id number] 1996 Unknown [id number] 2.16.84 [id number] 1996 Unknown [id number] 2.16.84 0.1.168029.3.579.2.593 1996 Unknown [id number] 2.16.84 0.1.749951.3.579.2.593 1996 Unknown [id number] 2.16.8 40.1.789774.3.579.2.727 1996 Unknown [id number] 2.16.8 40.1.200344.3.579.2.727 1996 Unknown [id number] 2.16.84 0.1.075529.3.579.2.1259 1996 Unknown [id number] 2.16.84 0.1.871219.3.579.2.1259 1996 Unknown [id number] 2.16.84 0.1.496667.3.579.2.1259 1996 Unknown [id number] 2.16.84 0.1.194085.3.579.2.1259 1996 Unknown [id number] 2.16.84 0.1.644861.3.579.2.9 1996 Unknown [id number] 2.16.84 0.1.128477.3.579.2.1259 1996 Unknown [id number] 2.16.84 0.1.494347.3.579.2.9 1996 Unknown [id number] 2.16.84 0.1.446572.3.579.2.1259 1959 Unknown [id number] Unknown [id number] 2.1 [id number] Unknown [id number] 2.16.8 40.1.736512.3.579.2.531 Social History Date Type Detail Facility Unknown if ever smoked [facility] Other Start: 02-16-2023 End: 01-31-2024 Sex Assigned At [facility] Other Start: 08-13-2023 End: 04-13-2024 Tobacco smoking status NHIS Smoker (finding) [facility] Start: 1995 Sex Assigned At Female F [facility] Start: 02-16-2023 [facility] History of tobacco use Cigarette Smoker [facility] Start: 02-20-2024 End: 07-13-2024 Alcoholic beverage intake Current drinker of alcohol (finding) [facility] Start: 02-16-2023 End: 01-31-2024 History of Social function [facility] Start: 02-16-2023 Tobacco Comment Patient smokes 6-10 cigarettes/day after 60 minutes of waking up.Thinking about quitting. [facility] Start: 02-16-2023 Alcohol Comment 1 or 2 drinks on a typical day/monthly or less [facility] Start: 11-22-2023 [facility] Start: 1996 Sex assigned at Not on file [facility] Start: 04-13-2024 End: 04-15-2024 Sex Female (finding) [facility] Start: 04-15-2024 Tobacco smoking stat [facility] Ex-smoker (finding) [facility] Clinical Notes 12-21-2021 to 07-13-2024 Samra Jordan, BACK DIGGER OPERATOR - 07/13/2024 3:10 PM TRICE Saucedo - 06/30/2024 11:30 AM Hayden Rae BACK DIGGER OPERATOR - 06/16/2024 9:00 AM TRICE Saucedo - 06/01/2024 10:10 AM EST Note Date & Type Note Facility 07-13-2024 History of Presen t illness Narrative Reason [...] HISTORY Past Surgical History: Procedure Laterality Date CO MEDICATION MANAGEMENT 2013 Fludricortisone- neuro-cardiogenic syncope -[facility]Z CO MEDICATION MANAGEMENT antibiotic - bronchitis TONSILLECTOMY 2006 VAGINAL DELIVERY 2015 childbirth- vaginal REVIEW OF SYSTEMS Review of Systems: Review of Systems All other systems reviewed and are negative. OBJECTIVE Objective: OBGyn Exam Vitals: Estimated body mass index is 36.47 kg/m as calculated from the following: Height as of 02/12/23: 5' 1 . Weight as of this encounter: 193 lb. BP: 120/70 Patient's last menstrual period was 11/02/2023. ASSESSMENT & PLAN ICD-10-CM 1. 35 weeks gestation of Z3A.35 POCT urinalysis dipstick manually resulted 2. Third trimester Z34.93 POCT urinalysis dipstick manually resulted Patient presents today for a routine obstetrics appointment. Patient is currently 35w4d with a Estimated Date of Delivery: 08/14/24. Patient will have GBS obtained at next appointment. Patient to return to clinic in 1 week. Documented by Samra Jordan LPN on behalf of: Carol Mistry DO documented in this encounter [facility] 06-30-2024 History of Presen t illness Narrative Reason for Appointment: Patient ID: Chasity Huynh is a 28 y.o. female who presents for Routine Visit Patient presents today for Return OB appointment. MEDICATIONS Current Outpatient Medications Medication Instructions nitrofurantoin (macrocrystal-monohydrate) (MACROBID) 100 mg, Oral, 2 times daily ondansetron (ZOFRAN) 4 mg, Oral, Every 6 [...] HISTORY Past Surgical History: Procedure Laterality Date CO MEDICATION MANAGEMENT 2013 Fludricortisone- neuro-cardiogenic syncope -[facility] CO MEDICATION MANAGEMENT antibiotic - bronchitis TONSILLECTOMY 2006 [...] reviewed. Vitals: Estimated body mass index is 35.71 kg/m as calculated from the following: Height as of 02/12/23: 5' 1 . Weight as of this encounter: 189 lb. BP: 120/82 Patient's last menstrual period was 11/02/2023. ASSESSMENT & PLAN ICD-10-CM 1. Third trimester Z34.93 2. 33 weeks gestation of Z3A.33 3. Urinary tract infection without hematuria, site unspecified N39.0 nitrofurantoin, macrocrystal-monohydrate, (Macrobid) 100 MG capsule Urine culture POCT urinalysis dipstick manually resulted Return OB: Patient presents today for a routine obstetrics appointment. Patient is currently 33w4d . Patient states she is doing well but has complaints of being tired due to current . Patient has verbalizes frequent movement. labor precautions was discussed/given and patient was instructed to perform kick counts three times a day. Orders Placed This Encounter Procedures Urine culture POCT urinalysis dipstick manually resulted Patient urine is positve today, we will start on macrobid as she is allergic to cefixime Follow Up: Patient is to return to office in 2 week for routine OB appointment. Documented by TRICE López on behalf of: TRICE López documented in this encounter [facility] 06-16-2024 History of Presen t illness Narrative [...] HISTORY Past Surgical History: Procedure Laterality Date CO MEDICATION MANAGEMENT 2013 Fludricortisone- neuro-cardiogenic syncope -[facility] CO MEDICATION MANAGEMENT antibiotic - bronchitis TONSILLECTOMY 2006 [...] nursing note reviewed. Exam conducted with a field operations manager present. Vitals: Estimated body mass index is [...] Carol Mistry DO documented in this encounter [facility] 06-01-2024 History of Presen t illness Narrative [...] HISTORY Past Surgical History: Procedure Laterality Date CO MEDICATION MANAGEMENT 2013 Fludricortisone- neuro-cardiogenic syncope -[facility] CO MEDICATION MANAGEMENT antibiotic - bronchitis TONSILLECTOMY 2006 [...] of: TRICE López documented in this encounter [facility] 04-21-2024 History of Presen t [...] HISTORY Past Surgical History: Procedure Laterality Date CO MEDICATION MANAGEMENT 2013 Fludricortisone- neuro-cardiogenic syncope -[facility] CO MEDICATION MANAGEMENT antibiotic - bronchitis TONSILLECTOMY 2006 [...] nursing note reviewed. Exam conducted with a field operations manager present. Vitals: Estimated body mass index is [...] Carol Mistry DO documented in this encounter [facility] 04-13-2024 Evaluation note Diagnosis Onset Date Resolution Viral URI with cough acute Nove mbavel 2023 9:10am Contact with or suspected exposure to severe acute respiratory syndrome noneactive April 132023 9:10am Sore throat noneactive March 9:10am Viral URI with cough acute Mare 2023 4:00pm [facility] Work Phone: 1(557) 395-886210-29-2024 History of Present illness Narrative* TRICE López [...] HISTORY Past Surgical History: Procedure Laterality Date CO MEDICATION MANAGEMENT 2013 Fludricortisone- neuro-cardiogenic syncope -[facility] CO MEDICATION MANAGEMENT antibiotic - bronchitis TONSILLECTOMY 2006 [...] nursing note reviewed. Exam conducted with a field operations manager present. Vitals: Estimated body mass index is [...] behalf of: TRICE López documented in this encounterSaint [facility] [id number] History of Present illness Narrative* Samra Jordan, BACK DIGGER OPERATOR - 02/20/2024 9:50 AM EDT Reason for [...] HISTORY Past Surgical History: Procedure Laterality Date CO MEDICATION MANAGEMENT 2014 Fludricortisone- neuro-cardiogenic syncope -[facility] CO MEDICATION MANAGEMENT antibiotic - bronchitis TONSILLECTOMY 2006 [...] nursing note reviewed. Exam conducted with a field operations manager present. Vitals: Estimated body mass index is [...] or undercooked meat, and stay away from [facility]. Patient has been consulted regarding any further [...] of: Carol Mistry DO documented in this encounterSaint [facility] [id number] History of Present illness Narrative* Carolaydin Mcdowell - 01/31/2024 9:30 AM EDT Reason [...] Never Past Surgical History: Procedure Laterality Date CO MEDICATION MANAGEMENT 2013 Fludricortisone- neuro-cardiogenic syncope -[facility] CO MEDICATION MANAGEMENT antibiotic - bronchitis TONSILLECTOMY 2006 VAGINAL DELIVERY 2015 childbirth- vaginal Allergies Allergen Reactions Suprax [Cefixime] [...] or undercooked meat, and stay away from [facility]. Patient has also been advised to not [...] Completed by: Carol Mcdowell documented in this encounterSaint [facility] [id number] Evaluation note* Encounter Date Diagnosis Assessment Notes [...] Suspected COVID-19 virus infection (ICD-10 - Z20.822) [facility] Other 05-11-2023 Evaluation note* Encounter Date Diagnosis [...] treatment plan. Patient left in stable condition. [facility] Other 09-20-2022 Evaluation note* Encounter Date Diagnosis [...] weeks for the cough to go away [facility] Other 07-28-2022 Evaluation note* Encounter Date Diagnosis [...] understanding and is agreeable with treatment plan [facility] Other Evaluation noteNo assessment information available [facility] Work Phone: Evaluation note* Diagnosis Well [...] 132023 9:10am Sore throat noneactive March 9:10am [facility] Work Phone: Evaluation note* Diagnosis Second trimester state, incidental 23 weeks gestation of Diabetes mellitus screening Screening for diabetes mellitus [facility] Missed menses Nausea Nausea alone [facility] Diagnosis Second trimester state, incidental Nausea Nausea alone [facility] Diagnosis 29 weeks gestation of Third trimester state, incidental [facility] Diagnosis 31 weeks gestation of Third trimester state, incidental [facility] Diagnosis Third trimester state, incidental 33 weeks gestation of Urinary tract infection without hematuria, site unspecified [facility] Diagnosis 35 weeks gestation of Third trimester state, incidental [facility] Narrative - Reported* Type Description Date Surgical History tonsillectomy Surgical History appendectomy Hospitalization History see above [facility] Other Summary Purpose Family History No Family History Records FoundNo Family History Records FoundNo Family History Records FoundNo Family History Records Found Advance Directives Advance Directive Response Recorded Date/ Time Advance Directives No August 12, 024 9:32am Advance Directive Response Recorded Date/ Time Advance Directives No August 12 024 8:32am Advance Directive Response Recorded Date/ Time [...] DATE CREATED AUTHOR AUTHOR'S ORGANIZ ATION 09/19/2023 [facility] DATE CREATED AUTHOR AUTHOR'S ORGANIZ ATION 05/10/2024 [facility] DATE CREATED AUTHOR AUTHOR'S ORGANIZ ATION 07/14/2024 [facility] EPIC Care Teams (unrecognized [...] April 15, 2024 End: April 15, 2024 Progress Developer Relationship Specialty Start Date End Date Carol Mistry, DO [address] [place] [address] [facility] 05/27/24 Progress Developer Relationship Specialty Start Date End Date Carol Mistry, DO [address] [place] [address] [facility] 05/27/24 Progress Developer Relationship Specialty Start Date End Date Carol Mistry, DO [address] [place] [address] [facility] 05/27/24 Goals (unrecognized section and content) Goals may [...] BE BASED ON THE PRIMARY CLINICAL RECORDS. [facility] [employer] [facility]. provides no warranty or guarantee of the accuracy or completeness of information in this document.
== END 2024-07-20 21:30 | disposition home or self-care (01) ==
LOC: LAB 21:29
PROVIDERS: Visit Provider Obstetrics & Gynecology
DX: Z34.93 Encounter for supervision of normal pregnancy, unspecified, third trimester (principal)
CPT/HCPCS: 36415; 87081

== ENCOUNTER 2024-07-23 02:22 | Inpatient (IN) | payer MEDICAID, SELFPAY ==
[2024-07-23] VITALS (48 sets, daily range): BP systolic 80–147; BP diastolic 50–102; PULSE 71–111; TEMP 35.7–36.7
--- OUTSIDE RECORDS SUMMARY | 2024-07-23 02:26 | XMS_ITS | CCD ---
Author Organization [facility] Care Team Providers Care Desktop Support Technician Name Role Phone Maricarmen Avila Unavailable Rona [...] Herring Attending Unavailable WANDA GALLARDO Attending Unavailable CAROL MISTRY Attending Unavailable WANDA GALLARDO Attending Unavailable FEDECAROL ROSALES Attending Unavailable WANDA GALLARDO Attending Unavailable FEDEJACKSON ROSALESY Referring Unavailable Fede DO, Carol Unavailable Allergies Allergy Classification Reported Allergen(s) Allergy Type Date of Onset Reaction(s) Facility (4 sources) [facility] Drug Allergy Startup Weekend Other (2 sources) Dextrothyroxine ; Translations: [Suprax] Drug Allergy 8 [facility] Repository (20 sources) [facility]ef[facility] Propensity to adverse reactions 3 [facility] Work Phone: (1 source) [facility]ef[facility] Drug Allergy 4 [facility] Repository Medications Current Medications Medication [...] hours for 5 days September, Active Pnv 937-Puzgm-Fbplm-3-Fish Oil 400-32.5 mcg-mg tablet,chewable (2 sources) Start: 04-13-2024 Pnv 992-Zgoev-Uayvw-3-Fish Oil 400-32.5 mcg-mg tablet,chewable Active TAB PO [...] Drug Class(es) Dates Sig (Normalized) Sig (Original) [id number] 200 actuat albuterol 0.09 mg/actuat metered dose inhaler (2 sources) beta2-Adrenergic Agonist Start: 02-13-2022 take 2 puff(s) by inhalation every four hours as needed Albuterol Sulfate HFA 108 (90 Base) MCG/ACT 2 puffs as needed Inhalation every 4 hrs Jan, Not-Taking dextromethorphan hydrobromide 15 mg / guaiFENesin 400 mg / pseudoephedrine hydrochloride 60 mg oral tablet (4 sources) alpha-Adrenergic Agonist, Uncompetitive S-ffvekk-H-aspartat e Receptor Antagonist, Sigma-1 Agonist Start: 08-13-2023 [...] UA Negative Negative - 4(70) +++ mg/dL [facility] Blood, UA Negative Negative - 50 Sukhi/mcL [facility] Healthcare Clarity, UA Cloudy [facility] Color, UA Maricarmen [facility] Glucose, UA Negative Negative - 1999(110) ++++ mg/dL [facility] Interpretation and review of laboratory results Abnormal [facility] Ketones, UA Positive Negative - 160(16) ++++ mg/dL [facility] Comment on above: 40 Leukocytes, UA Positive Negative - 500+++ Lambert/mcL [facility] Comment on above: SMALL Nitrite, UA Negative Negative - Positive [facility] Healthcare pH, UA 6 5 - 9 [facility] Protein, UA Negative Negative - 1999(20) ++++ mg/dL [facility] Spec Grav, UA 1.025 1 - 1.03 [facility] care Urobilinogen, UA 0.2 0.2 - 12 mg/dL [facility] Urinalysis macro (dipstick) panel (U)on 06-30-2024 Bilirubin, UA Negative Negative - 4(70) +++ mg/dL [facility] Blood, UA Negative Negative - 50 Sukhi/mcL [facility] Healthcare Clarity, UA Clear [facility] Color, UA Yellow [facility] Glucose, UA Negative Negative - 1999(110) ++++ mg/dL [facility] Interpretation and review of laboratory results Abnormal [facility] Ketones, UA Negative Negative - 160(16) ++++ mg/dL [facility] Leukocytes, UA Negative Negative - 500+++ Lambert/mcL [facility] Nitrite, UA Negative Negative - Positive [facility] pH, UA 5.5 5 - 9 [facility] Protein, UA Positive Negative - 1999(20) ++++ mg/dL [facility] Healthcare Spec Grav, UA 1.03 1 - 1.03 [facility] care Urobilinogen, UA 0.2 0.2 - 12 mg/dL [facility] UA (CLEAN/CATCH) VEHICLE CALIBRATION ENGINEER/DANIELA RO IF IND.on 06-29-2024 BILIRUBIN URINE Negative NEGATIVE [facility] Heal thcare BLOOD URINE Negative NEGATIVE [facility] Clarity (U) CLEAR CLEAR [facility] Color (U) LT. YELLOW YELLOW [facility] GLUCOSE URINE UA Negative NEGATIVE mg/dL [facility] Interpretation and review of laboratory results Abnormal [facility] Ketones Ql (U) Negative NEGATIVE mg/dL [facility] Leukocyte esterase Test strip Ql (U) SMALL Abnormal NEGATIVE [facility] NITRITE URINE Negative NEGATIVE [facility] care pH (U) 6.0 [pH] 5.0 - 9.0 [facility] PROTEIN URINE Negative NEG/TRACE mg/dL [facility] SPECIFIC GRAVITY URINE 1.020 1.005 - 1.025 [facility] URINE MICROSCOPIC INDICATED YES [facility] UROBILINOGEN URINE 1.0 EU/dL 0.2 - 1.0 EU/dL [facility] US OB LIMITED 1+ FETUSESon 0 [...] WITH AUTO DIFFon BASOPHILS ABSOLUTE AUTO 0 [facility] Basophils/100 WBC (Bld) 0.2 % 0.2 - 2.0 % [facility] Eosinophils/100 WBC (Bld) 1.7 % 0.9 - 7.0 % [facility] Erythrocyte distribution width (RBC) [Ratio] 12.8 % 11.0 - 15.0 % [facility] Hematocrit (Bld) [Volume fraction] 31.9 % Low 36.0 - 48.0 % [facility] Hemoglobin (Bld) [Mass/Vol] 11.1 g/dL Low 12.0 - 16.0 g/dL [facility] IMMATURE GRANULOCYTES ABS AUTO 0.19 High [facility] Immature granulocytes/100 WBC (Bld) 1.5 % High 0.0 - 0.5 % [facility] Interpretation and review of laboratory results Abnormal [facility] LYMPHOCYTES ABSOLUTE AUTO 2.4 [facility] Lymphocytes/100 WBC (Bld) 19.2 % Low 20.5 - 60.0 % [facility] MCH (RBC) [Entitic mass] 32 pg 26.7 - 34.0 pg [facility] MCHC (RBC) [Mass/Vol] 34.8 g/dL 29.9 - 35.2 g/dL [facility] MCV (RBC) [Entitic vol] 91.9 fL 81.0 - 99.0 fL [facility] MONOCYTES ABSOLUTE AUTO 0.8 [facility] Monocytes/100 WBC (Bld) 6.4 % 1.7 - 12.0 % [facility] NEUTROPHILS ABSOLUTE AUTO 9 High [facility] Neutrophils/100 WBC (Bld) 71 % 43.0 - 75.0 % [facility] Platelet mean volume (Bld) [Entitic vol] 10.7 fL 9.5 - 13.[address] [facility] EO # 0.2 [facility] TB PLT 162 [facility] e TB RBC 3.47 Low [facility] TB WBC 12.7 High [facility] e Urinalysis macro (dipstick) panel (U)on 06-01-2024 Bilirubin, UA Negative Negative - 4(70) +++ mg/dL [facility] Blood, UA Negative Negative - 50 Sukhi/mcL [facility] Clarity, UA Clear [facility], UA Yellow [facility] e Glucose, UA Negative Negative - 2000(110) ++++ mg/dL [facility] Interpretation and review of laboratory results Normal [facility] Ketones, UA Negative Negative - 160(16) ++++ mg/dL [facility] Healthcare Leukocytes, UA Negative Negative - 500+++ Lambert/mcL [facility] Healthcare Nitrite, UA Negative Negative - Positive [facility] Healthcare pH, UA 6 5 - 9 [facility] Protein, UA Negative Negative - 1999(20) ++++ mg/dL [facility] Healthcare Spec Grav, UA 1.015 1 - 1.03 [facility] care Urobilinogen, UA 0.2 0.2 - 12 mg/dL [facility] Throat Cultureon 05-07-2024 Throat culture Moderate Normal Respiratory Gita 2 Days PERFORMED BY: [facility] [address] [place] [address] PATHOLOGIST PULL THROUGH HOOKER MELCHOR RANDALL M.D. Normal [facility] Comment on above: Performed By: #### C UT #### [address] Urinalysis macro (dipstick) panel (U)on 04-22-2024 Bilirubin, UA Negative Negative - 4(70) +++ mg/dL [facility] Blood, UA Negative Negative - 50 Sukhi/mcL [facility] Clarity, UA Clear [facility] Color, UA Yellow [facility] Glucose, UA Negative Negative - 1999(110) ++++ mg/dL [facility] Interpretation and review of laboratory results Normal [facility] Ketones, UA Negative Negative - 160(16) ++++ mg/dL [facility] Leukocytes, UA Negative Negative - 500+++ Lambert/mcL [facility] Nitrite, UA Negative Negative - Positive [facility] pH, UA 5.8 5 - 9 [facility] Protein, UA Negative Negative - 1999(20) ++++ mg/dL [facility] Spec Grav, UA 1.015 1 - 1.03 [facility] care Urobilinogen, UA 1.0 0.2 - 12 mg/dL [facility] No Panel InformationOrdered By: Gaye Nair on 04-13-2024 Quick Strep (POC) [facility] IGP,APTIMA HPV,AGE GDLNon AGE GDLN ACOG TESTING Note . [facility] Healthcare Comment on above: TESTS RESULT FLAG UN ITS REF RANGE LAB Clinician Provided Cytology Information Source.............Cervix Other.............. No. of containers..01 ThinPrep Vial Age Roberto MORRISOG Sania... -24 06 FLAG LEGEND: L-Low Normal,H-High Normal,LL-Alert Low,HH-Alert High <-Panic Low,>-Panic High,A-Abnormal,AA-Critical Abnormal Performed at: 01 =G [address] [address] Kaci Gregory MD, IGP, RFX APTIMA HPV ASCU Note . [facility] Comment on above: TESTS RESULT FLAG UN ITS REF RANGE LAB DIAGNOSIS: 02 NEGATIVE FOR INTRAEPITHELIAL LESION OR MALIGNANCY. Specimen adequacy: 02 Satisfactory for evaluation. No endocervical component is identified. An endocervical component is not commonly seen in the patient. Performed by: Liv Benton Manager Port ([facility]) . 02 Note: Note 02 The Pap [...] <-Panic Low,>-Panic High,A-Abnormal,AA-Critical Abnormal Performed at: [address] [id number] Kaci Gregory MD, Performed at: = - Lab[address] [id number] Information Systems Manager: Kaci Gregory MD, Phone: [phone] Performed at: [address] [id number] Information Systems Manager: Kaci Gregory MD, Phone: [phone] SPATULA-ALONE CERVIX [facility] URETHRITIS/DISCHARGE [...] Not detected [facility] KEN GLABRATA 0 [facility] KEN GLABRATA Not detected [facility] H ealthcare KEN KRUSEI 0 [facility] Healt hcare KEN KRUSEI Not detected [facility] CHLAMYDIA TRACHOMATIS 0 [facility] CHLAMYDIA TRACHOMATIS Not detected N [facility] ERMB, C; MEFA 21.812 Abnormal [facility] Health care ERMB, C; MEFA Detected Abnormal [facility] care GARDNERELLA VAGINALIS 27.115 Abnormal [facility] GARDNERELLA VAGINALIS Detected Abnormal [facility] Interpretation and review of laboratory results Abnormal [facility] MEGASPHAERA (TYPES 1, 2) 21.09 Abnormal [facility] MEGASPHAERA (TYPES 1, 2) Detected Abnormal [facility] MYCOPLASMA GENITALIUM [address] [facility] MYCOPLASMA GENITALIUM Not detected N [facility] NEISSERIA GONORRHOEAE 0 [facility] NEISSERIA GONORRHOEAE Not detected N [facility] TET B, TET M 22.295 Abnormal [facility] Healthc are TET B, TET M Detected [facility] TRICHOMONAS VAGINALIS 0 [facility] TRICHOMONAS VAGINALIS Not detected [facility] Urinalysis macro (dipstick) panel (U)on 03-24-2024 Bilirubin, UA Negative Negative - 4(70) +++ mg/dL [facility] Blood, UA Negative Negative - 50 Sukhi/mcL [facility] Clarity, UA Clear [facility] re Color, UA Yellow [facility] Glucose, UA Negative Negative - 1999(110) ++++ mg/dL [facility] Interpretation and review of laboratory results Abnormal [facility] Ketones, UA Positive Negative - 160(16) ++++ mg/dL [facility] Comment on above: trace Leukocytes, UA Negative Negative - 500+++ Lambert/mcL [facility] Nitrite, UA Negative Negative - Positive [facility] pH, UA 5.5 5 - 9 [facility] Protein, UA Negative Negative - 1999(20) ++++ mg/dL [facility] Spec Grav, UA 1.025 1 - 1.03 [facility] Urobilinogen, UA 0.2 0.2 - 12 mg/dL [facility] Urinalysis macro (dipstick) panel (U)on 02-20-2024 Bilirubin, UA Negative Negative - 4(70) +++ mg/dL [facility] Blood, UA Negative Negative - 50 Sukhi/mcL [facility] Clarity, UA Clear [facility] Color, UA Yellow [facility] Glucose, UA Negative Negative - 1999(110) ++++ mg/dL [facility] Healthcare Interpretation and review of laboratory results Normal [facility] Healthcare Ketones, UA Negative Negative - 160(16) ++++ mg/dL [facility] Leukocytes, UA Negative Negative - 500+++ Lambert/mcL [facility] Nitrite, UA Negative Negative - Positive [facility] Healthcare pH, UA 6.0 5 - 9 [facility] Protein, UA Negative Negative - 1999(20) ++++ mg/dL [facility] Healthcare Spec Grav, UA 1.010 1 - 1.03 [facility] Urobilinogen, UA 0.2 0.2 - 12 mg/dL [facility] HCG ( test) Ql (U)o n 01-31-2024 Interpretation and review of laboratory results Abnormal [facility] Preg Test, Ur Positive [facility] Health care [facility] Urinalysis macro (dipstick) panel (U)on 01-31-2024 Bilirubin, UA Negative Negative - 4(70) +++ mg/dL [facility] Healthcare Blood, UA Negative Negative - 50 Sukhi/mcL [facility] Clarity, UA Clear [facility] Color, UA Yellow [facility] Glucose, UA Negative Negative - 1999(110) ++++ mg/dL [facility] Healthcare Interpretation and review of laboratory results Abnormal [facility] Healthcare Ketones, UA Negative Negative - 160(16) ++++ mg/dL [facility] Healthcare Leukocytes, UA Trace Negative - 500+++ Lambert/mcL [facility] Healthcare Nitrite, UA Negative Negative - Positive [facility] Healthcare pH, UA 6.5 5 - 9 [facility] Protein, UA Trace Negative - 1999(20) ++++ mg/dL [facility] Healthcare Spec Grav, UA 1.025 1 - 1.03 [facility] Urobilinogen, UA 0.2 0.2 - 12 mg/dL [facility] ED Note-Physicianalex 08-15-19 24 ED Note-Physician [id number] #[id number] Normal [facility] Interdisciplinary Note - Soc ial Workeron 08-15-2023 Interdisciplinary Note - Freight Elevator Erector This SW made a tc to patient today to discuss her positive depression screen. Patient did not answer so a message was left with SW's contact information. SW will remain available. Normal [facility] Ambulatory Visit Summaryon 0 08-13-2023 [...] PM EDT With: Mac Bhatt MD Where: [facility] [place] Normal [facility] Family Medicine Office/Clini c Noteon [...] provider: Bryon Any recent labs: ED in [place] Has POTS and is feeling lightheaded and brain fog. These are symptoms that she has had in the past. Was last seen in 2019 Dr. Meléndez in [facility] UTD: Pelvic/Pap: UTD flu: refused Acute: Current issues/complaints: Was in [place] ED last week for a migraine. Patient [...] 72.6, kg, 08/13/23 13:27:00 EDT, Weight Dosing [facility] [place] External Ambulatory Referral 2. Postural orthostatic tachycardia syndrome (G90.A: Postural orthostatic tachycardia syndrome [POTS]) - [facility] Physically Impaired Teacher who specializes in this. Ordered: cyclobenzaprine, 5 mg = 1 tab(s), Oral, Daily, PRN Headache, Precautions discussed in detail, # 20 tab(s), Refills(s) 0, Pharmacy: [facility]/pharmacy #[id number], 154.5, cm, 08/13/23 13:27:00 EDT, Height/Length Dosing, 72.6, kg, 08/13/23 13:27:00 EDT, Weight Dosing [facility] [place] External Ambulatory Referral 3. BMI 30.0-30.9,adult (Z68.30: Body mass index [BMI] 30.0-30.9, adult) - BMI education given. Ordered: cyclobenzaprine, 5 mg = 1 tab(s), Oral, Daily, PRN Headache, Precautions discussed in detail, # 20 tab(s), Refills(s) 0, Pharmacy: [facility]/pharmacy #[id number], 154.5, cm, 08/13/23 13:27:00 EDT, Height/Length Dosing, 72.6, kg, 08/13/23 13:27:00 EDT, Weight Dosing [facility] [place] External Ambulatory Referral One month follow up [...] Yes, 08/13/2023 Family History Hypertension: Father. Normal [facility] Comment on above: Result Comment: Elec tronically Signed By: Miller WILSON, Mac Puga\.br\Date and Time Signed: 08/13/23 14:05 EDT No Panel InformationOrdered By: Maricarmen Avila on 08-13-2023 Quick Strep (POC) [facility] Quick Strepon 10-04-2022 S. pyogenes Org specific cx Ql (Throat) Negative Bi[facility] Other Quick Strep [facility] [employer] Other Covid-19 PCR ([facility])on 06-28 SARS-CoV-2 (COVID-19) RNA REINIER+probe Ql (Unsp spec) Not detected Normal NOT DETECTED [facility] Comment on above: Result Comment: When [...] for this test is supported by the Back End Architect of Health and Human Service's declaration that [...] Performed By: #### S SCRN, GRASTCX #### [facility] [address] [address] [address] Ang Simmons INFLUENZA A AND B AGon 07-18 INFLUENZA A AG Negative Normal NEGATIVE SEE COMMENT [facility] Comment on above: Performed By: #### I NFLUAB #### [facility] [address] [address] [address] Ang Simmons INFLUENZA B AG Negative Normal NEGATIVE SEE COMMENT [facility] Comment on above: Performed By: #### I NFLUAB #### [facility] [address] [address] [address] Ang Simmons XR CHEST 2 Von [...] by: EMMA BABB Date: 2022-07-18 21:[address] [facility] CT ABD/PELVIS WO CONon 05-31 [...] GRETEL HOOK Date: 2022-05-31 11:54 Normal [facility] Covid-19 PCR (CVDTB)on SARS-CoV-2 (COVID-19) RNA REINIER+probe Ql (Unsp spec) Not detected Normal NOT DETECTED [facility] Comment on above: Result Comment: This test is not yet approved or cleared by the [place] FDA. When there are no FDA-approved or cleared tests available, and other criteria are met, FDA can make tests available under an emergency access mechanism called an Emergency Use Authorization (EUA). The EUA for this test is supported by the Back End Architect of Health and Human Service's (HHS's) declaration [...] Performed By: #### S ODALYS RODRIGUESTCX #### [facility] [address] [place] [address] Dr. Ang VALLECILLO URINE PROFILEon 3 Bilirubin Ql (U) Negative Normal NEGATIVE [facility] Comment on above: Performed By: #### P KELLI CUNNINGHAMR #### [facility] [address] [address] [address] Ang Simmons Clarity (U) CLEAR Normal CLEAR [facility] Comment on above: Performed By: #### P REGU, ERUR #### [facility] [address] [address] [address] Ang Simmons Color (U) LT. YELLOW Normal YELLOW [facility] Comment on above: Performed By: #### P REGU, ERUR #### [facility] [address] [place] [address] Dr. Ang POWELL A micrscopic examination will be performed if indicated. Normal [facility] Comment on above: Performed By: #### P REGU, ERUR #### [facility] [address] [place] [address] Dr. Ang Simmons Glucose Ql (U) Negative Normal NEGATIVE [facility] Comment on above: Performed By: #### P REGU, ERUR #### [facility] [address] [place] [address] Dr. Ang Simmons Hemoglobin Ql (U) Negative Normal NEGATIVE [facility] Comment on above: Performed By: #### P REGU, ERUR #### [facility] [address] [place] [address] Dr. Ang Simmons Ketones Ql (U) Negative Normal NEGATIVE [facility] Comment on above: Performed By: #### P REGU, ERUR #### [facility] [address] [address] [address] Agn Simmons LEUKOCYTES Negative Normal NEGATIVE [facility] Comment on above: Performed By: #### P REGU, ERUR #### [facility] [address] [address] [address] Ang Simmons Nitrite Ql (U) Negative Normal NEGATIVE [facility] Comment on above: Performed By: #### P REGU, ERUR #### [facility] [address] [place] [address] Dr. Ang Simmons pH (U) 5.5 [pH] Normal 5-9 [facility] Comment on above: Performed By: #### P REGU, ERUR #### [facility] [address] [place] [address] Dr. Ang Simmons SPEC GRAVITY 1.030 Abnormal 1.005-<=1.025 [facility] Comment on above: Performed By: #### P REGU, ERUR #### [facility] [address] [place] [address] Dr. Ang Simmons UA PROTEIN Negative Normal NEGATIVE/ TRACE [facility] Comment on above: Performed By: #### P REGU, ERUR #### [facility] [address] [place] [address] Dr. Ang Simmons UR MICRO IND NOT INDICATED Normal [facility] Comment on above: Performed By: #### P REGU, ERUR #### [facility] [address] [place] [address] Dr. Ang Simmons Urobilinogen Qn (U) 0.2 {Jazmin'U}/dL Normal 0.2 - 1. 0 [facility] Comment on above: Performed By: #### P REGU, ERUR #### [facility] [address] [place] [address] Dr. Ang Simmons GROUP A STREP CULTUREon S. pyogenes Ag Ql (Unsp spec) Culture Observations: NEGATIVE FOR GROUP A STREPTOCOCCUS. Normal [facility] Comment on above: Performed By: #### S SCRN, GRASTCX #### [facility] [address] [place] [address] Dr. Ang Simmons INFLUENZA A AND B AGon 05-31 INFLUANEGH SEE BELOW Normal [facility] Comment on above: Result Comment: Nega tive for Flu A protein angiten. Infection due to Flu A cannot be ruled out. Flu A angiten in the sample may be below the detection limit of the test. Performed By: #### S SCRN, GRASTCX #### [facility] [address] [place] [address] Dr. Ang Simmons INFLUBNEGH SEE BELOW Normal [facility] Comment on above: Result Comment: Nega tive for Flu B protein antigen. Infection due to Flu B cannot be ruled out. Flu B antigen in the sample may be below the detection limit of the test. Performed By: #### S SCRN, GRASTCX #### [facility] [address] [place] [address] Dr. Ang Simmons INFLUENZA A AG Negative Normal NEGATIVE SEE COMMENT [facility] Comment on above: Performed By: #### S SCRN, GRASTCX #### [facility] [address] [address] [address] Ang Simmons INFLUENZA B AG Negative Normal NEGATIVE SEE COMMENT [facility] Comment on above: Performed By: #### S SCRN, GRASTCX #### [facility] [address] [address] [address] Ang Simmons URon 05-31-2022 , QUAL Negative Normal NEGATIVE [facility] Comment on above: Performed By: #### P REGU, ERUR #### [facility] [address] [place] [address] Dr. Ang Simmons STREPT SCREENon 05-31-2022 STREP SCREEN A Negative Normal NEGATIVE [facility] Comment on above: Performed By: #### S SCRN, GRASTCX #### [facility] [address] [place] [address] Dr. Ang Simmons Quick Strepon 02-13-2022 S. pyogenes Org specific cx Ql (Throat) Negative [employer] [facility] [employer] Other Quick Strep [employer] [facility] [employer] Other SARS-CoV-2 (COVID-19) RNA NA A+probe Ql (Resp)on 02-13-2022 SARS-CoV-2 (COVID-19) RNA REINIER+probe Ql (Unsp spec) Negative [employer] [facility] [employer] Other Covid-19 PCR ([facility])on 11-24 SARS-CoV-2 (COVID-19) RNA REINIER+probe Ql (Unsp spec) Not detected Normal NOT DETECTED [facility] Comment on above: Result Comment: When [...] for this test is supported by the [place] of Health and Human Service's declaration that [...] used). Performed By: #### C VDTBH #### [facility] [address] [address] [address] Ang Simmons GROUP A STREP CULTUREon 11-24 S. pyogenes Ag Ql (Unsp spec) Culture Observations: NEGATIVE FOR GROUP A STREPTOCOCCUS. Normal [facility] Comment on above: Performed By: #### S SCRN, GRASTCX #### [facility] [address] [place], [place] [address] Dr. Ang Simmons STREPT SCREENon 12-10-2021 STREP SCREEN A Negative Normal NEGATIVE [facility] Comment on above: Performed By: #### S SCRN, GRASTCX #### [facility] [address] [place], [place] [address] Dr. Ang Simmons Vital Signs Date Time Vital Sign Value Performing Clinician Facility 07-13-2024 15:13-0500 Body mass index (BMI) [Ratio] 36.47 kg/m2 [employer] Work Phone: [facility] 07-13-2024 15:13-0500 Body weight 87.54 kg Carol [employer] Work Phone: [facility] 07-13-2024 15:13-0500 Diastolic blood pressure 70 mm[Hg] [facility] [employer] Work Phone: [facility] 07-13-2024 15:13-0500 Systolic blood pressure 120 mm[Hg] Carol Fede DO Work Phone: [facility] 06-30-2024 11:48-0500 Body mass index (BMI) [Ratio] 35.71 kg/m2 Wanda Glennie PA Work Phone: [facility] 06-30-2024 11:48-0500 Body weight 85.73 kg Wanda Glennie PA Work Phone: [facility] 06-30-2024 11:48-0500 Diastolic blood pressure 82 mm[Hg] Wanda Eym PA Work Phone: [facility] 06-30-2024 11:48-0500 Systolic blood pressure 120 mm[Hg] Wanda Glennie PA Work Phone: [facility] 06-16-2024 09:21-0500 Body mass index (BMI) [Ratio] 35.03 kg/m2 Carol Fede DO Work Phone: [facility] 06-16-2024 09:21-0500 Body weight 84.1 kg Carol Fede DO Work Phone: [facility] 06-16-2024 09:21-0500 Diastolic blood pressure 74 mm[Hg] Carol Fede DO Work Phone: [facility] 06-16-2024 09:21-0500 Systolic blood pressure 110 mm[Hg] Carol Fede DO Work Phone: [facility] 06-01-2024 10:04-0500 Body mass index (BMI) [Ratio] 35.11 kg/m2 Wanda Emy PA Work Phone: [facility] 06-01-2024 10:04-0500 Body weight 84.28 kg Wanda Emy PA Work Phone: [facility] 06-01-2024 10:04-0500 Diastolic blood pressure 78 mm[Hg] Wanda Glennie PA Work Phone: [facility] 06-01-2024 10:04-0500 Systolic blood pressure 120 mm[Hg] Wanda Emy PA Work Phone: [facility] 04-21-2024 12:52-0500 Body mass index (BMI) [Ratio] 32.69 kg/m2 Carol Fede DO Work Phone: [facility] 04-21-2024 12:52-0500 Body weight 78.47 kg Caorl Fede DO Work Phone: [facility] 04-21-2024 12:52-0500 Diastolic blood pressure 76 mm[Hg] Carol Fede DO Work Phone: [facility] 04-21-2024 12:52-0500 Systolic blood pressure 120 mm[Hg] Carol Fede DO Work Phone: [facility] 04-15-2024 16:03-0500 Body height 162.56 cm [facility] 04-15-2024 16:03-0500 Body mass index (BMI) [Ratio] 29.8 kg/m2 [facility] 04-15-2024 16:03-0500 Body temperature 98.7 [degF] [facility] 04-15-2024 16:03-0500 Body weight 78.92 kg [facility] 04-15-2024 16:03-0500 Diastolic blood pressure 72 mm[Hg] [facility] 04-15-2024 16:03-0500 Heart rate 114 /min [facility] 04-15-2024 16:03-0500 Respiratory rate 18 /min [facility] 04-15-2024 16:03-0500 SaO2% (BldA) [Mass fraction] 97 % [facility] 04-15-2024 16:03-0500 Systolic blood pressure 101 mm[Hg] [facility] 04-13-2024 09:41-0500 Body height 162.56 cm [facility] 04-13-2024 09:41-0500 Body mass index (BMI) [Ratio] 29.2 kg/m2 [facility] 04-13-2024 09:41-0500 Body temperature 97.8 [degF] [facility] 04-13-2024 09:41-0500 Body weight 77.11 kg [facility] 04-13-2024 09:41-0500 Diastolic blood pressure 81 mm[Hg] [facility] 04-13-2024 09:41-0500 Heart rate 90 /min [facility] 04-13-2024 09:41-0500 Respiratory rate 18 /min [facility] 04-13-2024 09:41-0500 SaO2% (BldA) [Mass fraction] 99 % [facility] 04-13-2024 09:41-0500 Systolic blood pressure 119 mm[Hg] [facility] 03-24-2024 08:58-0400 Body mass index (BMI) [Ratio] 31.93 kg/m2 Wanda CARNES Work Phone: [facility] 03-24-2024 08:58-0400 Body weight 76.66 kg Wanda CARNES Work Phone: [facility] 03-24-2024 08:58-0400 Diastolic blood pressure 74 mm[Hg] Wanda CARNES Work Phone: [facility] 03-24-2024 08:58-0400 Systolic blood pressure 116 mm[Hg] Wanda CARNES Work Phone: [facility] 02-20-2024 10:38-0400 Body mass index (BMI) [Ratio] 30.23 kg/m2 Carol Fede DO Work Phone: [facility] 02-20-2024 10:38-0400 Body weight 72.58 kg Carol Fede DO Work Phone: [facility] 02-20-2024 10:38-0400 Diastolic blood pressure 78 mm[Hg] Carol Fede DO Work Phone: [facility] 02-20-2024 10:38-0400 Systolic blood pressure 120 mm[Hg] Carol Fede DO Work Phone: [facility] 01-31-2024 09:46-0400 Body mass index (BMI) [Ratio] 29.62 kg/m2 [facility] 01-31-2024 09:46-0400 Body weight 71.1 kg [facility] 01-31-2024 09:46-0400 Diastolic blood pressure 82 mm[Hg] [facility] 01-31-2024 09:46-0400 Systolic blood pressure 118 mm[Hg] [facility] 08-13-2023 09:36-0400 Body height 162.56 cm [facility] 08-13-2023 09:36-0400 Body mass index (BMI) [Ratio] 26.6 kg/m2 [facility] 08-13-2023 09:36-0400 Body temperature 98.6 [degF] [facility] 08-13-2023 09:36-0400 Body weight 70.3 kg [facility] 08-13-2023 09:36-0400 Heart rate 91 /min [facility] 08-13-2023 09:36-0400 Respiratory rate 16 /min [facility] 08-13-2023 09:36-0400 SaO2% (BldA) [Mass fraction] 99 % [facility] 03-18-2023 09:15-0400 Body height 158.75 cm Aure Moss Other [employer] [facility] [employer] Other 03-18-2023 09:15-0400 Body mass index (BMI) [Ratio] 29.15 kg/m2 Aure Moss Other [employer] Other 03-18-2023 09:15-0400 Body temperature 98.2 [degF] Aure Moss Other [employer] Other 03-18-2023 09:15-0400 Body weight 73.48 kg Aure Moss Other [employer] Other 03-18-2023 09:15-0400 Respiratory rate 18 /min Aure Moss Other [employer] Other 03-18-2023 09:15-0400 SaO2% (BldA) [Mass fraction] 98 % Aure Moss Other [employer] Other 10-04-2022 12:40-0400 Body height 158.75 cm Maricarmen Austin Other [employer] Other 10-04-2022 12:40-0400 Body mass index (BMI) [Ratio] 27.54 kg/m2 Maricarmen Avila Other [employer] Other 10-04-2022 12:40-0400 Body temperature 99.3 [degF] Maricarmen Avila Other [employer] Other 10-04-2022 12:40-0400 Body weight 69.4 kg Maricarmen Avila Other [employer] Other 10-04-2022 12:40-0400 Respiratory rate 18 /min Maricarmen Avila Other [employer] Other 10-04-2022 12:40-0400 SaO2% (BldA) [Mass fraction] 99 % Maricarmen Avila Other [employer] Other 02-13-2022 16:55-0400 Body height 158.75 cm Rona Harrison Other [employer] Other 02-13-2022 16:55-0400 Body mass index (BMI) [Ratio] 27.9 kg/m2 Rona Terry Other [employer] Other 02-13-2022 16:55-0400 Body temperature 98.4 [degF] Rona Terry Other [employer] Other 02-13-2022 16:55-0400 Body weight 70.31 kg Rona Terry Other [employer] Other 02-13-2022 16:55-0400 Respiratory rate 18 /min Rona Terry Other [employer] Other 02-13-2022 16:55-0400 SaO2% (BldA) [Mass fraction] 99 % Rona Terry Other [employer] Other 12-21-2021 16:20-0400 Body height 158.75 cm Maricarmen Avila Other [employer] Other 12-21-2021 16:20-0400 Body mass index (BMI) [Ratio] 27.64 kg/m2 Maricarmen Avila Other [employer] Other 12-21-2021 16:20-0400 Body temperature 98 [degF] Maricarmen Avila Other [employer] Other 12-21-2021 16:20-0400 Body weight 69.67 kg Maricarmen Avila Other [employer] Other 12-21-2021 16:20-0400 Diastolic blood pressure 67 mm[Hg] Maricarmen Avila Other [employer] Other 12-21-2021 16:20-0400 Respiratory rate 18 /min Maricarmen Avila Other [employer] Other 12-21-2021 16:20-0400 SaO2% (BldA) [Mass fraction] 98 % Maricarmen Avila Other [employer] Other 12-21-2021 16:20-0400 Systolic blood pressure 117 mm[Hg] Maricarmen Avila Other [employer] Other Encounters Encounter Date Encounter Type Care [...] Start: 05-07-2024 End: 05-07-2024 ambulatory Modesta Centeno Facility:[facility] Start: 04-21-2024 End: 04-21-2024 Office outpatient visit 15 minutes Carol Fede DO Work Phone: [facility] Comment on above: Second trimester pre gnancy; 23 weeks gestation of ; Diabetes mellitus screening Start: 04-15-2024 End: 04-15-2024 ambulatory [facility] Work Phone: Start: 04-15-2024 End: 04-15-2024 Patient encounter procedure [facility] Work Phone: Start: 04-13-2024 End: 04-13-2024 ambulatory [facility] Work Phone: Start: 04-13-2024 End: 04-13-2024 Patient encounter procedure [facility] Work Phone: Start: 03-24-2024 End: 03-24-2024 Bamboo flowsheet Wanda CARNES Work Phone: [facility] Start: 03-24-2024 End: 04-01-2024 Bamboo flowsheet Wanda CARNES Work Phone: [facility] Start: 03-24-2024 End: 04-01-2024 Clinisync Result Encounter Wanda CARNES Work Phone: [facility] External Department Unsolicited Start: 03-24-2024 End: 03-25-2024 External Result Encounter Wanda CARNES Work Phone: [facility] External Department Unsolicited Start: 03-24-2024 End: 03-24-2024 ambulatory WANDA GALLARDO Not Available Start: 03-24-2024 End: 03-24-2024 Patient encounter procedure Wanda CARNES Work Phone: [facility] Start: 03-24-2024 End: 03-24-2024 Periodic preventive [...] End: 09-18-2023 ambulatory Mac Bhatt Facility:[facility] Start: 08-27-2023 ambulatory Mac Bhatt Facility:[facility] Start: 08-13-2023 End: 08-14-2023 ambulatory Mac Bhatt Facility:[facility] Start: 08-13-2023 End: 08-13-2023 ambulatory [facility] Work Phone: Start: 08-13-2023 End: 08-13-2023 Patient encounter procedure [facility] Work Phone: Start: 03-18-2023 End: 03-18-2023 ambulatory Aure Moss Other [employer] Other Start: 03-18-2023 Office outpatient vi sit 15 minutes Aure Moss [facility] Start: 10-04-2022 End: 10-04-2022 ambulatory Maricarmen Avila Other [employer] Other Start: 10-04-2022 Office outpatient vi sit 25 minutes Maricarmen Austin [facility] Start: 07-18-2022 End: 07-19-2022 ambulatory KIAN VERNELL . Facility:[facility] Start: 05-31-2022 End: 05-31-2022 ambulatory IRAIDA VANCE . Facility:[facility] Start: 02-13-2022 End: 02-13-2022 ambulatory Rona Harrison Other [employer] Other Start: 02-13-2022 Office outpatient vi sit 15 minutes Rona Shineault [facility] Start: 12-21-2021 (URG) Urgent Care Visit Maricarmen Avila [facility] Start: 12-21-2021 End: 12-21-2021 ambulatory Maricarmen Avila Other [employer] Other Start: 12-10-2021 End: 12-10-[address] MINI VERDE . 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 Carol Fede DO Work Phone: [...] Routine [facility] [address] [place] [id number] Carol Mistry, DO [address] [place] [address] [facility] Start: 07-13-2024 End: 07-13-2024 Patient encounter procedure [facility] Comment on above: Arrived Start: 06-30-2024 End: 06-30-2024 Patient encounter procedure 06/30/2024 11:30 AM EST Routine [facility] [address] [place] [phone] Wanda Gallardo PA [address] [place], [place] [id number] [facility] Start: 06-16-2024 End: 06-16-2024 Patient encounter procedure 06/16/2024 9:00 AM EST Routine [facility] [address] [place] [address] Carol Mistry, DO [address] [facility] [address] [place], [place] [id number] [facility] Start: 06-03-2024 End: 06-03-2024 Professional / ancillary services management 06/03/2024 1:00 PM EST Ancillary Procedure [facility] [address] [facility] [place] [address] [facility] Start: 06-01-2024 End: 06-01-2024 Patient encounter procedure 06/01/2024 10:10 AM EST Routine [facility] [address] [place] [address] Wanda Gallardo PA [address] [facility] [place] [address] Arrived [facility] Comment on above: Arrived Start: 04-21-2024 End: 04-21-2025 CBC panel - Blood by Automated count CBC Lab Routine Second trimester 23 weeks gestation of Expected: 04/21/2024 (Approximate), Expires: 04/21/2025 [facility] Work Phone: Comment on above: Expected: 04/21/2024 (Approximate), Expires: 04/21/2025 Start: 04-21-2024 End: 04-21-2025 Measurement of glucose 1 hour after glucose challenge for glucose tolerance test Glucose tolerance, 1 hour Lab Routine Second trimester 23 weeks gestation of Diabetes mellitus screening Expected: 04/21/2024 (Approximate), Expires: 04/21/2025 [facility] Comment on above: Expected: 04/21/2024 (Approximate), Expires: 04/21/2025 Start: 04-21-2024 End: 04-21-2024 Patient encounter procedure 04/21/2024 9:10 AM EST Routine [facility] [address] [facility] [place] [address] Carol Mistry, DO [address] [facility] [place] [address] [facility] Start: 03-24-2024 End: [...] AM EDT Routine [facility] [address] [facility] [place] [phone] Wanda Gallardo PA [address] [facility] [place] [address] [facility] Start: 02-20-2024 End: 02-20-2024 Patient encounter procedure 02/20/2024 9:50 AM EDT Routine [facility] [address] [facility] [place] [phone] Carol Mistry DO [address] [place] [address] [facility] Start: 01-31-2024 End: 01-30-2025 ABO/Rh ABO/Rh Lab Routine Missed menses Expected: 01/31/2024 (Approximate), Expires: 01/30/2025 [facility] Comment on above: Expected: 01/31/2024 (Approximate), Expires: 01/30/2025 Start: 01-31-2024 End: 09-06-2025 Blood type and Indirect antibody screen panel - Blood Type and screen Lab Routine Missed menses Expected: 01/31/2024 (Approximate), Expires: 01/30/2025 [facility] Work Phone: Comment on above: Expected: 01/31/2024 (Approximate), Expires: 01/30/2025 Start: 01-31-2024 End: 01-30-2025 US Pelvis transvaginal US OB transvaginal Imaging Routine Missed menses Expected: 01/31/2024 (Approximate), Expires: 01/30/2025 [facility] Comment on above: Expected: 01/31/2024 (Approximate), Expires: 01/30/2025 Start: 01-26-2024 Influenza vaccination Influenza Vacc ine (#1) [facility] Bacteria identified in Urine by Culture Urine culture Microbiology Routine Missed menses Ordered: 01/31/2024 [facility] Comment on above: Ordered: 01/31/2024 Bacteria identified in Urine by Culture Urine culture Microbiology Routine Urinary tract infection without hematuria, site unspecified Ordered: 06/30/2024 [facility] Work Phone: Comment on above: Ordered: 06/30/2024 CBC W Auto Different ial panel - Blood CBC and differential Lab Routine Missed menses Ordered: 01/31/2024 [facility] Comment on above: Ordered: 01/31/2024 CHLAMYDIA TRACHOMATI S (GENITO/STI) CHLAMYDIA TRACHOMATIS (GENITO/STI) Lab Routine Exposure to STD Ordered: 03/24/2024 [facility] Comment on above: Ordered: 03/24/2024 Cytology Cervical or vaginal smear or scraping study Pap Smear Pathology and Cytology Routine Well woman exam with routine gynecological exam Ordered: 03/24/2024 [facility] Comment on above: Ordered: 03/24/2024 Hemoglobin A1c/Hemoglobin.total in Blood Hemoglobin A1c Lab Routine Missed menses Ordered: 01/31/2024 [facility] Comment on above: Ordered: 01/31/2024 Hepatitis B virus surface Ag [Presence] in Serum or Plasma by Immunoassay Hepatitis B surface antigen Lab Routine Missed menses Ordered: 01/31/2024 [facility] Comment on above: Ordered: 01/31/2024 Hepatitis C virus Ab [Presence] in Serum or Plasma by Immunoassay Hepatitis C antibody Lab Routine Missed menses Ordered: 01/31/2024 [facility] Comment on above: Ordered: 01/31/2024 HIV-1/HIV-2 antigen/antibody combination immunoassay HIV-1 and HIV-2 antibodies Lab Routine Missed menses Ordered: 01/31/2024 [facility] Comment on above: Ordered: 01/31/2024 Neisseria gonorrhoea e DNA [Presence] in Unspecified specimen by REINIER with probe detection Neisseria gonorrhea DNA probe, direct Lab Routine Exposure to STD Ordered: 03/24/2024 [facility] Comment on above: Ordered: 03/24/2024 Reagin Ab [Presence] in Serum by RPR RPR Lab Routine Missed menses Ordered: 01/31/2024 [facility] Comment on above: Ordered: 01/31/2024 Rubella antibody, IgG Rubella an tibody, IgG Lab Routine Missed menses Ordered: 01/31/2024 [facility] Comment on above: Ordered: 01/31/2024 SURESWAB(R) ADVANCED VAGINITIS PLUS, TMA SURESWAB(R) ADVANCED VAGINITIS PLUS, TMA Pathology and Cytology Routine Exposure to STD Ordered: 03/24/2024 [facility] Work Phone: Comment on above: Ordered: 03/24/2024 [facility] Immunizations Immunization Date Immunization Notes Care Provider Nilo castillo 01-01-2002 diphtheria, tetanus toxoids and acellular pertussis vaccine, unspecified formulation Maricarmen Avila Other [facility] 01-01-2002 measles, mumps and rubella virus vaccine Maricarmen Avila Other [facility] 01-01-2002 poliovirus vaccine, inactivated Maricarmen Avila Other [employer] Other 01-01-2002 poliovirus vaccine, unspecified formulation [facility] 02-04-1998 diphtheria, tetanus toxoids and acellular pertussis vaccine, unspecified formulation Maricarmen Avila Other [facility] 02-04-1998 measles, mumps and rubella virus vaccine Maricarmen Avila Other [facility] 02-04-1998 trivalent poliovirus vaccine, live, oral Maricarmen Avila Other [facility] 04-27-1997 diphtheria, tetanus toxoids and pertussis vaccine Maricarmen Avila Other [facility] 04-27-1997 haemophilus influenz ae type b vaccine, conjugate unspecified formulation Maricarmen Avila Other [facility] 04-27-1997 hepatitis B vaccine, pediatric or pediatric/adolescent dosage Maricarmen Avila Other [facility] 01-16-1997 diphtheria, tetanus toxoids and pertussis vaccine Maricarmen Avila Other [facility] 01-16-1997 haemophilus influenz ae type b vaccine, conjugate unspecified formulation Maricarmen Avila Other [facility] 01-16-1997 trivalent poliovirus vaccine, live, oral Maricarmen Avila Other [facility] 1996 diphtheria, tetanus toxoids and pertussis vaccine Maricarmen Avila Other [facility] 1996 haemophilus influenz ae type b vaccine, conjugate unspecified formulation Maricarmen Avila Other [facility] 1996 hepatitis B vaccine, pediatric or pediatric/adolescent dosage Maricarmen Avila Other [facility] 1996 trivalent poliovirus vaccine, live, oral Maricarmen Avila Other [facility] 1996 hepatitis B vaccine, pediatric or pediatric/adolescent dosage Maricarmen Avila Other [facility] Payers Date Payer Category Payer Self-pay 2023 Medicaid [id number] 2022 Medicaid [id number] 1995 Unknown [id number] 2.16.84 [id number] 1996 Unknown [id number] 2.16.84 [id number] 1996 Unknown [id number] 2.16.84 [id number] 1996 Unknown [id number] 2.16.8 [id number] 1996 Unknown [id number] 2.16.8 [id number] 1996 Unknown [id number] 2.16.84 [id number] 1996 Unknown [id number] 2.16.84 [id number] 1996 Unknown [id number] 2.16.84 [id number] 1996 Unknown [id number] 2.16.84 [id number] 1996 Unknown [id number] 2.16.84 [id number] 1996 Unknown [id number] 2.16.84 [id number] 1996 Unknown [id number] 2.16.84 0.1.891526.3.579.2.9 1996 Unknown [id number] 2.16.84 [id number] 1959 Unknown [id number] Unknown [id number] 2.1 [id number] Unknown [id number] 2.16.8 [id number] Social History Date Type Detail Facility Unknown if ever smoked [facility] Other Start: 02-16-2023 End: 01-31-2024 Sex Assigned At [employer] Other Start: 08-13-2023 End: 04-13-2024 Tobacco smoking status NHIS Smoker (finding) [facility] Start: 1995 Sex Assigned At Female F [facility] Start: 02-16-2023 [facility] History of tobacco use Cigarette Smoker [facility] Start: 02-20-2024 End: 07-13-2024 Alcoholic beverage intake Current drinker of alcohol (finding) [facility] Start: 02-16-2023 End: 01-31-2024 History of Social function [facility] Start: 02-16-2023 Tobacco Comment Patient smokes 6-10 cigarettes/day after 60 minutes of waking up.Thinking about quitting. [facility] Start: 02-16-2023 Alcohol Comment 1 or 2 drinks on a typical day/monthly or less [facility] Start: 11-22-2023 [facility] Start: 1995 Sex assigned at Not on file N [facility] Start: 04-13-2024 End: 04-15-2024 Sex Female (finding) [facility] Start: 04-15-2024 Tobacco smoking stat [facility] Ex-smoker (finding) [facility] Clinical Notes 12-21-2021 to 07-13-2024 Samra Jordan, HAZARDOUS MATERIAL SPECIALIST - 07/13/2024 3:10 PM TRICE Saucedo - 06/30/2024 11:30 AM Hayden Rae HAZARDOUS MATERIAL SPECIALIST - 06/16/2024 9:00 AM TRICE Saucedo - [...] HISTORY Past Surgical History: Procedure Laterality Date ND MEDICATION MANAGEMENT 2013 Fludricortisone- neuro-cardiogenic syncope -JUAREZ ND MEDICATION MANAGEMENT antibiotic - bronchitis TONSILLECTOMY 2006 [...] Carol Mistry DO documented in this encounter [facility] 06-30-2024 History of Presen t illness [...] HISTORY Past Surgical History: Procedure Laterality Date ND MEDICATION MANAGEMENT 2013 Fludricortisone- neuro-cardiogenic syncope -JUAREZ ND MEDICATION MANAGEMENT antibiotic - bronchitis TONSILLECTOMY 2006 [...] of: TRICE López documented in this encounter [facility] 06-16-2024 History of Presen t illness Narrative Reason for Appointment: Patient ID: Chasity Huyhn is a 28 y.o. female who presents [...] HISTORY Past Surgical History: Procedure Laterality Date ND MEDICATION MANAGEMENT 2013 Fludricortisone- neuro-cardiogenic syncope -JUAREZ ND MEDICATION MANAGEMENT antibiotic - bronchitis TONSILLECTOMY 2006 [...] nursing note reviewed. Exam conducted with a grade foreman present. Vitals: Estimated body mass index is [...] Carol Mistry DO documented in this encounter [facility] 06-01-2024 History of Presen t illness [...] HISTORY Past Surgical History: Procedure Laterality Date ND MEDICATION MANAGEMENT 2013 Fludricortisone- neuro-cardiogenic syncope -JUAREZ ND MEDICATION MANAGEMENT antibiotic - bronchitis TONSILLECTOMY 2006 [...] of: TRICE López documented in this encounter [facility] 04-21-2024 History of Presen t illness [...] HISTORY Past Surgical History: Procedure Laterality Date ND MEDICATION MANAGEMENT 2013 Fludricortisone- neuro-cardiogenic syncope -JUAREZ ND MEDICATION MANAGEMENT antibiotic - bronchitis TONSILLECTOMY 2006 [...] nursing note reviewed. Exam conducted with a grade foreman present. Vitals: Estimated body mass index is [...] Carol Mistry DO documented in this encounter [facility] 04-13-2024 Evaluation note Diagnosis Onset Date Resolution Viral URI with cough acute Nove mbavel 2023 9:10am Contact with or suspected exposure to severe acute respiratory syndrome noneactive April 132023 9:10am Sore throat noneactive March 9:10am Viral URI with cough acute Mare 2023 4:00pm [facility] Work Phone: 1(131) 974-286710-29-2024 History of Present illness Narrative* TRICE López [...] HISTORY Past Surgical History: Procedure Laterality Date ND MEDICATION MANAGEMENT 2013 Fludricortisone- neuro-cardiogenic syncope -JUAREZ ND MEDICATION MANAGEMENT antibiotic - bronchitis TONSILLECTOMY 2006 [...] nursing note reviewed. Exam conducted with a grade foreman present. Vitals: Estimated body mass index is [...] behalf of: TRICE López [facility] [id number] History of Present illness Narrative* Samra Jordan, HAZARDOUS MATERIAL SPECIALIST - 02/20/2024 9:50 AM EDT Reason for [...] HISTORY Past Surgical History: Procedure Laterality Date ND MEDICATION MANAGEMENT 2014 Fludricortisone- neuro-cardiogenic syncope -JUAREZ ND MEDICATION MANAGEMENT antibiotic - bronchitis TONSILLECTOMY 2006 [...] nursing note reviewed. Exam conducted with a grade foreman present. Vitals: Estimated body mass index is [...] or undercooked meat, and [facility]. Patient has been consulted regarding any further [...] of: Carol Mistry DO documented [facility] [id number] History of Present illness Narrative* Carolaydin Mcdowell [...] Never Past Surgical History: Procedure Laterality Date ND MEDICATION MANAGEMENT 2013 Fludricortisone- neuro-cardiogenic syncope -JUAREZ ND MEDICATION MANAGEMENT antibiotic - bronchitis TONSILLECTOMY 2006 [...] or undercooked meat, and [facility] away from [facility]. Patient has also been advised to not [...] Completed by: Carol Mcdowell documented in this encounterJohn [facility] [id number] Evaluation note* Encounter Date Diagnosis Assessment Notes [...] Suspected COVID-19 virus infection (ICD-10 - Z20.822) [facility] Other 05-11-2023 Evaluation note* Encounter Date Diagnosis [...] treatment plan. Patient left in stable condition. [facility] Other 09-20-2022 Evaluation note* Encounter Date Diagnosis [...] weeks for the cough to go away [facility] Other 07-28-2022 Evaluation note* Encounter Date Diagnosis [...] understanding and is agreeable with treatment plan [facility] Other Evaluation noteNo assessment information available [facility] Work Phone: Evaluation note* Diagnosis Well woman [...] 132023 9:10am Sore throat noneactive March 9:10am [facility] Work Phone: Evaluation note* Diagnosis Second trimester [...] Surgical History appendectomy Hospitalization History see above [facility] Other Summary Purpose Family History No Family [...] DATE CREATED AUTHOR AUTHOR'S ORGANIZ ATION 09/19/2023 [facility] DATE CREATED AUTHOR AUTHOR'S ORGANIZ ATION 05/10/2024 [facility] DATE CREATED AUTHOR AUTHOR'S ORGANIZ ATION 07/14/2024 [facility] EPIC Care Teams (unrecognized sec [...] April 15, 2024 End: April 15, 2024 Desktop Support Technician Relationship Specialty Start Date End Date Carol Mistry, DO [address] [place] [address] [facility] 05/27/24 Desktop Support Technician Relationship Specialty Start Date End Date Carol Mistry, DO [address] [place] [address] [facility] 05/27/24 Desktop Support Technician Relationship Specialty Start Date End Date Carol Mistry, DO [address] [place] [address] [facility] 05/27/24 Goals (unrecognized section and content) [...] BE BASED ON THE PRIMARY CLINICAL RECORDS. [facility]. provides no warranty or guarantee of the accuracy or completeness of information in this document.
[2024-07-23 02:57] LABS: Bilirubin Urine NEGATIVE (NEGATIVE); Blood Urine NEGATIVE (NEGATIVE); Clarity Urine CLEAR (CLEAR); Color Urine LT. YELLOW (YELLOW); Glucose Urine UA NEGATIVE (NEGATIVE); Ketones Urine NEGATIVE (NEGATIVE); Leukocyte Esterase Urine NEGATIVE (NEGATIVE); Nitrite Urine NEGATIVE (NEGATIVE); Protein Urine NEGATIVE (NEG/TRACE); Urobilinogen Urine 0.2 EU/dL (0.2-1.0)
[2024-07-23 03:00] LABS: Urine Microscopic Indicated NO
[2024-07-23 03:05] LABS: Amnisure NEGATIVE (NEGATIVE); Internal Control Within Normal Limits
[2024-07-23] MEDS: 0.9 % SODIUM CHLORIDE 1,000 ML 125 ML IV (08:10)
[2024-07-23 08:41] LABS: Amphetamine Screen Urine NEGATIVE (NEGATIVE); Barbiturates Screen Urine NEGATIVE (NEGATIVE); Benzodiazepines Screen Urine NEGATIVE (NEGATIVE); Buprenorphine Screen Urine NEGATIVE (NEGATIVE); Cannabinoid Screen Urine POSITIVE (NEGATIVE); Cocaine Screen Urine NEGATIVE (NEGATIVE); Methadone Screen Urine NEGATIVE (NEGATIVE); Methamphetamines Screen Urine NEGATIVE (NEGATIVE); Opiate Screen Urine NEGATIVE (NEGATIVE); Oxycodone Screen Urine NEGATIVE (NEGATIVE); Phencyclidine Screen Urine NEGATIVE (NEGATIVE); Tricyclic Antidepressant Urine NEGATIVE (NEGATIVE)
[2024-07-23 08:42] LABS: Hematocrit 32.4 % (36.0-48.0); Hemoglobin 11.5 g/dL (12.0-16.0); Mean Corpuscular HGB Conc 35.5 g/dL (29.9-35.2); Mean Corpuscular Hemoglobin 31.3 pg (26.7-34.0); Mean Corpuscular Volume 88.3 fL (81.0-99.0); Mean Platelet Volume 12.2 fL (9.5-13.5); Platelet Count 151 10^3/uL (150-450); Red Blood Count 3.67 10^6/uL (4.20-5.40); Red Cell Distribution Width 12.1 % (11.0-15.0); White Blood Count 9.6 10^3/uL (4.0-11.0)
[2024-07-23] MEDS: AMPICILLIN SODIUM 2,000 MG in 0.9 % SODIUM CHLORIDE 100 ML 200 MG IV (09:01)
[2024-07-23] MEDS: OXYTOCIN/0.9 % SODIUM CHLORIDE 10 UNITS/500 ML PLAST..BAG 6 UNIT IV (09:06)
[2024-07-23] MEDS: ONDANSETRON PF 4 MG/2 ML VIAL IV ×2 (09:33→17:20)
[2024-07-23] MEDS: ROPIVACAINE HCL/PF 400 MG/200 ML PREMIX 6 MG EPIDURAL (10:04)
[2024-07-23] MEDS: 0.9 % SODIUM CHLORIDE 1,000 ML 1000 ML IV (10:23)
[2024-07-23] MEDS: OXYTOCIN/0.9 % SODIUM CHLORIDE 20 UNITS/1,000 ML PLAST..BAG 125 UNIT IV (13:39)
--- NOTE | 2024-07-23 13:42 | PM.OBPRCVD ---
Procedure Intrapartal events: None Induction method: none Delivery augmentation: rupture of membranes and pitocin Delivery monitor: external FHT and external uterine Route of delivery: Episiotomy Description: none L&D Laceration Description: none Estimated blood loss (mL): 250 Anesthesia type: Epidural Disposition: floor Delivery date: 07/23/24 Gender: female presentation: vertex Placental delivery description: Spontaneous cord description: 3 Vessels and Nuchal Cord
[2024-07-23] MEDS: IBUPROFEN 600 MG TABLET PO ×2 (15:12→21:27)
[2024-07-23] MEDS: ACETAMINOPHEN 325 MG TABLET 650 MG PO (17:31)
[2024-07-24] MEDS: ACETAMINOPHEN 325 MG TABLET 650 MG PO ×3 (02:02→20:38)
[2024-07-24] MEDS: IBUPROFEN 600 MG TABLET PO ×2 (06:28→16:44)
[2024-07-24 06:54] LABS: Basophils Percent Auto 0.2 % (0.2-2.0); Eosinophils Absolute Auto 0.2 10^3/uL (0.0-0.7); Eosinophils Percent Auto 1.2 % (0.9-7.0); Hematocrit 30.2 % (36.0-48.0); Hemoglobin 10.7 g/dL (12.0-16.0); Immature Granulocytes Abs Auto 0.09 10^3/uL (0.00-0.03); Immature Granulocytes Pct Auto 0.7 % (0.0-0.5); Lymphocytes Absolute Auto 2.8 10^3/uL (1.2-3.8); Lymphocytes Percent Auto 21.2 % (20.5-60.0); Mean Corpuscular HGB Conc 35.4 g/dL (29.9-35.2); Mean Corpuscular Volume 90.4 fL (81.0-99.0); Mean Platelet Volume 12.4 fL (9.5-13.5); Monocytes Percent Auto 7.3 % (1.7-12.0); Neutrophils Absolute Auto 9.1 10^3/uL (1.4-6.5); Neutrophils Percent Auto 69.4 % (43.0-75.0); Platelet Count 141 10^3/uL (150-450); Red Blood Count 3.34 10^6/uL (4.20-5.40); Red Cell Distribution Width 12.4 % (11.0-15.0); White Blood Count 13.1 10^3/uL (4.0-11.0)
[2024-07-24] MEDS: DOCUSATE SODIUM 100 MG CAPSULE PO (09:26)
[2024-07-24 09:47] VITALS: BP 115/77; PULSE 77; TEMP 36.4
--- NOTE | 2024-07-24 10:08 | SWNOTE1 ---
SW consulted due to positive THC drug screen on admission. SW spoke to nurse, no other concerns at this time. SW met with pt. Pt's mother in room as well. Pt gave permission to SW to talk about anything in front of her mother. Father of baby sleeping on couch as well. Pt does have everything she needs at home for baby. She did use WIC for one of her other children, does not need for this baby. Pt voiced she has good support at home and that she is feeling alright at this time. Pt is and voiced it is going well. SW did ask her about the positive drug screen on admission. Pt voiced she did it for pain management, ate gummies. She does not have medical marijuana card and she does not plan on continuing use. She did voice that doctor was aware of THC and that she did not want to take a bunch of pills like Tylenol. Pt also has a 7 year old daughter and 9 year old daughter. ROBERT did advise pt that SW is mandated roving court reporter and has to make report to CPS. ROBERT advised that they could open a case and do home visit/drug screen. She voiced understanding. No further questions at this time. ROBERT updated nursing. Pt caring for baby appropriately. ROBERT made referral to [facility] CPS. HIPAA form completed and sent to
--- NOTE | 2024-07-24 11:45 | P.OBPN_ITS ---
OB - PN: Subj Subjective Patient comments: no complaints and pain well controlled [place] status: doing well Exam Constitutional Vital Signs, click to edit/add: Last Vital Signs Temp 97.5 F L 07/24/24 09:47 Pulse 77 07/24/24 09:47 Resp 16 07/23/24 23:40 BP 115/77 07/24/24 09:47 O2 Del Method Room Air 07/24/24 09:45 Documenting provider has reviewed patient's vital signs: yes Common normals: no apparent distress Respiratory Common normals: normal respiratory effort and clear to auscultation bilaterally Cardio Common normals: regular rate and regular rhythm GI Common normals: Normal to inspection, nondistended, normoactive bowel sounds present Extremity Common normals: no clubbing, cyanosis or edema and no calf tenderness Results Labs Labs: Short CBC 07/24/24 Range/Units 06:08 WBC 13.1 H (4.0-11.0) 10^3/uL Hgb 10.7 L (12.0-16.0) g/dL Hct 30.2 L (36.0-48.0) % Plt Count 141 L (150-450) 10^3/uL Urinary Catheter Management Urinary Catheter Management Urethral: Cath placed during this visit: yes, but has since been removed by the nurse Removal date: 07/23/24 Removal time: 13:30 OB - PN: A/P Plan - Vaginal Delivery day: 1 Plan: routine care Time Spent with Patient Time: Total time spent is greater than 50% in coordination of care (as documented) at patient's floor/unit and/or counseling patient: Total time spent with greater than 50% in coordination of care (as documented) at patient's floor/unit and/or counseling patient: less than 15 minutes
[2024-07-24 15:46] VITALS: BP 111/59; PULSE 71
[2024-07-24] MEDS: RHO(D) IMMUNE GLOBULIN 1,500 UNIT SYRINGE 1500 UNIT IV (15:59)
[2024-07-24 23:31] VITALS: BP 122/69; PULSE 86; TEMP 35.9
[2024-07-25] MEDS: IBUPROFEN 600 MG TABLET PO ×2 (06:04→12:00)
[2024-07-25 09:00] VITALS: BP 135/72; PULSE 88; TEMP 36.9
[2024-07-25 09:05] VITALS: BP 135/72; PULSE 88
--- NOTE | 2024-07-25 09:35 | PC.NURSE ---
given teaching folder and reviewed contents, discussed dc needs
--- NOTE | 2024-07-25 10:26 | P.OBPN_ITS ---
OB - PN: Subj Subjective Patient comments: no complaints and pain well controlled [place] status: doing well Exam Constitutional Vital Signs, click to edit/add: Last Vital Signs Temp 98.5 F 07/25/24 09:00 Pulse 88 07/25/24 09:05 Resp 16 07/25/24 09:00 BP 135/72 07/25/24 09:05 O2 Del Method Room Air 07/25/24 09:00 Documenting provider has reviewed patient's vital signs: yes Common normals: no apparent distress Respiratory Common normals: normal respiratory effort and clear to auscultation bilaterally Cardio Common normals: regular rate and regular rhythm GI Common normals: Normal to inspection, nondistended, normoactive bowel sounds present Extremity Common normals: no calf tenderness and no pedal edema Urinary Catheter Management Urinary Catheter Management Urethral: Cath placed during this visit: yes, but has since been removed by the nurse Removal date: 07/23/24 Removal time: 13:30 OB - PN: A/P Plan - Vaginal Delivery day: 2 Plan: routine care, discharge home and follow up 6 weeks Time Spent with Patient Time: Total time spent is greater than 50% in coordination of care (as documented) at patient's floor/unit and/or counseling patient: Total time spent with greater than 50% in coordination of care (as documented) at patient's floor/unit and/or counseling patient: less than 15 minutes
[2024-07-27 12:09] LABS: Cannabinoid Positive (.); Carboxy THC Conf, MS, UR 187 ng/mL (Cutoff=10)
== END 2024-07-25 12:50 | disposition home or self-care (01) | DRG 560 ==
PROVIDERS: Admitting Provider Obstetrics & Gynecology; Visit Provider Obstetrics & Gynecology
DX: O69.81X0 Labor and delivery complicated by cord around neck, without compression, not applicable or unspecified (principal); O99.324 Drug use complicating childbirth; F12.90 Cannabis use, unspecified, uncomplicated; O99.334 Smoking (tobacco) complicating childbirth; F17.210 Nicotine dependence, cigarettes, uncomplicated; Z3A.36 36 weeks gestation of pregnancy; Z37.0 Single live birth; O26.893 Other specified pregnancy related conditions, third trimester; Z67.41 Type O blood, Rh negative
CPT/HCPCS: 36415; 59050; 59410; 80307; 80349; 81003; 84112; 85025; 85027; 85461; 86850; 86900; 86901; 87081; J0290; J2405; J2791; J2795